=== PATIENT | female | born 1955 | race American Indian/Alaskan Native ===

== ENCOUNTER 2018-09-08 13:10 | Emergency (ER) | payer MEDICARE ==
[2018-09-08 14:24] LABS: Basophils # (Auto) 0.1 K/mm3 (0.0-0.1); Basophils % (Auto) 0.9 % (0.0-1.8); Eosinophils # (Auto) 0.2 K/mm3 (0.0-0.4); Eosinophils % (Auto) 1.7 % (0.0-4.3); Hematocrit 34.2 % (30.3-42.9); Hemoglobin 11.2 gm/dl (10.1-14.3); Lymphocytes # (Auto) 1.9 K/mm3 (1.2-5.4); Lymphocytes % (Auto) 20.9 % (13.4-35.0); Mean Corpuscular HGB Conc 33 % (30-34); Mean Corpuscular Hemoglobin 28 pg (28-32); Mean Corpuscular Volume 86 fl (79-97); Monocytes # (Auto) 0.5 K/mm3 (0.0-0.8); Monocytes % (Auto) 5.1 % (0.0-7.3); Platelet Count 210 K/mm3 (140-440); Red Blood Count 3.97 M/mm3 (3.65-5.03)
[2018-09-08 14:43] LABS: Calcium 9.6 mg/dL (8.4-10.2)
[2018-09-08 15:26] LABS: Bilirubin,Urine NEG (Negative); Blood,Urine SM (Negative); Color,Urine Yellow (Yellow); Urobilinogen,Urine < 2.0 mg/dL (<2.0)
[2018-09-08 15:27] LABS: Protein,Urine >500 mg/dL (Negative)
[2018-09-08 15:34] LABS: Amphetamine Screen,Urine PRESUMPTIVE NEGATIVE; Benzodiazepines Screen,Urine PRESUMPTIVE NEGATIVE; Cannabinoid Screen,Urine PRESUMPTIVE NEGATIVE; Cocaine Screen,Urine PRESUMPTIVE NEGATIVE; Methadone Screen,Urine PRESUMPTIVE NEGATIVE; Opiate Screen,Urine PRESUMPTIVE NEGATIVE
--- NOTE | 2018-09-08 17:48 | Emergency Department Report ---
ED Medical Clearance HPI - General Chief complaint: Psych Stated complaint: EVAL Time Seen by Provider: 09/08/18 17:21 Source: patient, RN notes reviewed, old records reviewed Mode of arrival: Ambulatory Limitations: No Limitations - History of Present Illness Initial comments: This is a pleasant 63-year-old female who is not known to this provider previously, has a past medical history of psychiatric disease, retention, high cholesterol. Presents to the ER with anxiety and depression. She is not homicidal or suicidal. She indicates that she has not tried to overdose, and that she does not have access to guns or firearms. She went to an outpatient psychiatric facility but was referred to the ER for medical clearance. She has chronic back pain which is paralumbar, present for one month, does not radiate anywhere, and increases with palpation and decreases with rest. There is no lower extremity weakness, numbness, bladder/bowel retention or incontinence, there is no saddle anesthesia. The patient endorses compliance with her medications. MD Complaint: medical clearance request -: Gradual Reason for Medical Clearance: psychiatric condition Alledged Intoxication: No Compliant with Home Medications: Yes Traumatic Symptoms: denies traumatic injury Associated Symptoms: other (depression, anxiety, chronic back pain). denies: chest pain, shortness of breath, palpitations, diaphoresis, denies other symptoms, confusion, cough, fever/chills, headaches, anorexia, malaise, nausea/ vomiting, rash, seizure, syncope, weakness Home medications: Home Medications Medication Instructions Recorded Confirmed Last Taken Quetiapine Fumarate [Seroquel] 100 mg PO QHS 07/07/15 07/08/15 Unknown ARIPiprazole [Abilify TAB] 5 mg PO DAILY 07/08/15 07/08/15 Unknown Divalproex ER [Depakote ER] 500 mg PO QHS 07/08/15 07/08/15 Unknown Insulin Aspart Prot/Aspart(Nf) 25 units SQ QHS 07/08/15 07/08/15 Unknown [NovoLOG Mix 70/30 VIAL] Insulin Detemir [Levemir VIAL] 25 unit SQ QHS 07/08/15 07/08/15 Unknown Losartan [Cozaar] 10 mg PO QDAY 07/08/15 07/08/15 Unknown Previous Rx's Medication Instructions Recorded Last Taken Type levoFLOXacin [Levaquin TAB] 750 mg PO QDAY #10 tablet 07/09/15 Unknown Rx Allergies/Adverse reactions: Allergies Allergy/AdvReac Type Severity Reaction Status Date / Time promethazine HCl Allergy Shortness Verified 11/29/15 15:40 [From Phenergan] of Breath ED Review of Systems ROS: Stated complaint: MH EVAL Other details as noted in HPI Constitutional: denies: fever Eyes: denies: eye discharge ENT: denies: epistaxis Respiratory: denies: cough Cardiovascular: denies: chest pain Gastrointestinal: denies: abdominal pain Genitourinary: denies: dysuria Musculoskeletal: back pain Neurological: denies: weakness Psychiatric: anxiety, depression. denies: homicidal thoughts, suicidal thoughts ED Past Medical Hx - Past Medical History Hx Hypertension: Yes Hx Diabetes: Yes Hx Seizures: Yes Hx Psychiatric Treatment: (bipolar-effective,DD,OCD) Additional medical history: CHRONIC BACK PAIN - Surgical History Hx Appendectomy: Yes Additional Surgical History: achilles tendon repair left foot. TMJ. tubal ligation - Social History Smoking Status: Current Every Day Smoker Substance Use Type: None - Medications Home Medications: Home Medications Medication Instructions Recorded Confirmed Last Taken Type Quetiapine Fumarate [Seroquel] 100 mg PO QHS 07/07/15 07/08/15 Unknown History ARIPiprazole [Abilify TAB] 5 mg PO DAILY 07/08/15 07/08/15 Unknown History Divalproex ER [Depakote ER] 500 mg PO QHS 07/08/15 07/08/15 Unknown History Insulin Aspart Prot/Aspart(Nf) 25 units SQ QHS 07/08/15 07/08/15 Unknown History [NovoLOG Mix 70/30 VIAL] Insulin Detemir [Levemir VIAL] 25 unit SQ QHS 07/08/15 07/08/15 Unknown History Losartan [Cozaar] 10 mg PO QDAY 07/08/15 07/08/15 Unknown History levoFLOXacin [Levaquin TAB] 750 mg PO QDAY #10 tablet 07/09/15 Unknown Rx ED Physical Exam - General Limitations: No Limitations General appearance: alert, in no apparent distress - Head Head exam: Present: atraumatic, normocephalic - Eye Eye exam: Present: normal appearance, EOMI. Absent: nystagmus - ENT ENT exam: Present: normal exam, normal orophraynx, mucous membranes moist, normal external ear exam - Neck Neck exam: Present: normal inspection, full ROM. Absent: tenderness, meningismus - Respiratory Respiratory exam: Present: normal lung sounds bilaterally. Absent: respiratory distress - Cardiovascular Cardiovascular Exam: Present: regular rate, normal rhythm, normal heart sounds. Absent: bradycardia, tachycardia, irregular rhythm, systolic murmur, diastolic murmur, rubs, gallop - GI/Abdominal GI/Abdominal exam: Present: soft, normal bowel sounds. Absent: distended, tenderness, guarding, rebound, rigid, pulsatile mass - Extremities Exam Extremities exam: Present: normal inspection, full ROM, normal capillary refill , other (2+ pulses noted in the bilateral upper, lower extremities. Compartments soft. No long bony tenderness. The pelvis is stable.). Absent: tenderness, pedal edema, joint swelling, calf tenderness - Back Exam Back exam: Present: normal inspection, full ROM, paraspinal tenderness. Absent : tenderness, CVA tenderness (R), vertebral tenderness - Neurological Exam Neurological exam: Present: alert, oriented X3, CN II-XII intact, normal gait, other (Extraocular movements intact. Tongue midline. No facial droop. Facial sensation intact to light touch in the V1, V2, V3 distribution bilaterally. 5 and 5 strength in 4 extremities.. Sensation is intact to light touch in 4 extremities.). Absent: motor sensory deficit - Psychiatric Psychiatric exam: Present: anxious. Absent: homicidal ideation, suicidal ideation - Skin Skin exam: Present: warm, dry, intact, normal color. Absent: rash ED Course Vital Signs 09/08/18 09/08/18 13:34 17:13 Temperature 98.5 F 98.1 F Pulse Rate 87 88 Respiratory 16 18 Rate Blood Pressure 170/94 Blood Pressure 157/84 [Right] O2 Sat by Pulse 99 99 Oximetry ED Medical Decision Making - Lab Data Result diagrams: 09/08/18 14:07 09/08/18 13:52 Vital Signs 09/08/18 09/08/18 13:34 17:13 Temperature 98.5 F 98.1 F Pulse Rate 87 88 Respiratory 16 18 Rate Blood Pressure 170/94 Blood Pressure 157/84 [Right] O2 Sat by Pulse 99 99 Oximetry Lab Results 09/08/18 09/08/18 09/08/18 Range/Units 13:44 13:52 13:52 WBC (4.5-11.0) K/mm3 RBC (3.65-5.03) M/mm3 Hgb (10.1-14.3) gm/dl Hct (30.3-42.9) % MCV (79-97) fl MCH (28-32) pg MCHC (30-34) % RDW (13.2-15.2) % Plt Count (140-440) K/mm3 Lymph % (Auto) (13.4-35.0) % [place] % (Auto) (0.0-7.3) % Eos % (Auto) (0.0-4.3) % Baso % (Auto) (0.0-1.8) % Lymph # (1.2-5.4) K/mm3 [place] # (0.0-0.8) K/mm3 Eos # (0.0-0.4) K/mm3 Baso # (0.0-0.1) K/mm3 Seg Neutrophils % (40.0-70.0) % Seg Neutrophils # (1.8-7.7) K/mm3 Sodium 135 L (137-145) mmol/L Potassium 4.9 (3.6-5.0) mmol/L Chloride 101.4 (98-107) mmol/L Carbon Dioxide 23 (22-30) mmol/L Anion Gap 19 mmol/L BUN 31 H (7-17) mg/dL Creatinine 1.5 H (0.7-1.2) mg/dL Estimated GFR 43 ml/min BUN/Creatinine Ratio 21 % Glucose 366 H (65-100) mg/dL Calcium 9.6 (8.4-10.2) mg/dL Total Creatine Kinase (30-135) units/L Urine Color (Yellow) Urine Turbidity (Clear) Urine pH (5.0-7.0) Ur Specific [place] (1.003-1.030) Urine Protein (Negative) mg/dL Urine Glucose (UA) (Negative) mg/dL Urine Ketones (Negative) mg/dL Urine Blood (Negative) Urine Nitrite (Negative) Urine Bilirubin (Negative) Urine Urobilinogen (<2.0) mg/dL Ur Leukocyte Esterase (Negative) Urine WBC (Auto) (0.0-6.0) /HPF Urine RBC (Auto) (0.0-6.0) /HPF U Epithel Cells (Auto) (0-13.0) /HPF Salicylates < 0.3 L (2.8-20.0) mg/dL Urine Opiates Screen Urine Methadone Screen Acetaminophen < 5.0 L (10.0-30.0) ug/mL Ur Barbiturates Screen Valproic Acid (50-100) ug/mL Ur Phencyclidine Scrn Ur Amphetamines Screen U Benzodiazepines Scrn Urine Cocaine Screen U Marijuana (THC) Screen Drugs of Abuse Note Plasma/Serum Alcohol (0-0.07) % 09/08/18 09/08/18 09/08/18 Range/Units 13:52 14:07 15:06 WBC 9.2 (4.5-11.0) K/mm3 RBC 3.97 (3.65-5.03) M/mm3 Hgb 11.2 (10.1-14.3) gm/dl Hct 34.2 (30.3-42.9) % MCV 86 (79-97) fl MCH 28 (28-32) pg MCHC 33 (30-34) % RDW 14.0 (13.2-15.2) % Plt Count 210 (140-440) K/mm3 Lymph % (Auto) 20.9 (13.4-35.0) % [place] % (Auto) 5.1 (0.0-7.3) % Eos % (Auto) 1.7 (0.0-4.3) % Baso % (Auto) 0.9 (0.0-1.8) % Lymph # 1.9 (1.2-5.4) K/mm3 [place] # 0.5 (0.0-0.8) K/mm3 Eos # 0.2 (0.0-0.4) K/mm3 Baso # 0.1 (0.0-0.1) K/mm3 Seg Neutrophils % 71.4 H (40.0-70.0) % Seg Neutrophils # 6.6 (1.8-7.7) K/mm3 Sodium (137-145) mmol/L Potassium (3.6-5.0) mmol/L Chloride (98-107) mmol/L Carbon Dioxide (22-30) mmol/L Anion Gap mmol/L BUN (7-17) mg/dL Creatinine (0.7-1.2) mg/dL Estimated GFR ml/min BUN/Creatinine Ratio % Glucose (65-100) mg/dL Calcium (8.4-10.2) mg/dL Total Creatine Kinase (30-135) units/L Urine Color Yellow (Yellow) Urine Turbidity Clear (Clear) Urine pH 5.0 (5.0-7.0) Ur Specific [place] 1.017 (1.003-1.030) Urine Protein >500 (Negative) mg/dL Urine Glucose (UA) >=500 (Negative) mg/dL Urine Ketones Neg (Negative) mg/dL Urine Blood Sm (Negative) Urine Nitrite Neg (Negative) Urine Bilirubin Neg (Negative) Urine Urobilinogen < 2.0 (<2.0) mg/dL Ur Leukocyte Esterase Neg (Negative) Urine WBC (Auto) 3.0 (0.0-6.0) /HPF Urine RBC (Auto) 6.0 (0.0-6.0) /HPF U Epithel Cells (Auto) < 1.0 (0-13.0) /HPF Salicylates (2.8-20.0) mg/dL Urine Opiates Screen Urine Methadone Screen Acetaminophen (10.0-30.0) ug/mL Ur Barbiturates Screen Valproic Acid (50-100) ug/mL Ur Phencyclidine Scrn Ur Amphetamines Screen U Benzodiazepines Scrn Urine Cocaine Screen U Marijuana (THC) Screen Drugs of Abuse Note Plasma/Serum Alcohol < 0.01 (0-0.07) % 09/08/18 09/08/18 09/08/18 Range/Units 15:06 17:47 17:47 WBC (4.5-11.0) K/mm3 RBC (3.65-5.03) M/mm3 Hgb (10.1-14.3) gm/dl Hct (30.3-42.9) % MCV (79-97) fl MCH (28-32) pg MCHC (30-34) % RDW (13.2-15.2) % Plt Count (140-440) K/mm3 Lymph % (Auto) (13.4-35.0) % [place] % (Auto) (0.0-7.3) % Eos % (Auto) (0.0-4.3) % Baso % (Auto) (0.0-1.8) % Lymph # (1.2-5.4) K/mm3 [place] # (0.0-0.8) K/mm3 Eos # (0.0-0.4) K/mm3 Baso # (0.0-0.1) K/mm3 Seg Neutrophils % (40.0-70.0) % Seg Neutrophils # (1.8-7.7) K/mm3 Sodium (137-145) mmol/L Potassium (3.6-5.0) mmol/L Chloride (98-107) mmol/L Carbon Dioxide (22-30) mmol/L Anion Gap mmol/L BUN (7-17) mg/dL Creatinine (0.7-1.2) mg/dL Estimated GFR ml/min BUN/Creatinine Ratio % Glucose (65-100) mg/dL Calcium (8.4-10.2) mg/dL Total Creatine Kinase 108 (30-135) units/L Urine Color (Yellow) Urine Turbidity (Clear) Urine pH (5.0-7.0) Ur Specific [place] (1.003-1.030) Urine Protein (Negative) mg/dL Urine Glucose (UA) (Negative) mg/dL Urine Ketones (Negative) mg/dL Urine Blood (Negative) Urine Nitrite (Negative) Urine Bilirubin (Negative) Urine Urobilinogen (<2.0) mg/dL Ur Leukocyte Esterase (Negative) Urine WBC (Auto) (0.0-6.0) /HPF Urine RBC (Auto) (0.0-6.0) /HPF U Epithel Cells (Auto) (0-13.0) /HPF Salicylates (2.8-20.0) mg/dL Urine Opiates Screen Presumptive negative Urine Methadone Screen Presumptive negative Acetaminophen (10.0-30.0) ug/mL Ur Barbiturates Screen Presumptive negative Valproic Acid < 2.8 L (50-100) ug/mL Ur Phencyclidine Scrn Presumptive negative Ur Amphetamines Screen Presumptive negative U Benzodiazepines Scrn Presumptive negative Urine Cocaine Screen Presumptive negative U Marijuana (THC) Screen Presumptive negative Drugs of Abuse Note Disclamer Plasma/Serum Alcohol (0-0.07) % - Medical Decision Making Differential diagnosis, including but not limited to: Depression, anxiety, mechanical back pain, medical clearance for psychiatric placement Assessment and plan: 63-year-old female with chronic back pain, walks with a steady gait, no pulsatile abdominal mass, no strength or sensory deficits, history and physical not consistent with AAA, or epidural compression syndrome. She is not homicidal, she is not suicidal, she has a GCS of 15 with an NIH score of 0 and is clinically sober at this time. When questioned about her endorsement of suicidality without a plan, she reports that she was suicidal when she was younger but not today. The patient was seen in conjunction with the crisis team who agreed with myself and patient does not meet 1013 criteria. Patient is interested in voluntary psychiatric hospitalization and at this point in time does not appear to be an immediate medical contraindication to this. Her mild renal insufficiency is appreciated, and she can follow up with an outpatient primary care doctor or skimmer scoop operator for this. ED Disposition Clinical Impression: Medical clearance for psychiatric admission, Renal insufficiency, mild Disposition: DC-01 TO HOME OR SELFCARE Is pt being admited?: No Does the pt Need Aspirin: No Condition: Good Additional Instructions: Please continue current outpatient medications. Avoid consumption of Motrin, ibuprofen, Naprosyn, Aleve. Please note that laboratory studies demonstrated mild kidney/renal insufficiency, as well as elevated blood pressure. Patient should follow-up with a primary care doctor or skimmer scoop operator within the next 2-3 weeks for these aforementioned abnormalities. At this point in time, there does not appear to be an immediate medical contraindication to psychiatric admission, evaluation and consultation. Please return to the ER right away with new, worsening or different symptoms. Referrals: DARRON GRAY MD [Staff Physician] - 3-5 Days [facility] [Provider Group] - 3-5 Days
[2018-09-08 20:51] VITALS: BP 127/57
== END 2018-09-08 20:51 | disposition home or self-care (01) ==
LOC: ED 13:10
DX: N28.9 Disorder of kidney and ureter, unspecified (principal); I10 Essential (primary) hypertension; E11.9 Type 2 diabetes mellitus without complications; F31.9 Bipolar disorder, unspecified; F17.200 Nicotine dependence, unspecified, uncomplicated; E78.00 Pure hypercholesterolemia, unspecified; Z98.51 Tubal ligation status; Z90.49 Acquired absence of other specified parts of digestive tract
CPT/HCPCS: 36415; 80048; 80164; 80307; 81001; 82550; 85025; 99284; G0480; 80320

== ENCOUNTER 2019-07-27 09:19 | Emergency (ER) | payer MEDICARE ==
[2019-07-27 10:24] LABS: Calcium 9.5 mg/dL (8.4-10.2)
[2019-07-27 10:26] LABS: Basophils % (Auto) 0.3 % (0.0-1.8); Eosinophils # (Auto) 0.2 K/mm3 (0.0-0.4); Eosinophils % (Auto) 1.8 % (0.0-4.3); Hematocrit 33.8 % (30.3-42.9); Hemoglobin 10.6 gm/dl (10.1-14.3); Lymphocytes % (Auto) 14.4 % (13.4-35.0); Mean Corpuscular HGB Conc 31 % (30-34); Mean Corpuscular Volume 86 fl (79-97); Monocytes # (Auto) 0.5 K/mm3 (0.0-0.8); Monocytes % (Auto) 3.8 % (0.0-7.3); Platelet Count 260 K/mm3 (140-440); Red Blood Count 3.93 M/mm3 (3.65-5.03); Red Cell Distribution Width 13.7 % (13.2-15.2)
[2019-07-27 10:35] LABS: Bacteria,Urine 1+ /HPF (Negative); Bilirubin,Urine NEG (Negative); Blood,Urine SM (Negative); Color,Urine Yellow (Yellow); Urobilinogen,Urine < 2.0 mg/dL (<2.0)
[2019-07-27 10:36] LABS: WBC,Urine > 182.0 /HPF (0.0-6.0)
[2019-07-27 10:42] LABS: Amphetamine Screen,Urine PRESUMPTIVE NEGATIVE; Benzodiazepines Screen,Urine PRESUMPTIVE NEGATIVE; Cannabinoid Screen,Urine PRESUMPTIVE NEGATIVE; Cocaine Screen,Urine PRESUMPTIVE NEGATIVE; Methadone Screen,Urine PRESUMPTIVE NEGATIVE; Opiate Screen,Urine PRESUMPTIVE NEGATIVE
[2019-07-27] MEDS ORDERED: NACL 0.9% 1000 ML 1,000 ML IV ONE (10:58)
[2019-07-27] MEDS ORDERED: ROCEPHIN/NS 1 GM/50 ML 1 GM/50 ML BAG IV ONE (10:58)
--- NOTE | 2019-07-27 11:02 | Emergency Department Report ---
ED General Adult HPI - General Chief complaint: Medical Clearance Stated complaint: DROWSY Time Seen by Provider: 07/27/19 09:36 Source: patient, EMS Mode of arrival: Stretcher Limitations: No Limitations - History of Present Illness Initial comments: 64-year-old female with a past medical history of diabetes on insulin, hypertension, bipolar disorder, and seizures presents to the hospital from the [facility] [place]. She states that patient is here because she is drowsy. Patient states that she is on Seroquel and that causes her to be drowsy. She states that her Nurse at [facility] was more concerned about her uncontrolled glucose. Glucose has been running in 200 to 300s. Patient takes NovoLog 15 units before breakfast, lunch, and dinner and takes Levemir 8 units at bedtime. Patient does not take any sliding scale insulin doses. She was diagnosed with a UTI and antibiotics were prescribed 5 days ago. Antibodies were just started yesterday. Patient states she was sent to the ER due to the concern of elevated glucose in the setting of urinary tract infection. Patient denies fever, pain, nausea, vomiting, or diarrhea. Severity scale (0 -10): 0 - Related Data Home Medications Medication Instructions Recorded Confirmed Last Taken Quetiapine Fumarate [Seroquel] 100 mg PO QHS 07/07/15 07/08/15 Unknown ARIPiprazole [Abilify TAB] 5 mg PO DAILY 07/08/15 07/08/15 Unknown Divalproex ER [Depakote ER] 500 mg PO QHS 07/08/15 07/08/15 Unknown Insulin Aspart Prot/Aspart(Nf) 25 units SQ QHS 07/08/15 07/08/15 Unknown [NovoLOG Mix 70/30 VIAL] Insulin Detemir [Levemir VIAL] 25 unit SQ QHS 07/08/15 07/08/15 Unknown Losartan [Cozaar] 10 mg PO QDAY 07/08/15 07/08/15 Unknown Previous Rx's Medication Instructions Recorded Last Taken Type levoFLOXacin [Levaquin TAB] 750 mg PO QDAY #10 tablet 07/09/15 Unknown Rx Allergies Allergy/AdvReac Type Severity Reaction Status Date / Time lisinopril Allergy Unknown Verified 07/27/19 09:29 promethazine HCl Allergy Shortness Verified 11/29/15 15:40 [From Phenergan] of Breath ED Review of Systems ROS: Stated complaint: DROWSY Other details as noted in HPI Comment: All other systems reviewed and negative ED Past Medical Hx - Past Medical History Hx Hypertension: Yes Hx Diabetes: Yes Hx Seizures: Yes Hx Psychiatric Treatment: (bipolar-effective,DD,OCD) Additional medical history: CHRONIC BACK PAIN - Surgical History Hx Appendectomy: Yes Additional Surgical History: achilles tendon repair left foot. TMJ. tubal ligation - Social History Smoking Status: Current Every Day Smoker Substance Use Type: None - Medications Home Medications: Home Medications Medication Instructions Recorded Confirmed Last Taken Type Quetiapine Fumarate [Seroquel] 100 mg PO QHS 07/07/15 07/08/15 Unknown History ARIPiprazole [Abilify TAB] 5 mg PO DAILY 07/08/15 07/08/15 Unknown History Divalproex ER [Depakote ER] 500 mg PO QHS 07/08/15 07/08/15 Unknown History Insulin Aspart Prot/Aspart(Nf) 25 units SQ QHS 07/08/15 07/08/15 Unknown History [NovoLOG Mix 70/30 VIAL] Insulin Detemir [Levemir VIAL] 25 unit SQ QHS 07/08/15 07/08/15 Unknown History Losartan [Cozaar] 10 mg PO QDAY 07/08/15 07/08/15 Unknown History levoFLOXacin [Levaquin TAB] 750 mg PO QDAY #10 tablet 07/09/15 Unknown Rx ED Physical Exam - General Limitations: No Limitations - Other Other exam information: Normal: No acute distress Head: Atraumatic Eyes: Normal appearance, pupils equally reactive to light, extraocular movements intact ENT: Moist mucous membranes Neck: Normal appearance, no midline cervical tenderness, no meningismus Chest: Clear to auscultation bilaterally, no wheezes, rales, crackles Cardiovascular: Regular rate and rhythm Abdomen: Soft, nontender, nondistended, no rebound or guarding, normal bowel sounds Back: Normal inspection Extremity: Normal appearance, full range of motion Neuro: Sleeping but easily arousable and oriented 3, speech normal, no gross motor sensory deficit Psych: Appropriate Skin: No rash ED Course Vital Signs 07/27/19 07/27/19 07/27/19 09:25 09:29 13:05 Temperature 98.4 F Pulse Rate 84 70 Respiratory 18 17 Rate Blood Pressure 150/90 166/91 138/56 [Left] O2 Sat by Pulse 99 95 Oximetry ED Medical Decision Making - Lab Data Result diagrams: 07/27/19 09:41 07/27/19 09:41 Lab Results 07/27/19 07/27/19 07/27/19 Range/Units 09:41 09:41 09:41 WBC (4.5-11.0) K/mm3 RBC (3.65-5.03) M/mm3 Hgb (10.1-14.3) gm/dl Hct (30.3-42.9) % MCV (79-97) fl MCH (28-32) pg MCHC (30-34) % RDW (13.2-15.2) % Plt Count (140-440) K/mm3 Lymph % (Auto) (13.4-35.0) % [place] % (Auto) (0.0-7.3) % Eos % (Auto) (0.0-4.3) % Baso % (Auto) (0.0-1.8) % Lymph # (1.2-5.4) K/mm3 [place] # (0.0-0.8) K/mm3 Eos # (0.0-0.4) K/mm3 Baso # (0.0-0.1) K/mm3 Seg Neutrophils % (40.0-70.0) % Seg Neutrophils # (1.8-7.7) K/mm3 Sodium 139 (137-145) mmol/L Potassium 4.5 (3.6-5.0) mmol/L Chloride 102.9 (98-107) mmol/L Carbon Dioxide 29 (22-30) mmol/L Anion Gap 12 mmol/L BUN 46 H (7-17) mg/dL Creatinine 2.5 H (0.7-1.2) mg/dL Estimated GFR 24 ml/min BUN/Creatinine Ratio 18 % Glucose 112 H (65-100) mg/dL POC Glucose (70-105) Calcium 9.5 (8.4-10.2) mg/dL Urine Color (Yellow) Urine Turbidity (Clear) Urine pH (5.0-7.0) Ur Specific [place] (1.003-1.030) Urine Protein (Negative) mg/dL Urine Glucose (UA) (Negative) mg/dL Urine Ketones (Negative) mg/dL Urine Blood (Negative) Urine Nitrite (Negative) Urine Bilirubin (Negative) Urine Urobilinogen (<2.0) mg/dL Ur Leukocyte Esterase (Negative) Urine WBC (Auto) (0.0-6.0) /HPF Urine RBC (Auto) (0.0-6.0) /HPF U Epithel Cells (Auto) (0-13.0) /HPF Urine Bacteria (Auto) (Negative) /HPF Urine WBC Clumps /HPF Salicylates < 0.3 L (2.8-20.0) mg/dL Urine Opiates Screen Urine Methadone Screen Acetaminophen < 5.0 L (10.0-30.0) ug/mL Ur Barbiturates Screen Ur Phencyclidine Scrn Ur Amphetamines Screen U Benzodiazepines Scrn Urine Cocaine Screen U Marijuana (THC) Screen Drugs of Abuse Note Plasma/Serum Alcohol (0-0.07) % 07/27/19 07/27/19 07/27/19 Range/Units 09:41 09:41 10:15 WBC 13.9 H (4.5-11.0) K/mm3 RBC 3.93 (3.65-5.03) M/mm3 Hgb 10.6 (10.1-14.3) gm/dl Hct 33.8 (30.3-42.9) % MCV 86 (79-97) fl MCH 27 L (28-32) pg MCHC 31 (30-34) % RDW 13.7 (13.2-15.2) % Plt Count 260 (140-440) K/mm3 Lymph % (Auto) 14.4 (13.4-35.0) % [place] % (Auto) 3.8 (0.0-7.3) % Eos % (Auto) 1.8 (0.0-4.3) % Baso % (Auto) 0.3 (0.0-1.8) % Lymph # 2.0 (1.2-5.4) K/mm3 [place] # 0.5 (0.0-0.8) K/mm3 Eos # 0.2 (0.0-0.4) K/mm3 Baso # 0.0 (0.0-0.1) K/mm3 Seg Neutrophils % 79.7 H (40.0-70.0) % Seg Neutrophils # 11.1 H (1.8-7.7) K/mm3 Sodium (137-145) mmol/L Potassium (3.6-5.0) mmol/L Chloride (98-107) mmol/L Carbon Dioxide (22-30) mmol/L Anion Gap mmol/L BUN (7-17) mg/dL Creatinine (0.7-1.2) mg/dL Estimated GFR ml/min BUN/Creatinine Ratio % Glucose (65-100) mg/dL POC Glucose (70-105) Calcium (8.4-10.2) mg/dL Urine Color Yellow (Yellow) Urine Turbidity Cloudy (Clear) Urine pH 7.0 (5.0-7.0) Ur Specific [place] 1.007 (1.003-1.030) Urine Protein 100 mg/dl (Negative) mg/dL Urine Glucose (UA) >=500 (Negative) mg/dL Urine Ketones Neg (Negative) mg/dL Urine Blood Sm (Negative) Urine Nitrite Neg (Negative) Urine Bilirubin Neg (Negative) Urine Urobilinogen < 2.0 (<2.0) mg/dL Ur Leukocyte Esterase Lg (Negative) Urine WBC (Auto) > 182.0 H (0.0-6.0) /HPF Urine RBC (Auto) 83.0 (0.0-6.0) /HPF U Epithel Cells (Auto) 1.0 (0-13.0) /HPF Urine Bacteria (Auto) 1+ (Negative) /HPF Urine WBC Clumps 3+ /HPF Salicylates (2.8-20.0) mg/dL Urine Opiates Screen Urine Methadone Screen Acetaminophen (10.0-30.0) ug/mL Ur Barbiturates Screen Ur Phencyclidine Scrn Ur Amphetamines Screen U Benzodiazepines Scrn Urine Cocaine Screen U Marijuana (THC) Screen Drugs of Abuse Note Plasma/Serum Alcohol < 0.01 (0-0.07) % 07/27/19 07/27/19 07/27/19 Range/Units 10:15 13:07 13:40 WBC (4.5-11.0) K/mm3 RBC (3.65-5.03) M/mm3 Hgb (10.1-14.3) gm/dl Hct (30.3-42.9) % MCV (79-97) fl MCH (28-32) pg MCHC (30-34) % RDW (13.2-15.2) % Plt Count (140-440) K/mm3 Lymph % (Auto) (13.4-35.0) % [place] % (Auto) (0.0-7.3) % Eos % (Auto) (0.0-4.3) % Baso % (Auto) (0.0-1.8) % Lymph # (1.2-5.4) K/mm3 [place] # (0.0-0.8) K/mm3 Eos # (0.0-0.4) K/mm3 Baso # (0.0-0.1) K/mm3 Seg Neutrophils % (40.0-70.0) % Seg Neutrophils # (1.8-7.7) K/mm3 Sodium (137-145) mmol/L Potassium (3.6-5.0) mmol/L Chloride (98-107) mmol/L Carbon Dioxide (22-30) mmol/L Anion Gap mmol/L BUN (7-17) mg/dL Creatinine (0.7-1.2) mg/dL Estimated GFR ml/min BUN/Creatinine Ratio % Glucose (65-100) mg/dL POC Glucose 44 L 86 (70-105) Calcium (8.4-10.2) mg/dL Urine Color (Yellow) Urine Turbidity (Clear) Urine pH (5.0-7.0) Ur Specific [place] (1.003-1.030) Urine Protein (Negative) mg/dL Urine Glucose (UA) (Negative) mg/dL Urine Ketones (Negative) mg/dL Urine Blood (Negative) Urine Nitrite (Negative) Urine Bilirubin (Negative) Urine Urobilinogen (<2.0) mg/dL Ur Leukocyte Esterase (Negative) Urine WBC (Auto) (0.0-6.0) /HPF Urine RBC (Auto) (0.0-6.0) /HPF U Epithel Cells (Auto) (0-13.0) /HPF Urine Bacteria (Auto) (Negative) /HPF Urine WBC Clumps /HPF Salicylates (2.8-20.0) mg/dL Urine Opiates Screen Presumptive negative Urine Methadone Screen Presumptive negative Acetaminophen (10.0-30.0) ug/mL Ur Barbiturates Screen Presumptive negative Ur Phencyclidine Scrn Presumptive negative Ur Amphetamines Screen Presumptive negative U Benzodiazepines Scrn Presumptive negative Urine Cocaine Screen Presumptive negative U Marijuana (THC) Screen Presumptive negative Drugs of Abuse Note Disclamer Plasma/Serum Alcohol (0-0.07) % - Medical Decision Making pt with mild worsening renal insufficiency without gap acidosis or hyperkalemia. Appears to be acute on chronic. Patient states that 2016 showed renal insufficiency with his blocker and cutter contact lens and improved. She has not had a kidney function checked in several years. Patient's glucose trended downward gradually during ED stay to the point of needing food to eat. Glucose improved with by mouth intake. Patient received 1 L of normal saline as well as IV Rocephin for UTI. Pt now has her abx with delay in initiation of treatment. Plan to discharge patient home with continued antibiotic treatment and nephrology and PMD follow-up. - Differential Diagnosis DKA, sepsis, UTI, medication reaction Critical Care Time: No Critical care attestation.: If time is entered above; I have spent that time in minutes in the direct care of this critically ill patient, excluding procedure time. ED Disposition Clinical Impression: UTI (urinary tract infection), Renal insufficiency, Diabetes Disposition: TO HOME OR SELFCARE Is pt being admited?: No Does the pt Need Aspirin: No Condition: Stable Instructions: Diabetes Mellitus Type 2 in Adults (ED), Urinary Tract Infection in Women (ED), Impaired Kidney Function (ED) Additional Instructions: Take your current antibiotic as prescribed. Follow-up with your doctor or the clinic/doctor provided. Return if symptoms worsen. Is very important that you follow up with a blocker and cutter contact lens and primary care doctor for further monitoring of the kidney function. Take the results of your labs to your doctor for follow- up. Referrals: GINA CORTÉS MD [Primary Care Provider] - 3-5 Days [facility] [Provider Group] - 3-5 Days DARRON GRAY MD [Staff Physician] - 3-5 Days Time of Disposition: 14:37
[2019-07-27 13:06] VITALS: BP 138/56
== END 2019-07-27 16:20 | disposition home or self-care (01) ==
LOC: ED 09:19
DX: E11.9 Type 2 diabetes mellitus without complications (principal); N39.0 Urinary tract infection, site not specified; N28.9 Disorder of kidney and ureter, unspecified; G89.29 Other chronic pain; I10 Essential (primary) hypertension; F17.200 Nicotine dependence, unspecified, uncomplicated; Z90.89 Acquired absence of other organs; Z98.51 Tubal ligation status; Z88.8 Allergy status to other drugs, medicaments and biological substances; Z79.4 Long term (current) use of insulin
CPT/HCPCS: 36415; 80048; 80307; 81001; 82962; 85025; 96365; 99284; J0696; J7030; 80320; G0480

== ENCOUNTER 2019-10-12 13:56 | Emergency (ER) | payer MEDICARE ==
--- NOTE | 2019-10-12 14:30 | Event Note ---
ED Screening Note Date of service: 10/12/19 Time: 14:25 ED Screening Note: 64 y o female with PMH of HTN and DM sent in for medical clearance for elevate dBlood glucose and pressure Pt was brought in by her companion caregiver at a transitional home for medical clearance states she takes levemir and novolog for her dm last FS at home- 320 This initial assessment/diagnostic orders/clinical plan/treatment(s) is/are subject to change based on patients health status, clinical progression and re-assessment by fellow clinical providers in the ED. Further treatment and workup at subsequent clinical providers discretion. Patient/guardian urged not to elope from the ED as their condition may be serious if not clinically assessed and managed. Initial orders include: FS labs ua
[2019-10-12 15:13] LABS: Bacteria,Urine 2+ /HPF (Negative); Bilirubin,Urine NEG (Negative); Blood,Urine SM (Negative); Color,Urine Yellow (Yellow); Hyaline Casts,Urine 2 /LPF; Mucus,Urine FEW /HPF; Urobilinogen,Urine < 2.0 mg/dL (<2.0)
[2019-10-12 15:19] LABS: Protein,Urine >500 mg/dL (Negative)
[2019-10-12 15:27] LABS: Amphetamine Screen,Urine PRESUMPTIVE NEGATIVE; Benzodiazepines Screen,Urine PRESUMPTIVE NEGATIVE; Cannabinoid Screen,Urine PRESUMPTIVE NEGATIVE; Cocaine Screen,Urine PRESUMPTIVE NEGATIVE; Methadone Screen,Urine PRESUMPTIVE NEGATIVE; Opiate Screen,Urine PRESUMPTIVE NEGATIVE
[2019-10-12 15:43] LABS: Basophils # (Auto) 0.1 K/mm3 (0.0-0.1); Basophils % (Auto) 0.7 % (0.0-1.8); Eosinophils # (Auto) 0.2 K/mm3 (0.0-0.4); Eosinophils % (Auto) 1.5 % (0.0-4.3); Hematocrit 30.3 % (30.3-42.9); Hemoglobin 10.2 gm/dl (10.1-14.3); Lymphocytes # (Auto) 2.1 K/mm3 (1.2-5.4); Lymphocytes % (Auto) 20.6 % (13.4-35.0); Mean Corpuscular HGB Conc 34 % (30-34); Mean Corpuscular Volume 84 fl (79-97); Monocytes # (Auto) 0.8 K/mm3 (0.0-0.8); Monocytes % (Auto) 7.5 % (0.0-7.3); Platelet Count 262 K/mm3 (140-440); Red Blood Count 3.59 M/mm3 (3.65-5.03); Red Cell Distribution Width 13.7 % (13.2-15.2)
[2019-10-12 15:49] LABS: Calcium 8.7 mg/dL (8.4-10.2)
[2019-10-12] MEDS ORDERED: NITROFURANTOIN MONOHYD/M-CRYST 100 MG CAP PO ONE (16:08)
--- NOTE | 2019-10-12 16:13 | Emergency Department Report ---
ED General Adult HPI - General Chief complaint: Medical Clearance Stated complaint: HBP/GLUCOSE/MH EVAL Time Seen by Provider: 10/12/19 15:58 Source: patient Mode of arrival: Ambulatory Limitations: No Limitations - History of Present Illness Initial comments: 64-year-old female with a past medical history diabetes, hypertension, bipolar disorder, seizures, and chronic back pain presents from [facility] with elevated blood pressure elevated glucose for ER stabilization to be placed back into mental health treatment as per triage. Patient states that she is discharged from the psychiatric hospital and is currently and planning to have her care professional pick her up. Pt does not have any complaints. Spoke to assembler tester Harper [phone]. She states pt has been in her tansional home 1.5 month. She has violent outburts x 2 weeks. She is verbally threatning other residents. care professional has been trying to have her meds adjusted and ad mission to psych facility. She was sent home by [facility] earlier this week. Tues went to [place] placed into [facility] yesterday. Today her blood pressure and glucose are elevated so She was sent to the Er for treatment. - Related Data Home Medications Medication Instructions Recorded Confirmed Last Taken Quetiapine Fumarate [Seroquel] 100 mg PO QHS 07/07/15 08/01/19 Unknown ARIPiprazole [Abilify TAB] 5 mg PO DAILY 07/08/15 08/01/19 Unknown Divalproex ER [Depakote ER] 500 mg PO QHS 07/08/15 08/01/19 Unknown Insulin Aspart Prot/Aspart(Nf) 25 units SQ QHS 07/08/15 08/01/19 Unknown [NovoLOG Mix 70/30 VIAL] Insulin Detemir [Levemir VIAL] 25 unit SQ QHS 07/08/15 08/01/19 Unknown Previous Rx's Medication Instructions Recorded Last Taken Type amLODIPine 10 mg PO QDAY #30 tablet 08/02/19 Unknown Rx carvediloL [Coreg] 6.25 mg PO BID #60 tablet 08/02/19 Unknown Rx Nitrofurantoin [place]/M-Cryst 100 mg PO Q12HR #10 capsule 10/12/19 Unknown Rx [Macrobid CAP] Allergies Allergy/AdvReac Type Severity Reaction Status Date / Time lisinopril Allergy Unknown Verified 07/27/19 09:29 promethazine HCl Allergy Shortness Verified 11/29/15 15:40 [From Phenergan] of Breath ED Review of Systems ROS: Stated complaint: HBP/GLUCOSE/MH EVAL Other details as noted in HPI Comment: All other systems reviewed and negative ED Past Medical Hx - Past Medical History Previous Medical History?: Yes Hx Hypertension: Yes Hx Diabetes: Yes Hx Seizures: Yes Hx Psychiatric Treatment: Yes (bipolar-effective,DD,OCD) Additional medical history: CHRONIC BACK PAIN. Bipolar/disassociative disorder - Surgical History Past Surgical History?: Yes Hx Appendectomy: Yes Additional Surgical History: achilles tendon repair left foot. TMJ. tubal ligation - Social History Smoking Status: Never Smoker Substance Use Type: None - Medications Home Medications: Home Medications Medication Instructions Recorded Confirmed Last Taken Type Quetiapine Fumarate [Seroquel] 100 mg PO QHS 07/07/15 08/01/19 Unknown History ARIPiprazole [Abilify TAB] 5 mg PO DAILY 07/08/15 08/01/19 Unknown History Divalproex ER [Depakote ER] 500 mg PO QHS 07/08/15 08/01/19 Unknown History Insulin Aspart Prot/Aspart(Nf) 25 units SQ QHS 07/08/15 08/01/19 Unknown History [NovoLOG Mix 70/30 VIAL] Insulin Detemir [Levemir VIAL] 25 unit SQ QHS 07/08/15 08/01/19 Unknown History amLODIPine 10 mg PO QDAY #30 tablet 08/02/19 Unknown Rx carvediloL [Coreg] 6.25 mg PO BID #60 tablet 08/02/19 Unknown Rx Nitrofurantoin [place]/M-Cryst 100 mg PO Q12HR #10 capsule 10/12/19 Unknown Rx [Macrobid CAP] ED Physical Exam - General Limitations: No Limitations - Other Other exam information: General: No acute distress Head: Atraumatic Eyes: normal appearance ENT: Moist mucous membranes Neck: Normal appearance, no midline tenderness Chest: Clear to auscultation bilaterally CV: Regular rate and rhythm Abdomen: Soft, normal bowel sounds, nontender, nondistended, no rebound or guarding Back: Normal inspection Extremity: Normal inspection infection, full range of motion Neuro: Alert O x 3, no facial asymmetry, speech clear, no gross motor sensory deficit Psych: Appropriate behavior Skin: No rash ED Course Vital Signs 10/12/19 14:24 Temperature 99 F Pulse Rate 95 H Respiratory 18 Rate Blood Pressure 143/77 O2 Sat by Pulse 98 Oximetry - Consultations Consultation #1: 10/12/19 16:40 mental health called 10/12/19 17:10 pt going back to [facility] program as per bicycle fitter ED Medical Decision Making - Lab Data Result diagrams: 10/12/19 15:05 10/12/19 15:05 Lab Results 10/12/19 10/12/19 10/12/19 Range/Units 14:45 14:57 15:05 WBC 10.2 (4.5-11.0) K/mm3 RBC 3.59 L (3.65-5.03) M/mm3 Hgb 10.2 (10.1-14.3) gm/dl Hct 30.3 (30.3-42.9) % MCV 84 (79-97) fl MCH 28 (28-32) pg MCHC 34 (30-34) % RDW 13.7 (13.2-15.2) % Plt Count 262 (140-440) K/mm3 Lymph % (Auto) 20.6 (13.4-35.0) % [place] % (Auto) 7.5 H (0.0-7.3) % Eos % (Auto) 1.5 (0.0-4.3) % Baso % (Auto) 0.7 (0.0-1.8) % Lymph # 2.1 (1.2-5.4) K/mm3 [place] # 0.8 (0.0-0.8) K/mm3 Eos # 0.2 (0.0-0.4) K/mm3 Baso # 0.1 (0.0-0.1) K/mm3 Seg Neutrophils % 69.7 (40.0-70.0) % Seg Neutrophils # 7.1 (1.8-7.7) K/mm3 Sodium (137-145) mmol/L Potassium (3.6-5.0) mmol/L Chloride (98-107) mmol/L Carbon Dioxide (22-30) mmol/L Anion Gap mmol/L BUN (7-17) mg/dL Creatinine (0.7-1.2) mg/dL Estimated GFR ml/min BUN/Creatinine Ratio % Glucose (65-100) mg/dL POC Glucose 130 H (70-105) Calcium (8.4-10.2) mg/dL Urine Color Yellow (Yellow) Urine Turbidity Cloudy (Clear) Urine pH 5.0 (5.0-7.0) Ur Specific [place] 1.018 (1.003-1.030) Urine Protein >500 (Negative) mg/dL Urine Glucose (UA) >=500 (Negative) mg/dL Urine Ketones Neg (Negative) mg/dL Urine Blood Sm (Negative) Urine Nitrite Neg (Negative) Urine Bilirubin Neg (Negative) Urine Urobilinogen < 2.0 (<2.0) mg/dL Ur Leukocyte Esterase Sm (Negative) Urine WBC (Auto) 11.0 H (0.0-6.0) /HPF Urine RBC (Auto) 10.0 (0.0-6.0) /HPF U Epithel Cells (Auto) 4.0 (0-13.0) /HPF Urine Bacteria (Auto) 2+ (Negative) /HPF Hyaline Casts 2 /LPF Urine Mucus Few /HPF Urine Yeast (Budding) 1+ /HPF Urine Opiates Screen Urine Methadone Screen Ur Barbiturates Screen Ur Phencyclidine Scrn Ur Amphetamines Screen U Benzodiazepines Scrn Urine Cocaine Screen U Marijuana (THC) Screen Drugs of Abuse Note Plasma/Serum Alcohol (0-0.07) % 10/12/19 10/12/19 10/12/19 Range/Units 15:05 15:05 Unknown WBC (4.5-11.0) K/mm3 RBC (3.65-5.03) M/mm3 Hgb (10.1-14.3) gm/dl Hct (30.3-42.9) % MCV (79-97) fl MCH (28-32) pg MCHC (30-34) % RDW (13.2-15.2) % Plt Count (140-440) K/mm3 Lymph % (Auto) (13.4-35.0) % [place] % (Auto) (0.0-7.3) % Eos % (Auto) (0.0-4.3) % Baso % (Auto) (0.0-1.8) % Lymph # (1.2-5.4) K/mm3 [place] # (0.0-0.8) K/mm3 Eos # (0.0-0.4) K/mm3 Baso # (0.0-0.1) K/mm3 Seg Neutrophils % (40.0-70.0) % Seg Neutrophils # (1.8-7.7) K/mm3 Sodium 139 (137-145) mmol/L Potassium 4.6 (3.6-5.0) mmol/L Chloride 103.8 (98-107) mmol/L Carbon Dioxide 23 (22-30) mmol/L Anion Gap 17 mmol/L BUN 31 H (7-17) mg/dL Creatinine 2.2 H (0.7-1.2) mg/dL Estimated GFR 27 ml/min BUN/Creatinine Ratio 14 % Glucose 119 H (65-100) mg/dL POC Glucose (70-105) Calcium 8.7 (8.4-10.2) mg/dL Urine Color (Yellow) Urine Turbidity (Clear) Urine pH (5.0-7.0) Ur Specific [place] (1.003-1.030) Urine Protein (Negative) mg/dL Urine Glucose (UA) (Negative) mg/dL Urine Ketones (Negative) mg/dL Urine Blood (Negative) Urine Nitrite (Negative) Urine Bilirubin (Negative) Urine Urobilinogen (<2.0) mg/dL Ur Leukocyte Esterase (Negative) Urine WBC (Auto) (0.0-6.0) /HPF Urine RBC (Auto) (0.0-6.0) /HPF U Epithel Cells (Auto) (0-13.0) /HPF Urine Bacteria (Auto) (Negative) /HPF Hyaline Casts /LPF Urine Mucus /HPF Urine Yeast (Budding) /HPF Urine Opiates Screen Presumptive negative Urine Methadone Screen Presumptive negative Ur Barbiturates Screen Presumptive negative Ur Phencyclidine Scrn Presumptive negative Ur Amphetamines Screen Presumptive negative U Benzodiazepines Scrn Presumptive negative Urine Cocaine Screen Presumptive negative U Marijuana (THC) Screen Presumptive negative Drugs of Abuse Note Disclamer Plasma/Serum Alcohol < 0.01 (0-0.07) % - Medical Decision Making pt asymptomatic in ed. creatinine stable bp and glucose normal in ED without treatment. plan to d/c back to [facility] program. - Differential Diagnosis hyperglycemia, uncontrolled hypertension, hypertensive emergency Critical Care Time: No Critical care attestation.: If time is entered above; I have spent that time in minutes in the direct care of this critically ill patient, excluding procedure time. ED Disposition Clinical Impression: Diabetes, Chronic kidney disease (CKD), Acute urinary tract infection, Chronic hypertension, Medical clearance for psychiatric admission Disposition: [id number]/[id number] PSY HOSP/PSY UNIT Is pt being admited?: No Condition: Stable Instructions: Urinary Tract Infection in Women (ED), Diabetes Mellitus Type 2 in Adults (ED), Hypertension (ED) Additional Instructions: Continue your medications as prescribed. Follow-up with your doctor or doctor/clinic provided. Return to [facility] program upon discharge. Return if symptoms worsen as indicated by your discharge instructions. Prescriptions: Nitrofurantoin [place]/M-Cryst [Macrobid CAP] 100 mg PO Q12HR #10 capsule Referrals: PRIMARY CARE, [Primary Care Provider] - 3-5 Days Time of Disposition: 17:19 (transfer to [facility])
[2019-10-12 18:22] VITALS: BP 153/71
== END 2019-10-13 09:05 | disposition home or self-care (01) ==
LOC: ED 13:56
DX: N39.0 Urinary tract infection, site not specified (principal); E11.22 Type 2 diabetes mellitus with diabetic chronic kidney disease; I12.9 Hypertensive chronic kidney disease with stage 1 through stage 4 chronic kidney disease, or unspecified chronic kidney disease; N18.9 Chronic kidney disease, unspecified; F42.9 Obsessive-compulsive disorder, unspecified; F31.9 Bipolar disorder, unspecified; G89.29 Other chronic pain; Z79.4 Long term (current) use of insulin; Z90.89 Acquired absence of other organs; Z79.899 Other long term (current) drug therapy; Z98.890 Other specified postprocedural states; Z88.8 Allergy status to other drugs, medicaments and biological substances
CPT/HCPCS: 36415; 80048; 80307; 80320; 81001; 82962; 85025; 87086; G0480

== ENCOUNTER 2019-10-27 06:43 | Inpatient (IN) | payer MEDICARE ==
[2019-10-27] MEDS ORDERED: FUROSEMIDE 40 MG/4 ML INJ IV ONE (06:54)
[2019-10-27] MEDS ORDERED: NITROGLYCERIN 0.4 MG TAB SUBL SL ONE ×3 (06:56→06:57)
[2019-10-27] MEDS ORDERED: FUROSEMIDE 20 MG/2 ML INJ ONE (06:57)
[2019-10-27] MEDS ORDERED: ONDANSETRON 4 MG/2 ML INJ ONE (06:57)
--- NOTE | 2019-10-27 07:02 | Emergency Department Report ---
ED Shortness of Breath HPI - General Stated Complaint: ERICA Time Seen by Provider: 10/27/19 06:54 - History of Present Illness Initial Comments: Patient is 64 years old female with history of COPD and CHF. Patient brought to the emergency room via EMS from a [facility] for shortness of breath and difficulty in breathing. EMS stated that patient isn't really tachypneic with an oxygen saturation of 82%. Patient given Solu-Medrol 125 mg and albuterol by EMS with no significant improvement. In the emergency room patient is alert, oriented 3. Patient is tachypneic and with significant dyspnea with an oxygen saturation of 84%. Patient immediately started on BiPAP, given Lasix 60 mg IV and nitroglycerin 0.4 sublingual. MD Complaint: shortness of breath - Related Data Home Medications Medication Instructions Recorded Confirmed Last Taken Quetiapine Fumarate [Seroquel] 100 mg PO QHS 07/07/15 08/01/19 Unknown ARIPiprazole [Abilify TAB] 5 mg PO DAILY 07/08/15 08/01/19 Unknown Divalproex ER [Depakote ER] 500 mg PO QHS 07/08/15 08/01/19 Unknown Insulin Aspart Prot/Aspart(Nf) 25 units SQ QHS 07/08/15 08/01/19 Unknown [NovoLOG Mix 70/30 VIAL] Insulin Detemir [Levemir VIAL] 25 unit SQ QHS 07/08/15 08/01/19 Unknown Previous Rx's Medication Instructions Recorded Last Taken Type amLODIPine 10 mg PO QDAY #30 tablet 08/02/19 Unknown Rx carvediloL [Coreg] 6.25 mg PO BID #60 tablet 08/02/19 Unknown Rx Nitrofurantoin Yates/M-Cryst 100 mg PO Q12HR #10 capsule 10/12/19 Unknown Rx [Macrobid CAP] Allergies Allergy/AdvReac Type Severity Reaction Status Date / Time lisinopril Allergy Unknown Verified 07/27/19 09:29 promethazine HCl Allergy Shortness Verified 11/29/15 15:40 [From Phenergan] of Breath ED Review of Systems ROS: Stated complaint: ERICA Other details as noted in HPI Comment: All other systems reviewed and negative Constitutional: denies: chills, fever Respiratory: cough, orthopnea, shortness of breath, SOB with exertion, SOB at rest. denies: stridor, wheezing Cardiovascular: denies: chest pain, palpitations Gastrointestinal: denies: abdominal pain, nausea, vomiting Musculoskeletal: denies: back pain Neurological: denies: headache, weakness, numbness, paresthesias, confusion, abnormal gait, vertigo ED Past Medical Hx - Past Medical History Hx Hypertension: Yes Hx Diabetes: Yes Hx Seizures: Yes Hx Psychiatric Treatment: Yes (bipolar-effective,DD,OCD) Additional medical history: CHRONIC BACK PAIN. Bipolar/disassociative disorder - Surgical History Hx Appendectomy: Yes Additional Surgical History: achilles tendon repair left foot. TMJ. tubal ligation - Social History Smoking Status: Never Smoker Substance Use Type: None - Medications Home Medications: Home Medications Medication Instructions Recorded Confirmed Last Taken Type Quetiapine Fumarate [Seroquel] 100 mg PO QHS 07/07/15 08/01/19 Unknown History ARIPiprazole [Abilify TAB] 5 mg PO DAILY 07/08/15 08/01/19 Unknown History Divalproex ER [Depakote ER] 500 mg PO QHS 07/08/15 08/01/19 Unknown History Insulin Aspart Prot/Aspart(Nf) 25 units SQ QHS 07/08/15 08/01/19 Unknown History [NovoLOG Mix 70/30 VIAL] Insulin Detemir [Levemir VIAL] 25 unit SQ QHS 07/08/15 08/01/19 Unknown History amLODIPine 10 mg PO QDAY #30 tablet 08/02/19 Unknown Rx carvediloL [Coreg] 6.25 mg PO BID #60 tablet 08/02/19 Unknown Rx Nitrofurantoin Yates/M-Cryst 100 mg PO Q12HR #10 capsule 10/12/19 Unknown Rx [Macrobid CAP] ED Physical Exam - General General appearance: alert, in distress - Head Head exam: Present: atraumatic, normocephalic, normal inspection - Eye Eye exam: Present: normal appearance - ENT ENT exam: Present: normal exam, normal orophraynx, mucous membranes moist - Neck Neck exam: Present: normal inspection, full ROM. Absent: tenderness, meningismus, lymphadenopathy, thyromegaly - Respiratory Respiratory exam: Present: respiratory distress, rales, rhonchi, decreased breath sounds. Absent: wheezes, stridor, chest wall tenderness, accessory muscle use, prolonged expiratory - Cardiovascular Cardiovascular Exam: Present: regular rate, normal rhythm, normal heart sounds, gallop - GI/Abdominal GI/Abdominal exam: Present: soft, normal bowel sounds. Absent: distended, tenderness, guarding, rebound, rigid, organomegaly, mass, bruit, pulsatile mass, hernia - Extremities Exam Extremities exam: Present: normal inspection, normal capillary refill, pedal edema. Absent: tenderness, calf tenderness - Back Exam Back exam: Present: normal inspection, full ROM. Absent: CVA tenderness (R), CVA tenderness (L), muscle spasm - Neurological Exam Neurological exam: Present: alert, oriented X3, CN II-XII intact, reflexes normal - Psychiatric Psychiatric exam: Present: normal mood - Skin Skin exam: Present: warm, intact, normal color ED Course Vital Signs 10/27/19 10/27/19 10/27/19 06:54 07:00 07:04 Temperature Pulse Rate 102 H 102 H 97 H Respiratory 22 Rate Blood Pressure 258/134 233/139 Blood Pressure 258/134 [Right] O2 Sat by Pulse 94 Oximetry 10/27/19 10/27/19 07:56 08:00 Temperature 97.5 F L Pulse Rate 99 H 88 Respiratory 20 16 Rate Blood Pressure 217/119 Blood Pressure 228/128 [Right] O2 Sat by Pulse 100 Oximetry ED Medical Decision Making - Lab Data Result diagrams: 10/27/19 07:03 10/27/19 07:03 - EKG Data -: EKG Interpreted by Wy EKG shows normal: sinus rhythm Rate: normal - EKG Data Interpretation: no acute changes - Radiology Data Radiology results: report reviewed - Medical Decision Making Patient is 64 years old female with history of COPD and CHF. Patient brought to the emergency room via EMS from a [facility] for shortness of breath and difficulty in breathing. EMS stated that patient isn't really tachypneic with an oxygen saturation of 82%. Patient given Solu-Medrol 125 mg and albuterol by EMS with no significant improvement. In the emergency room patient is alert, oriented 3. Patient is tachypneic and with significant dyspnea with an oxygen saturation of 84%. Patient immediately started on BiPAP, given Lasix 60 mg IV and nitroglycerin 0.4 sublingual. Patient found to be in a CHF exacerbation. Patient improved with BiPAP and the above mentioned measurement. Patient blood pressure improved with a nitroglycerin drip. I discussed the patient with Dr. Cunningham, he advised to admit the patient to Dr. Naqvi. Critical Care Time: Yes Critical care time in (mins) excluding proc time.: 30 Critical care attestation.: If time is entered above; I have spent that time in minutes in the direct care of this critically ill patient, excluding procedure time. ED Disposition Clinical Impression: CHF exacerbation, Acute respiratory failure, Pneumonia, Hyperglycemia Disposition: OP ADMIT IP TO THIS HOSP Is pt being admited?: Yes Condition: Stable Instructions: Bacterial Pneumonia (ED)
[2019-10-27 07:33] LABS: Basophils # (Auto) 0.1 K/mm3 (0.0-0.1); Basophils % (Auto) 0.6 % (0.0-1.8); Eosinophils # (Auto) 0.3 K/mm3 (0.0-0.4); Eosinophils % (Auto) 2.1 % (0.0-4.3); Hematocrit 35.1 % (30.3-42.9); Hemoglobin 10.7 gm/dl (10.1-14.3); Lymphocytes # (Auto) 3.2 K/mm3 (1.2-5.4); Lymphocytes % (Auto) 19.3 % (13.4-35.0); Mean Corpuscular HGB Conc 31 % (30-34); Mean Corpuscular Volume 87 fl (79-97); Monocytes # (Auto) 0.6 K/mm3 (0.0-0.8); Monocytes % (Auto) 3.9 % (0.0-7.3); Platelet Count 294 K/mm3 (140-440); Red Blood Count 4.05 M/mm3 (3.65-5.03); Red Cell Distribution Width 13.9 % (13.2-15.2)
[2019-10-27 07:40] LABS: INR 1.02 (0.87-1.13)
[2019-10-27 07:41] LABS: Partial Thromboplastin Time 28.6 Sec. (24.2-36.6)
[2019-10-27 07:57] LABS: Calcium 8.6 mg/dL (8.4-10.2)
[2019-10-27 08:00] LABS: Alanine Aminotransferase 41 units/L (7-56); Albumin 3.5 g/dL (3.9-5); Bilirubin,Direct < 0.2 mg/dL (0-0.2)
[2019-10-27] MEDS ORDERED: NITROGLYCERIN DRIP 50 MG/250 ML BOTTLE IV SCH (08:00)
[2019-10-27] MEDS ORDERED: NITROGLYCERIN DRIP 50 MG/250 ML BOTTLE ONE (08:21)
[2019-10-27 08:26] LABS: Bacteria,Urine 1+ /HPF (Negative); Bilirubin,Urine NEG (Negative); Blood,Urine SM (Negative); Color,Urine Straw (Yellow); Urobilinogen,Urine < 2.0 mg/dL (<2.0)
[2019-10-27] MEDS ORDERED: INSULIN REGULAR, HUMAN 100 UNITS/1 ML IV ONE (08:41)
[2019-10-27] MEDS ORDERED: PIPERACILLIN/TAZOBACTAM 3.375 3.375 GM/50 ML BAG IV ONE (08:42)
--- NOTE | 2019-10-27 08:43 | XRay Report ---
CHEST 1 VIEW INDICATION: Dyspnea. COMPARISON: 07/31/2019 FINDINGS: Support devices: None. Heart: Stable mild cardiomegaly. Lungs/Pleura: Mild pulmonary venous congestion and trace left pleural effusion have developed. No inf iltrate or pneumothorax. Additional findings: None. IMPRESSION: Mild CHF. Signer Name: Giles Castellano Jr, MD Signed: 10/27/2019 8:39 AM Workstation Name: [id number]
[2019-10-27] MEDS ORDERED: niCARdipine 50 MG in SODIUM CHLORIDE 0.9% 250ML 230 ML IV SCH (15:00)
[2019-10-27] MEDS ORDERED: ACETAMINOPHEN 325 MG TAB PO PRN ×2 (15:07→17:50)
--- NOTE | 2019-10-27 16:15 | Consultation ---
History of Present Illness - Reason for Consult Consult date: 10/27/19 Hypertensive Urgency Requesting physician: TAMMI RICO - History of Present Illness 64 y/o female admitted with hypertensive Urgency. Presented with 2 days of shortness of breath and was found to be hypertensive and hypoxic. Required bipap briefly and was started on nitro but this did not help BP. Transitioned to ICU for further care. Past History Past Medical History: diabetes, seizures, other (CHF, HTN, BIpolar, ) Past Surgical History: No surgical history Social history: no significant social history Family history: no significant family history Medications and Allergies Allergies Allergy/AdvReac Type Severity Reaction Status Date / Time lisinopril Allergy Unknown Verified 07/27/19 09:29 promethazine HCl Allergy Shortness Verified 11/29/15 15:40 [From Phenergan] of Breath Home Medications Medication Instructions Recorded Confirmed Last Taken Type Quetiapine Fumarate [Seroquel] 100 mg PO QHS 07/07/15 10/27/19 Unknown History ARIPiprazole [Abilify TAB] 5 mg PO DAILY 07/08/15 10/27/19 Unknown History Divalproex ER [Depakote ER] 500 mg PO QHS 07/08/15 10/27/19 Unknown History Insulin Aspart Prot/Aspart(Nf) 25 units SQ QHS 07/08/15 10/27/19 Unknown History [NovoLOG Mix 70/30 VIAL] Insulin Detemir [Levemir VIAL] 25 unit SQ QHS 07/08/15 10/27/19 Unknown History amLODIPine 10 mg PO QDAY #30 tablet 08/02/19 10/27/19 Unknown Rx carvediloL [Coreg] 6.25 mg PO BID #60 tablet 08/02/19 10/27/19 Unknown Rx Nitrofurantoin [place]/M-Cryst 100 mg PO Q12HR #10 capsule 10/12/19 10/27/19 Unknown Rx [Macrobid CAP] Active Meds: Active Medications Acetaminophen (Tylenol) 650 mg PO Q6H PRN PRN Reason: Pain, Mild (1-3) Last Admin: 10/27/19 15:23 Dose: 650 mg Documented by: Nicardipine HCl 50 mg/ Sodium (Chloride) 250 mls @ 25 mls/hr IV TITR HARVEY; Protocol Last Admin: 10/27/19 15:48 Dose: 5 mg/hr, 25 mls/hr Documented by: Exam - Constitutional Vitals: Temp Pulse Resp BP Pulse Ox 100.8 F H 94 H 18 199/106 100 10/27/19 12:00 10/27/19 14:40 10/27/19 14:40 10/27/19 14:40 10/27/19 14:40 General appearance: Present: no acute distress, well-nourished - EENT Eyes: Present: PERRL, EOM intact ENT: hearing intact - Neck Neck: Present: supple, normal ROM - Respiratory Respiratory effort: normal Respiratory: bilateral: rales - Cardiovascular Rhythm: regular Heart Sounds: Present: S1 & S2 Results - Labs CBC & Chem 7: 10/28/19 04:36 10/28/19 04:36 Labs: Abnormal lab results 10/27/19 10/27/19 10/27/19 Range/Units 07:03 07:03 07:03 WBC 16.4 H (4.5-11.0) K/mm3 MCH 26 L (28-32) pg Seg Neutrophils % 74.1 H (40.0-70.0) % Seg Neutrophils # 12.1 H (1.8-7.7) K/mm3 POC ABG pH (7.35-7.45) POC ABG pCO2 (35-45) POC ABG pO2 (80-105) Sodium 135 L (137-145) mmol/L Carbon Dioxide 18 L (22-30) mmol/L BUN 39 H (7-17) mg/dL Creatinine 2.0 H (0.7-1.2) mg/dL Glucose 323 H (65-100) mg/dL POC Glucose (70-105) AST 53 H (5-40) units/L Albumin 3.5 L (3.9-5) g/dL 10/27/19 10/27/19 Range/Units 08:27 09:02 WBC (4.5-11.0) K/mm3 MCH (28-32) pg Seg Neutrophils % (40.0-70.0) % Seg Neutrophils # (1.8-7.7) K/mm3 POC ABG pH 7.283 L (7.35-7.45) POC ABG pCO2 46.8 H (35-45) POC ABG pO2 164 H (80-105) Sodium (137-145) mmol/L Carbon Dioxide (22-30) mmol/L BUN (7-17) mg/dL Creatinine (0.7-1.2) mg/dL Glucose (65-100) mg/dL POC Glucose 326 H (70-105) AST (5-40) units/L Albumin (3.9-5) g/dL - Imaging and Cardiology Chest x-ray: image reviewed (pulmonary edema) Assessment and Plan 64 y/o female with dyspnea, secondary to HYPERTENSIVE Urgency and pulmonary edema. 1. Stop Nitro 2. Change to Cardene 3. STart oral meds 4. Lasix if needed CCT 31 minutes.
--- NOTE | 2019-10-27 17:47 | History and Physical Report ---
History of Present Illness Date of examination: 10/27/19 Date of admission: 10/27/19 08:52 Chief complaint: Shortness of breath History of present illness: Patient is a 64-year-old woman from [facility] long term with history of [id number] diabetes mellitus, hypertension, CKD 3, CHF, bipolar disorder with posttraumatic stress disorder (she witnessed her father murdered at age 11 yo) and seizure disorder who presents to [facility] ED with severe respiratory worsening and constant shortness of breath with minimal activity that started 2 days ago associated with a productive cough. Pulse oximetry emergency department was found to be 84% on room air. She was started on BiPAP which helped her symptoms. Patient denies chest pain except from extreme coug halley, patient denies any long distance travel or new sick contacts PMH: as hpi PSH: Left TMJ joint surgery, left particularly surgery, appendectomy, tubal ligation, peptic ulcer disease treatment via EGD SH: Positive tobacco dependency patient says she quit 10 years ago but occasionally smokes cigarettes and then and now, denies alcohol abuse or drug abuse FH: Mother of intracranial aneurysm, she had a CABG, hypertension, diabetes mellitus ROS: Constitutional: denies: fever ENT: denies: throat or neck pain Respiratory: Positive cough, shortness of breath Cardiovascular: denies: chest pain except with coughing Endocrine: denies unexplained weight loss or gain Gastrointestinal: denies: abdominal pain, nausea Genitourinary: denies: dysuria Rectal: denies no incontinence, no bleeding, no itching, no discharge Musculoskeletal: denies swelling, myaglia, muscle weakness Skin: denies: rash Neurological: denies: headache Hematological/Lymphatic: denies: easy bleeding or easy bruising Allergic/Immunologic: no urticaria, no allergic rhinitis, no anaphylaxis Psych: denies sadness or hopelessness, SI/HI Medications and Allergies Allergies Allergy/AdvReac Type Severity Reaction Status Date / Time lisinopril Allergy Unknown Verified 07/27/19 09:29 promethazine HCl Allergy Shortness Verified 11/29/15 15:40 [From Phenergan] of Breath Home Medications Medication Instructions Recorded Confirmed Last Taken Type Quetiapine Fumarate [Seroquel] 100 mg PO QHS 07/07/15 08/01/19 Unknown History ARIPiprazole [Abilify TAB] 5 mg PO DAILY 07/08/15 08/01/19 Unknown History Divalproex ER [Depakote ER] 500 mg PO QHS 07/08/15 08/01/19 Unknown History Insulin Aspart Prot/Aspart(Nf) 25 units SQ QHS 07/08/15 08/01/19 Unknown History [NovoLOG Mix 70/30 VIAL] Insulin Detemir [Levemir VIAL] 25 unit SQ QHS 07/08/15 08/01/19 Unknown History amLODIPine 10 mg PO QDAY #30 tablet 08/02/19 Unknown Rx carvediloL [Coreg] 6.25 mg PO BID #60 tablet 08/02/19 Unknown Rx Nitrofurantoin [place]/M-Cryst 100 mg PO Q12HR #10 capsule 10/12/19 Unknown Rx [Macrobid CAP] Active Meds: Active Medications Acetaminophen (Tylenol) 650 mg PO Q6H PRN PRN Reason: Pain, Mild (1-3) Last Admin: 10/27/19 15:23 Dose: 650 mg Documented by: Nicardipine HCl 50 mg/ Sodium (Chloride) 250 mls @ 25 mls/hr IV TITR HARVEY; Protocol Last Admin: 10/27/19 15:48 Dose: 5 mg/hr, 25 mls/hr Documented by: Exam - Physical Exam Narrative exam: Gen: Ill-appearing, moderate accessory muscle usage on BiPAP Awake, Alert, Orientated HEENT: NCAT, EOMI, PERRL, OP Clear Neck: supple, no adenopathy, no thyromegaly, no JVD CVS/Heart: Regular tachycardia normal S1S2, pulses present bilaterally Chest/Lungs: Tachypnea, diminished breath sounds bilaterally, bilateral rhonchi, Symmetrical chest expansion, good air entry bilaterally GI/Abdomen: soft, NTND, good bowel sounds, no guarding or rebound /Bladder: no suprapubic tenderness, no CVA or paraspinal tenderness Extermity/Skin: no c/c/e, no obvious rash MSK: FROM x 4 Neuro: CN 2-12 grossly intact, no new focal deficits Psych: calm - Constitutional Vitals: Temp Pulse Resp BP Pulse Ox 100.8 F H 94 H 18 199/106 100 10/27/19 12:00 10/27/19 14:40 10/27/19 14:40 10/27/19 14:40 10/27/19 14:40 Results - Labs CBC & Chem 7: 10/27/19 07:03 10/27/19 07:03 Labs: Laboratory Last Values WBC 16.4 K/mm3 (4.5-11.0) H 10/27/19 07:03 RBC 4.05 M/mm3 (3.65-5.03) 10/27/19 07:03 Hgb 10.7 gm/dl (10.1-14.3) 10/27/19 07:03 Hct 35.1 % (30.3-42.9) 10/27/19 07:03 MCV 87 fl (79-97) 10/27/19 07:03 MCH 26 pg (28-32) L 10/27/19 07:03 MCHC 31 % (30-34) 10/27/19 07:03 RDW 13.9 % (13.2-15.2) 10/27/19 07:03 Plt Count 294 K/mm3 (140-440) 10/27/19 07:03 Lymph % (Auto) 19.3 % (13.4-35.0) 10/27/19 07:03 [place] % (Auto) 3.9 % (0.0-7.3) 10/27/19 07:03 Eos % (Auto) 2.1 % (0.0-4.3) 10/27/19 07:03 Baso % (Auto) 0.6 % (0.0-1.8) 10/27/19 07:03 Lymph # 3.2 K/mm3 (1.2-5.4) 10/27/19 07:03 [place]ardo # 0.6 K/mm3 (0.0-0.8) 10/27/19 07:03 Eos # 0.3 K/mm3 (0.0-0.4) 10/27/19 07:03 Baso # 0.1 K/mm3 (0.0-0.1) 10/27/19 07:03 Seg Neutrophils % 74.1 % (40.0-70.0) H 10/27/19 07:03 Seg Neutrophils # 12.1 K/mm3 (1.8-7.7) H 10/27/19 07:03 PT 13.3 Sec. (12.2-14.9) 10/27/19 07:03 INR 1.02 (0.87-1.13) 10/27/19 07:03 APTT 28.6 Sec. (24.2-36.6) 10/27/19 07:03 POC ABG pH 7.283 (7.35-7.45) L 10/27/19 08:27 POC ABG pCO2 46.8 (35-45) H 10/27/19 08:27 POC ABG pO2 164 (80-105) H 10/27/19 08:27 POC ABG HCO3 22.1 (22-26 mml/L) 10/27/19 08:27 POC ABG Total CO2 24 (23-27mmol/L) 10/27/19 08:27 POC ABG O2 Sat 99 10/27/19 08:27 POC ABG Base Excess -5 ((-2) - (+3)mmol/L) 10/27/19 08:27 FiO2 50 % 10/27/19 08:27 Sodium 135 mmol/L (137-145) L 10/27/19 07:03 Potassium 3.8 mmol/L (3.6-5.0) 10/27/19 07:03 Chloride 103.1 mmol/L (98-107) 10/27/19 07:03 Carbon Dioxide 18 mmol/L (22-30) L 10/27/19 07:03 Anion Gap 18 mmol/L 10/27/19 07:03 BUN 39 mg/dL (7-17) H 10/27/19 07:03 Creatinine 2.0 mg/dL (0.7-1.2) H 10/27/19 07:03 Estimated GFR 30 ml/min 10/27/19 07:03 BUN/Creatinine Ratio 20 % 10/27/19 07:03 Glucose 323 mg/dL (65-100) H 10/27/19 07:03 POC Glucose 326 (70-105) H 10/27/19 09:02 Lactic Acid 0.80 mmol/L (0.7-2.0) 10/27/19 07:03 Calcium 8.6 mg/dL (8.4-10.2) 10/27/19 07:03 Total Bilirubin 0.30 mg/dL (0.1-1.2) 10/27/19 07:03 Direct Bilirubin < 0.2 mg/dL (0-0.2) 10/27/19 07:03 Indirect Bilirubin 0.1 mg/dL 10/27/19 07:03 AST 53 units/L (5-40) H 10/27/19 07:03 ALT 41 units/L (7-56) 10/27/19 07:03 Alkaline Phosphatase 88 units/L (35-129) 10/27/19 07:03 Troponin T 0.013 ng/mL (0.00-0.029) 10/27/19 12:03 Total Protein 6.3 g/dL (6.3-8.2) 10/27/19 07:03 Albumin 3.5 g/dL (3.9-5) L 10/27/19 07:03 Albumin/Globulin Ratio 1.3 % 10/27/19 07:03 Urine Color Straw (Yellow) 10/27/19 07:49 Urine Turbidity Clear (Clear) 10/27/19 07:49 Urine pH 6.0 (5.0-7.0) 10/27/19 07:49 Ur Specific [place] 1.008 (1.003-1.030) 10/27/19 07:49 Urine Protein 100 mg/dl mg/dL (Negative) 10/27/19 07:49 Urine Glucose (UA) >=500 mg/dL (Negative) 10/27/19 07:49 Urine Ketones Neg mg/dL (Negative) 10/27/19 07:49 Urine Blood Sm (Negative) 10/27/19 07:49 Urine Nitrite Neg (Negative) 10/27/19 07:49 Urine Bilirubin Neg (Negative) 10/27/19 07:49 Urine Urobilinogen < 2.0 mg/dL (<2.0) 10/27/19 07:49 Ur Leukocyte Esterase Neg (Negative) 10/27/19 07:49 Urine WBC (Auto) 1.0 /HPF (0.0-6.0) 10/27/19 07:49 Urine RBC (Auto) 13.0 /HPF (0.0-6.0) 10/27/19 07:49 U Epithel Cells (Auto) 1.0 /HPF (0-13.0) 10/27/19 07:49 Urine Bacteria (Auto) 1+ /HPF (Negative) 10/27/19 07:49 Assessment and Plan Assessment and plan: Patient is a 64-year-old woman from [facility] long term with history of [id number] diabetes mellitus, hypertension, CKD 3, CHF, bipolar disorder with posttraumatic stress disorder (she witnessed her father murdered at age 11 yo) and seizure disorder who presents to [facility] ED with severe respiratory worsening and constant shortness of breath with minimal activity that started 2 days ago associated with a productive cough. Pulse oximetry emergency department was found to be 84% on room air. She was started on BiPAP which helped her symptoms. 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, last ejection fraction was estimated EF at 40-45% on 08/11/2019 TTE: Treat with IV diuretics Malignant hypertension with hypertensive heart disease, blood pressure 258/134, patient admits to being compliant with medication at the assisted living home: Placed on nitroglycerin IV drip, his admission to the ICU Acute respiratory acidosis: Continue to treat the CHF and COPD Acute exacerbation of COPD: Treat with nebulizer, steroids (but carefully with the heart failure) antibiotics, consult pulmonology CKD 3, creatinine was 2.2 on discharge 10/12/2019: Continue to monitor BMP closely Bipolar disorder: Continue Depakote and lithium Type 2 insulin-dependent diabetes mellitus: The insulin, and sliding scale and ADA diet DVT prophylaxis: Subcutaneous heparin Preventative health screening 16 minutes Advance care planning 30 minutes Critical care time 31 minutes
[2019-10-27] MEDS ORDERED: hydrALAZINE 20 MG/1 ML INJ IV PRN (17:50)
[2019-10-27] MEDS ORDERED: MORPHINE 2 MG/1 ML INJ IV PRN (17:50)
[2019-10-27] MEDS ORDERED: ONDANSETRON 4 MG/2 ML INJ IV PRN (17:50)
[2019-10-27] MEDS ORDERED: POLYETHYLENE GLYCOL 3350 17 GM POWDER PO PRN (17:50)
[2019-10-27] MEDS ORDERED: DEXTROSE 50% IN WATER (25GM) 50 ML SYRINGE IV PRN (17:54)
[2019-10-27] MEDS ORDERED: AZITHROMYCIN 500 MG in SODIUM CHLORIDE 0.9% 250ML 250 ML IV SCH (18:30)
[2019-10-27] MEDS: amLODIPine 10 MG TAB PO SCH (19:42)
[2019-10-27] MEDS: FUROSEMIDE 40 MG/4 ML INJ IV SCH (19:42)
[2019-10-27] MEDS: ARIPiprazole 5 MG TAB PO SCH (19:43)
[2019-10-27] MEDS: IPRATROPIUM/ALBUTEROL SULFATE 3 ML AMPUL.NEB IH SCH (21:02)
[2019-10-27] MEDS ORDERED: INSULIN DETEMIR 25 UNIT SQ SCH (22:00)
[2019-10-27] MEDS: carvediloL 6.25 MG TAB PO SCH (23:05)
[2019-10-27] MEDS: QUEtiapine 100 MG TAB PO SCH (23:06)
[2019-10-27] MEDS: DIVALPROEX ER 500 MG TAB PO SCH (23:06)
[2019-10-27] MEDS: cefTRIAXone/NS 2 GM/100 ML 2 GM/100 ML BAG IV SCH (23:06)
[2019-10-27] MEDS: INSULIN LISPRO 100 UNIT/ML SUB-Q SCH (23:07)
[2019-10-27] MEDS: INSULIN GLARGINE 100 UNITS/ML SUB-Q SCH (23:09)
[2019-10-27] MEDS: methylPREDNISolone Sod Succinate 40 MG/1 ML INJ IV SCH (23:11)
[2019-10-28 05:52] LABS: Hematocrit 30.5 % (30.3-42.9); Hemoglobin 9.9 gm/dl (10.1-14.3); Mean Corpuscular HGB Conc 33 % (30-34); Mean Corpuscular Volume 84 fl (79-97); Platelet Count 260 K/mm3 (140-440); Red Blood Count 3.61 M/mm3 (3.65-5.03); Red Cell Distribution Width 13.9 % (13.2-15.2)
[2019-10-28 06:02] LABS: Calcium 8.9 mg/dL (8.4-10.2)
[2019-10-28] MEDS: methylPREDNISolone Sod Succinate 40 MG/1 ML INJ IV SCH ×2 (07:25→14:07)
[2019-10-28] MEDS: FUROSEMIDE 40 MG/4 ML INJ IV SCH ×2 (07:25→17:04)
[2019-10-28] MEDS: INSULIN LISPRO 100 UNIT/ML SUB-Q SCH ×4 (08:17→22:18)
[2019-10-28] MEDS: IPRATROPIUM/ALBUTEROL SULFATE 3 ML AMPUL.NEB IH SCH (08:57)
[2019-10-28] MEDS: carvediloL 6.25 MG TAB PO SCH ×2 (09:15→21:57)
[2019-10-28] MEDS: amLODIPine 10 MG TAB PO SCH (09:15)
[2019-10-28] MEDS: PANTOPRAZOLE 40 MG TAB PO SCH (09:15)
[2019-10-28] MEDS: ARIPiprazole 5 MG TAB PO SCH (09:25)
[2019-10-28] MEDS: cefTRIAXone/NS 2 GM/100 ML 2 GM/100 ML BAG IV SCH (09:26)
--- NOTE | 2019-10-28 11:34 | Progress Note ---
Assessment and Plan Assessment and plan: Patient is a 64-year-old woman from [facility] half-way with history of [id number] diabetes mellitus, hypertension, CKD 3, CHF, bipolar disorder with posttraumatic stress disorder (she witnessed her father murdered at age 11 yo) and seizure disorder who presents to [facility] ED with severe resp iratory worsening and constant shortness of breath with minimal activity that started 2 days ago associated with a productive cough. Pulse oximetry emergency department was found to be 84% on room air. She was started on BiPAP which helped her symptoms. Patient denies chest pain except from extreme coughing, patient denies any long distance travel or new sick contacts * pCXR impression: Mild CHF Acute hypoxic respiratory failure, resolving off BiPAP 40%: Continue to wean off oxygen supplementation, consulted pulmonology, input noted Acute on chronic combined decompensated congestive heart failure, last ejection fraction was estimated EF at 40-45% on 08/11/2019 TTE: Treat with IV diuretics Malignant hypertension with hypertensive heart disease, blood pressure 258/134, patient admits to being compliant with medication at the assisted living home: improved on current regimen Acute respiratory acidosis: Continue to treat the CHF and COPD Acute exacerbation of COPD: Treat with nebulizer, steroids (but carefully with the heart failure) antibiotics, consult pulmonology CKD 3, creatinine was 2.2 on discharge 10/12/2019: Continue to monitor BMP closely Bipolar disorder: Continue Depakote and lithium Type 2 insulin-dependent diabetes mellitus: The insulin, and sliding scale and ADA diet DVT prophylaxis: Subcutaneous heparin ok to transfer to tele dispo: continue inpatient care, if off o2, may d/c tomorrow History Interval history: Patient was seen and examined. Follow-up on current diagnosis of Respiratory failure. No overnight events reported to me. Patient denies any chest pain, shortness breath, nausea/vomiting or severe headaches. Imaging, nursing note, chart, labs and old chart reviewed. Discussed with patient. Hospitalist Physical - Physical exam Narrative exam: Gen: nad, off bipap, Awake, Alert, Orientated x 3 HEENT: NCAT, EOMI, PERRL, OP Clear Neck: supple, no adenopathy, no thyromegaly, no JVD CVS/Heart: RRR normal S1S2, pulses present bilaterally Chest/Lungs: not Tachypneic anymore, diminished breath sounds bilaterally, bilateral rhonchi, Symmetrical chest expansion, good air entry bilaterally GI/Abdomen: soft, NTND, good bowel sounds, no guarding or rebound /Bladder: no suprapubic tenderness, no CVA or paraspinal tenderness Extermity/Skin: no c/c/e, no obvious rash MSK: FROM x 4 Neuro: CN 2-12 grossly intact, no new focal deficits Psych: calm - Constitutional Vitals: Temp Pulse Resp BP Pulse Ox 97.2 F L 90 15 138/85 96 10/28/19 08:00 10/28/19 10:00 10/28/19 10:00 10/28/19 10:00 10/28/19 10:00 Results - Labs CBC & Chem 7: 10/28/19 04:36 10/28/19 04:36 Labs: Laboratory Last Values WBC 9.2 K/mm3 (4.5-11.0) 10/28/19 04:36 RBC 3.61 M/mm3 (3.65-5.03) L 10/28/19 04:36 Hgb 9.9 gm/dl (10.1-14.3) L 10/28/19 04:36 Hct 30.5 % (30.3-42.9) 10/28/19 04:36 MCV 84 fl (79-97) 10/28/19 04:36 MCH 27 pg (28-32) L 10/28/19 04:36 MCHC 33 % (30-34) 10/28/19 04:36 RDW 13.9 % (13.2-15.2) 10/28/19 04:36 Plt Count 260 K/mm3 (140-440) 10/28/19 04:36 Lymph % (Auto) 19.3 % (13.4-35.0) 10/27/19 07:03 [place] % (Auto) 3.9 % (0.0-7.3) 10/27/19 07:03 Eos % (Auto) 2.1 % (0.0-4.3) 10/27/19 07:03 Baso % (Auto) 0.6 % (0.0-1.8) 10/27/19 07:03 Lymph # 3.2 K/mm3 (1.2-5.4) 10/27/19 07:03 [place] # 0.6 K/mm3 (0.0-0.8) 10/27/19 07:03 Eos # 0.3 K/mm3 (0.0-0.4) 10/27/19 07:03 Baso # 0.1 K/mm3 (0.0-0.1) 10/27/19 07:03 Seg Neutrophils % 74.1 % (40.0-70.0) H 10/27/19 07:03 Seg Neutrophils # 12.1 K/mm3 (1.8-7.7) H 10/27/19 07:03 PT 13.3 Sec. (12.2-14.9) 10/27/19 07:03 INR 1.02 (0.87-1.13) 10/27/19 07:03 APTT 28.6 Sec. (24.2-36.6) 10/27/19 07:03 POC ABG pH 7.283 (7.35-7.45) L 10/27/19 08:27 POC ABG pCO2 46.8 (35-45) H 10/27/19 08:27 POC ABG pO2 164 (80-105) H 10/27/19 08:27 POC ABG HCO3 22.1 (22-26 mml/L) 10/27/19 08:27 POC ABG Total CO2 24 (23-27mmol/L) 10/27/19 08:27 POC ABG O2 Sat 99 10/27/19 08:27 POC ABG Base Excess -5 ((-2) - (+3)mmol/L) 10/27/19 08:27 FiO2 50 % 10/27/19 08:27 Sodium 138 mmol/L (137-145) 10/28/19 04:36 Potassium 4.8 mmol/L (3.6-5.0) D 10/28/19 04:36 Chloride 102.2 mmol/L (98-107) 10/28/19 04:36 Carbon Dioxide 20 mmol/L (22-30) L 10/28/19 04:36 Anion Gap 21 mmol/L 10/28/19 04:36 BUN 44 mg/dL (7-17) H 10/28/19 04:36 Creatinine 2.2 mg/dL (0.7-1.2) H 10/28/19 04:36 Estimated GFR 27 ml/min 10/28/19 04:36 BUN/Creatinine Ratio 20 % 10/28/19 04:36 Glucose 299 mg/dL (65-100) H 10/28/19 04:36 POC Glucose 290 (70-105) H 10/28/19 07:42 Lactic Acid 0.80 mmol/L (0.7-2.0) 10/27/19 07:03 Calcium 8.9 mg/dL (8.4-10.2) 10/28/19 04:36 Magnesium 1.80 mg/dL (1.7-2.3) 10/28/19 04:36 Total Bilirubin 0.30 mg/dL (0.1-1.2) 10/27/19 07:03 Direct Bilirubin < 0.2 mg/dL (0-0.2) 10/27/19 07:03 Indirect Bilirubin 0.1 mg/dL 10/27/19 07:03 AST 53 units/L (5-40) H 10/27/19 07:03 ALT 41 units/L (7-56) 10/27/19 07:03 Alkaline Phosphatase 88 units/L (35-129) 10/27/19 07:03 Troponin T 0.013 ng/mL (0.00-0.029) 10/27/19 12:03 Total Protein 6.3 g/dL (6.3-8.2) 10/27/19 07:03 Albumin 3.5 g/dL (3.9-5) L 10/27/19 07:03 Albumin/Globulin Ratio 1.3 % 10/27/19 07:03 Urine Color Straw (Yellow) 10/27/19 07:49 Urine Turbidity Clear (Clear) 10/27/19 07:49 Urine pH 6.0 (5.0-7.0) 10/27/19 07:49 Ur Specific [place] 1.008 (1.003-1.030) 10/27/19 07:49 Urine Protein 100 mg/dl mg/dL (Negative) 10/27/19 07:49 Urine Glucose (UA) >=500 mg/dL (Negative) 10/27/19 07:49 Urine Ketones Neg mg/dL (Negative) 10/27/19 07:49 Urine Blood Sm (Negative) 10/27/19 07:49 Urine Nitrite Neg (Negative) 10/27/19 07:49 Urine Bilirubin Neg (Negative) 10/27/19 07:49 Urine Urobilinogen < 2.0 mg/dL (<2.0) 10/27/19 07:49 Ur Leukocyte Esterase Neg (Negative) 10/27/19 07:49 Urine WBC (Auto) 1.0 /HPF (0.0-6.0) 10/27/19 07:49 Urine RBC (Auto) 13.0 /HPF (0.0-6.0) 10/27/19 07:49 U Epithel Cells (Auto) 1.0 /HPF (0-13.0) 10/27/19 07:49 Urine Bacteria (Auto) 1+ /HPF (Negative) 10/27/19 07:49 Active Medications - Current Medications Current Medications: Generic Name Dose Route Start Last Admin Trade Name Freq PRN Reason Stop Dose Admin Acetaminophen 650 mg 10/27/19 15:07 10/27/19 15:23 Tylenol PO 650 mg Q6H PRN Administration Pain, Mild (1-3) Acetaminophen 650 mg 10/27/19 17:50 Tylenol PO Q6H PRN Non Cardiac Pain or Temp>100.5 Acetaminophen/Hydrocodone Bitart 1 each 10/27/19 17:50 [place] 5/325 PO Q4H PRN Pain, Moderate (4-6) Albuterol/Ipratropium 1 ampul 10/27/19 20:00 10/28/19 08:57 Duoneb *Not For Prn Use* IH 1 ampul BIDRT HARVEY Administration Amlodipine Besylate 10 mg 10/27/19 18:00 10/28/19 09:15 Amlodipine PO 10 mg QDAY HARVEY Administration Aripiprazole 5 mg 10/27/19 18:00 10/27/19 19:43 Aripiprazole PO 5 mg DAILY HARVEY Administration Carvedilol 6.25 mg 10/27/19 22:00 10/28/19 09:15 Coreg PO 6.25 mg BID HARVEY Administration Dextrose 50 ml 10/27/19 17:54 D50w (25gm) Syringe IV Q30MIN PRN Hypoglycemia Protocol Divalproex Sodium 500 mg 10/27/19 22:00 10/27/19 23:06 Depakote Er PO 500 mg QHS HARVEY Administration Furosemide 40 mg 10/27/19 18:00 10/28/19 07:25 Lasix IV 40 mg 0600,1800 HARVEY Administration Heparin Sodium (Porcine) 5,000 unit 10/28/19 22:00 Heparin SUB-Q Q12HR HARVEY Hydralazine HCl 10 mg 10/27/19 17:50 Apresoline IV Q4HR PRN Blood Pressure Nicardipine HCl 50 mg/ Sodium 250 mls @ 25 mls/hr 10/27/19 15:00 10/27/19 21:15 Chloride IV 0 mg/hr TITR HARVEY 0 mls/hr Titration Protocol 5 MG/HR Azithromycin 500 mg/ Sodium 250 mls @ 250 mls/hr 10/27/19 18:30 10/27/19 19:54 Chloride IV 250 mls/hr Q24H HARVEY Administration Protocol Ceftriaxone Sodium 2 gm in 100 mls @ 200 mls/hr 10/27/19 22:00 10/28/19 09:26 Rocephin/Ns 2 Gm/100 Ml IV 200 mls/hr Q12HR HARVEY Administration Protocol Insulin Glargine 25 units 10/27/19 22:00 10/27/19 23:09 Lantus SUB-Q 25 units QHS HARVEY Administration Insulin Human Lispro 0 unit 10/27/19 22:00 10/28/19 08:17 Humalog SUB-Q 6 unit ACHS [facility] Administration Protocol Labetalol HCl 10 mg 10/27/19 17:50 Labetalol IV Q4H PRN Blood Pressure Methylprednisolone Sodium Succinate 40 mg 10/27/19 22:00 10/28/19 07:25 Solu-Medrol IV 40 mg Q8HR HARVEY Administration Morphine Sulfate 2 mg 10/27/19 17:50 10/28/19 07:25 Morphine IV 2 mg Q4H PRN Administration Pain , Severe (7-10) Ondansetron HCl 4 mg 10/27/19 17:50 Zofran IV Q4H PRN Nausea And Vomiting Pantoprazole Sodium 40 mg 10/28/19 10:00 10/28/19 09:15 Protonix PO 40 mg QDAY HARVEY Administration Polyethylene Glycol 17 gm 10/27/19 17:50 Miralax 3350 PO QDAY PRN Constipation Quetiapine Fumarate 100 mg 10/27/19 22:00 10/27/19 23:06 Seroquel PO 100 mg QHS HARVEY Administration
--- NOTE | 2019-10-28 12:25 | Progress Note ---
Assessment and Plan 64 y/o female with dyspnea, secondary to HYPERTENSIVE Urgency and pulmonary edema. 1. Cardene off. Tolerating PO medication therapy. 2. Chloroseptic spray for throat 3. Suggest stopping abx and steroids 4. Stable for transfer out of unit. [facility] go to [facility]. Subjective Date of service: 10/28/19 Interval history: Currently on room air. STable. BP better. Request medication for sore throat. Objective - Constitutional Vitals: Vital Signs - 12hr 10/28/19 10/28/19 10/28/19 00:30 00:49 01:00 Temperature Pulse Rate 90 88 86 Pulse Rate [ Anterior Bilateral] Pulse Rate [ Right Radial] Respiratory 16 14 Rate Respiratory Rate [Anterior Bilateral] Blood Pressure 162/86 148/79 O2 Sat by Pulse 98 99 Oximetry 10/28/19 10/28/19 10/28/19 02:00 03:00 03:13 Temperature 98.4 F Pulse Rate 80 81 Pulse Rate [ Anterior Bilateral] Pulse Rate [ Right Radial] Respiratory 14 13 Rate Respiratory Rate [Anterior Bilateral] Blood Pressure 137/75 138/77 O2 Sat by Pulse 98 99 Oximetry 10/28/19 10/28/19 10/28/19 04:00 04:09 05:00 Temperature Pulse Rate 83 83 Pulse Rate [ Anterior Bilateral] Pulse Rate [ 82 Right Radial] Respiratory 13 22 Rate Respiratory Rate [Anterior Bilateral] Blood Pressure 144/81 150/84 O2 Sat by Pulse 99 100 98 Oximetry 10/28/19 10/28/19 10/28/19 06:00 07:00 07:25 Temperature Pulse Rate 85 88 Pulse Rate [ Anterior Bilateral] Pulse Rate [ Right Radial] Respiratory 15 16 19 Rate Respiratory Rate [Anterior Bilateral] Blood Pressure 150/92 161/98 O2 Sat by Pulse 99 100 Oximetry 10/28/19 10/28/19 10/28/19 08:00 08:57 09:00 Temperature 97.2 F L Pulse Rate 85 87 Pulse Rate [ 86 Anterior Bilateral] Pulse Rate [ Right Radial] Respiratory 13 17 Rate Respiratory 18 Rate [Anterior Bilateral] Blood Pressure 129/83 162/90 O2 Sat by Pulse 97 95 Oximetry 10/28/19 10/28/19 10/28/19 09:06 09:15 10:00 Temperature Pulse Rate 89 90 Pulse Rate [ Anterior Bilateral] Pulse Rate [ Right Radial] Respiratory 15 Rate Respiratory Rate [Anterior Bilateral] Blood Pressure 162/90 138/85 O2 Sat by Pulse 97 96 Oximetry General appearance: Present: no acute distress, well-nourished - EENT Eyes: PERRL ENT: hearing intact - Neck Neck: supple, normal ROM - Respiratory Respiratory effort: normal Respiratory: bilateral: CTA - Breasts Breasts: deferred - Cardiovascular Rhythm: regular Heart Sounds: Present: S1 & S2 - Labs CBC & Chem 7: 10/28/19 04:36 10/28/19 04:36 Labs: Abnormal lab results 10/27/19 10/27/19 10/28/19 Range/Units 19:23 23:03 04:36 RBC 3.61 L (3.65-5.03) M/mm3 Hgb 9.9 L (10.1-14.3) gm/dl MCH 27 L (28-32) pg Carbon Dioxide (22-30) mmol/L BUN (7-17) mg/dL Creatinine (0.7-1.2) mg/dL Glucose (65-100) mg/dL POC Glucose 336 H 395 H (70-105) 10/28/19 10/28/19 Range/Units 04:36 07:42 RBC (3.65-5.03) M/mm3 Hgb (10.1-14.3) gm/dl MCH (28-32) pg Carbon Dioxide 20 L (22-30) mmol/L BUN 44 H (7-17) mg/dL Creatinine 2.2 H (0.7-1.2) mg/dL Glucose 299 H (65-100) mg/dL POC Glucose 290 H (70-105) Medications & Allergies - Medications Allergies/Adverse Reactions: Allergies lisinopril Allergy (Verified 07/27/19 09:29) Unknown promethazine HCl [From Phenergan] Allergy (Verified 11/29/15 15:40) Shortness of Breath Home Medications: Home Medications Medication Instructions Recorded Confirmed Last Taken Type Quetiapine Fumarate [Seroquel] 100 mg PO QHS 07/07/15 10/27/19 Unknown History ARIPiprazole [Abilify TAB] 5 mg PO DAILY 07/08/15 10/27/19 Unknown History Divalproex ER [Depakote ER] 500 mg PO QHS 07/08/15 10/27/19 Unknown History Insulin Aspart Prot/Aspart(Nf) 25 units SQ QHS 07/08/15 10/27/19 Unknown History [NovoLOG Mix 70/30 VIAL] Insulin Detemir [Levemir VIAL] 25 unit SQ QHS 07/08/15 10/27/19 Unknown History amLODIPine 10 mg PO QDAY #30 tablet 08/02/19 10/27/19 Unknown Rx carvediloL [Coreg] 6.25 mg PO BID #60 tablet 08/02/19 10/27/19 Unknown Rx Nitrofurantoin [place]/M-Cryst 100 mg PO Q12HR #10 capsule 10/12/19 10/27/19 Unknown Rx [Macrobid CAP] Active Medications: Generic Name Dose Route Start Last Admin Trade Name Freq PRN Reason Stop Dose Admin Acetaminophen 650 mg 10/27/19 15:07 10/27/19 15:23 Tylenol PO 650 mg Q6H PRN Administration Pain, Mild (1-3) Acetaminophen 650 mg 10/27/19 17:50 Tylenol PO Q6H PRN Non Cardiac Pain or Temp>100.5 Acetaminophen/Hydrocodone Bitart 1 each 10/27/19 17:50 [place] 5/325 PO Q4H PRN Pain, Moderate (4-6) Albuterol/Ipratropium 1 ampul 10/27/19 20:00 10/28/19 08:57 Duoneb *Not For Prn Use* IH 1 ampul BIDRT HARVEY Administration Amlodipine Besylate 10 mg 10/27/19 18:00 10/28/19 09:15 Amlodipine PO 10 mg QDAY HARVEY Administration Aripiprazole 5 mg 10/27/19 18:00 10/27/19 19:43 Aripiprazole PO 5 mg DAILY HARVEY Administration Carvedilol 6.25 mg 10/27/19 22:00 10/28/19 09:15 Coreg PO 6.25 mg BID HARVEY Administration Dextrose 50 ml 10/27/19 17:54 D50w (25gm) Syringe IV Q30MIN PRN Hypoglycemia Protocol Divalproex Sodium 500 mg 10/27/19 22:00 10/27/19 23:06 Depakote Er PO 500 mg QHS HARVEY Administration Furosemide 40 mg 10/27/19 18:00 10/28/19 07:25 Lasix IV 40 mg 0600,1800 HARVEY Administration Heparin Sodium (Porcine) 5,000 unit 10/28/19 22:00 Heparin SUB-Q Q12HR HARVEY Hydralazine HCl 10 mg 10/27/19 17:50 Apresoline IV Q4HR PRN Blood Pressure Nicardipine HCl 50 mg/ Sodium 250 mls @ 25 mls/hr 10/27/19 15:00 10/27/19 21:15 Chloride IV 0 mg/hr TITR HARVEY 0 mls/hr Titration Protocol 5 MG/HR Azithromycin 500 mg/ Sodium 250 mls @ 250 mls/hr 10/27/19 18:30 10/27/19 19:54 Chloride IV 250 mls/hr Q24H HARVEY Administration Protocol Ceftriaxone Sodium 2 gm in 100 mls @ 200 mls/hr 10/27/19 22:00 10/28/19 09:26 Rocephin/Ns 2 Gm/100 Ml IV 200 mls/hr Q12HR HARVEY Administration Protocol Insulin Glargine 25 units 10/27/19 22:00 10/27/19 23:09 Lantus SUB-Q 25 units QHS HARVEY Administration Insulin Human Lispro 0 unit 10/27/19 22:00 10/28/19 08:17 Humalog SUB-Q 6 unit ACHS HARVEY Administration Protocol Labetalol HCl 10 mg 10/27/19 17:50 Labetalol IV Q4H PRN Blood Pressure Methylprednisolone Sodium Succinate 40 mg 10/27/19 22:00 10/28/19 07:25 Solu-Medrol IV 40 mg Q8HR HARVEY Administration Morphine Sulfate 2 mg 10/27/19 17:50 10/28/19 07:25 Morphine IV 2 mg Q4H PRN Administration Pain , Severe (7-10) Ondansetron HCl 4 mg 10/27/19 17:50 Zofran IV Q4H PRN Nausea And Vomiting Pantoprazole Sodium 40 mg 10/28/19 10:00 10/28/19 09:15 Protonix PO 40 mg QDAY HARVEY Administration Phenol 1 spray 10/28/19 11:38 Chloraseptic MM PRN PRN Sore Throat Polyethylene Glycol 17 gm 10/27/19 17:50 Miralax 3350 PO QDAY PRN Constipation Quetiapine Fumarate 100 mg 10/27/19 22:00 10/27/19 23:06 Seroquel PO 100 mg QHS HARVEY Administration
[2019-10-28] MEDS: PHENOL 1.4% 177 ML BOTTLE MM PRN ×2 (14:05→22:55)
--- NOTE | 2019-10-28 15:08 | Consultation ---
History of Present Illness Consult date: 10/28/19 Requesting physician: TAMMI RICO Consult reason: congestive heart failure History of present illness: Patient is a 64-year-old woman from [facility] with history of reported "congestive heart failure", hypertension, CKD 3, bipolar disorder with posttraumatic stress disorder (she witnessed her father murdered at age 11 yo) and seizure disorder. She is previously unknown to our practice. 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 She presented with c/o SOB and "anxiety attack" for 2 days prior to arrival. She also reports productive cough. She denies any chest pain, palpitations, n/v, diaphoresis, dizziness or syncope. Pulse oximetry in emergency department was found to be 84% on room air. She was started on BiPAP which helped her symptoms. On evaluation, she has been weaned to O2 via NC. Echo done 08/01/2019 showed EF 40-45%, mod LVH, impaired relaxation, normal bubble study. Past History Past Medical History: diabetes, seizures, other (CHF, HTN, BIpolar, ) Past Surgical History: No surgical history Social history: no significant social history Family history: no significant family history Medications and Allergies Allergies Allergy/AdvReac Type Severity Reaction Status Date / Time lisinopril Allergy Unknown Verified 07/27/19 09:29 promethazine HCl Allergy Shortness Verified 11/29/15 15:40 [From Phenergan] of Breath Home Medications Medication Instructions Recorded Confirmed Last Taken Type Quetiapine Fumarate [Seroquel] 100 mg PO QHS 07/07/15 10/27/19 Unknown History ARIPiprazole [Abilify TAB] 5 mg PO DAILY 07/08/15 10/27/19 Unknown History Divalproex ER [Depakote ER] 500 mg PO QHS 07/08/15 10/27/19 Unknown History Insulin Aspart Prot/Aspart(Nf) 25 units SQ QHS 07/08/15 10/27/19 Unknown History [NovoLOG Mix 70/30 VIAL] Insulin Detemir [Levemir VIAL] 25 unit SQ QHS 07/08/15 10/27/19 Unknown History amLODIPine 10 mg PO QDAY #30 tablet 08/02/19 10/27/19 Unknown Rx carvediloL [Coreg] 6.25 mg PO BID #60 tablet 08/02/19 10/27/19 Unknown Rx Nitrofurantoin [place]/M-Cryst 100 mg PO Q12HR #10 capsule 10/12/19 10/27/19 Unknown Rx [Macrobid CAP] [place] Carbonate 300 mg PO BID 10/28/19 10/28/19 Unknown History Active Meds: Active Medications Acetaminophen (Tylenol) 650 mg PO Q6H PRN PRN Reason: Non Cardiac Pain or Temp>100.5 Acetaminophen/Hydrocodone Bitart ([place] 5/325) 1 each PO Q4H PRN PRN Reason: Pain, Moderate (4-6) Amlodipine Besylate (Amlodipine) 10 mg PO QDAY [facility] Last Admin: 10/28/19 09:15 Dose: 10 mg Documented by: Aripiprazole (Aripiprazole) 5 mg PO DAILY [facility] Last Admin: 10/28/19 09:25 Dose: 5 mg Documented by: Carvedilol (Coreg) 6.25 mg PO BID [facility] Last Admin: 10/28/19 09:15 Dose: 6.25 mg Documented by: Dextrose (D50w (25gm) Syringe) 50 ml IV Q30MIN PRN; Protocol PRN Reason: Hypoglycemia Divalproex Sodium (Depakote Er) 500 mg PO QHS [facility] Last Admin: 10/27/19 23:06 Dose: 500 mg Documented by: Furosemide (Lasix) 40 mg IV 0600,1800 [facility] Last Admin: 10/28/19 07:25 Dose: 40 mg Documented by: Heparin Sodium (Porcine) (Heparin) 5,000 unit SUB-Q Q12HR [facility] Hydralazine HCl (Apresoline) 10 mg IV Q4HR PRN PRN Reason: Blood Pressure Insulin Glargine (Lantus) 25 units SUB-Q QHS [facility] Last Admin: 10/27/19 23:09 Dose: 25 units Documented by: Insulin Human Lispro (Humalog) 0 unit SUB-Q [facility]; Protocol Last Admin: 10/28/19 12:40 Dose: 8 unit Documented by: Labetalol HCl (Labetalol) 10 mg IV Q4H PRN PRN Reason: Blood Pressure Ondansetron HCl (Zofran) 4 mg IV Q4H PRN PRN Reason: Nausea And Vomiting Pantoprazole Sodium (Protonix) 40 mg PO QDAY [facility] Last Admin: 10/28/19 09:15 Dose: 40 mg Documented by: Phenol (Chloraseptic) 1 spray MM PRN PRN PRN Reason: Sore Throat Last Admin: 10/28/19 14:05 Dose: 1 spray Documented by: Quetiapine Fumarate (Seroquel) 100 mg PO QHS [facility] Last Admin: 10/27/19 23:06 Dose: 100 mg Documented by: Review of Systems Constitutional: no weight loss, no weight gain, no fever, no chills, no sweats Ears, nose, mouth and throat: no ear pain, no nose pain, no sinus pressure, no sinus pain Cardiovascular: orthopnea, shortness of breath, dyspnea on exertion, no chest pain, no palpitations, no rapid/irregular heart beat, no edema, no syncope, no lightheadedness, no high blood pressure Respiratory: cough with sputum, shortness of breath, dyspnea on exertion, no congestion, no wheezing, no pain on inspiration Gastrointestinal: no abdominal pain, no nausea, no vomiting, no diarrhea, no constipation, no change in bowel habits Genitourinary Female: no pelvic pain, no flank pain, no dysuria, no urinary frequency, no urgency Musculoskeletal: no neck stiffness, no neck pain, no shooting arm pain, no arm numbness/tingling, no low back pain, no shooting leg pain Integumentary: no rash, no pruritis, no redness, no sores, no wounds Neurological: no head injury, no paralysis, no weakness, no parathesias, no numbness, no tingling, no seizures, no syncope Psychiatric: anxiety Endocrine: no cold intolerance, no heat intolerance Hematologic/Lymphatic: no easy bruising, no easy bleeding Allergic/Immunologic: no urticaria, no wheezing Physical Examination Vital Signs Pulse Resp BP Pulse Ox 102 H 22 258/134 94 10/27/19 06:54 10/27/19 06:54 10/27/19 06:54 10/27/19 06:54 General appearance: no acute distress HEENT: Positive: PERRL, Normocephaly, Mucus Membranes Moist Neck: Positive: neck supple, trachea midline Cardiac: Positive: Reg Rate and Rhythm, S1/S2 Lungs: Positive: Decreased Breath Sounds Neuro: Positive: Grossly Intact Abdomen: Negative: Tender Skin: Negative: Rash Musculoskeletal: No Pain Extremities: Absent: edema Results 10/28/19 04:36 10/28/19 04:36 CBC 10/28/19 Range/Units 04:36 WBC 9.2 (4.5-11.0) K/mm3 RBC 3.61 L (3.65-5.03) M/mm3 Hgb 9.9 L (10.1-14.3) gm/dl Hct 30.5 (30.3-42.9) % Plt Count 260 (140-440) K/mm3 Comprehensive Metabolic Panel 10/28/19 Range/Units 04:36 Sodium 138 (137-145) mmol/L Potassium 4.8 D (3.6-5.0) mmol/L Chloride 102.2 (98-107) mmol/L Carbon Dioxide 20 L (22-30) mmol/L BUN 44 H (7-17) mg/dL Creatinine 2.2 H (0.7-1.2) mg/dL Glucose 299 H (65-100) mg/dL Calcium 8.9 (8.4-10.2) mg/dL - Imaging and Cardiology Echo: report reviewed (08/01/2019 showed EF 40-45%, mod LVH, impaired relaxation, normal bubble study. ) EKG: report reviewed, image reviewed EKG interpretations - Telemetry EKG Rhythm: Sinus Rhythm - EKG Sinus rhythms and dysrhythmias: sinus rhythm Assessment and Plan Agree with present cardiac management. No ACEI/ARB at this time in setting of renal insufficiency. Plan for lexiscan MPI stress test in AM in setting of newly diagnosed HF with mildly reduced EF. NPO after MN. The patient has been seen in conjunction with Dr. Wally Callaway who agrees with the assessment and plan of care. - Patient Problems (1) Acute HFrEF (heart failure with reduced ejection fraction) Current Visit: Yes Status: Acute (2) Hypertension Current Visit: Yes Status: Chronic (3) Seizure disorder Current Visit: Yes Status: Chronic (4) Bipolar disorder Current Visit: Yes Status: Chronic (5) PTSD (post-traumatic stress disorder) Current Visit: Yes Status: Chronic (6) Chronic kidney disease (CKD) Current Visit: Yes Status: Chronic
[2019-10-28] MEDS: DIVALPROEX ER 500 MG TAB PO SCH (21:56)
[2019-10-28] MEDS: QUEtiapine 100 MG TAB PO SCH (21:56)
[2019-10-28] MEDS: HEPARIN 5,000 UNIT/1 ML VIAL SUB-Q SCH (21:56)
[2019-10-28] MEDS: INSULIN GLARGINE 100 UNITS/ML SUB-Q SCH (22:04)
[2019-10-28] MEDS: HYDROcodone/ACETAMINOPHEN 5-325 MG TAB PO PRN (22:59)
[2019-10-29] MEDS: FUROSEMIDE 40 MG/4 ML INJ IV SCH (06:20)
[2019-10-29 07:38] LABS: Hematocrit 31.6 % (30.3-42.9); Hemoglobin 10.1 gm/dl (10.1-14.3); Mean Corpuscular HGB Conc 32 % (30-34); Mean Corpuscular Volume 83 fl (79-97); Platelet Count 265 K/mm3 (140-440); Red Blood Count 3.79 M/mm3 (3.65-5.03); Red Cell Distribution Width 14.1 % (13.2-15.2)
[2019-10-29 07:47] LABS: Calcium 8.7 mg/dL (8.4-10.2)
[2019-10-29] MEDS ORDERED: REGADENOSON 0.4 MG/5 ML INJ IV ONE ×2 (08:21→08:28)
[2019-10-29] MEDS: INSULIN LISPRO 100 UNIT/ML SUB-Q SCH ×4 (09:06→17:33)
--- NOTE | 2019-10-29 10:42 | Event Note ---
Date: 10/29/19 Patient is a 64-year-old woman from [facility] shelter with history of reported "congestive heart failure", hypertension, CKD 3, bipolar disorder with posttraumatic stress disorder (she witnessed her father murdered at age 11 yo) and seizure disorder. She is previously unknown to our practice. 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 She presented with c/o SOB and "anxiety attack" for 2 days prior to arrival. She also reports productive cough. She denies any chest pain, palpitations, n/v, diaphoresis, dizziness or syncope. Pulse oximetry in emergency department was found to be 84% on room air. She was started on BiPAP which helped her symptoms. On evaluation, she has been weaned to O2 via NC. Echo done 08/01/2019 showed EF 40-45%, mod LVH, impaired relaxation, normal bubble study. today pt seen in the stress lab. no cp or sob at this time chest clear cor rrr abd soft ext w/o edema bp has been labile. consider titrating coreg and/or adding hydralazine will review stress mpi once available
[2019-10-29] MEDS: amLODIPine 10 MG TAB PO SCH ×2 (11:07→13:07)
[2019-10-29] MEDS: ARIPiprazole 5 MG TAB PO SCH ×2 (11:08→20:14)
[2019-10-29] MEDS: carvediloL 6.25 MG TAB PO SCH ×2 (11:08→13:07)
[2019-10-29] MEDS: HEPARIN 5,000 UNIT/1 ML VIAL SUB-Q SCH (11:08)
[2019-10-29] MEDS: PANTOPRAZOLE 40 MG TAB PO SCH ×2 (11:08→13:08)
[2019-10-29] MEDS: HYDROcodone/ACETAMINOPHEN 5-325 MG TAB PO PRN (13:08)
--- NOTE | 2019-10-29 13:22 | Treadmill Report ---
NUCLEAR CARDIAC IMAGING INDICATION FOR PROCEDURE: Chest pain and shortness of breath. Informed consent was obtained. Vasodilator stress was achieved with the intravenous administration of 0.4 mg of Lexiscan per protocol. Rest and stress nuclear cardiac imaging was performed following the intravenous administration of technetium-99m Myoview. Gated SPECT imaging demonstrates a post-stress left ventricular ejection fraction of 34%. The left ventricle is diffusely hypokinetic. The end systolic volume is 106 mL, which is moderately increased. Myocardial perfusion imaging demonstrates no significant cavity change between stress and rest. There is a small moderate persistent anterior perfusion defect which in the absence of a segmental wall motion abnormality is likely artifactual in origin. There is, however, a small mild to moderate reversible lateral perfusion defect. Nuclear cardiac imaging demonstrates moderately severe left ventricular systolic dysfunction with evidence suggestive of ischemia in the distribution of the circumflex coronary artery. Given the presence of both perfusion and function abnormality on nuclear cardiac imaging, if clinically warranted, further evaluation with coronary angiography may be appropriate. clinical correlation required. [facility]# [id number] AZAR/ART MORGAN
--- NOTE | 2019-10-29 13:22 | Event Note ---
Date: 10/29/19 Stress test reviewed: EF of 34 percent. Small, moderate reversible anterior defect, which is probably artifactual. There is also a small, [id number], reversible lateral defect. Recommend medical therapy and GDMT for HFrEF. Matt Hanks NP / Beverly Houston MD
--- NOTE | 2019-10-29 15:11 | Discharge Summary ---
Providers - Providers Date of Admission: 10/27/19 08:52 Date of discharge: 10/29/19 Attending physician: TAMMI RICO 10/27/19 17:49 Consult to Physician [CONS] Routine Comment: Consulting Provider: RICHELLE WILHELM Physician Instructions: Reason For Exam: CHF decompensation, pt known to your group Primary care physician: MEASUREMENT PSYCHOLOGIST Hospitalization Condition: Stable Hospital course: Patient is a 64-year-old woman from [facility] long-term with history of eqz-lgzlqbh-gjzggvagx diabetes mellitus, hypertension, CKD 3, CHF, bipolar disorder with posttraumatic stress disorder (she witnessed her father murdered at age 11 yo) and seizure disorder who [facility] with severe respiratory worsening and constant shortness of breath with minimal activity that started 2 days ago associated with a productive cough. Pulse oximetry emergency department was found to be 84% on room air. She was started on BiPAP which helped her symptoms. Patient denies chest pain except from extreme coughing, patient denies any long distance travel or new sick contacts * pCXR impression: Mild CHF Discharge Disgnoses: Acute hypoxic respiratory failure, resolving off BiPAP 40%: Continue to wean off oxygen supplementation, consulted pulmonology, input noted Acute on chronic combined decompensated congestive heart failure, last ejection fraction was estimated EF at 40-45% on 08/11/2019 TTE: Treated with IV diuretics, stress test reported Malignant hypertension with hypertensive heart disease, blood pressure 258/134, patient admits to being compliant with medication at the assisted living home: improved on current regimen Acute respiratory acidosis: Continue to treat the CHF and COPD Acute exacerbation of COPD: Treat with nebulizer, steroids (but carefully with the heart failure) antibiotics, consult pulmonology CKD 3, creatinine was 2.2 on discharge 10/12/2019: Continue to monitor BMP closely Bipolar disorder: Continue Depakote and lithium Type 2 insulin-dependent diabetes mellitus: The insulin, and sliding scale and ADA diet DVT prophylaxis: Subcutaneous heparin dispo: d/c home ok'd by Cardiology Cardiology to setup out patient Cardiac CT Disposition: TO HOME OR SELFCARE Time spent for discharge: 35 minutes Core Measure Documentation - Palliative Care Palliative Care/ Comfort Measures: Not Applicable - Core Measures Any of the following diagnoses?: none - VTE Discharge Requirements Deep Vein Thrombosis/Pulmonary Embolism Present on Admission: No Has pt received <5 days of overlap therapy or INR<2.0: No Anticoagulant overlap therapy prescribed at discharge: No Contraindication No Overlap Therapy order at DC: Not Indicated Exam - Physical Exam Narrative exam: Gen: nad, off bipap, Awake, Alert, Orientated x 3 HEENT: NCAT, EOMI, PERRL, OP Clear Neck: supple, no adenopathy, no thyromegaly, no JVD CVS/Heart: RRR normal S1S2, pulses present bilaterally Chest/Lungs: not Tachypneic anymore, diminished breath sounds bilaterally, bilateral rhonchi, Symmetrical chest expansion, good air entry bilaterally GI/Abdomen: soft, NTND, good bowel sounds, no guarding or rebound /Bladder: no suprapubic tenderness, no CVA or paraspinal tenderness Extermity/Skin: no c/c/e, no obvious rash MSK: FROM x 4 Neuro: CN 2-12 grossly intact, no new focal deficits Psych: calm - Constitutional Vitals: Temp Pulse Resp BP Pulse Ox 97.5 F L 84 18 184/97 98 10/29/19 12:27 10/29/19 12:27 10/29/19 12:27 10/29/19 13:07 10/29/19 12:27 Plan Activity: other (no strenous activity until cleared by Cardiology) Diet: low salt, diabetic Special Instructions: record blood sugar diary (check with meals three times a day) Additional Instructions: SEE Dr. Tiwari regards getting a Cardiac Cat Scan as outpatient Follow up with: IJEOMA PILLAI MD [Staff Physician] - 7 Days KRISTEN TIWARI MD [Staff Physician] - 7 Days Prescriptions: Divalproex ER [Depakote ER] 500 mg PO QHS #30 tab Insulin Detemir [Levemir VIAL] 25 unit SQ QHS #1 vial QUEtiapine [SEROquel] 100 mg PO QHS #30 tablet ARIPiprazole [Abilify TAB] 5 mg PO DAILY #30 tab amLODIPine 10 mg PO QDAY #30 tablet carvediloL [Coreg] 6.25 mg PO BID #60 tablet Lispro Insulin [HumaLOG] 1 dose SUB-Q ACHS PRN #1000 units PRN Reason: Hyperglycemia Potassium Chloride [K-Dur] 20 meq PO QDAY #30 tablet Furosemide [Lasix TAB] 40 mg PO QDAY #30 tablet [place] Carbonate 300 mg PO BID #60 tab HYDROcodone/APAP 5-325 [[place] 5-325 mg TAB] 1 each PO Q4H PRN #20 tablet PRN Reason: Pain , Severe (7-10) Pantoprazole [Protonix TAB] 40 mg PO QDAY #30 tablet
[2019-10-29 18:15] VITALS: BP 154/89
== END 2019-10-29 18:45 | disposition home or self-care (01) | DRG 291 ==
LOC: ED 06:43 → CC1 08:52 → 3A 10-28 14:47
PROVIDERS: ADMIT Internal Medicine; ATTEND Internal Medicine
PROC: 4A033R1 Measurement of Arterial Saturation, Peripheral, Percutaneous Approach (ICD-10-PCS; principal; 2019-10-27)
PROC: 5A09357 Assistance with Respiratory Ventilation, Less than 24 Consecutive Hours, Continuous Positive Airway Pressure (ICD-10-PCS; 2019-10-27)
DX: I13.0 Hypertensive heart and chronic kidney disease with heart failure and stage 1 through stage 4 chronic kidney disease, or unspecified chronic kidney disease (principal); J18.9 Pneumonia, unspecified organism; J96.01 Acute respiratory failure with hypoxia; I50.43 Acute on chronic combined systolic (congestive) and diastolic (congestive) heart failure; J44.1 Chronic obstructive pulmonary disease with (acute) exacerbation; E87.2 Acidosis; J44.0 Chronic obstructive pulmonary disease with (acute) lower respiratory infection; I16.0 Hypertensive urgency; N18.3 Chronic kidney disease, stage 3 (moderate); E11.22 Type 2 diabetes mellitus with diabetic chronic kidney disease; F31.9 Bipolar disorder, unspecified; G40.909 Epilepsy, unspecified, not intractable, without status epilepticus; F43.10 Post-traumatic stress disorder, unspecified; G89.29 Other chronic pain; M54.9 Dorsalgia, unspecified; E11.65 Type 2 diabetes mellitus with hyperglycemia; Z79.01 Long term (current) use of anticoagulants; Z79.899 Other long term (current) drug therapy; Z79.4 Long term (current) use of insulin; Z90.49 Acquired absence of other specified parts of digestive tract; Z98.51 Tubal ligation status; Z87.11 Personal history of peptic ulcer disease; Z82.49 Family history of ischemic heart disease and other diseases of the circulatory system; Z83.3 Family history of diabetes mellitus
CPT/HCPCS: 36415; 71045; 78452; 80048; 80076; 81001; 82140; 82803; 82962; 83735; 84484; 85025; 85027; 85610; 85730; 87040; 93005; 93010; 93017; 94640; 94760; 96374; 99406; G0378; A9502; J0456; J0696; J1644; J1815; J1940; J2270; J2405; J2543; J2785; J2920; J7050

== ENCOUNTER 2019-11-08 13:23 | Inpatient (IN) | payer MEDICARE ==
--- NOTE | 2019-11-08 13:47 | Emergency Department Report ---
- General Stated complaint: STROKE Time Seen by Provider: 11/08/19 13:29 Source: patient, EMS, RN notes reviewed, old records reviewed Mode of arrival: Stretcher Limitations: Other - History of Present Illness Initial comments: Patient is a 64-year-old -Citizen Of The [place] female who comes to the ER today via EMS with caregiver concerns that she's had a stroke. Patient reports that her symptoms started on Thursday. She states that she had a worsening left-sided facial droop. Patient was known to have a stroke back in 2009 that left her with some left-sided facial weakness. Over the last couple days she states this has gotten worse. Patient's speech is slurred. However she has no expressive or receptive aphasia on exam. She also reports a parasthesis of her left upper and left lower leg. She describes it as pins and needles. She is able to move both against gravity. Once triaged patient was sent immediately to CT. When patient returned to the main ED as when she was examined. Upon provider entry into the room telling neurology was already interviewing the patient. Telemetry neurology recommends admission with dual antiplatelet therapy, statin, MRI/MRA of the head, carotid ultrasounds. They also recommend a Depakote and lithium level given patient's home medications. As well as an ammonia level. Telemetry neurology does not recommend IR consult for TPA. This is based on the images that became available during our exam. Patient's blood sugar was 279 on arrival. Pressure on arrival was 153/89. Past medical history CVA in 2009 Hypertension Bipolar seizure disorder PTSD after seeing her father murdered when she was 11. Chronic kidney disease stage III. Anxiety. dependent diabetes mellitus. GERD Medications Diclofenac Seroquel lasix protonix coreg li insulin levamir K abilify prednisone Patient had a recent cardiac workup in July of this year. She had an echo that revealed a normal RV however LV dysfunction with an EF of 40-45% was noted. She also had left ventricular diastolic dysfunction. She had an abnormal stress test that revealed concern for ischemia in this circumflex region. She was to schedule for a cardiac CT. She was normally ambulatory with a cane. Complaint: focal weakness -: Gradual, days(s) Location: LUE, L face Severity: moderate Quality: numbness Consistency: constant Improves with: none Worsens with: none Associated Symptoms: denies other symptoms - Related Data Previous Rx's Medication Instructions Recorded Last Taken Type ARIPiprazole [Abilify TAB] 5 mg PO DAILY #30 tab 10/29/19 Unknown Rx Divalproex ER [Depakote ER] 500 mg PO QHS #30 tab 10/29/19 Unknown Rx Furosemide [Lasix TAB] 40 mg PO QDAY #30 tablet 10/29/19 Unknown Rx Insulin Detemir [Levemir VIAL] 25 unit SQ QHS #1 vial 10/29/19 Unknown Rx Lispro Insulin [HumaLOG] 1 dose SUB-Q ACHS PRN #1000 units 10/29/19 Unknown Rx [place] Carbonate 300 mg PO BID #60 tab 10/29/19 Unknown Rx Pantoprazole [Protonix TAB] 40 mg PO QDAY #30 tablet 10/29/19 Unknown Rx Potassium Chloride [K-Dur] 20 meq PO QDAY #30 tablet 10/29/19 Unknown Rx QUEtiapine [SEROquel] 100 mg PO QHS #30 tablet 10/29/19 Unknown Rx amLODIPine 10 mg PO QDAY #30 tablet 10/29/19 Unknown Rx carvediloL [Coreg] 6.25 mg PO BID #60 tablet 10/29/19 Unknown Rx Allergies Allergy/AdvReac Type Severity Reaction Status Date / Time lisinopril Allergy Unknown Verified 07/27/19 09:29 promethazine HCl Allergy Shortness Verified 11/29/15 15:40 [From Phenergan] of Breath ED Review of Systems ROS: Stated complaint: STROKE Other details as noted in HPI Comment: All other systems reviewed and negative ED Past Medical Hx - Past Medical History Hx Hypertension: Yes Hx CVA: Yes Hx Congestive Heart Failure: No Hx Diabetes: Yes Hx Renal Disease: Yes Hx Arthritis: Yes Hx Seizures: Yes Hx Psychiatric Treatment: Yes (bipolar-effective,DD,OCD) Hx Asthma: No Hx COPD: No Hx Tuberculosis: No Hx HIV: No Additional medical history: CHRONIC BACK PAIN. Bipolar/disassociative disorder - Surgical History Past Surgical History?: Yes Hx Appendectomy: Yes Additional Surgical History: achilles tendon repair left foot. TMJ. tubal ligation - Family History Family history: no significant - Social History Smoking Status: Current Every Day Smoker - Medications Home Medications: Home Medications Medication Instructions Recorded Confirmed Last Taken Type ARIPiprazole [Abilify TAB] 5 mg PO DAILY #30 tab 10/29/19 Unknown Rx Divalproex ER [Depakote ER] 500 mg PO QHS #30 tab 10/29/19 Unknown Rx Furosemide [Lasix TAB] 40 mg PO QDAY #30 tablet 10/29/19 Unknown Rx Insulin Detemir [Levemir VIAL] 25 unit SQ QHS #1 vial 10/29/19 Unknown Rx Lispro Insulin [HumaLOG] 1 dose SUB-Q ACHS PRN #1000 units 10/29/19 Unknown Rx [place] Carbonate 300 mg PO BID #60 tab 10/29/19 Unknown Rx Pantoprazole [Protonix TAB] 40 mg PO QDAY #30 tablet 10/29/19 Unknown Rx Potassium Chloride [K-Dur] 20 meq PO QDAY #30 tablet 10/29/19 Unknown Rx QUEtiapine [SEROquel] 100 mg PO QHS #30 tablet 10/29/19 Unknown Rx amLODIPine 10 mg PO QDAY #30 tablet 10/29/19 Unknown Rx carvediloL [Coreg] 6.25 mg PO BID #60 tablet 10/29/19 Unknown Rx ED Physical Exam - General General appearance: alert, in no apparent distress - Head Head exam: Present: atraumatic - Eye Eye exam: Present: normal appearance, PERRL, EOMI - ENT ENT exam: Present: mucous membranes moist - Neck Neck exam: Present: normal inspection - Respiratory Respiratory exam: Present: normal lung sounds bilaterally. Absent: respiratory distress - Cardiovascular Cardiovascular Exam: Present: regular rate, normal rhythm. Absent: systolic murmur, diastolic murmur, rubs, gallop - GI/Abdominal GI/Abdominal exam: Present: soft, normal bowel sounds - Back Exam Back exam: Present: normal inspection - Neurological Exam Neurological exam: Present: alert, oriented X3 - Psychiatric Psychiatric exam: Present: normal affect, normal mood, flat affect - Skin Skin exam: Present: warm, dry, intact, normal color. Absent: rash - Assessment Assessment Interval: Baseline - Level of Consciousness 1a. Level of Consciousness: alert/keenly responsive - LOC Questions 1b. LOC Questions: answers both correctly - LOC Command 1c. LOC Commands: performs tasks correctly - Best Gaze 2. Best Gaze: normal - Visual 3. Visual: no visual loss - Facial Palsy 4. Facial Palsy: minor paralysis - Motor Arm 5a. Motor Arm Left: no drift 5b. Motor Arm Right: no drift - Motor Leg 6a. Motor Leg Left: no drift 6b. Motor Leg Right: no drift - Limb Ataxia 7. Limb Ataxia: absent - Sensory 8. Sensory: mild/moderate sensory loss - Best Language 9. Best Language: mild/moderate aphasia - Dysarthria 10. Dysarthria: normal - Extinction and Inattention 11. Extinction/Inattention: no abnormality - Scoring Total Score: 3 Stroke Severity: Minor Stroke ED Course Vital Signs 11/08/19 11/08/19 11/08/19 13:38 13:48 14:00 Temperature 98.1 F Pulse Rate 83 83 81 Respiratory 15 12 16 Rate Blood Pressure 153/79 Blood Pressure 153/85 [Right] O2 Sat by Pulse 100 100 98 Oximetry 11/08/19 11/08/19 11/08/19 14:02 14:33 15:00 Temperature Pulse Rate 79 79 Respiratory 17 13 17 Rate Blood Pressure 145/94 Blood Pressure 145/94 [Right] O2 Sat by Pulse 98 99 98 Oximetry ED Medical Decision Making - Lab Data Result diagrams: 11/08/19 13:52 11/08/19 13:52 - EKG Data EKG shows normal: sinus rhythm Rate: normal - EKG Data When compared to previous EKG there are: no significant change Interpretation: no acute changes - Radiology Data Radiology results: report reviewed, image reviewed - Medical Decision Making Vital Signs 11/08/19 11/08/19 13:38 14:02 Temperature 98.1 F Pulse Rate 83 Respiratory 15 17 Rate Blood Pressure 153/85 [Right] O2 Sat by Pulse 100 98 Oximetry Labs 11/08/19 11/08/19 11/08/19 13:45 13:52 13:52 WBC 10.7 RBC 3.72 Hgb 10.3 Hct 31.8 MCV 86 MCH 28 MCHC 32 RDW 14.4 Plt Count 254 Lymph % (Auto) 19.5 [place] % (Auto) 5.5 Eos % (Auto) 1.3 Baso % (Auto) 1.1 Lymph # 2.1 [place] # 0.6 Eos # 0.1 Baso # 0.1 Seg Neutrophils % 72.6 H Seg Neutrophils # 7.7 PT 12.9 INR 0.96 APTT 30.9 Thrombin Time 16.9 Sodium Potassium Chloride Carbon Dioxide Anion Gap BUN Creatinine Estimated GFR BUN/Creatinine Ratio Glucose POC Glucose 279 H Calcium Total Bilirubin Direct Bilirubin Indirect Bilirubin AST ALT Alkaline Phosphatase Ammonia Troponin T Total Protein Albumin Albumin/Globulin Ratio Triglycerides Cholesterol LDL Cholesterol Direct HDL Cholesterol Cholesterol/HDL Ratio TSH Valproic Acid [place] Plasma/Serum Alcohol 11/08/19 11/08/19 11/08/19 13:52 13:52 13:52 WBC RBC Hgb Hct MCV MCH MCHC RDW Plt Count Lymph % (Auto) [place] % (Auto) Eos % (Auto) Baso % (Auto) Lymph # [place] # Eos # Baso # Seg Neutrophils % Seg Neutrophils # PT INR APTT Thrombin Time Sodium 138 Potassium 5.8 H Chloride 103.8 Carbon Dioxide 24 Anion Gap 16 BUN 60 H Creatinine 3.1 H Estimated GFR 18 BUN/Creatinine Ratio 19 Glucose 316 H POC Glucose Calcium 9.2 Total Bilirubin 0.20 Direct Bilirubin < 0.2 Indirect Bilirubin 0.0 AST 29 ALT 31 Alkaline Phosphatase 79 Ammonia Troponin T 0.049 H Total Protein 6.9 Albumin 3.5 L Albumin/Globulin Ratio 1.0 Triglycerides 95 Cholesterol 208 H LDL Cholesterol Direct 101 HDL Cholesterol 93 H Cholesterol/HDL Ratio 2.23 TSH 1.840 Valproic Acid [place] Plasma/Serum Alcohol 11/08/19 11/08/19 11/08/19 14:05 14:05 Unknown WBC RBC Hgb Hct MCV MCH MCHC RDW Plt Count Lymph % (Auto) [place] % (Auto) Eos % (Auto) Baso % (Auto) Lymph # [place] # Eos # Baso # Seg Neutrophils % Seg Neutrophils # PT INR APTT Thrombin Time Sodium Potassium Chloride Carbon Dioxide Anion Gap BUN Creatinine Estimated GFR BUN/Creatinine Ratio Glucose POC Glucose Calcium Total Bilirubin Direct Bilirubin Indirect Bilirubin AST ALT Alkaline Phosphatase Ammonia 43.0 Troponin T Total Protein Albumin Albumin/Globulin Ratio Triglycerides Cholesterol LDL Cholesterol Direct HDL Cholesterol Cholesterol/HDL Ratio TSH Valproic Acid 16.5 L [place] 1.2 Plasma/Serum Alcohol < 0.[address] THOMPSON [address] DR ARNDT AWARE OF PT ADMIT-WILL SEE PT GIVEN ASA IN ER SEE NEURO REQS. 1700 DR ARNDT HAS SEEN PT- WILL ADMIT MEDSURG/ REMOTE REPEAT K ORDERED - Differential Diagnosis cva/conversion do/tia Critical care attestation.: If time is entered above; I have spent that time in minutes in the direct care of this critically ill patient, excluding procedure time. ED Disposition Clinical Impression: Weakness, Chronic kidney disease (CKD), Diabetes, Acute hyperkalemia Disposition: DC-09 OP ADMIT IP TO THIS HOSP Is pt being admited?: Yes Does the pt Need Aspirin: Yes Condition: Stable Referrals: PRIMARY CARE, [Primary Care Provider] - 3-5 Days Time of Disposition: 13:57
--- NOTE | 2019-11-08 13:51 | Cat Scan Report ---
NONENHANCED CT SCAN OF THE BRAIN: INDICATION: neuro deficits <6hrs or sx present upon awakening. TECHNIQUE: Routine CT head without contrast. Sagittal and coronal reformatted images were obtained. A ll CT scans at this location are performed using CT dose reduction for ALARA by means of automated ex posure control. COMPARISON: None. FINDINGS: BRAIN / INTRACRANIAL CONTENTS: Hemorrhage:No intracranial hemorrhage; no subarachnoid hemorrhage Stroke mimics: No subdural or epidural hematoma or space taking lesion Acute/subacute territorial infarction: Benitez-white matter interface: No blurring; normal Insular cortex: Normal Basal ganglia: Normal Wedge shaped parenchymal low density area: Not present Cortical sulci: Not effaced Lacunar infarctions: Vasculopathy: Dense middle cerebral artery sign: Not present Internal carotid artery terminus: Normal Basilar artery:Normal Middle cerebral artery branches in the sylvian fissure (Dot sign): Normal Calcified embolus: Single calcified focus as seen in the lateral aspect of right inferior frontal sulcus. This could be calcified embolus. ASPECT score: Not applicable Chronic lesions:None White matter: Periventricular deep hemispheric white matter are normal. Craniocervical junction:No significant abnormality Orbits:No significant abnormality Paranasal sinuses/mastoids:No significant abnormality Additional findings: None IMPRESSION: No acute subacute infarction Possible calcified embolus in the right frontal area This exam was performed as part of a code stroke protocol. The exam was completed at [facility] on 11/08/2019 12:40 PM. The exam was reviewed at 12:45 PM and Gabrielle at the emergenc y room was notified at 12:46 PM. Signer Name: Naomie Lane MD Signed: 11/08/2019 1:47 PM Workstation Name: [email or web address]
--- NOTE | 2019-11-08 13:53 | Emergency Department Report ---
ED Neuro Deficit HPI - General Chief Complaint: Neuro Symptoms/Deficit Stated Complaint: STROKE Time Seen by Provider: 11/08/19 13:29 - History of Present Illness Initial Comments: [facility] Date of Service: 11/08/2019 13:21:30 Impression: RO Acute Ischemic Stroke Right Hemispheric Infarct Comments: the patient had slurred speech starting a week ago and a facial droop that started a couple days ago. She has a complicated history so it's not clear whether or not that's recrudescence of prior symptoms or new phenomenon. She does however feel like the left arm is weak and has left-sided numbness concerning for a new ischemic event. Do not see any obvious large-scale acute changes on her CT of the head and if the read is okay with surgeon on aspirin therapy and admit her for stroke workup and inpatient neurology consultation. Would check lithium level, VPA and ammonia levels also Metrics: Last Known Well: Unknown [employer] Notification Time: 11/08/2019 13:21:01 Arrival Time: 11/08/2019 13:23:00 Stamp Time: 11/08/2019 13:21:30 Time First Login Attempt: 11/08/2019 13:27:46 Video Start Time: 11/08/2019 13:27:46 Symptoms: slurred speech/;left facial weakness NIHSS Start Assessment Time: 11/08/2019 13:34:52 Patient is not a candidate for tPA. Patient was not deemed candidate for tPA thrombolytics because of Last Well Known Above 4.5 Hours. Video End Time: 11/08/2019 13:46:34 CT head showed no acute hemorrhage or acute core infarct. Advanced imaging was not obtained as the presentation was not suggestive of Large Vessel Occlusive Disease. ER Physician notified of the decision on thrombolytics management on 11/08/2019 13:46:41 Our recommendations are outlined below. Recommendations: Activate Stroke Protocol Admission/Order Set Stroke/Telemetry Floor Neuro Checks Bedside Swallow Eval DVT Prophylaxis IV Fluids, Normal Saline Head of Bed Below 30 Degrees Euglycemia and Avoid Hyperthermia (PRN Acetaminophen) Initiate Aspirin 325 MG Daily Recommended Scan: MRI Head MRA Head Without Contrast Carotid Dopplers Lipid Panel to Be Obtained, if Not Done in the Last Three Months Therapies: Physical Therapy, Occupational Therapy, Speech Therapy Assessment When Applicable Dysphaghia Screen: Swallow Evaluation, Bedside NPO Until Swallow Evaluation DVT prophylaxis: Choice of Primary Team Disposition: Follow up with Teleneurology Follow up Sign Out: Discussed with Emergency Department Provider History of Present Illness: Patient is a 64 year old Female. Patient was brought by EMS for symptoms of slurred speech/;left facial weakness The slurred speech began a week ago with a droopy face yesterday and hand numbness and weakness on the left also. Symptoms worsening today when she woke up at 6am on VPA and lithium. Has a hx of left facial paralysis in 2000. She has a hx of prior seizures in her 20s, she has HTN, congenital heart failure. Also has a hx of DM. She says the facial drooping began Thursday. CT head showed no acute hemorrhage or acute core infarct. Examination: Blood Glucose(279) 1A: Level of Consciousness - Alert; keenly responsive + 0 1B: Ask Month and Age - Both Questions Right + 0 1C: Blink Eyes & Squeeze Hands - Performs Both Tasks + 0 2: Test Horizontal Extraocular Movements - Normal + 0 3: Test Visual [place] - No Visual Loss + 0 4: Test Facial Palsy (Use Grimace if Obtunded) - Unilateral Complete paralysis (upper/lower face) + 3 5A: Test Left Arm Motor Drift - No Drift for 10 Seconds + 0 5B: Test Right Arm Motor Drift - No Drift for 10 Seconds + 0 6A: Test Left Leg Motor Drift - No Drift for 5 Seconds + 0 6B: Test Right Leg Motor Drift - No Drift for 5 Seconds + 0 7: Test Limb Ataxia (FNF/Heel-Singleton) - No Ataxia + 0 8: Test Sensation - Mild-Moderate Loss: Less Sharp/More Dull + 1 9: Test Language/Aphasia - Normal; No aphasia + 0 10: Test Dysarthria - Normal + 0 11: Test Extinction/Inattention - No abnormality + 0 NIHSS Score: 4 Patient was informed the Neurology Consult would happen via TeleHealth consult by way of interactive audio and video telecommunications and consented to receiving care in this manner. Due to the immediate potential for life-threatening deterioration due to underlying acute neurologic illness, I spent 35 minutes providing critical care. This time includes time for face to face visit via telemedicine, review of medical records, imaging studies and discussion of findings with providers, the patient and/or family. Dr Carin Dyer [facility] - Related Data Home Medications: Previous Rx's Medication Instructions Recorded Last Taken Type ARIPiprazole [Abilify TAB] 5 mg PO DAILY #30 tab 10/29/19 Unknown Rx Acetaminophen [Acetaminophen TAB] 2 tab PO Q6H PRN #10 tablet 10/29/19 Unknown Rx Divalproex ER [Depakote ER] 500 mg PO QHS #30 tab 10/29/19 Unknown Rx Furosemide [Lasix TAB] 40 mg PO QDAY #30 tablet 10/29/19 Unknown Rx HYDROcodone/APAP 5-325 [[place] 1 each PO Q4H PRN #20 tablet 10/29/19 Unknown Rx 5-325 mg TAB] Insulin Detemir [Levemir VIAL] 25 unit SQ QHS #1 vial 10/29/19 Unknown Rx Lispro Insulin [HumaLOG] 1 dose SUB-Q ACHS PRN #1000 units 10/29/19 Unknown Rx [place] Carbonate 300 mg PO BID #60 tab 10/29/19 Unknown Rx Pantoprazole [Protonix TAB] 40 mg PO QDAY #30 tablet 10/29/19 Unknown Rx Phenol 1.4% [Chloraseptic] 1 spray MM PRN PRN #1 bottle 10/29/19 Unknown Rx Potassium Chloride [K-Dur] 20 meq PO QDAY #30 tablet 10/29/19 Unknown Rx QUEtiapine [SEROquel] 100 mg PO QHS #30 tablet 10/29/19 Unknown Rx amLODIPine 10 mg PO QDAY #30 tablet 10/29/19 Unknown Rx carvediloL [Coreg] 6.25 mg PO BID #60 tablet 10/29/19 Unknown Rx Allergies/Adverse Reactions: Allergies Allergy/AdvReac Type Severity Reaction Status Date / Time lisinopril Allergy Unknown Verified 07/27/19 09:29 promethazine HCl Allergy Shortness Verified 11/29/15 15:40 [From Phenergan] of Breath ED Review of Systems ROS: Stated complaint: STROKE Other details as noted in HPI ED Past Medical Hx - Past Medical History Hx Hypertension: Yes Hx Congestive Heart Failure: No Hx Diabetes: Yes Hx Seizures: Yes Hx Psychiatric Treatment: Yes (bipolar-effective,DD,OCD) Hx Asthma: No Hx COPD: No Additional medical history: CHRONIC BACK PAIN. Bipolar/disassociative disorder - Surgical History Hx Appendectomy: Yes Additional Surgical History: achilles tendon repair left foot. TMJ. tubal ligation - Social History Smoking Status: Current Every Day Smoker - Medications Home Medications: Home Medications Medication Instructions Recorded Confirmed Last Taken Type ARIPiprazole [Abilify TAB] 5 mg PO DAILY #30 tab 10/29/19 Unknown Rx Acetaminophen [Acetaminophen TAB] 2 tab PO Q6H PRN #10 tablet 10/29/19 Unknown Rx Divalproex ER [Depakote ER] 500 mg PO QHS #30 tab 10/29/19 Unknown Rx Furosemide [Lasix TAB] 40 mg PO QDAY #30 tablet 10/29/19 Unknown Rx HYDROcodone/APAP 5-325 [[place] 1 each PO Q4H PRN #20 tablet 10/29/19 Unknown Rx 5-325 mg TAB] Insulin Detemir [Levemir VIAL] 25 unit SQ QHS #1 vial 10/29/19 Unknown Rx Lispro Insulin [HumaLOG] 1 dose SUB-Q ACHS PRN #1000 units 10/29/19 Unknown Rx [place] Carbon[place] 300 mg PO BID #60 tab 10/29/19 Unknown Rx Pantoprazole [Protonix TAB] 40 mg PO QDAY #30 tablet 10/29/19 Unknown Rx Phenol 1.4% [Chloraseptic] 1 spray MM PRN PRN #1 bottle 10/29/19 Unknown Rx Potassium Chloride [K-Dur] 20 meq PO QDAY #30 tablet 10/29/19 Unknown Rx QUEtiapine [SEROquel] 100 mg PO QHS #30 tablet 10/29/19 Unknown Rx amLODIPine 10 mg PO QDAY #30 tablet 10/29/19 Unknown Rx carvediloL [Coreg] 6.25 mg PO BID #60 tablet 10/29/19 Unknown Rx ED Neuro Physical Exam - General Suspected Stroke: Yes - NIHSS Assessment Interval: Baseline 1a. Level of Consciousness: alert/keenly responsive 1b. LOC Questions: answers both correctly 1c. LOC Commands: performs tasks correctly 2. Best Gaze: normal 3. Visual: no visual loss 4. Facial Palsy: unilateral complete paralysis 5b. Motor Arm Right: no drift 5a. Motor Arm Left: no drift 6a. Motor Leg Left: no drift 6b. Motor Leg Right: no drift 7. Limb Ataxia: absent 8. Sensory: mild/moderate sensory loss 9. Best Language: no aphasia 10. Dysarthria: mild/moderate dysarthria 11. Extinction/Inattention: no abnormality Total Score: 5 Stroke Severity: Moderate Stroke Critical care attestation.: If time is entered above; I have spent that time in minutes in the direct care of this critically ill patient, excluding procedure time. ED Disposition Clinical Impression: Stroke (cerebrum) Qualifiers: CVA mechanism: unspecified Qualified Code(s): I63.9 - Cerebral infarction, unspecified Disposition: DC-09 OP ADMIT IP TO THIS HOSP Is pt being admited?: Yes Condition: Stable
[2019-11-08 14:23] LABS: INR 0.96 (0.87-1.13)
[2019-11-08 14:24] LABS: Basophils # (Auto) 0.1 K/mm3 (0.0-0.1); Basophils % (Auto) 1.1 % (0.0-1.8); Eosinophils # (Auto) 0.1 K/mm3 (0.0-0.4); Eosinophils % (Auto) 1.3 % (0.0-4.3); Hematocrit 31.8 % (30.3-42.9); Hemoglobin 10.3 gm/dl (10.1-14.3); Lymphocytes # (Auto) 2.1 K/mm3 (1.2-5.4); Lymphocytes % (Auto) 19.5 % (13.4-35.0); Mean Corpuscular HGB Conc 32 % (30-34); Mean Corpuscular Volume 86 fl (79-97); Monocytes # (Auto) 0.6 K/mm3 (0.0-0.8); Monocytes % (Auto) 5.5 % (0.0-7.3); Partial Thromboplastin Time 30.9 Sec. (24.2-36.6); Platelet Count 254 K/mm3 (140-440); Red Blood Count 3.72 M/mm3 (3.65-5.03); Red Cell Distribution Width 14.4 % (13.2-15.2); Thrombin Time 16.9 Sec. (15.1-19.6)
[2019-11-08 14:29] LABS: Calcium 9.2 mg/dL (8.4-10.2)
[2019-11-08] MEDS: ASPIRIN 325 MG TAB PO SCH (14:31)
[2019-11-08 14:32] LABS: Alanine Aminotransferase 31 units/L (7-56); Albumin 3.5 g/dL (3.9-5)
--- NOTE | 2019-11-08 14:43 | XRay Report ---
CHEST 1 VIEW INDICATION: weak. COMPARISON: 10/27/2019 FINDINGS: Support devices: None. Heart: Stable mild cardiomegaly. Lungs/Pleura: Minimal residual interstitial edema and scarring versus atelectasis in the left midlung . Additional findings: None. IMPRESSION: 1. Minimal residual interstitial edema. Signer Name: Chi Vasquez MD Signed: 11/08/2019 2:39 PM Workstation Name: [id number]
[2019-11-08 14:44] LABS: Bilirubin,Direct < 0.2 mg/dL (0-0.2)
[2019-11-08 14:49] LABS: Chol/HDL Ratio 2.23 %
[2019-11-08 19:03] LABS: Bilirubin,Urine NEG (Negative); Blood,Urine SM (Negative); Color,Urine Straw (Yellow); Urobilinogen,Urine < 2.0 mg/dL (<2.0)
[2019-11-08 19:11] LABS: Amphetamine Screen,Urine PRESUMPTIVE NEGATIVE; Benzodiazepines Screen,Urine PRESUMPTIVE NEGATIVE; Cannabinoid Screen,Urine PRESUMPTIVE NEGATIVE; Cocaine Screen,Urine PRESUMPTIVE NEGATIVE; Methadone Screen,Urine PRESUMPTIVE NEGATIVE; Opiate Screen,Urine PRESUMPTIVE NEGATIVE
--- NOTE | 2019-11-08 21:14 | History and Physical Report ---
History of Present Illness Date of examination: 11/08/19 Date of admission: 11/08/19 17:11 Chief complaint: Increased weakness on L side History of present illness: 64-year-old -[place] female who comes to the ER today via EMS with caregiver concerns that she's had a stroke. Patient reports that her symptoms started on Thursday. She states that she had a worsening left-sided facial droop. Patient was known to have a stroke back in 2009 that left her with some left- sided facial weakness. Over the last couple days she states this has gotten worse. Patient's speech is slurred. However she has no expressive or receptive aphasia on exam. She also reports a parasthesis of her left upper and left lower leg. She describes it as pins and needles. She is able to move both against gravity. Telemetry neurology recommended admission with dual antiplatelet therapy, statin, MRI/MRA of the head, carotid ultrasounds. They also recommend a Depakote and lithium level given patient's home medications. As well as an ammonia level. Telemetry neurology does not recommend IR consult for TPA. This is based on the images that became available during our exam. Patient had a recent cardiac workup in July of this year. She had an echo that revealed a normal RV however LV dysfunction with an EF of 40-45% was noted. She also had left ventricular diastolic dysfunction. She had an abnormal stress test that revealed concern for ischemia in this circumflex region. She was to schedule for a cardiac CT. Past Medical History Hypertension: Yes CVA Yes with L hemiplegia T2dm Renal Disease Arthritis Psychiatric Treatment: Yes (bipolar-effective,DD,OCD) Additional medical history: CHRONIC BACK PAIN. Bipolar/disassociative disorder - Surgical History Past Surgical History?: Yes HAppendectomy: Yes Additional Surgical History: achilles tendon repair left foot. TMJ. tubal ligation - Family History Family history: no significant - Social History Smoking Status: Current Every Day Smoker - Medications Home Medications: Home Medications Medication Instructions Recorded Confirmed Last Taken Type ARIPiprazole [Abilify TAB] 5 mg PO DAILY #30 tab 10/29/19 Unknown Rx Divalproex ER [Depakote ER] 500 mg PO QHS #30 tab 10/29/19 Unknown Rx Furosemide [Lasix TAB] 40 mg PO QDAY #30 tablet 10/29/19 Unknown Rx Insulin Detemir [Levemir VIAL] 25 unit SQ QHS #1 vial 10/29/19 Unknown Rx Lispro Insulin [HumaLOG] 1 dose SUB-Q ACHS PRN #1000 units 10/29/19 Unknown Rx [place] Carbonate 300 mg PO BID #60 tab 10/29/19 Unknown Rx Pantoprazole [Protonix TAB] 40 mg PO QDAY #30 tablet 10/29/19 Unknown Rx Potassium Chloride [K-Dur] 20 meq PO QDAY #30 tablet 10/29/19 Unknown Rx QUEtiapine [SEROquel] 100 mg PO QHS #30 tablet 10/29/19 Unknown Rx amLODIPine 10 mg PO QDAY #30 tablet 10/29/19 Unknown Rx carvediloL [Coreg] 6.25 mg PO BID #60 tablet 10/29/19 Unknown Rx Review of Systems ROS: Stated complaint: STROKE Other details as noted in HPI Comment: All other systems reviewed and negative Medications and Allergies Allergies Allergy/AdvReac Type Severity Reaction Status Date / Time lisinopril Allergy Unknown Verified 07/27/19 09:29 promethazine HCl Allergy Shortness Verified 11/29/15 15:40 [From Phenergan] of Breath Home Medications Medication Instructions Recorded Confirmed Last Taken Type ARIPiprazole [Abilify TAB] 5 mg PO DAILY #30 tab 10/29/19 Unknown Rx Divalproex ER [Depakote ER] 500 mg PO QHS #30 tab 10/29/19 Unknown Rx Furosemide [Lasix TAB] 40 mg PO QDAY #30 tablet 10/29/19 Unknown Rx Insulin Detemir [Levemir VIAL] 25 unit SQ QHS #1 vial 10/29/19 Unknown Rx Lispro Insulin [HumaLOG] 1 dose SUB-Q ACHS PRN #1000 units 10/29/19 Unknown Rx [place] Carbonate 300 mg PO BID #60 tab 10/29/19 Unknown Rx Pantoprazole [Protonix TAB] 40 mg PO QDAY #30 tablet 10/29/19 Unknown Rx Potassium Chloride [K-Dur] 20 meq PO QDAY #30 tablet 10/29/19 Unknown Rx QUEtiapine [SEROquel] 100 mg PO QHS #30 tablet 10/29/19 Unknown Rx amLODIPine 10 mg PO QDAY #30 tablet 10/29/19 Unknown Rx carvediloL [Coreg] 6.25 mg PO BID #60 tablet 12/07/19 Unknown Rx Active Meds: Active Medications Aspirin (Aspirin) 325 mg PO QDAY [facility] Last Admin: 11/08/19 14:31 Dose: 325 mg Documented by: Exam - Constitutional Vitals: Temp Pulse Resp BP Pulse Ox 98.1 F 76 20 162/86 95 11/08/19 20:15 11/08/19 20:15 11/08/19 20:15 11/08/19 20:15 11/08/19 20:15 General appearance: Present: no acute distress, well-nourished - EENT Eyes: Present: PERRL ENT: hearing intact, clear oral mucosa - Neck Neck: Present: supple, normal ROM - Respiratory Respiratory effort: normal Respiratory: bilateral: CTA - Cardiovascular Heart rate: 78 Rhythm: regular Heart Sounds: Present: S1 & S2. Absent: rub, click - Extremities Extremities: no ischemia, pulses intact, pulses symmetrical, No edema Peripheral Pulses: within normal limits - Abdominal General gastrointestinal: Present: soft, non-tender, non-distended, normal bowel sounds Female genitourinary: Present: normal - Integumentary Integumentary: Present: clear, warm, dry - Musculoskeletal Musculoskeletal: generalized weakness - Psychiatric Psychiatric: appropriate mood/affect, intact judgment & insight - Neurologic Neurologic: CNII-XII intact, focal deficits (L Hemiplegia but near baseline,L facial palsy ) Results - Labs CBC & Chem 7: 11/08/19 13:52 11/08/19 17:16 Labs: Laboratory Last Values WBC 10.7 K/mm3 (4.5-11.0) 11/08/19 13:52 RBC 3.72 M/mm3 (3.65-5.03) 11/08/19 13:52 Hgb 10.3 gm/dl (10.1-14.3) 11/08/19 13:52 Hct 31.8 % (30.3-42.9) 11/08/19 13:52 MCV 86 fl (79-97) 11/08/19 13:52 MCH 28 pg (28-32) 11/08/19 13:52 MCHC 32 % (30-34) 11/08/19 13:52 RDW 14.4 % (13.2-15.2) 11/08/19 13:52 Plt Count 254 K/mm3 (140-440) 11/08/19 13:52 Lymph % (Auto) 19.5 % (13.4-35.0) 11/08/19 13:52 [place] % (Auto) 5.5 % (0.0-7.3) 11/08/19 13:52 Eos % (Auto) 1.3 % (0.0-4.3) 11/08/19 13:52 Baso % (Auto) 1.1 % (0.0-1.8) 11/08/19 13:52 Lymph # 2.1 K/mm3 (1.2-5.4) 11/08/19 13:52 [place] # 0.6 K/mm3 (0.0-0.8) 11/08/19 13:52 Eos # 0.1 K/mm3 (0.0-0.4) 11/08/19 13:52 Baso # 0.1 K/mm3 (0.0-0.1) 11/08/19 13:52 Seg Neutrophils % 72.6 % (40.0-70.0) H 11/08/19 13:52 Seg Neutrophils # 7.7 K/mm3 (1.8-7.7) 11/08/19 13:52 PT 12.9 Sec. (12.2-14.9) 11/08/19 13:52 INR 0.96 (0.87-1.13) 11/08/19 13:52 APTT 30.9 Sec. (24.2-36.6) 11/08/19 13:52 Thrombin Time 16.9 Sec. (15.1-19.6) 11/08/19 13:52 Sodium 138 mmol/L (137-145) 11/08/19 13:52 Potassium 5.6 mmol/L (3.6-5.0) H 11/08/19 17:16 Chloride 103.8 mmol/L (98-107) 11/08/19 13:52 Carbon Dioxide 24 mmol/L (22-30) 11/08/19 13:52 Anion Gap 16 mmol/L 11/08/19 13:52 BUN 60 mg/dL (7-17) H 11/08/19 13:52 Creatinine 3.1 mg/dL (0.7-1.2) H 11/08/19 13:52 Estimated GFR 18 ml/min 11/08/19 13:52 BUN/Creatinine Ratio 19 % 11/08/19 13:52 Glucose 316 mg/dL (65-100) H 11/08/19 13:52 POC Glucose 279 (70-105) H 11/08/19 13:45 Calcium 9.2 mg/dL (8.4-10.2) 11/08/19 13:52 Total Bilirubin 0.20 mg/dL (0.1-1.2) 11/08/19 13:52 Direct Bilirubin < 0.2 mg/dL (0-0.2) 11/08/19 13:52 Indirect Bilirubin 0.0 mg/dL 11/08/19 13:52 AST 29 units/L (5-40) 11/08/19 13:52 ALT 31 units/L (7-56) 11/08/19 13:52 Alkaline Phosphatase 79 units/L (35-129) 11/08/19 13:52 Ammonia 43.0 umol/L (25-60) 11/08/19 14:05 Troponin T 0.049 ng/mL (0.00-0.029) H 11/08/19 13:52 Total Protein 6.9 g/dL (6.3-8.2) 11/08/19 13:52 Albumin 3.5 g/dL (3.9-5) L 11/08/19 13:52 Albumin/Globulin Ratio 1.0 % 11/08/19 13:52 Triglycerides 95 mg/dL (2-149) 11/08/19 13:52 Cholesterol 208 mg/dL (50-199) H 11/08/19 13:52 LDL Cholesterol Direct 101 mg/dL (50-130) 11/08/19 13:52 HDL Cholesterol 93 mg/dL (40-59) H 11/08/19 13:52 Cholesterol/HDL Ratio 2.23 % 11/08/19 13:52 TSH 1.840 mlU/mL (0.270-4.200) 11/08/19 13:52 Urine Color Straw (Yellow) 11/08/19 18:47 Urine Turbidity Clear (Clear) 11/08/19 18:47 Urine pH 7.0 (5.0-7.0) 11/08/19 18:47 Ur Specific [place] 1.009 (1.003-1.030) 11/08/19 18:47 Urine Protein 100 mg/dl mg/dL (Negative) 11/08/19 18:47 Urine Glucose (UA) 150 mg/dL (Negative) 11/08/19 18:47 Urine Ketones Neg mg/dL (Negative) 11/08/19 18:47 Urine Blood Sm (Negative) 11/08/19 18:47 Urine Nitrite Neg (Negative) 11/08/19 18:47 Urine Bilirubin Neg (Negative) 11/08/19 18:47 Urine Urobilinogen < 2.0 mg/dL (<2.0) 11/08/19 18:47 Ur Leukocyte Esterase Sm (Negative) 11/08/19 18:47 Urine WBC (Auto) 1.0 /HPF (0.0-6.0) 11/08/19 18:47 Urine RBC (Auto) 8.0 /HPF (0.0-6.0) 11/08/19 18:47 U Epithel Cells (Auto) 2.0 /HPF (0-13.0) 11/08/19 18:47 Urine Opiates Screen Presumptive negative 11/08/19 18:47 Urine Methadone Screen Presumptive negative 11/08/19 18:47 Ur Barbiturates Screen Presumptive negative 11/08/19 18:47 Valproic Acid 16.5 ug/mL (50-100) L 11/08/19 14:05 Ur Phencyclidine Scrn Presumptive negative 11/08/19 18:47 Ur Amphetamines Screen Presumptive negative 11/08/19 18:47 U Benzodiazepines Scrn Presumptive negative 11/08/19 18:47 [place] 1.2 mmol/L (0.0-1.2) 11/08/19 14:05 Urine Cocaine Screen Presumptive negative 11/08/19 18:47 U Marijuana (THC) Screen Presumptive negative 11/08/19 18:47 Drugs of Abuse Note Disclamer 11/08/19 18:47 Plasma/Serum Alcohol < 0.01 % (0-0.07) 11/08/19 Unknown - Imaging and Cardiology EKG: report reviewed CT Scan - head: report reviewed Assessment and Plan Advance Directives: Yes (Full code) VTE prophylaxis?: Chemical Plan of care discussed with patient/family: Yes - Patient Problems (1) Acute CVA (cerebrovascular accident) Current Visit: Yes Status: Acute Plan to address problem: Unlikely Patient is near baseline Per patient no increased weakness Will get stroke protocol except MRA Neuro consult (2) Hyperkalemia Current Visit: Yes Status: Acute Plan to address problem: treated (3) PAULA (acute kidney injury) Current Visit: Yes Status: Acute Plan to address problem: PAULA on CKD Nephrology consult Underlying CKD IV Fluids for now (4) T2DM (type 2 diabetes mellitus) Current Visit: Yes Status: Chronic Qualifiers: Diabetes mellitus rodent exterminator insulin use: unspecified fpc insulin use status Plan to address problem: Cont hypoglycemics and coverage Check A1c (5) Bipolar disorder Current Visit: No Status: Chronic Qualifiers: Active/Remission status: in full remission Plan to address problem: Check [place], level (6) DVT prophylaxis Current Visit: No Status: Acute Plan to address problem: On Heparin and GI prophylaxis
[2019-11-08] MEDS ORDERED: INSULIN GLARGINE 100 UNITS/ML SUB-Q SCH (22:00)
[2019-11-08] MEDS ORDERED: FUROSEMIDE 20 MG TAB PO SCH (22:00)
[2019-11-08] MEDS: ARIPiprazole 5 MG TAB PO SCH (22:29)
[2019-11-08] MEDS: LITHIUM CARBONATE 300 MG CAP PO SCH (22:30)
[2019-11-08] MEDS: DIVALPROEX ER 500 MG TAB PO SCH (22:30)
[2019-11-08] MEDS: QUEtiapine 100 MG TAB PO SCH (22:30)
[2019-11-08] MEDS: amLODIPine 10 MG TAB PO SCH (22:30)
[2019-11-08] MEDS: carvediloL 6.25 MG TAB PO SCH (22:31)
[2019-11-09] MEDS ORDERED: FUROSEMIDE 20 MG TAB PO SCH (06:00)
[2019-11-09] MEDS ORDERED: SODIUM POLYSTYRENE 15 GM/60 ML ORAL LIQD PO ONE ×2 (06:36→10:00)
[2019-11-09] MEDS ORDERED: CALCIUM GLUCONATE 2,000 MG in SODIUM CHLORIDE 0.9% 100 ML IV ONE (06:36)
[2019-11-09] MEDS ORDERED: SODIUM CHLORIDE 0.9% 1000 ML 1,000 ML IV SCH (07:00)
--- NOTE | 2019-11-09 07:52 | Consultation ---
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 Unable to get any history from patient and there was no family member at the bedside. Patient known to have left-sided facial weakness from previous CVA. The facial weakness gotten worse for about 2 days. Patient's speech is slurred. She also reported parasthesis of her left upper and left lower leg. CT head was negative for Acute / subacute CVA. Patient was admitted with suspected CVA, started on dual antiplatelet therapy and statin. Patient's blood sugar was 279 on arrival and BP was 153/89. Home meds include Diclofenac. Labs significant for Creat 3.1 and K 5.8. Nephrology was consulted for further evaluation. Past History Past Medical History: diabetes, hypertension, renal failure, stroke, other (Bipolar) Medications and Allergies Allergies Allergy/AdvReac Type Severity Reaction Status Date / Time lisinopril Allergy Unknown Verified 07/27/19 09:29 promethazine HCl Allergy Shortness Verified 11/29/15 15:40 [From Phenergan] of Breath Home Medications Medication Instructions Recorded Confirmed Last Taken Type ARIPiprazole [Abilify TAB] 5 mg PO DAILY #30 tab 10/29/19 Unknown Rx Divalproex ER [Depakote ER] 500 mg PO QHS #30 tab 10/29/19 Unknown Rx Furosemide [Lasix TAB] 40 mg PO QDAY #30 tablet 10/29/19 Unknown Rx Insulin Detemir [Levemir VIAL] 25 unit SQ QHS #1 vial 10/29/19 Unknown Rx Lispro Insulin [HumaLOG] 1 dose SUB-Q ACHS PRN #1000 units 10/29/19 Unknown Rx [place] Carbonate 300 mg PO BID #60 tab 10/29/19 Unknown Rx Pantoprazole [Protonix TAB] 40 mg PO QDAY #30 tablet 10/29/19 Unknown Rx Potassium Chloride [K-Dur] 20 meq PO QDAY #30 tablet 10/29/19 Unknown Rx QUEtiapine [SEROquel] 100 mg PO QHS #30 tablet 10/29/19 Unknown Rx amLODIPine 10 mg PO QDAY #30 tablet 10/29/19 Unknown Rx carvediloL [Coreg] 6.25 mg PO BID #60 tablet 10/29/19 Unknown Rx Active Meds: Active Medications Amlodipine Besylate (Amlodipine) 10 mg PO QDAY [facility] Last Admin: 11/08/19 22:30 Dose: 10 mg Documented by: Aripiprazole (Aripiprazole) 5 mg PO DAILY [facility] Last Admin: 11/08/19 22:29 Dose: 5 mg Documented by: Aspirin (Aspirin) 325 mg PO QDAY [facility] Last Admin: 11/08/19 14:31 Dose: 325 mg Documented by: Atorvastatin Calcium (Lipitor) 40 mg PO QHS [facility] Carvedilol (Coreg) 6.25 mg PO BID [facility] Last Admin: 11/08/19 22:31 Dose: 6.25 mg Documented by: Divalproex Sodium (Depakote Er) 500 mg PO QHS [facility] Last Admin: 11/08/19 22:30 Dose: 500 mg Documented by: Furosemide (Lasix) 20 mg PO QDAY@0600 [facility] Last Admin: 11/09/19 05:51 Dose: 20 mg Documented by: Sodium Chloride (Nacl 0.9% 1000 Ml) 1,000 mls @ 75 mls/hr IV DIRECT [facility] Insulin Glargine (Lantus) 25 units SUB-Q QHS [facility] Last Admin: 11/08/19 22:31 Dose: 25 units Documented by: [place] Carbonate (Eskalith) 300 mg PO BID [facility] Last Admin: 11/08/19 22:30 Dose: 300 mg Documented by: Pantoprazole Sodium (Protonix) 40 mg PO QDAY [facility] Pneumococcal Polyvalent Vaccine (Pneumovax 23) 0.5 ml IM .ONCE ONE Stop: 11/09/19 12:01 Quetiapine Fumarate (Seroquel) 100 mg PO QHS [facility] Last Admin: 11/08/19 22:30 Dose: 100 mg Documented by: Sodium Chloride (Sodium Chloride Flush Syringe 10 Ml) 10 ml IV PRN PRN PRN Reason: LINE FLUSH Review of Systems ROS unobtainable: due to mental status Exam - Vital Signs Vital signs: Vital Signs Temp Pulse Resp BP Pulse Ox 98.1 F 83 15 153/85 100 11/08/19 13:38 11/08/19 13:38 11/08/19 13:38 11/08/19 13:38 11/08/19 13:38 - General Appearance General appearance: well-developed, appears stated age, other (not in distress) EENT: ATNC, PERRL Neck: Present: neck supple, trachea midline Respiratory: Clear to Ascultation Heart: regular, S1S2, no murmurs Gastrointestinal: Present: normoactive bowel sounds. Absent: tenderness, distended Integumentary: no rash, warm and dry Neurologic: hemiplegic (L side), aphasia, facial droop (L side), other (follows some command) Musculoskeletal: Present: other (no edema) Results - Lab Results 11/08/19 13:52 11/08/19 17:16 Most recent lab results Calcium 9.2 mg/dL (8.4-10.2) 11/08/19 13:52 Assessment and Plan 1. 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 Patient was taking NSAID at home which likely has contributed to PAULA. Urine studies and Renal US ordered. Start on IV fluids. Monitor renal function. Renal prognosis is guarded. Avoid nephrotoxic agents. Meds dosage based on GFR. 2. FEN: Hyperkalemia, kayexalate ordered. Monitor lytes. 3. Nephrotic range proteinuria: Likely from Diabetic nephropathy. 4. Suspected CVA. 5. DM type 2, uncontrolled. 6. HTN: Monitor BP. 7. PTSD.
[2019-11-09] MEDS ORDERED: DEXTROSE 50% IN WATER (25GM) 50 ML SYRINGE IV ONE (08:05)
[2019-11-09] MEDS ORDERED: DEXTROSE 50% IN WATER (25GM) 50 ML SYRINGE IV PRN (08:28)
[2019-11-09] MEDS ORDERED: D5W/0.9% NACL 1,000 ML IV SCH (09:00)
[2019-11-09] MEDS ORDERED: POTASSIUM CHLORIDE ER 20 MEQ TAB PO SCH (10:00)
[2019-11-09 10:08] LABS: Calcium 8.9 mg/dL (8.4-10.2)
--- NOTE | 2019-11-09 10:13 | Vascular Lab Report ---
"DUPLEX DOPPLER ULTRASOUND CAROTID, BILATERAL INDICATION: stroke. FINDINGS: RIGHT CAROTID: Small amount of atherosclerotic plaque. Right ICA peak systolic velocity: 98 cm/sec. Right Vertebral Artery: Antegrade flow. LEFT CAROTID: Small amount of atherosclerotic plaque. Left ICA peak systolic velocity: 107 cm/sec. Left Vertebral Artery: Antegrade flow. IMPRESSION: 1. Right Internal Carotid Artery: Less than 50% diameter stenosis. 2. Left Internal Carotid Artery: Less than 50% diameter stenosis. Velocity criteria are extrapolated from diameter data as defined by the Society of Radiologists in Ul trasound Consensus Conference, Radiology 2003; 229;340-346. Degree of Stenosis (%) || ICA PSV (cm/sec) || Plaque estimate (%) || ICA/CCA PSV Ratio Normal <125 None <2.0 <50 <125 <50 <2.0 50-69 125-230 50 2.0-4.0 70 but less than 100 >230 50 >4.0 Near occlusion High, low, or none visible variable Total occlusion None visible; no lumen N/A Signer Name: Bob Frost MD Signed: 11/09/2019 10:09 AM Workstation Name: [id number]"
[2019-11-09] MEDS: ARIPiprazole 5 MG TAB PO SCH (11:53)
[2019-11-09] MEDS: amLODIPine 10 MG TAB PO SCH (11:53)
[2019-11-09] MEDS: carvediloL 6.25 MG TAB PO SCH ×2 (11:54→22:17)
[2019-11-09] MEDS: LITHIUM CARBONATE 300 MG CAP PO SCH ×2 (11:54→22:17)
[2019-11-09] MEDS: PANTOPRAZOLE 40 MG TAB PO SCH ×2 (11:54→15:15)
[2019-11-09] MEDS: ASPIRIN 325 MG TAB PO SCH ×2 (11:54→15:15)
[2019-11-09] MEDS ORDERED: PNEUMOCOCCAL 23 Valent 0.5 ML VIAL IM ONE (12:00)
--- NOTE | 2019-11-09 12:57 | Magnetic Resonance Report ---
MRI BRAIN WITHOUT CONTRAST INDICATION / CLINICAL INFORMATION: stroke. Left-sided weakness and slurred speech. TECHNIQUE: Multiplanar, multisequence MR images of the brain were obtained. COMPARISON: Head CT 11/08/2019. FINDINGS: BRAIN / INTRACRANIAL CONTENTS: There is about a 1 cm3 volume of restricted diffusion in the lateral aspect of the right putamen with extension up into the right hill radiata. This is associated with decreased signal intensity on AD C map images. Hyperintensity is observed in this same location on FLAIR and T2-weighted scans. This r epresents a subacute small deep infarction. There is no indication of hemorrhagic transformation. Ventricles and cortical sulci are normal in size and configuration. There is no mass effect. No evide nce of intracranial hemorrhage or extra-axial fluid collection is seen. No areas of abnormal brain pa renchymal signal intensity are identified. There is no indication of remote cortical infarction. Diff usion weighted scans are negative. There is no indication of acute ischemic injury. The brainstem and cerebellum have an unremarkable appearance. CRANIOCERVICAL JUNCTION: No abnormalities are identified at the craniocervical junction. VASCULAR FLOW-VOIDS: Normal flow-voids are present within the major intracranial vessels. ORBITS: The orbits have an unremarkable appearance. SINUSES / MASTOIDS: There is no indication of inflammatory disease in the paranasal sinuses or mastoi d air cells. ADDITIONAL FINDINGS: None. IMPRESSION: 1. Small, subacute deep infarction involving the putamen and hill radiata on the right. There is no indication of hemorrhagic transformation. Signer Name: Julien Ortiz MD Signed: 11/09/2019 12:53 PM Workstation Name: [id number]
--- NOTE | 2019-11-09 13:39 | Progress Note ---
Assessment and Plan Assessment and plan: Patient is a 64 y/o woman w/ a h/o left bells palsy, HTN, bipolar d/o, PTSD, anxiety, DM, GERD, who p/w slurred speech, left sided weakness. According to the patient's clinical findings, she has had an ischemic stroke. Patient reports that her symptoms started on Thursday. She states that she had a worsening left- sided facial droop. Patient was known to have a stroke back in 2009 that left her with some left-sided facial weakness. Over the last couple days she states this has gotten worse. Patient's speech is slurred. However she has no expressive or receptive aphasia on exam. She also reports a parasthesis of her left upper and left lower leg. She describes it as pins and needles. She is able to move both against gravity. * Telemetry neurology recommended admission with dual antiplatelet therapy, statin, MRI/MRA of the head, carotid ultrasounds. They also recommend a Depakote and lithium level given patient's home medications. As well as an ammonia level. Telemetry neurology does not recommend IR consult for TPA. This is based on the images that became available during our exam. * Patient had a recent cardiac workup in July of this year. She had an echo that revealed a normal RV however LV dysfunction with an EF of 40-45% was noted. She also had left ventricular diastolic dysfunction. She had an abnormal stress test that revealed concern for ischemia in this circumflex region. She was to schedule for a cardiac CT. MRI IMPRESSION: 1. Small, subacute deep infarction involving the putamen and hill radiata on the right. There is no indication of hemorrhagic transformation. (1) Acute CVA (cerebrovascular accident) Current Visit: Yes Status: Acute Plan to address problem: Unlikely Patient is near baseline Per patient no increased weakness Will get stroke protocol except MRA Start statin and ASA Neuro consult (2) Hyperkalemia Current Visit: Yes Status: Acute Plan to address problem: treated (3) PAULA (acute kidney injury) secondary to vasomotor nephropathy Current Visit: Yes Status: Acute Plan to address problem: PAULA on CKD Nephrology consult Underlying CKD IV Fluids for now (4) T2DM (type 2 diabetes mellitus) Current Visit: Yes Status: Chronic Qualifiers: Diabetes mellitus shelter insulin use: unspecified manager intermediate insulin use status Plan to address problem: Cont hypoglycemics and coverage Check A1c (5) Bipolar disorder Current Visit: No Status: Chronic Qualifiers: Active/Remission status: in full remission Plan to address problem: Check Ray, level (6) DVT prophylaxis Current Visit: No Status: Acute Plan to address problem: On Heparin and GI prophylaxis History Interval history: Patient seen and examined, still with left sided weakness and Slurred speech and right facial droop Hospitalist Physical - Physical exam Narrative exam: VITAL SIGNS: Reviewed. GENERAL: The patient appears normally developed, Vital signs as documented. HEAD: No signs of head trauma. EYES: Pupils are equal. Extraocular motions intact. EARS: Hearing grossly intact. MOUTH: Oropharynx is normal. NECK: No adenopathy, no JVD. CHEST: Chest with clear breath sounds bilaterally. No wheezes, rales, or rhonchi. CARDIAC: Regular rate and rhythm. S1 and S2, without murmurs, gallops, or rubs. VASCULAR: No Edema. Peripheral pulses normal and equal in all extremities. ABDOMEN: Soft, non tender and non distended. No rebound or guarding, and no masses palpated. Bowel Sounds normal. MUSCULOSKELETAL: Good range of motion of all major joints. Extremities without clubbing, cyanosis or edema. NEUROLOGIC EXAM: Alert and oriented x 3 L Hemiplegia but near baseline,L facial palsy. Speech slurred. Follows commands. PSYCHIATRIC: Mood normal. SKIN: detail exam as documented in skin assessment - Constitutional Vitals: Temp Pulse Resp BP Pulse Ox 97.9 F 69 18 108/60 94 11/09/19 05:47 11/09/19 05:47 11/09/19 05:47 11/09/19 05:47 11/09/19 08:41 General appearance: Present: no acute distress, well-nourished Results - Labs CBC & Chem 7: 11/08/19 13:52 11/10/19 05:01 Labs: Laboratory Last Values WBC 10.7 K/mm3 (4.5-11.0) 11/08/19 13:52 RBC 3.72 M/mm3 (3.65-5.03) 11/08/19 13:52 Hgb 10.3 gm/dl (10.1-14.3) 11/08/19 13:52 Hct 31.8 % (30.3-42.9) 11/08/19 13:52 MCV 86 fl (79-97) 11/08/19 13:52 MCH 28 pg (28-32) 11/08/19 13:52 MCHC 32 % (30-34) 11/08/19 13:52 RDW 14.4 % (13.2-15.2) 11/08/19 13:52 Plt Count 254 K/mm3 (140-440) 11/08/19 13:52 Lymph % (Auto) 19.5 % (13.4-35.0) 11/08/19 13:52 Edgar % (Auto) 5.5 % (0.0-7.3) 11/08/19 13:52 Eos % (Auto) 1.3 % (0.0-4.3) 11/08/19 13:52 Baso % (Auto) 1.1 % (0.0-1.8) 11/08/19 13:52 Lymph # 2.1 K/mm3 (1.2-5.4) 11/08/19 13:52 Edgar # 0.6 K/mm3 (0.0-0.8) 11/08/19 13:52 Eos # 0.1 K/mm3 (0.0-0.4) 11/08/19 13:52 Baso # 0.1 K/mm3 (0.0-0.1) 11/08/19 13:52 Seg Neutrophils % 72.6 % (40.0-70.0) H 11/08/19 13:52 Seg Neutrophils # 7.7 K/mm3 (1.8-7.7) 11/08/19 13:52 PT 12.9 Sec. (12.2-14.9) 11/08/19 13:52 INR 0.96 (0.87-1.13) 11/08/19 13:52 APTT 30.9 Sec. (24.2-36.6) 11/08/19 13:52 Thrombin Time 16.9 Sec. (15.1-19.6) 11/08/19 13:52 Sodium 143 mmol/L (137-145) 11/09/19 09:26 Potassium 5.3 mmol/L (3.6-5.0) H 11/09/19 09:26 Chloride 109.2 mmol/L (98-107) H 11/09/19 09:26 Carbon Dioxide 23 mmol/L (22-30) 11/09/19 09:26 Anion Gap 16 mmol/L 11/09/19 09:26 BUN 59 mg/dL (7-17) H 11/09/19 09:26 Creatinine 3.0 mg/dL (0.7-1.2) H 11/09/19 09:26 Estimated GFR 19 ml/min 11/09/19 09:26 BUN/Creatinine Ratio 20 % 11/09/19 09:26 Glucose 68 mg/dL (65-100) 11/09/19 09:26 POC Glucose 67 (70-105) L 11/09/19 13:10 Calcium 8.9 mg/dL (8.4-10.2) 11/09/19 09:26 Phosphorus 3.40 mg/dL (2.5-4.5) 11/09/19 09:26 Total Bilirubin 0.20 mg/dL (0.1-1.2) 11/08/19 13:52 Direct Bilirubin < 0.2 mg/dL (0-0.2) 11/08/19 13:52 Indirect Bilirubin 0.0 mg/dL 11/08/19 13:52 AST 29 units/L (5-40) 11/08/19 13:52 ALT 31 units/L (7-56) 11/08/19 13:52 Alkaline Phosphatase 79 units/L (35-129) 11/08/19 13:52 Ammonia 43.0 umol/L (25-60) 11/08/19 14:05 Total Creatine Kinase 66 units/L (30-135) 11/09/19 09:26 Troponin T 0.049 ng/mL (0.00-0.029) H 11/08/19 13:52 Total Protein 6.9 g/dL (6.3-8.2) 11/08/19 13:52 Albumin 3.5 g/dL (3.9-5) L 11/08/19 13:52 Albumin/Globulin Ratio 1.0 % 11/08/19 13:52 Triglycerides 95 mg/dL (2-149) 11/08/19 13:52 Cholesterol 208 mg/dL (50-199) H 11/08/19 13:52 LDL Cholesterol Direct 101 mg/dL (50-130) 11/08/19 13:52 HDL Cholesterol 93 mg/dL (40-59) H 11/08/19 13:52 Cholesterol/HDL Ratio 2.23 % 11/08/19 13:52 TSH 1.840 mlU/mL (0.270-4.200) 11/08/19 13:52 Urine Color Straw (Yellow) 11/08/19 18:47 Urine Turbidity Clear (Clear) 11/08/19 18:47 Urine pH 7.0 (5.0-7.0) 11/08/19 18:47 Ur Specific [place] 1.009 (1.003-1.030) 11/08/19 18:47 Urine Protein 100 mg/dl mg/dL (Negative) 11/08/19 18:47 Urine Glucose (UA) 150 mg/dL (Negative) 11/08/19 18:47 Urine Ketones Neg mg/dL (Negative) 11/08/19 18:47 Urine Blood Sm (Negative) 11/08/19 18:47 Urine Nitrite Neg (Negative) 11/08/19 18:47 Urine Bilirubin Neg (Negative) 11/08/19 18:47 Urine Urobilinogen < 2.0 mg/dL (<2.0) 11/08/19 18:47 Ur Leukocyte Esterase Sm (Negative) 11/08/19 18:47 Urine WBC (Auto) 1.0 /HPF (0.0-6.0) 11/08/19 18:47 Urine RBC (Auto) 8.0 /HPF (0.0-6.0) 11/08/19 18:47 U Epithel Cells (Auto) 2.0 /HPF (0-13.0) 11/08/19 18:47 Urine Opiates Screen Presumptive negative 11/08/19 18:47 Urine Methadone Screen Presumptive negative 11/08/19 18:47 Ur Barbiturates Screen Presumptive negative 11/08/19 18:47 Valproic Acid 16.5 ug/mL (50-100) L 11/08/19 14:05 Ur Phencyclidine Scrn Presumptive negative 11/08/19 18:47 Ur Amphetamines Screen Presumptive negative 11/08/19 18:47 U Benzodiazepines Scrn Presumptive negative 11/08/19 18:47 Ray 1.2 mmol/L (0.0-1.2) 11/08/19 14:05 Urine Cocaine Screen Presumptive negative 11/08/19 18:47 U Marijuana (THC) Screen Presumptive negative 11/08/19 18:47 Drugs of Abuse Note Disclamer 11/08/19 18:47 Plasma/Serum Alcohol < 0.01 % (0-0.07) 11/08/19 Unknown Active Medications - Current Medications Current Medications: Generic Name Dose Route Start Last Admin Trade Name Freq PRN Reason Stop Dose Admin Amlodipine Besylate 10 mg 11/08/19 22:00 11/09/19 11:53 Amlodipine PO Not Given QDAY [facility] Aripiprazole 5 mg 11/08/19 22:00 11/09/19 11:53 Aripiprazole PO Not Given DAILY [facility] Aspirin 325 mg 11/08/19 14:00 11/09/19 11:54 Aspirin PO Not Given QDAY [facility] Atorvastatin Calcium 40 mg 11/09/19 22:00 Lipitor PO QHS [facility] Carvedilol 6.25 mg 11/08/19 22:00 11/09/19 11:54 Coreg PO Not Given BID [facility] Dextrose 50 ml 11/09/19 08:28 D50w (25gm) Syringe IV Q30MIN PRN Hypoglycemia Protocol Divalproex Sodium 500 mg 11/08/19 22:00 11/08/19 22:30 Depakote Er PO 500 mg QHS [facility] Administration Sodium Chloride 1,000 mls @ 75 mls/hr 11/09/19 07:00 Nacl 0.9% 1000 Ml IV DIRECT [facility] Dextrose/Sodium Chloride 1,000 mls @ 75 mls/hr 11/09/19 09:00 11/09/19 09:29 D5ns IV 75 mls/hr DIRECT [facility] Administration Insulin Human Lispro 0 unit 11/09/19 12:00 Humalog SUB-Q Q6HR [facility] Protocol Ray Carbonate 300 mg 11/08/19 22:00 11/09/19 11:54 Eskalith PO Not Given BID [facility] Pantoprazole Sodium 40 mg 11/09/19 10:00 11/09/19 11:54 Protonix PO Not Given QDAY [facility] Quetiapine Fumarate 100 mg 11/08/19 22:00 11/08/19 22:30 Seroquel PO 100 mg QHS [facility] Administration Sodium Chloride 10 ml 11/09/19 06:50 Sodium Chloride Flush Syringe 10 Ml IV PRN PRN LINE FLUSH Nutrition/Malnutrition Assess - Dietary Evaluation Nutrition/Malnutrition Findings: Nutrition Notes Start: 11/09/19 13:34 Freq: Status: Active Protocol: Document 11/09/19 13:34 LP (Rec: 11/09/19 13:35 LP [id number]) Nutrition Notes Need for Assessment generated from: MD Order Initial or Follow up Brief Note Current Diagnosis CKD(stage I-IV),Diabetes, Hypertension,Stroke Subjective/Other Information Consult for malnutrition. Unable to see pt at time of visit and no diet ordered. Nutrition Intervention Follow-Up By: 11/10/19 Additional Comments Follow for assessment
--- NOTE | 2019-11-09 13:47 | Consultation ---
History of Present Illness Consult date: 11/09/19 Reason for Consult: Stroke Chief complaint: Slurred speech, face droop, left sided weakness History of present illness: Patient is a 64 y/o woman w/ a h/o left bells palsy, HTN, bipolar d/o, PTSD, anxiety, DM, GERD. For the past one week, patient has been experiencing slurred speech. She has a director talent management, who noted about 2 days ago that her left facial droop had worsened from baseline, and patient was brought to [facility] for further evaluation. Patient also states that she has noted left sided weakness. She states that she previously had a history of seizures in her 20s, however has not had any in years. Patient denied that she had ever had a stroke in the past. Past History Past Medical History: diabetes, hypertension, renal failure, stroke, other (Bipolar) Social history: Lives alone Family history: other (father murdered when patient was 12 years old, resulting in PTSD for patient) Medications and Allergies Allergies Allergy/AdvReac Type Severity Reaction Status Date / Time lisinopril Allergy Unknown Verified 07/27/19 09:29 promethazine HCl Allergy Shortness Verified 11/29/15 15:40 [From Phenergan] of Breath Home Medications Medication Instructions Recorded Confirmed Last Taken Type ARIPiprazole [Abilify TAB] 5 mg PO DAILY #30 tab 10/29/19 Unknown Rx Divalproex ER [Depakote ER] 500 mg PO QHS #30 tab 10/29/19 Unknown Rx Furosemide [Lasix TAB] 40 mg PO QDAY #30 tablet 10/29/19 Unknown Rx Insulin Detemir [Levemir VIAL] 25 unit SQ QHS #1 vial 10/29/19 Unknown Rx Lispro Insulin [HumaLOG] 1 dose SUB-Q ACHS PRN #1000 units 10/29/19 Unknown Rx [place] Carbonate 300 mg PO BID #60 tab 10/29/19 Unknown Rx Pantoprazole [Protonix TAB] 40 mg PO QDAY #30 tablet 10/29/19 Unknown Rx Potassium Chloride [K-Dur] 20 meq PO QDAY #30 tablet 10/29/19 Unknown Rx QUEtiapine [SEROquel] 100 mg PO QHS #30 tablet 10/29/19 Unknown Rx amLODIPine 10 mg PO QDAY #30 tablet 10/29/19 Unknown Rx carvediloL [Coreg] 6.25 mg PO BID #60 tablet 10/29/19 Unknown Rx Active Meds: Active Medications Amlodipine Besylate (Amlodipine) 10 mg PO QDAY [facility] Last Admin: 11/09/19 11:53 Dose: Not Given Documented by: Aripiprazole (Aripiprazole) 5 mg PO DAILY [facility] Last Admin: 11/09/19 11:53 Dose: Not Given Documented by: Aspirin (Aspirin) 325 mg PO QDAY [facility] Last Admin: 11/09/19 11:54 Dose: Not Given Documented by: Atorvastatin Calcium (Lipitor) 40 mg PO QHS [facility] Carvedilol (Coreg) 6.25 mg PO BID [facility] Last Admin: 11/09/19 11:54 Dose: Not Given Documented by: Dextrose (D50w (25gm) Syringe) 50 ml IV Q30MIN PRN; Protocol PRN Reason: Hypoglycemia Divalproex Sodium (Depakote Er) 500 mg PO QHS [facility] Last Admin: 11/08/19 22:30 Dose: 500 mg Documented by: Sodium Chloride (Nacl 0.9% 1000 Ml) 1,000 mls @ 75 mls/hr IV DIRECT [facility] Dextrose/Sodium Chloride (D5ns) 1,000 mls @ 75 mls/hr IV DIRECT [facility] Last Admin: 11/09/19 09:29 Dose: 75 mls/hr Documented by: Insulin Human Lispro (Humalog) 0 unit SUB-Q Q6HR [facility]; Protocol [place] Carbonate (Eskalith) 300 mg PO BID [facility] Last Admin: 11/09/19 11:54 Dose: Not Given Documented by: Pantoprazole Sodium (Protonix) 40 mg PO QDAY [facility] Last Admin: 11/09/19 11:54 Dose: Not Given Documented by: Quetiapine Fumarate (Seroquel) 100 mg PO QHS [facility] Last Admin: 11/08/19 22:30 Dose: 100 mg Documented by: Sodium Chloride (Sodium Chloride Flush Syringe 10 Ml) 10 ml IV PRN PRN PRN Reason: LINE FLUSH Review of Systems All systems: negative Neurological: weakness, change in speech Physical Examination - Vital Signs Vital Signs: Vital Signs Temp Pulse Resp BP Pulse Ox 98.1 F 83 15 153/85 100 11/08/19 13:38 11/08/19 13:38 11/08/19 13:38 11/08/19 13:38 11/08/19 13:38 - Physical Exam Narrative exam: Patient is awake, alert, oriented x4, follows complex commands. Noted to have dysarthria. No aphasia. PERRL, EOMI, VFF, b/l intact to LT, tongue midline, left lower facial weakness. 5/5 in RUE/RLE, 4/5 in LUE proximally and 3/5 distally, LLE 4/5. Decreased in LLE to LT. B/l intact to FTN and HTS. 2+ reflexes thr oughout. - Constitutional General appearance: comfortable - EENT EENT: Present: ATNC, PERRL, mucous membranes moist, hearing intact, vision intact - Respiratory Respiratory: Present: lungs clear, normal breath sounds - Cardiovascular Cardiovascular: Present: regular rate, normal S1, normal S2 Extremities: Present: no clubbing, cyanosis, no inflammation - Gastrointestinal Gastrointestinal: Present: normoactive bowel sounds, soft, non-tender - Integumentary Integumentary: Present: normal - Musculoskeletal Musculoskeletal: Present: no fluid collection - Psychiatric Psychiatric: Present: mood/affect appropriate - Level of Consciousness 1a. Level of Consciousness: alert/keenly responsive - LOC Questions 1b. LOC Questions: answers both correctly - LOC Command 1c. LOC Commands: performs tasks correctly - Best Gaze 2. Best Gaze: normal - Visual 3. Visual: no visual loss - Facial Palsy 4. Facial Palsy: partial paralysis - Motor Arm 5a. Motor Arm Left: no drift 5b. Motor Arm Right: no drift - Motor Leg 6a. Motor Leg Left: drift 6b. Motor Leg Right: no drift - Limb Ataxia 7. Limb Ataxia: absent - Sensory 8. Sensory: mild/moderate sensory loss - Best Language 9. Best Language: no aphasia - Dysarthria 10. Dysarthria: mild/moderate dysarthria - Extinction and Inattention 11. Extinction/Inattention: no abnormality - Scoring Total Score: 5 Stroke Severity: Moderate Stroke Results - Laboratory Findings CBC and BMP: 11/08/19 13:52 11/09/19 09:26 Abnormal Lab Findings: Abnormal Labs 11/08/19 11/08/19 11/08/19 13:45 13:52 13:52 Seg Neutrophils % 72.6 H Potassium 5.8 H Chloride BUN 60 H Creatinine 3.1 H Glucose 316 H POC Glucose 279 H Troponin T 0.049 H Albumin Cholesterol 208 H HDL Cholesterol 93 H Valproic Acid 11/08/19 11/08/19 11/08/19 13:52 14:05 17:16 Seg Neutrophils % Potassium 5.6 H Chloride BUN Creatinine Glucose POC Glucose Troponin T Albumin 3.5 L Cholesterol HDL Cholesterol Valproic Acid 16.5 L 11/08/19 11/09/19 11/09/19 21:38 08:10 08:41 Seg Neutrophils % Potassium Chloride BUN Creatinine Glucose POC Glucose 216 H < 40 L 123 H Troponin T Albumin Cholesterol HDL Cholesterol Valproic Acid 11/09/19 11/09/19 09:26 13:10 Seg Neutrophils % Potassium 5.3 H Chloride 109.2 H BUN 59 H Creatinine 3.0 H Glucose POC Glucose 67 L Troponin T Albumin Cholesterol HDL Cholesterol Valproic Acid Assessment and Plan Patient is a 64 y/o woman w/ a h/o left bells palsy, HTN, bipolar d/o, PTSD, anxiety, DM, GERD, who p/w slurred speech, left sided weakness. According to the patient's clinical findings, she has had an ischemic stroke. Plan: 1. Stroke: - MRI brain: right subcortical infarct - MRA head: pending - CT head: no acute abnormality - CUS: no significant stenosis - Echo: Pending - Cont. ASA - Cont. statin. LDL 101. Goal LDL <70. - Telemetry monitoring while in house - DVT Ppx: Recommend lovenox - PT/OT/ST 2. Hypertension: - Recommend goal of normotension, as it has been >48 hours since symptoms onset. - Will continue to follow patient. Thank you for allowing me to take part in the care of this patient. Shahab Bell MD Neurology
--- NOTE | 2019-11-09 13:51 | Magnetic Resonance Report ---
MRA HEAD 11/09/2019 INDICATION / CLINICAL INFORMATION: MAIN: stroke, LT SIDED WEAKNESS AND SLURRED SPEECH. TECHNIQUE: Routine MRA of the head is performed. 3-D/MIP reformats postprocessed. There is some patient motion artifact present. COMPARISON: None available. FINDINGS: MRA HEAD: Intracranial internal carotid arteries: No significant abnormality. Anterior cerebral arteries: No significant abnormality. Middle cerebral arteries: No significant abnormality. Intracranial vertebral arteries: No significant abnormality. Basilar artery: No significant abnormality. Posterior cerebral arteries: No significant abnormality. IMPRESSION: No evidence of acute or significant abnormality. Patient motion artifact is present. Signer Name: Dell Christianson MD Signed: 11/09/2019 1:47 PM Workstation Name: [id number]
[2019-11-09] MEDS ORDERED: hydrALAZINE 20 MG/1 ML INJ IV ONE (15:17)
[2019-11-09] MEDS: INSULIN LISPRO 100 UNIT/ML SUB-Q SCH ×2 (15:29→19:44)
[2019-11-09 15:53] LABS: Creatine Kinase MB 3.4 ng/mL (0.0-4.0)
[2019-11-09] MEDS: MORPHINE 2 MG/1 ML INJ IV PRN (16:47)
[2019-11-09] MEDS ORDERED: NITROGLYCERIN 0.4 MG TAB SUBL SL ONE (17:00)
[2019-11-09] MEDS: QUEtiapine 100 MG TAB PO SCH (22:17)
[2019-11-09] MEDS: DIVALPROEX ER 500 MG TAB PO SCH (22:17)
[2019-11-10] MEDS: INSULIN LISPRO 100 UNIT/ML SUB-Q SCH ×4 (01:29→18:14)
[2019-11-10 06:09] LABS: Calcium 8.7 mg/dL (8.4-10.2)
--- NOTE | 2019-11-10 09:53 | Progress Note ---
Assessment and Plan 1. 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 Patient was taking NSAID at home which likely has contributed to PAULA. Renal US ordered. Creatinine level trending down. Monitor renal function. Renal prognosis is guarded. Avoid nephrotoxic agents. Meds dosage based on GFR. 2. FEN: Hyperkalemia, kayexalate ordered. Monitor lytes. 3. Nephrotic range proteinuria: Likely from Diabetic nephropathy. 4. Suspected CVA. 5. DM type 2, uncontrolled. 6. HTN: Monitor BP. 7. PTSD. Examination: General appearance: well-developed, appears stated age, not in distress HEENT: ATNC, CAITY Neck: neck supple, trachea midline Respiratory: Clear to Ascultation Heart: regular, S1S2, no murmurs Gastrointestinal: normoactive bowel sounds, not tender, not distended Integumentary: no rash, warm and dry Neurologic: some expressive aphasia, facial droop (L side), able to move extremties Ext: no edema Subjective Date of service: 11/10/19 Interval history: Patient was seen and examined at the bedside. Doing better. Objective - Vital Signs Vital signs: Vital Signs - 12hr 11/09/19 11/09/19 11/10/19 22:13 23:08 06:09 Temperature 97.9 F 98.4 F 98.0 F Pulse Rate 77 81 70 Respiratory 18 20 20 Rate Blood Pressure 119/56 145/72 137/76 O2 Sat by Pulse 99 98 97 Oximetry - Lab 11/08/19 13:52 11/10/19 15:49 Most recent lab results Calcium 8.7 mg/dL (8.4-10.2) 11/10/19 05:01 Phosphorus 3.40 mg/dL (2.5-4.5) 11/09/19 09:26 Medications & Allergies - Medications Allergies/Adverse Reactions: Allergies lisinopril Allergy (Verified 07/27/19 09:29) Unknown promethazine HCl [From Phenergan] Allergy (Verified 11/29/15 15:40) Shortness of Breath Home Medications: Home Medications Medication Instructions Recorded Confirmed Last Taken Type ARIPiprazole [Abilify TAB] 5 mg PO DAILY #30 tab 10/29/19 11/10/19 Unknown Rx Divalproex ER [Depakote ER] 500 mg PO QHS #30 tab 10/29/19 11/10/19 Unknown Rx Furosemide [Lasix TAB] 40 mg PO QDAY #30 tablet 10/29/19 11/10/19 Unknown Rx Insulin Detemir [Levemir VIAL] 25 unit SQ QHS #1 vial 10/29/19 11/10/19 Unknown Rx Lispro Insulin [HumaLOG] 1 dose SUB-Q ACHS PRN #1000 units 10/29/19 11/10/19 Unknown Rx [place] Carbonate 300 mg PO BID #60 tab 10/29/19 11/10/19 Unknown Rx Pantoprazole [Protonix TAB] 40 mg PO QDAY #30 tablet 10/29/19 11/10/19 Unknown Rx Potassium Chloride [K-Dur] 20 meq PO QDAY #30 tablet 10/29/19 11/10/19 Unknown Rx QUEtiapine [SEROquel] 100 mg PO QHS #30 tablet 10/29/19 11/10/19 Unknown Rx amLODIPine 10 mg PO QDAY #30 tablet 10/29/19 11/10/19 Unknown Rx carvediloL [Coreg] 6.25 mg PO BID #60 tablet 10/29/19 11/10/19 Unknown Rx Aspirin 325 mg PO QDAY #30 tablet 11/10/19 Unknown Rx AtorvaSTATin [Lipitor] 40 mg PO QHS #30 tablet 11/10/19 Unknown Rx Active Medications: Generic Name Dose Route Start Last Admin Trade Name Freq PRN Reason Stop Dose Admin Amlodipine Besylate 10 mg 11/08/19 22:00 11/09/19 11:53 Amlodipine PO Not Given QDAY [facility] Aripiprazole 5 mg 11/08/19 22:00 11/09/19 11:53 Aripiprazole PO Not Given DAILY [facility] Aspirin 325 mg 11/08/19 14:00 11/09/19 15:15 Aspirin PO 325 mg QDAY [facility] Administration Atorvastatin Calcium 40 mg 11/09/19 22:00 11/09/19 22:17 Lipitor PO 40 mg QHS [facility] Administration Carvedilol 6.25 mg 11/08/19 22:00 11/09/19 22:17 Coreg PO 6.25 mg BID [facility] Administration Dextrose 50 ml 11/09/19 08:28 D50w (25gm) Syringe IV Q30MIN PRN Hypoglycemia Protocol Divalproex Sodium 500 mg 11/08/19 22:00 11/09/19 22:17 Depakote Er PO 500 mg QHS [facility] Administration Sodium Chloride 1,000 mls @ 75 mls/hr 11/09/19 07:00 Nacl 0.9% 1000 Ml IV DIRECT [facility] Dextrose/Sodium Chloride 1,000 mls @ 75 mls/hr 11/09/19 09:00 11/09/19 09:29 D5ns IV 75 mls/hr DIRECT [facility] Administration Insulin Human Lispro 0 unit 11/09/19 12:00 11/10/19 06:54 Humalog SUB-Q Not Given Q6HR [facility] Protocol [place] Carbonate 300 mg 11/08/19 22:00 11/09/19 22:17 Eskalith PO 300 mg BID [facility] Administration Morphine Sulfate 2 mg 11/09/19 16:31 11/09/19 16:47 Morphine IV 2 mg Q6H PRN Administration Pain, Moderate (4-6) Pantoprazole Sodium 40 mg 11/09/19 10:00 11/09/19 15:15 Protonix PO 40 mg QDAY [facility] Administration Quetiapine Fumarate 100 mg 11/08/19 22:00 11/09/19 22:17 Seroquel PO 100 mg QHS [facility] Administration Sodium Chloride 10 ml 11/09/19 06:50 Sodium Chloride Flush Syringe 10 Ml IV PRN PRN LINE FLUSH
[2019-11-10 10:02] LABS: Calcium 8.6 mg/dL (8.4-10.2)
--- NOTE | 2019-11-10 11:17 | Discharge Summary ---
Providers - Providers Date of Admission: 11/08/19 17:11 Attending physician: DOLORES AGGARWAL MD 11/09/19 Consult to Physician [CONS] Routine Comment: Consulting Provider: TORI ANDERSON Physician Instructions: Reason For Exam: CVA 11/09/19 06:50 Occupational Therapy Evaluate and Treat [CONS] Routine Comment: Reason For Exam: Neuro deficits Physical Therapy Evaluation and Treat [CONS] Routine Comment: Reason For Exam: Neuro deficits 11/09/19 06:53 Consult to Physician [CONS] Routine Comment: Consulting Provider: DARRON GRAY Physician Instructions: Reason For Exam: PAUAL/CKD 11/09/19 08:08 Speech Therapy Evaluation and Treat [CONS] Routine Reason For Exam: swallowing 11/09/19 08:24 Consult to Dietitian/Nutrition [CONS] Routine Physician Instructions: Reason For Exam: Reason for Consult: Malnutrition Primary care physician: [employer] CO[employer]INATOR Hospitalization Condition: Stable Disposition: [id number] [facility]PT [facility] FACILITY Core Measure Documentation - Palliative Care Palliative Care/ Comfort Measures: Not Applicable Exam - Constitutional Vitals: Temp Pulse Resp BP Pulse Ox 98.0 F 70 20 137/76 97 11/10/19 06:09 11/10/19 06:09 11/10/19 06:09 11/10/19 06:09 11/10/19 06:09 Plan Activity: advance as tolerated, fall precautions Diet: low fat, diabetic Special Instructions: record daily BP diary, record blood sugar diary Follow up with: PRIMARY CARE, [Primary Care Provider] - 3-5 Days Prescriptions: AtorvaSTATin [Lipitor] 40 mg PO QHS #30 tablet Aspirin 325 mg PO QDAY #30 tablet
[2019-11-10] MEDS: PANTOPRAZOLE 40 MG TAB PO SCH (11:31)
[2019-11-10] MEDS: ASPIRIN 325 MG TAB PO SCH (11:31)
[2019-11-10] MEDS: carvediloL 6.25 MG TAB PO SCH (11:31)
[2019-11-10] MEDS: LITHIUM CARBONATE 300 MG CAP PO SCH ×2 (11:31→23:32)
[2019-11-10] MEDS: ARIPiprazole 5 MG TAB PO SCH (11:31)
[2019-11-10] MEDS: amLODIPine 10 MG TAB PO SCH (11:31)
--- NOTE | 2019-11-10 12:47 | Progress Note ---
Assessment and Plan Patient is a 64 y/o woman w/ a h/o left bells palsy, HTN, bipolar d/o, PTSD, anxiety, DM, GERD, who p/w slurred speech, left sided weakness. According to the patient's clinical findings, she has had an ischemic stroke. Plan: 1. Stroke: - MRI brain: right subcortical infarct - MRA head: no significant stenosis - CT head: no acute abnormality - CUS: no significant stenosis - Echo: Pending - Cont. ASA - Cont. statin. LDL 101. Goal LDL <70. - Telemetry monitoring while in house - DVT Ppx: Recommend lovenox - PT/OT/ST - Recommend for patient to follow up with neurology in 3-4 weeks as outpatient. 2. Hypertension: - Recommend goal of normotension, as it has been >48 hours since symptoms onset. - Will continue to follow patient. Thank you for allowing me to take part in the care of this patient. Shahab Bell MD Neurology Subjective Date of service: 11/10/19 Principal diagnosis: Stroke Interval history: No acute events overnight. Objective - Exam Narrative Exam: Patient is awake, alert, oriented x4, follows complex commands. Noted to have dysarthria. No aphasia. PERRL, EOMI, VFF, b/l intact to LT, tongue midline, left lower facial weakness. 5/5 in RUE/RLE, 4/5 in LUE proximally and 3/5 distally, LLE 4/5. Decreased in LLE to LT. B/l intact to FTN and HTS. 2+ reflexes throughout. - Vital Sign Vital Signs - 12hr 11/10/19 11/10/19 06:09 11:31 Temperature 98.0 F Pulse Rate 70 70 Respiratory 20 Rate Blood Pressure 137/76 137/76 O2 Sat by Pulse 97 Oximetry - General Apperance Constitutional: comfortable - EENT EENT: ATNC, PERRL, mucous membranes moist, hearing intact, vision intact - Respiratory Respiratory: lungs clear, normal breath sounds - Cardiovascular Cardiovascular: regular rate, normal S1, normal S2 Extremities: no clubbing, cyanosis, no inflammation - Gastrointestinal Gastrointestinal: normoactive bowel sounds, soft, non-tender - Integumentary Integumentary: normal - Musculoskeletal Musculoskeletal: no fluid collection, no pain - Psychiatric Psychiatric: mood/affect appropriate - Laboratory Findings CBC and BMP: 11/08/19 13:52 11/10/19 08:57 Abnormal Lab Findings: Abnormal Labs 11/08/19 11/08/19 11/08/19 13:45 13:52 13:52 Seg Neutrophils % 72.6 H Potassium 5.8 H Chloride Carbon Dioxide BUN 60 H Creatinine 3.1 H Glucose 316 H POC Glucose 279 H CK-MB (CK-2) Rel Index Troponin T 0.049 H Albumin Cholesterol 208 H HDL Cholesterol 93 H Valproic Acid 11/08/19 11/08/19 11/08/19 13:52 14:05 17:16 Seg Neutrophils % Potassium 5.6 H Chloride Carbon Dioxide BUN Creatinine Glucose POC Glucose CK-MB (CK-2) Rel Index Troponin T Albumin 3.5 L Cholesterol HDL Cholesterol Valproic Acid 16.5 L 11/08/19 11/09/19 11/09/19 21:38 08:10 08:41 Seg Neutrophils % Potassium Chloride Carbon Dioxide BUN Creatinine Glucose POC Glucose 216 H < 40 L 123 H CK-MB (CK-2) Rel Index Troponin T Albumin Cholesterol HDL Cholesterol Valproic Acid 11/09/19 11/09/19 11/09/19 09:26 13:10 15:21 Seg Neutrophils % Potassium 5.3 H Chloride 109.2 H Carbon Dioxide BUN 59 H Creatinine 3.0 H Glucose POC Glucose 67 L 152 H CK-MB (CK-2) Rel Index Troponin T Albumin Cholesterol HDL Cholesterol Valproic Acid 11/09/19 11/09/19 11/09/19 15:22 16:47 21:14 Seg Neutrophils % Potassium Chloride Carbon Dioxide BUN Creatinine Glucose POC Glucose 153 H CK-MB (CK-2) Rel Index 5.0 H Troponin T 0.034 H Albumin Cholesterol HDL Cholesterol Valproic Acid 11/09/19 11/10/19 11/10/19 Unknown 01:30 05:01 Seg Neutrophils % Potassium Chloride 111.0 H Carbon Dioxide BUN 49 H Creatinine 2.9 H Glucose POC Glucose 165 H CK-MB (CK-2) Rel Index Troponin T 0.038 H D Albumin Cholesterol HDL Cholesterol Valproic Acid 11/10/19 11/10/19 11/10/19 05:01 08:57 12:39 Seg Neutrophils % Potassium 5.1 H Chloride 108.8 H Carbon Dioxide 19 L BUN 50 H Creatinine 2.8 H Glucose POC Glucose 185 H CK-MB (CK-2) Rel Index Troponin T 0.038 H Albumin Cholesterol HDL Cholesterol Valproic Acid
--- NOTE | 2019-11-10 14:42 | Fluoroscopy Report ---
Modified barium swallow Indication: evaluate swallowing Technique: Swallowing was evaluated in the lateral position under direct fluoroscopy. Findings: The patient was evaluated with puree, mixed, and thin consistencies. There was early spill with all consistencies and flash penetration with thin liquid. An appropriate c ough reflex was elicited. No emily aspiration. Impression: Abnormal exam as above. Fluoroscopic time: 0.6 minutes Number of fluoroscopic images: 1 Signer Name: Chi Vasquez MD Signed: 11/10/2019 2:37 PM Workstation Name: [id number]
--- NOTE | 2019-11-10 15:21 | Progress Note ---
Assessment and Plan Assessment and plan: Patient is a 64 y/o woman w/ a h/o left bells palsy, HTN, bipolar d/o, PTSD, anxiety, DM, GERD, who p/w slurred speech, left sided weakness. According to the patient's clinical findings, she has had an ischemic stroke. Patient reports that her symptoms started on Thursday. She states that she had a worsening left- sided facial droop. Patient was known to have a stroke back in 2009 that left her with some left-sided facial weakness. Over the last couple days she states this has gotten worse. Patient's speech is slurred. However she has no expressive or receptive aphasia on exam. She also reports a parasthesis of her left upper and left lower leg. She describes it as pins and needles. She is able to move both against gravity. * Telemetry neurology recommended admission with dual antiplatelet therapy, statin, MRI/MRA of the head, carotid ultrasounds. They also recommend a Depakote and lithium level given patient's home medications. As well as an ammonia level. Telemetry neurology does not recommend IR consult for TPA. This is based on the images that became available during our exam. * Patient had a recent cardiac workup in July of this year. She had an echo that revealed a normal RV however LV dysfunction with an EF of 40-45% was noted. She also had left ventricular diastolic dysfunction. She had an abnormal stress test that revealed concern for ischemia in this circumflex region. She was to schedule for a cardiac CT. MRI IMPRESSION: 1. Small, subacute deep infarction involving the putamen and hill radiata on the right. There is no indication of hemorrhagic transformation. (1) Acute CVA (cerebrovascular accident) Current Visit: Yes Status: Acute Plan to address problem: - MRI brain: right subcortical infarct - MRA head: no significant stenosis - CT head: no acute abnormality - CUS: no significant stenosis BP control, will Increase BB Start statin and ASA Neuro consult (2) Hyperkalemia Current Visit: Yes Status: Acute Plan to address problem: treated, Will give additional Kayxalate (3) PAULA (acute kidney injury) secondary to vasomotor nephropathy Current Visit: Yes Status: Acute Plan to address problem: PAULA on CKD Nephrology consult Underlying CKD IV Fluids for now (4) T2DM (type 2 diabetes mellitus) Current Visit: Yes Status: Chronic 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 Echo report pending continue statin, asa, bb (7) DVT prophylaxis Current Visit: No Status: Acute Plan to address problem: On Heparin and GI prophylaxis History Interval history: Patient seen and examined, still with left sided weakness and Slurred speech and right facial droop, some improvement. No further chest pain today. Hospitalist Physical - Physical exam Narrative exam: VITAL SIGNS: Reviewed. GENERAL: The patient appears normally developed, Vital signs as documented. HEAD: No signs of head trauma. EYES: Pupils are equal. Extraocular motions intact. EARS: Hearing grossly intact. MOUTH: Oropharynx is normal. NECK: No adenopathy, no JVD. CHEST: Chest with clear breath sounds bilaterally. No wheezes, rales, or rhonchi. CARDIAC: Regular rate and rhythm. S1 and S2, without murmurs, gallops, or rubs. VASCULAR: No Edema. Peripheral pulses normal and equal in all extremities. ABDOMEN: Soft, non tender and non distended. No rebound or guarding, and no masses palpated. Bowel Sounds normal. MUSCULOSKELETAL: Good range of motion of all major joints. Extremities without clubbing, cyanosis or edema. NEUROLOGIC EXAM: Alert and oriented x 3 L Hemiplegia but near baseline,L facial palsy. Speech slurred. Follows commands. PSYCHIATRIC: Mood normal. SKIN: detail exam as documented in skin assessment - Constitutional Vitals: Temp Pulse Resp BP Pulse Ox 98.2 F 79 18 182/89 98 11/10/19 11:58 11/10/19 11:58 11/10/19 11:58 11/10/19 11:58 11/10/19 11:58 General appearance: Present: no acute distress, well-nourished Results - Labs CBC & Chem 7: 11/08/19 13:52 11/10/19 08:57 Labs: Laboratory Last Values WBC 10.7 K/mm3 (4.5-11.0) 11/08/19 13:52 RBC 3.72 M/mm3 (3.65-5.03) 11/08/19 13:52 Hgb 10.3 gm/dl (10.1-14.3) 11/08/19 13:52 Hct 31.8 % (30.3-42.9) 11/08/19 13:52 MCV 86 fl (79-97) 11/08/19 13:52 MCH 28 pg (28-32) 11/08/19 13:52 MCHC 32 % (30-34) 11/08/19 13:52 RDW 14.4 % (13.2-15.2) 11/08/19 13:52 Plt Count 254 K/mm3 (140-440) 11/08/19 13:52 Lymph % (Auto) 19.5 % (13.4-35.0) 11/08/19 13:52 Charlton % (Auto) 5.5 % (0.0-7.3) 11/08/19 13:52 Eos % (Auto) 1.3 % (0.0-4.3) 11/08/19 13:52 Baso % (Auto) 1.1 % (0.0-1.8) 11/08/19 13:52 Lymph # 2.1 K/mm3 (1.2-5.4) 11/08/19 13:52 Charlton # 0.6 K/mm3 (0.0-0.8) 11/08/19 13:52 Eos # 0.1 K/mm3 (0.0-0.4) 11/08/19 13:52 Baso # 0.1 K/mm3 (0.0-0.1) 11/08/19 13:52 Seg Neutrophils % 72.6 % (40.0-70.0) H 11/08/19 13:52 Seg Neutrophils # 7.7 K/mm3 (1.8-7.7) 11/08/19 13:52 PT 12.9 Sec. (12.2-14.9) 11/08/19 13:52 INR 0.96 (0.87-1.13) 11/08/19 13:52 APTT 30.9 Sec. (24.2-36.6) 11/08/19 13:52 Thrombin Time 16.9 Sec. (15.1-19.6) 11/08/19 13:52 Sodium 141 mmol/L (137-145) 11/10/19 08:57 Potassium 5.1 mmol/L (3.6-5.0) H 11/10/19 08:57 Chloride 108.8 mmol/L (98-107) H 11/10/19 08:57 Carbon Dioxide 19 mmol/L (22-30) L 11/10/19 08:57 Anion Gap 18 mmol/L 11/10/19 08:57 BUN 50 mg/dL (7-17) H 11/10/19 08:57 Creatinine 2.8 mg/dL (0.7-1.2) H 11/10/19 08:57 Estimated GFR 21 ml/min 11/10/19 08:57 BUN/Creatinine Ratio 18 % 11/10/19 08:57 Glucose 72 mg/dL (65-100) 11/10/19 08:57 POC Glucose 185 (70-105) H 11/10/19 12:39 Calcium 8.6 mg/dL (8.4-10.2) 11/10/19 08:57 Phosphorus 3.40 mg/dL (2.5-4.5) 11/09/19 09:26 Total Bilirubin 0.20 mg/dL (0.1-1.2) 11/08/19 13:52 Direct Bilirubin < 0.2 mg/dL (0-0.2) 11/08/19 13:52 Indirect Bilirubin 0.0 mg/dL 11/08/19 13:52 AST 29 units/L (5-40) 11/08/19 13:52 ALT 31 units/L (7-56) 11/08/19 13:52 Alkaline Phosphatase 79 units/L (35-129) 11/08/19 13:52 Ammonia 43.0 umol/L (25-60) 11/08/19 14:05 Total Creatine Kinase 67 units/L (30-135) 11/09/19 15:22 CK-MB (CK-2) 3.4 ng/mL (0.0-4.0) 11/09/19 15:22 CK-MB (CK-2) Rel Index 5.0 (0-4) H 11/09/19 15:22 Troponin T 0.038 ng/mL (0.00-0.029) H 11/10/19 05:01 Total Protein 6.9 g/dL (6.3-8.2) 11/08/19 13:52 Albumin 3.5 g/dL (3.9-5) L 11/08/19 13:52 Albumin/Globulin Ratio 1.0 % 11/08/19 13:52 Triglycerides 95 mg/dL (2-149) 11/08/19 13:52 Cholesterol 208 mg/dL (50-199) H 11/08/19 13:52 LDL Cholesterol Direct 101 mg/dL (50-130) 11/08/19 13:52 HDL Cholesterol 93 mg/dL (40-59) H 11/08/19 13:52 Cholesterol/HDL Ratio 2.23 % 11/08/19 13:52 TSH 1.840 mlU/mL (0.270-4.200) 11/08/19 13:52 Urine Color Straw (Yellow) 11/08/19 18:47 Urine Turbidity Clear (Clear) 11/08/19 18:47 Urine pH 7.0 (5.0-7.0) 11/08/19 18:47 Ur Specific [place] 1.009 (1.003-1.030) 11/08/19 18:47 Urine Protein 100 mg/dl mg/dL (Negative) 11/08/19 18:47 Urine Glucose (UA) 150 mg/dL (Negative) 11/08/19 18:47 Urine Ketones Neg mg/dL (Negative) 11/08/19 18:47 Urine Blood Sm (Negative) 11/08/19 18:47 Urine Nitrite Neg (Negative) 11/08/19 18:47 Urine Bilirubin Neg (Negative) 11/08/19 18:47 Urine Urobilinogen < 2.0 mg/dL (<2.0) 11/08/19 18:47 Ur Leukocyte Esterase Sm (Negative) 11/08/19 18:47 Urine WBC (Auto) 1.0 /HPF (0.0-6.0) 11/08/19 18:47 Urine RBC (Auto) 8.0 /HPF (0.0-6.0) 11/08/19 18:47 U Epithel Cells (Auto) 2.0 /HPF (0-13.0) 11/08/19 18:47 Urine Opiates Screen Presumptive negative 11/08/19 18:47 Urine Methadone Screen Presumptive negative 11/08/19 18:47 Ur Barbiturates Screen Presumptive negative 11/08/19 18:47 Valproic Acid 16.5 ug/mL (50-100) L 11/08/19 14:05 Ur Phencyclidine Scrn Presumptive negative 11/08/19 18:47 Ur Amphetamines Screen Presumptive negative 11/08/19 18:47 U Benzodiazepines Scrn Presumptive negative 11/08/19 18:47 Eleanor 1.2 mmol/L (0.0-1.2) 11/08/19 14:05 Urine Cocaine Screen Presumptive negative 11/08/19 18:47 U Marijuana (THC) Screen Presumptive negative 11/08/19 18:47 Drugs of Abuse Note Disclamer 11/08/19 18:47 Plasma/Serum Alcohol < 0.01 % (0-0.07) 11/08/19 Unknown Active Medications - Current Medications Current Medications: Generic Name Dose Route Start Last Admin Trade Name Freq PRN Reason Stop Dose Admin Amlodipine Besylate 10 mg 11/08/19 22:00 11/10/19 11:31 Amlodipine PO 10 mg QDAY HARVEY Administration Aripiprazole 5 mg 11/08/19 22:00 11/10/19 11:31 Aripiprazole PO 5 mg DAILY HARVEY Administration Aspirin 325 mg 11/08/19 14:00 11/10/19 11:31 Aspirin PO 325 mg QDAY HARVEY Administration Atorvastatin Calcium 40 mg 11/09/19 22:00 11/09/19 22:17 Lipitor PO 40 mg QHS HARVEY Administration Carvedilol 12.5 mg 11/10/19 15:16 Coreg PO BID HARVEY Carvedilol 3.125 mg 11/10/19 15:15 Coreg PO 11/10/19 15:16 ONCE ONE Dextrose 50 ml 11/09/19 08:28 D50w (25gm) Syringe IV Q30MIN PRN Hypoglycemia Protocol Divalproex Sodium 500 mg 11/08/19 22:00 11/09/19 22:17 Depakote Er PO 500 mg QHS HARVEY Administration Sodium Chloride 1,000 mls @ 75 mls/hr 11/09/19 07:00 Nacl 0.9% 1000 Ml IV DIRECT HARVEY Insulin Human Lispro 0 unit 11/09/19 12:00 11/10/19 13:07 Humalog SUB-Q 2 unit Q6HR HARVEY Administration Protocol Eleanor Carbonate 300 mg 11/08/19 22:00 12/19/19 11:31 Eskalith PO 300 mg BID HARVEY Administration Morphine Sulfate 2 mg 11/09/19 16:31 11/09/19 16:47 Morphine IV 2 mg Q6H PRN Administration Pain, Moderate (4-6) Pantoprazole Sodium 40 mg 11/09/19 10:00 11/10/19 11:31 Protonix PO 40 mg QDAY HARVEY Administration Quetiapine Fumarate 100 mg 11/08/19 22:00 11/09/19 22:17 Seroquel PO 100 mg QHS HARVEY Administration Sodium Chloride 10 ml 11/09/19 06:50 Sodium Chloride Flush Syringe 10 Ml IV PRN PRN LINE FLUSH Nutrition/Malnutrition Assess - Dietary Evaluation Nutrition/Malnutrition Findings: Nutrition Notes Start: 11/09/19 13:34 Freq: Status: Active Protocol: Document 11/10/19 10:47 CW (Rec: 11/10/19 11:17 CW [id number]) Co-Sign 11/10/19 10:47 LP Nutrition Notes Need for Assessment generated from: MD Order Initial or Follow up Assessment Current Diagnosis Acute Kidney Injury,CKD(stage I-IV),Diabetes,Hypertension, Stroke Other Pertinent Diagnosis CVA (ischemic stroke), hyperkalemia Current Diet pureed diet Labs/Tests K: 5.1; Cl: 108.8; BUN: 50; estimated GFR: 2.8 Pertinent Medications NS at 75 mL/ hr, humalog, Morphine Sulfate, D50w Height 5 ft 5 in Weight 59 kg Usual Body Weight 47.3 kg [place] Body Weight (kg) 56.81 BMI 21.6 Intake Prior to Admission Fair Weight Status Appropriate Subjective/Other Information Pt has stated a flucuation in wt gain over past several months with 104 lbs being the most stable. wt. Pt reports enjoying the new pureed diet and expresses intrerest in continuing diets; Pt. does not like orange juice nor apple, prefers cranberry or chocolate milk; 100% of breakfast eaten Percent of energy/protein needs met: 100/100 Burn Absent Trauma Absent GI Symptoms None Current % PO Good (75-100%) Minimum of two criteria No #2 Nutrition Diagnosis Altered nutrition-related laboratory values Etiology pureed diet As Evidenced by Signs and Symptoms consistently high K levels (5. 1) Is patient on ventilator? No Is Patient Ambulatory and/or Out of Bed Yes REE-([facility]-ambulatory/OOB) [ [id number] [id number]] Calculation Used for Recommendations [facility] Additional Notes protein needs:47 - 59 g (0.8 g - 1 g/ kg) fluid needs: 1 mL/kcal Nutrition Intervention Change Diet Order: renal pureed diet Goal #1 decrease K levels Follow-Up By: 11/17/19 Additional Comments F/U for decreased K levels - Malnutrition Assessment Minimum of two criteria: Yes - Attestation Statement I have reviewed and agreed w/ Malnutrition eval & tx plan: Yes
[2019-11-10] MEDS ORDERED: carvediloL 3.125 MG TAB PO ONE (16:00)
[2019-11-10] MEDS ORDERED: SODIUM POLYSTYRENE 15 GM/60 ML ORAL LIQD PO ONE (16:18)
[2019-11-10] MEDS: QUEtiapine 100 MG TAB PO SCH (23:32)
[2019-11-10] MEDS: DIVALPROEX ER 500 MG TAB PO SCH (23:32)
[2019-11-10] MEDS: carvediloL 12.5 MG TAB PO SCH (23:47)
[2019-11-11] MEDS: INSULIN LISPRO 100 UNIT/ML SUB-Q SCH ×4 (00:46→17:13)
--- NOTE | 2019-11-11 08:47 | Ultrasound Report ---
ULTRASOUND RENAL INDICATION / CLINICAL INFORMATION: Acute renal failure.. COMPARISON: 08/01/2019 renal ultrasound FINDINGS: RIGHT KIDNEY: Length = 9.7 cm. - Echogenicity: Increased, as before - Cortical Thickness: Normal. 1.5 cm. - Hydronephrosis: None. - Cyst or mass: No significant abnormality. - Stones: None seen. LEFT KIDNEY: Length = 11.2 cm. - Echogenicity: Increased, as before - Cortical Thickness: Normal. 1.8 cm. - Hydronephrosis: None. - Cyst or mass: No significant abnormality. - Stones: None seen. URINARY BLADDER: No significant abnormality. FREE FLUID: None. ADDITIONAL FINDINGS: None. IMPRESSION: No significant change. Echogenic renal cortex is suggestive of underlying intrinsic renal disease. Signer Name: Robert Arriaza MD Signed: 11/11/2019 8:43 AM Workstation Name: [id number]
[2019-11-11] MEDS: ASPIRIN 325 MG TAB PO SCH (10:36)
[2019-11-11] MEDS: LITHIUM CARBONATE 300 MG CAP PO SCH ×2 (10:36→22:17)
[2019-11-11] MEDS: PANTOPRAZOLE 40 MG TAB PO SCH (10:36)
[2019-11-11] MEDS: carvediloL 12.5 MG TAB PO SCH ×2 (10:37→22:17)
[2019-11-11] MEDS: amLODIPine 10 MG TAB PO SCH (10:37)
[2019-11-11] MEDS: ARIPiprazole 5 MG TAB PO SCH (10:37)
--- NOTE | 2019-11-11 11:14 | Consultation ---
History of Present Illness Consult date: 11/11/19 Requesting physician: DOLORES AGGARWAL Consult reason: other (CVA) History of present illness: Patient is a 64-year-old female from [facility] with history of HF, CMP, abnormal stress test, hypertension, DM, CKD 3, left-sided bells palsy, bipolar disorder with posttraumatic stress disorder (she witnessed her father murdered at age 11 yo) and seizure disorder. She has been seen by our practice on prior hospitalizations. She presented with c/o slurred speech, left-sided facial droop and left sided weakness since Thursday prior to admission. She was subsequently found to have right subcortical infarct. She also c/o chest pain and thus cardiology has been consulted. She describes her chest pain as a left-sided intermittent throbbing pain sometimes around the left nipple with no clear aggravating or alleviating factors. She denies any SOB, palpitations, n/v, diaphoresis, dizziness or syncope. Lexiscan MPI stress test done 10/29/2019 small mild to mod reversible lateral perfusion defect suggestive of ischemia in circ territory, EF 34%. Limited echo done 11/09/2019 showed EF 30-35%, mod LVH, LA mod dilated, mild to mod MR, mild TR, negative bubble study. Echo done 08/01/2019 showed EF 40-45%, mod LVH, impaired relaxation, normal bubble study. Past History Past Medical History: diabetes, hypertension, renal failure (CKD), other (Bipolar) Social history: Lives alone Family history: other (father murdered when patient was 12 years old, resulting in PTSD for patient) Medications and Allergies Allergies Allergy/AdvReac Type Severity Reaction Status Date / Time lisinopril Allergy Unknown Verified 07/27/19 09:29 promethazine HCl Allergy Shortness Verified 11/29/15 15:40 [From Phenergan] of Breath Home Medications Medication Instructions Recorded Confirmed Last Taken Type ARIPiprazole [Abilify TAB] 5 mg PO DAILY #30 tab 10/29/19 11/10/19 Unknown Rx Divalproex ER [Depakote ER] 500 mg PO QHS #30 tab 10/29/19 11/10/19 Unknown Rx Furosemide [Lasix TAB] 40 mg PO QDAY #30 tablet 10/29/19 11/10/19 Unknown Rx Insulin Detemir [Levemir VIAL] 25 unit SQ QHS #1 vial 10/29/19 11/10/19 Unknown Rx Lispro Insulin [HumaLOG] 1 dose SUB-Q ACHS PRN #1000 units 10/29/19 11/10/19 Unknown Rx [place] Carbonate 300 mg PO BID #60 tab 10/29/19 11/10/19 Unknown Rx Pantoprazole [Protonix TAB] 40 mg PO QDAY #30 tablet 10/29/19 11/10/19 Unknown Rx Potassium Chloride [K-Dur] 20 meq PO QDAY #30 tablet 10/29/19 11/10/19 Unknown Rx QUEtiapine [SEROquel] 100 mg PO QHS #30 tablet 10/29/19 11/10/19 Unknown Rx amLODIPine 10 mg PO QDAY #30 tablet 10/29/19 11/10/19 Unknown Rx carvediloL [Coreg] 6.25 mg PO BID #60 tablet 10/29/19 11/10/19 Unknown Rx Aspirin 325 mg PO QDAY #30 tablet 11/10/19 Unknown Rx AtorvaSTATin [Lipitor] 40 mg PO QHS #30 tablet 11/10/19 Unknown Rx Active Meds: Active Medications Amlodipine Besylate (Amlodipine) 10 mg PO QDAY [facility] Last Admin: 11/11/19 10:37 Dose: 10 mg Documented by: Aripiprazole (Aripiprazole) 5 mg PO DAILY [facility] Last Admin: 11/11/19 10:37 Dose: 5 mg Documented by: Aspirin (Aspirin) 325 mg PO QDAY [facility] Last Admin: 11/11/19 10:36 Dose: 325 mg Documented by: Atorvastatin Calcium (Lipitor) 40 mg PO QHS [facility] Last Admin: 11/10/19 23:37 Dose: 40 mg Documented by: Carvedilol (Coreg) 12.5 mg PO BID [facility] Last Admin: 11/11/19 10:37 Dose: 12.5 mg Documented by: Dextrose (D50w (25gm) Syringe) 50 ml IV Q30MIN PRN; Protocol PRN Reason: Hypoglycemia Divalproex Sodium (Depakote Er) 500 mg PO QHS [facility] Last Admin: 11/10/19 23:32 Dose: 500 mg Documented by: Sodium Chloride (Nacl 0.9% 1000 Ml) 1,000 mls @ 75 mls/hr IV DIRECT [facility] Insulin Human Lispro (Humalog) 0 unit SUB-Q Q6HR [facility]; Protocol Last Admin: 11/11/19 06:32 Dose: Not Given Documented by: [place] Carbonate (Eskalith) 300 mg PO BID [facility] Last Admin: 11/11/19 10:36 Dose: 300 mg Documented by: Morphine Sulfate (Morphine) 2 mg IV Q6H PRN PRN Reason: Pain, Moderate (4-6) Last Admin: 11/09/19 16:47 Dose: 2 mg Documented by: Pantoprazole Sodium (Protonix) 40 mg PO QDAY [facility] Last Admin: 11/11/19 10:36 Dose: 40 mg Documented by: Quetiapine Fumarate (Seroquel) 100 mg PO QHS [facility] Last Admin: 11/10/19 23:32 Dose: 100 mg Documented by: Sodium Chloride (Sodium Chloride Flush Syringe 10 Ml) 10 ml IV PRN PRN PRN Reason: LINE FLUSH Review of Systems Constitutional: no weight loss, no weight gain, no fever, no chills, no sweats Ears, nose, mouth and throat: no ear pain, no nose pain, no sinus pressure, no sinus pain Cardiovascular: chest pain, no orthopnea, no palpitations, no rapid/irregular heart beat, no edema, no syncope, no lightheadedness, no shortness of breath, no dyspnea on exertion, no leg edema Respiratory: no cough, no shortness of breath, no dyspnea on exertion, no congestion, no wheezing, no pain on inspiration Gastrointestinal: no abdominal pain, no nausea, no vomiting, no diarrhea, no constipation, no change in bowel habits Genitourinary Female: no pelvic pain, no flank pain, no dysuria, no urinary frequency, no urgency Musculoskeletal: no neck stiffness, no neck pain Integumentary: no rash, no pruritis, no redness, no sores, no wounds Neurological: weakness (left-sided), change in speech (slurred speech), other (left-sided facial droop), no head injury, no paralysis, no seizures, no syncope Psychiatric: anxiety Endocrine: no cold intolerance, no heat intolerance Hematologic/Lymphatic: no easy bruising, no easy bleeding Allergic/Immunologic: no urticaria Physical Examination Vital Signs Temp Pulse Resp BP Pulse Ox 98.1 F 83 15 153/85 100 11/08/19 13:38 11/08/19 13:38 11/08/19 13:38 11/08/19 13:38 11/08/19 13:38 General appearance: no acute distress HEENT: Positive: PERRL, Normocephaly, Mucus Membranes Moist Neck: Positive: neck supple, trachea midline Cardiac: Positive: Reg Rate and Rhythm, S1/S2 Lungs: Positive: Decreased Breath Sounds Neuro: Positive: Other (left-sided facial droop, left-sided weakness) Abdomen: Negative: Tender Skin: Negative: Rash Musculoskeletal: No Pain Extremities: Absent: edema Results 11/08/19 13:52 11/10/19 15:49 Comprehensive Metabolic Panel 11/10/19 Range/Units 15:49 Potassium 4.7 (3.6-5.0) mmol/L - Imaging and Cardiology Echo: report reviewed (Limited echo done 11/09/2019 showed EF 30-35%, mod LVH, LA mod dilated, mild to mod MR, mild TR, negative bubble study.Echo done 08/01/2019 showed EF 40-45%, mod LVH, impaired relaxation, normal bubble study. ) EKG: report reviewed, image reviewed EKG interpretations - Telemetry EKG Rhythm: Sinus Rhythm - EKG Sinus rhythms and dysrhythmias: sinus rhythm Assessment and Plan Pt with c/o atypical chest pain. ECG with NAF, [place] minimally elevated and flat. Lexiscan MPI stress test done 10/29/2019 small mild to mod reversible lateral perfusion defect suggestive of ischemia in circ territory, EF 34%. Limited echo done 11/09/2019 showed EF 30-35%, mod LVH, LA mod dilated, mild to mod MR, mild TR, negative bubble study. Echo done 08/01/2019 showed EF 40-45%, mod LVH, impaired relaxation, normal bubble study. In setting of recent acute CVA, AMI ruled out and atypical nature of chest pain and renal insufficiency, no plans for invasive or aggressive cardiac management at this time. Recommend continuation of medical management. Cont GDMT for CMP - pt with lisinopril allergy, also no ACEI/ARB at this time in setting of renal insufficiency. Optimize anti-ischemic regimen. If symptoms persist despite medical optimization, can consider coronary angiography if/when okay per neurology and if/when renal function permits - could be done as OP. The patient has been seen in conjunction with Dr. Houston who agrees with the assessment and plan of care. - Patient Problems (1) Acute CVA (cerebrovascular accident) Current Visit: Yes Status: Acute (2) Atypical chest pain Current Visit: Yes Status: Acute (3) Hypertension Current Visit: Yes Status: Chronic (4) Diabetes Current Visit: Yes Status: Chronic (5) Cardiomyopathy Current Visit: Yes Status: Chronic (6) Abnormal stress test Current Visit: Yes Status: Chronic (7) Chronic kidney disease (CKD) Current Visit: Yes Status: Chronic (8) Seizure disorder Current Visit: Yes Status: Chronic (9) PTSD (post-traumatic stress disorder) Current Visit: Yes Status: Chronic
--- NOTE | 2019-11-11 11:20 | Progress Note ---
Assessment and Plan Patient is a 64 y/o woman w/ a h/o left bells palsy, HTN, bipolar d/o, PTSD, anxiety, DM, GERD, who p/w slurred speech, left sided weakness. According to the patient's clinical findings, she has had an ischemic stroke. Plan: 1. Stroke: - MRI brain: right subcortical infarct - MRA head: no significant stenosis - CT head: no acute abnormality - CUS: no significant stenosis - Echo: EF 30-35%, LA moderately dilated, bubble study negative. - Cont. ASA - Cont. statin. LDL 101. Goal LDL <70. - Telemetry monitoring while in house - DVT Ppx: Recommend lovenox - PT/OT/ST - Recommend for patient to follow up with neurology in 3-4 weeks as outpatient. 2. Hypertension: - Recommend goal of normotension, as it has been >48 hours since symptoms onset. - Will sign off, as neurologic workup is complete and treatment plan is in place. Please call with any questions. Thank you for allowing me to take part in the care of this patient. Shahab Bell MD Neurology Subjective Date of service: 11/11/19 Principal diagnosis: Stroke Interval history: No acute events overnight. Objective - Exam Narrative Exam: Patient is awake, alert, oriented x4, follows complex commands. Noted to have dysarthria. No aphasia. PERRL, EOMI, VFF, b/l intact to LT, tongue midline, left lower facial weakness. 5/5 in RUE/RLE, 4/5 in LUE proximally and 3/5 distally, LLE 4/5. Decreased in LLE to LT. B/l intact to FTN and HTS. 2+ reflexes throughout. - Vital Sign Vital Signs - 12hr 11/10/19 11/10/19 11/11/19 23:40 23:47 06:05 Temperature 98.3 F 98.0 F Pulse Rate 81 82 78 Respiratory 20 18 Rate Blood Pressure 167/81 167/81 144/79 O2 Sat by Pulse 100 97 Oximetry 11/11/19 10:37 Temperature Pulse Rate 78 Respiratory Rate Blood Pressure 144/79 O2 Sat by Pulse Oximetry - General Apperance Constitutional: comfortable - EENT EENT: ATNC, PERRL, mucous membranes moist, hearing intact - Respiratory Respiratory: lungs clear, normal breath sounds - Cardiovascular Cardiovascular: regular rate, normal S1, normal S2 Extremities: no clubbing, cyanosis, no inflammation - Gastrointestinal Gastrointestinal: normoactive bowel sounds, soft, non-tender - Integumentary Integumentary: normal - Musculoskeletal Musculoskeletal: no fluid collection, no pain - Psychiatric Psychiatric: mood/affect appropriate - Laboratory Findings CBC and BMP: 11/08/19 13:52 11/10/19 15:49 Abnormal Lab Findings: Abnormal Labs 11/08/19 11/08/19 11/08/19 13:45 13:52 13:52 Seg Neutrophils % 72.6 H Potassium 5.8 H Chloride Carbon Dioxide BUN 60 H Creatinine 3.1 H Glucose 316 H POC Glucose 279 H CK-MB (CK-2) Rel Index Troponin T 0.049 H Albumin Cholesterol 208 H HDL Cholesterol 93 H Valproic Acid 11/08/19 11/08/19 11/08/19 13:52 14:05 17:16 Seg Neutrophils % Potassium 5.6 H Chloride Carbon Dioxide BUN Creatinine Glucose POC Glucose CK-MB (CK-2) Rel Index Troponin T Albumin 3.5 L Cholesterol HDL Cholesterol Valproic Acid 16.5 L 11/08/19 11/09/19 11/09/19 21:38 08:10 08:41 Seg Neutrophils % Potassium Chloride Carbon Dioxide BUN Creatinine Glucose POC Glucose 216 H < 40 L 123 H CK-MB (CK-2) Rel Index Troponin T Albumin Cholesterol HDL Cholesterol Valproic Acid 11/09/19 11/09/19 11/09/19 09:26 13:10 15:21 Seg Neutrophils % Potassium 5.3 H Chloride 109.2 H Carbon Dioxide BUN 59 H Creatinine 3.0 H Glucose POC Glucose 67 L 152 H CK-MB (CK-2) Rel Index Troponin T Albumin Cholesterol HDL Cholesterol Valproic Acid 11/09/19 11/09/19 11/09/19 15:22 16:47 21:14 Seg Neutrophils % Potassium Chloride Carbon Dioxide BUN Creatinine Glucose POC Glucose 153 H CK-MB (CK-2) Rel Index 5.0 H Troponin T 0.034 H Albumin Cholesterol HDL Cholesterol Valproic Acid 11/09/19 11/10/19 11/10/19 Unknown 01:30 05:01 Seg Neutrophils % Potassium Chloride 111.0 H Carbon Dioxide BUN 49 H Creatinine 2.9 H Glucose POC Glucose 165 H CK-MB (CK-2) Rel Index Troponin T 0.038 H D Albumin Cholesterol HDL Cholesterol Valproic Acid 11/10/19 11/10/19 11/10/19 05:01 08:57 12:39 Seg Neutrophils % Potassium 5.1 H Chloride 108.8 H Carbon Dioxide 19 L BUN 50 H Creatinine 2.8 H Glucose POC Glucose 185 H CK-MB (CK-2) Rel Index Troponin T 0.038 H Albumin Cholesterol HDL Cholesterol Valproic Acid 11/10/19 23:52 Seg Neutrophils % Potassium Chloride Carbon Dioxide BUN Creatinine Glucose POC Glucose 184 H CK-MB (CK-2) Rel Index Troponin T Albumin Cholesterol HDL Cholesterol Valproic Acid
[2019-11-11 11:31] LABS: Calcium 8.6 mg/dL (8.4-10.2)
--- NOTE | 2019-11-11 14:28 | Progress Note ---
Assessment and Plan 1. 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 Patient was taking NSAID at home which likely has contributed to PAULA. Renal US ordered. Creatinine level trending down. Monitor renal function. Renal prognosis is guarded. Avoid nephrotoxic agents. Meds dosage based on GFR. 2. FEN: Hyperkalemia, improved. Monitor lytes. 3. Nephrotic range proteinuria: Likely from Diabetic nephropathy. 4. Suspected CVA. 5. DM type 2, uncontrolled. 6. HTN: Monitor BP. 7. PTSD. Need outpatient follow up. Examination: General appearance: well-developed, appears stated age, not in distress HEENT: ATNC, CAITY Neck: neck supple, trachea midline Respiratory: Clear to Ascultation Heart: regular, S1S2, no murmurs Gastrointestinal: normoactive bowel sounds, not tender, not distended Integumentary: no rash, warm and dry Neurologic: some expressive aphasia, facial droop (L side), able to move extremties Ext: no edema Subjective Date of service: 11/11/19 Principal diagnosis: Stroke Interval history: Patient was seen and examined at the bedside. Doing better. Objective - Vital Signs Vital signs: Vital Signs - 12hr 11/11/19 11/11/19 06:05 10:37 Temperature 98.0 F Pulse Rate 78 78 Respiratory 18 Rate Blood Pressure 144/79 144/79 O2 Sat by Pulse 97 Oximetry - Lab 11/08/19 13:52 11/11/19 10:17 Most recent lab results Calcium 8.6 mg/dL (8.4-10.2) 11/11/19 10:17 Phosphorus 3.40 mg/dL (2.5-4.5) 11/09/19 09:26 Medications & Allergies - Medications Allergies/Adverse Reactions: Allergies lisinopril Allergy (Verified 07/27/19 09:29) Unknown promethazine HCl [From Phenergan] Allergy (Verified 11/29/15 15:40) Shortness of Breath Home Medications: Home Medications Medication Instructions Recorded Confirmed Last Taken Type ARIPiprazole [Abilify TAB] 5 mg PO DAILY #30 tab 10/29/19 11/10/19 Unknown Rx Divalproex ER [Depakote ER] 500 mg PO QHS #30 tab 10/29/19 11/10/19 Unknown Rx Furosemide [Lasix TAB] 40 mg PO QDAY #30 tablet 10/29/19 11/10/19 Unknown Rx Insulin Detemir [Levemir VIAL] 25 unit SQ QHS #1 vial 10/29/19 11/10/19 Unknown Rx Lispro Insulin [HumaLOG] 1 dose SUB-Q ACHS PRN #1000 units 10/29/19 11/10/19 Unknown Rx [place] Carbonate 300 mg PO BID #60 tab 10/29/19 11/10/19 Unknown Rx Pantoprazole [Protonix TAB] 40 mg PO QDAY #30 tablet 10/29/19 11/10/19 Unknown Rx Potassium Chloride [K-Dur] 20 meq PO QDAY #30 tablet 10/29/19 11/10/19 Unknown Rx QUEtiapine [SEROquel] 100 mg PO QHS #30 tablet 10/29/19 11/10/19 Unknown Rx amLODIPine 10 mg PO QDAY #30 tablet 10/29/19 11/10/19 Unknown Rx carvediloL [Coreg] 6.25 mg PO BID #60 tablet 10/29/19 11/10/19 Unknown Rx Aspirin 325 mg PO QDAY #30 tablet 11/10/19 Unknown Rx AtorvaSTATin [Lipitor] 40 mg PO QHS #30 tablet 11/10/19 Unknown Rx Active Medications: Generic Name Dose Route Start Last Admin Trade Name Mikelq PRN Reason Stop Dose Admin Amlodipine Besylate 10 mg 11/08/19 22:00 11/11/19 10:37 Amlodipine PO 10 mg QDAY HARVEY Administration Aripiprazole 5 mg 11/08/19 22:00 11/11/19 10:37 Aripiprazole PO 5 mg DAILY HARVEY Administration Aspirin 325 mg 11/08/19 14:00 11/11/19 10:36 Aspirin PO 325 mg QDAY HARVEY Administration Atorvastatin Calcium 40 mg 11/09/19 22:00 11/10/19 23:37 Lipitor PO 40 mg QHS HARVEY Administration Carvedilol 12.5 mg 11/10/19 22:00 11/11/19 10:37 Coreg PO 12.5 mg BID HARVEY Administration Dextrose 50 ml 11/09/19 08:28 D50w (25gm) Syringe IV Q30MIN PRN Hypoglycemia Protocol Divalproex Sodium 500 mg 11/08/19 22:00 11/10/19 23:32 Depakote Er PO 500 mg QHS HARVEY Administration Sodium Chloride 1,000 mls @ 75 mls/hr 11/09/19 07:00 Nacl 0.9% 1000 Ml IV DIRECT HARVEY Insulin Human Lispro 0 unit 11/09/19 12:00 11/11/19 12:55 Humalog SUB-Q 4 unit Q6HR HARVEY Administration Protocol Isosorbide Mononitrate 30 mg 11/11/19 12:00 11/11/19 12:46 Imdur PO 30 mg QDAY HARVEY Administration [place] Carbonate 300 mg 11/08/19 22:00 11/11/19 10:36 Eskalith PO 300 mg BID HARVEY Administration Morphine Sulfate 2 mg 11/09/19 16:31 11/09/19 16:47 Morphine IV 2 mg Q6H PRN Administration Pain, Moderate (4-6) Pantoprazole Sodium 40 mg 11/09/19 10:00 11/11/19 10:36 Protonix PO 40 mg QDAY HARVEY Administration Quetiapine Fumarate 100 mg 11/08/19 22:00 11/10/19 23:32 Seroquel PO 100 mg QHS HARVEY Administration Sodium Chloride 10 ml 11/09/19 06:50 Sodium Chloride Flush Syringe 10 Ml IV PRN PRN LINE FLUSH
--- NOTE | 2019-11-11 15:10 | Progress Note ---
Assessment and Plan Assessment and plan: Patient is a 64 y/o woman w/ a h/o left bells palsy, HTN, bipolar d/o, PTSD, anxiety, DM, GERD, who p/w slurred speech, left sided weakness. According to the patient's clinical findings, she has had an ischemic stroke. Patient reports that her symptoms started on Thursday. She states that she had a worsening left- sided facial droop. Patient was known to have a stroke back in 2009 that left her with some left-sided facial weakness. Over the last couple days she states this has gotten worse. Patient's speech is slurred. However she has no expressive or receptive aphasia on exam. She also reports a parasthesis of her left upper and left lower leg. She describes it as pins and needles. She is able to move both against gravity. * Telemetry neurology recommended admission with dual antiplatelet therapy, statin, MRI/MRA of the head, carotid ultrasounds. They also recommend a Depakote and lithium level given patient's home medications. As well as an ammonia level. Telemetry neurology does not recommend IR consult for TPA. This is based on the images that became available during our exam. * Patient had a recent cardiac workup in July of this year. She had an echo that revealed a normal RV however LV dysfunction with an EF of 40-45% was noted. She also had left ventricular diastolic dysfunction. She had an abnormal stress test that revealed concern for ischemia in this circumflex region. She was to schedule for a cardiac CT. * Cardiology evaluated * Pt with c/o atypical chest pain. ECG with NAF, [place] minimally elevated and flat. Lexiscan MPI stress test done 10/29/2019 small mild to mod reversible lateral perfusion defect suggestive of ischemia in circ territory, EF 34%. Limited echo done 11/09/2019 showed EF 30-35%, mod LVH, LA mod dilated, mild to mod MR, mild TR, negative bubble study. Echo done 08/01/2019 showed EF 40-45%, mod LVH, impaired relaxation, normal bubble study. * In setting of recent acute CVA, AMI ruled out and atypical nature of chest pain and renal insufficiency, no plans for invasive or aggressive cardiac management at this time. Recommend continuation of medical management. Cont GDMT for CMP - pt with lisinopril allergy, also no ACEI/ARB at this time in setting of renal insufficiency. Optimize anti-ischemic regimen. If symptoms persist despite medical optimization, can consider coronary angiography if/when okay per neurology and if/when renal function permits - could be done as OP. MRI IMPRESSION: 1. Small, subacute deep infarction involving the putamen and hill radiata on the right. There is no indication of hemorrhagic transformation. (1) Acute CVA (cerebrovascular accident) Current Visit: Yes Status: Acute Plan to address problem: - MRI brain: right subcortical infarct - MRA head: no significant stenosis - CT head: no acute abnormality - CUS: no significant stenosis BP control, will Increase BB Start statin and ASA Neuro consult (2) Hyperkalemia Current Visit: Yes Status: Acute Plan to address problem: treated, Will give additional Kayxalate (3) PAULA (acute kidney injury) secondary to vasomotor nephropathy Current Visit: Yes Status: Acute Plan to address problem: PAULA on CKD Nephrology consult Underlying CKD IV Fluids for now (4) T2DM (type 2 diabetes mellitus) Current Visit: Yes Status: Chronic Qualifiers: Diabetes mellitus superintendent terminal insulin use: unspecified superintendent terminal insulin use status Plan to address problem: Cont hypoglycemics and coverage (5) Bipolar disorder Current Visit: No Status: Chronic Qualifiers: Active/Remission status: in full remission Plan to address problem: Check [place], level (6) Atypical chest pain Mild troponin elevation, Chest pain is constant and reproducible, nevertheless will obtain Cardiology eval. Echo report pending continue statin, asa, bb (7) DVT prophylaxis Current Visit: No Status: Acute Plan to address problem: On Heparin and GI prophylaxis Patient is pending Rehab bed placement History Interval history: Patient seen and examined, still with left sided weakness and Slurred speech and right facial droop, sitting up on the chair Hospitalist Physical - Physical exam Narrative exam: VITAL SIGNS: Reviewed. GENERAL: The patient appears normally developed, Vital signs as documented. HEAD: No signs of head trauma. EYES: Pupils are equal. Extraocular motions intact. EARS: Hearing grossly intact. MOUTH: Oropharynx is normal. NECK: No adenopathy, no JVD. CHEST: Chest with clear breath sounds bilaterally. No wheezes, rales, or rhonchi. CARDIAC: Regular rate and rhythm. S1 and S2, without murmurs, gallops, or rubs. VASCULAR: No Edema. Peripheral pulses normal and equal in all extremities. ABDOMEN: Soft, non tender and non distended. No rebound or guarding, and no masses palpated. Bowel Sounds normal. MUSCULOSKELETAL: Good range of motion of all major joints. Extremities without clubbing, cyanosis or edema. NEUROLOGIC EXAM: Alert and oriented x 3 L Hemiplegia but near baseline,L facial palsy. Speech slurred. Follows commands. PSYCHIATRIC: Mood normal. SKIN: detail exam as documented in skin assessment - Constitutional Vitals: Temp Pulse Resp BP Pulse Ox 98.0 F 78 18 144/79 97 11/11/19 06:05 11/11/19 10:37 11/11/19 06:05 11/11/19 10:37 11/11/19 06:05 General appearance: Present: no acute distress Results - Labs CBC & Chem 7: 11/08/19 13:52 11/11/19 10:17 Labs: Laboratory Last Values WBC 10.7 K/mm3 (4.5-11.0) 11/08/19 13:52 RBC 3.72 M/mm3 (3.65-5.03) 11/08/19 13:52 Hgb 10.3 gm/dl (10.1-14.3) 11/08/19 13:52 Hct 31.8 % (30.3-42.9) 11/08/19 13:52 MCV 86 fl (79-97) 11/08/19 13:52 MCH 28 pg (28-32) 11/08/19 13:52 MCHC 32 % (30-34) 11/08/19 13:52 RDW 14.4 % (13.2-15.2) 11/08/19 13:52 Plt Count 254 K/mm3 (140-440) 11/08/19 13:52 Lymph % (Auto) 19.5 % (13.4-35.0) 11/08/19 13:52 [place] % (Auto) 5.5 % (0.0-7.3) 11/08/19 13:52 Eos % (Auto) 1.3 % (0.0-4.3) 11/08/19 13:52 Baso % (Auto) 1.1 % (0.0-1.8) 11/08/19 13:52 Lymph # 2.1 K/mm3 (1.2-5.4) 11/08/19 13:52 [place] # 0.6 K/mm3 (0.0-0.8) 11/08/19 13:52 Eos # 0.1 K/mm3 (0.0-0.4) 11/08/19 13:52 Baso # 0.1 K/mm3 (0.0-0.1) 11/08/19 13:52 Seg Neutrophils % 72.6 % (40.0-70.0) H 11/08/19 13:52 Seg Neutrophils # 7.7 K/mm3 (1.8-7.7) 11/08/19 13:52 PT 12.9 Sec. (12.2-14.9) 11/08/19 13:52 INR 0.96 (0.87-1.13) 11/08/19 13:52 APTT 30.9 Sec. (24.2-36.6) 11/08/19 13:52 Thrombin Time 16.9 Sec. (15.1-19.6) 11/08/19 13:52 Sodium 139 mmol/L (137-145) 11/11/19 10:17 Potassium 4.3 mmol/L (3.6-5.0) 11/11/19 10:17 Chloride 104.1 mmol/L (98-107) 11/11/19 10:17 Carbon Dioxide 22 mmol/L (22-30) 11/11/19 10:17 Anion Gap 17 mmol/L 11/11/19 10:17 BUN 43 mg/dL (7-17) H 11/11/19 10:17 Creatinine 2.7 mg/dL (0.7-1.2) H 11/11/19 10:17 Estimated GFR 22 ml/min 11/11/19 10:17 BUN/Creatinine Ratio 16 % 11/11/19 10:17 Glucose 205 mg/dL (65-100) H 11/11/19 10:17 POC Glucose 275 (70-105) H 11/11/19 12:58 Calcium 8.6 mg/dL (8.4-10.2) 11/11/19 10:17 Phosphorus 3.40 mg/dL (2.5-4.5) 11/09/19 09:26 Total Bilirubin 0.20 mg/dL (0.1-1.2) 11/08/19 13:52 Direct Bilirubin < 0.2 mg/dL (0-0.2) 11/08/19 13:52 Indirect Bilirubin 0.0 mg/dL 11/08/19 13:52 AST 29 units/L (5-40) 11/08/19 13:52 ALT 31 units/L (7-56) 11/08/19 13:52 Alkaline Phosphatase 79 units/L (35-129) 11/08/19 13:52 Ammonia 43.0 umol/L (25-60) 11/08/19 14:05 Total Creatine Kinase 67 units/L (30-135) 11/09/19 15:22 CK-MB (CK-2) 3.4 ng/mL (0.0-4.0) 11/09/19 15:22 CK-MB (CK-2) Rel Index 5.0 (0-4) H 11/09/19 15:22 Troponin T 0.038 ng/mL (0.00-0.029) H 11/10/19 05:01 Total Protein 6.9 g/dL (6.3-8.2) 11/08/19 13:52 Albumin 3.5 g/dL (3.9-5) L 11/08/19 13:52 Albumin/Globulin Ratio 1.0 % 11/08/19 13:52 Triglycerides 95 mg/dL (2-149) 11/08/19 13:52 Cholesterol 208 mg/dL (50-199) H 11/08/19 13:52 LDL Cholesterol Direct 101 mg/dL (50-130) 11/08/19 13:52 HDL Cholesterol 93 mg/dL (40-59) H 11/08/19 13:52 Cholesterol/HDL Ratio 2.23 % 11/08/19 13:52 TSH 1.840 mlU/mL (0.270-4.200) 11/08/19 13:52 Urine Color Straw (Yellow) 11/08/19 18:47 Urine Turbidity Clear (Clear) 11/08/19 18:47 Urine pH 7.0 (5.0-7.0) 11/08/19 18:47 Ur Specific [place] 1.009 (1.003-1.030) 11/08/19 18:47 Urine Protein 100 mg/dl mg/dL (Negative) 11/08/19 18:47 Urine Glucose (UA) 150 mg/dL (Negative) 11/08/19 18:47 Urine Ketones Neg mg/dL (Negative) 11/08/19 18:47 Urine Blood Sm (Negative) 11/08/19 18:47 Urine Nitrite Neg (Negative) 11/08/19 18:47 Urine Bilirubin Neg (Negative) 11/08/19 18:47 Urine Urobilinogen < 2.0 mg/dL (<2.0) 11/08/19 18:47 Ur Leukocyte Esterase Sm (Negative) 11/08/19 18:47 Urine WBC (Auto) 1.0 /HPF (0.0-6.0) 11/08/19 18:47 Urine RBC (Auto) 8.0 /HPF (0.0-6.0) 11/08/19 18:47 U Epithel Cells (Auto) 2.0 /HPF (0-13.0) 11/08/19 18:47 Urine Opiates Screen Presumptive negative 11/08/19 18:47 Urine Methadone Screen Presumptive negative 11/08/19 18:47 Ur Barbiturates Screen Presumptive negative 11/08/19 18:47 Valproic Acid 16.5 ug/mL (50-100) L 11/08/19 14:05 Ur Phencyclidine Scrn Presumptive negative 11/08/19 18:47 Ur Amphetamines Screen Presumptive negative 11/08/19 18:47 U Benzodiazepines Scrn Presumptive negative 11/08/19 18:47 [place] 1.2 mmol/L (0.0-1.2) 11/08/19 14:05 Urine Cocaine Screen Presumptive negative 11/08/19 18:47 U Marijuana (THC) Screen Presumptive negative 11/08/19 18:47 Drugs of Abuse Note Disclamer 11/08/19 18:47 Plasma/Serum Alcohol < 0.01 % (0-0.07) 11/08/19 Unknown Active Medications - Current Medications Current Medications: Generic Name Dose Route Start Last Admin Trade Name Freq PRN Reason Stop Dose Admin Amlodipine Besylate 10 mg 11/08/19 22:00 11/11/19 10:37 Amlodipine PO 10 mg QDAY HARVEY Administration Aripiprazole 5 mg 11/08/19 22:00 11/11/19 10:37 Aripiprazole PO 5 mg DAILY HARVEY Administration Aspirin 325 mg 11/08/19 14:00 11/11/19 10:36 Aspirin PO 325 mg QDAY HARVEY Administration Atorvastatin Calcium 40 mg 11/09/19 22:00 11/10/19 23:37 Lipitor PO 40 mg QHS HARVEY Administration Carvedilol 12.5 mg 11/10/19 22:00 11/11/19 10:37 Coreg PO 12.5 mg BID HARVEY Administration Dextrose 50 ml 11/09/19 08:28 D50w (25gm) Syringe IV Q30MIN PRN Hypoglycemia Protocol Divalproex Sodium 500 mg 11/08/19 22:00 11/10/19 23:32 Depakote Er PO 500 mg QHS HARVEY Administration Sodium Chloride 1,000 mls @ 75 mls/hr 11/09/19 07:00 Nacl 0.9% 1000 Ml IV DIRECT HARVEY Insulin Human Lispro 0 unit 11/09/19 12:00 11/11/19 12:55 Humalog SUB-Q 4 unit Q6HR HARVEY Administration Protocol Isosorbide Mononitrate 30 mg 11/11/19 12:00 11/11/19 12:46 Imdur PO 30 mg QDAY HARVEY Administration [place] Carbonate 300 mg 11/08/19 22:00 11/11/19 10:36 Eskalith PO 300 mg BID HARVEY Administration Morphine Sulfate 2 mg 11/09/19 16:31 11/09/19 16:47 Morphine IV 2 mg Q6H PRN Administration Pain, Moderate (4-6) Pantoprazole Sodium 40 mg 11/09/19 10:00 11/11/19 10:36 Protonix PO 40 mg QDAY HARVEY Administration Quetiapine Fumarate 100 mg 11/08/19 22:00 11/10/19 23:32 Seroquel PO 100 mg QHS HARVEY Administration Sodium Chloride 10 ml 11/09/19 06:50 Sodium Chloride Flush Syringe 10 Ml IV PRN PRN LINE FLUSH Nutrition/Malnutrition Assess - Dietary Evaluation Nutrition/Malnutrition Findings: Nutrition Notes Start: 11/09/19 13:34 Freq: Status: Active Protocol: Document 11/10/19 10:47 CW (Rec: 11/10/19 11:17 CW [id number]) Co-Sign 11/10/19 10:47 LP Nutrition Notes Need for Assessment generated from: MD Order Initial or Follow up Assessment Current Diagnosis Acute Kidney Injury,CKD(stage I-IV),Diabetes,Hypertension, Stroke Other Pertinent Diagnosis CVA (ischemic stroke), hyperkalemia Current Diet pureed diet Labs/Tests K: 5.1; Cl: 108.8; BUN: 50; estimated GFR: 2.8 Pertinent Medications NS at 75 mL/ hr, humalog, Morphine Sulfate, D50w Height 5 ft 5 in Weight 59 kg Usual Body Weight 47.3 kg [place] Body Weight (kg) 56.81 BMI 21.6 Intake Prior to Admission Fair Weight Status Appropriate Subjective/Other Information Pt has stated a flucuation in wt gain over past several months with 104 lbs being the most stable. wt. Pt reports enjoying the new pureed diet and expresses intrerest in continuing diets; Pt. does not like orange juice nor apple, prefers cranberry or chocolate milk; 100% of breakfast eaten Percent of energy/protein needs met: 100/100 Burn Absent Trauma Absent GI Symptoms None Current % PO Good (75-100%) Minimum of two criteria No #2 Nutrition Diagnosis Altered nutrition-related laboratory values Etiology pureed diet As Evidenced by Signs and Symptoms consistently high K levels (5. 1) Is patient on ventilator? No Is Patient Ambulatory and/or Out of Bed Yes REE-([facility]-ambulatory/OOB) [ [id number] [id number]] Calculation Used for Recommendations [facility] Additional Notes protein needs:47 - 59 g (0.8 g - 1 g/ kg) fluid needs: 1 mL/kcal Nutrition Intervention Change Diet Order: renal pureed diet Goal #1 decrease K levels Follow-Up By: 11/17/19 Additional Comments F/U for decreased K levels
[2019-11-11] MEDS: MORPHINE 2 MG/1 ML INJ IV PRN (20:09)
[2019-11-11] MEDS: QUEtiapine 100 MG TAB PO SCH (22:16)
[2019-11-11] MEDS: DIVALPROEX ER 500 MG TAB PO SCH (22:17)
[2019-11-12] MEDS: INSULIN LISPRO 100 UNIT/ML SUB-Q SCH ×4 (04:43→19:34)
[2019-11-12 05:55] LABS: Calcium 8.3 mg/dL (8.4-10.2)
--- NOTE | 2019-11-12 09:27 | Progress Note ---
Assessment and Plan Cardiac status is stable. Continue Imdur; also continue GDMT for cardiomyopathy. If CP recurs, will consider further ischemic workup when optimized from neurology and nephrology standpoints, possibly as outpatient. The patient has been seen in conjunction with Dr. Montanez, who agrees with the assessment and plan of care. - Patient Problems (1) Acute CVA (cerebrovascular accident) Current Visit: Yes Status: Acute (2) Atypical chest pain Current Visit: Yes Status: Acute (3) Abnormal stress test Current Visit: Yes Status: Chronic (4) Cardiomyopathy Current Visit: Yes Status: Chronic (5) Chronic kidney disease (CKD) Current Visit: Yes Status: Chronic (6) Diabetes Current Visit: Yes Status: Chronic (7) Hypertension Current Visit: Yes Status: Chronic (8) PTSD (post-traumatic stress disorder) Current Visit: Yes Status: Chronic (9) Seizure disorder Current Visit: Yes Status: Chronic Subjective Date of service: 11/12/19 Principal diagnosis: Stroke Interval history: The patient is lying in bed in [facility]. She denies chest pain and other cardiac complaints. She is not currently on telemetry monitoring. Objective Vital Signs Temp Pulse Resp Resp BP Pulse Ox 11/12/19 04:51 98.3 F 78 20 154/84 99 11/11/19 23:30 98.2 F 78 18 125/59 97 11/11/19 22:17 82 131/73 11/11/19 22:00 18 11/11/19 20:09 18 11/11/19 15:52 98.0 F 68 16 128/71 96 11/11/19 12:58 98.4 F 71 16 144/74 97 11/11/19 10:37 78 144/79 - Physical Examination General: No Apparent Distress HEENT: Positive: PERRL, Normocephaly, Mucus Membranes Moist Neck: Positive: neck supple, trachea midline Cardiac: Positive: Reg Rate and Rhythm Lungs: Positive: Normal Exam Neuro: Positive: Grossly Intact, Other (left-sided facial droop, left-sided weakness) Abdomen: Positive: Unremarkable. Negative: Tender /Rectal: Other (deferred) Skin: Positive: Clear. Negative: Rash Musculoskeletal: No Pain Extremities: Present: normal. Absent: edema - Labs and Meds Comprehensive Metabolic Panel 11/11/19 11/12/19 Range/Units 10:17 05:13 Sodium 139 142 (137-145) mmol/L Potassium 4.3 4.3 (3.6-5.0) mmol/L Chloride 104.1 107.2 H (98-107) mmol/L Carbon Dioxide 22 23 (22-30) mmol/L BUN 43 H 41 H (7-17) mg/dL Creatinine 2.7 H 3.2 H (0.7-1.2) mg/dL Glucose 205 H 194 H (65-100) mg/dL Calcium 8.6 8.3 L (8.4-10.2) mg/dL - Imaging and Cardiology EKG: report reviewed, image reviewed Echo: report reviewed (Limited echo done 11/09/2019 showed EF 30-35%, mod LVH, LA mod dilated, mild to mod MR, mild TR, negative bubble study.Echo done 08/01/2019 showed EF 40-45%, mod LVH, impaired relaxation, normal bubble study. ) - EKG Sinus rhythms and dysrhythmias: sinus rhythm
[2019-11-12] MEDS: LITHIUM CARBONATE 300 MG CAP PO SCH ×2 (10:59→22:15)
[2019-11-12] MEDS: ASPIRIN 325 MG TAB PO SCH (10:59)
[2019-11-12] MEDS: PANTOPRAZOLE 40 MG TAB PO SCH (10:59)
[2019-11-12] MEDS: ARIPiprazole 5 MG TAB PO SCH (11:00)
[2019-11-12] MEDS: carvediloL 12.5 MG TAB PO SCH ×2 (11:00→22:15)
[2019-11-12] MEDS: amLODIPine 10 MG TAB PO SCH (11:00)
--- NOTE | 2019-11-12 11:47 | Progress Note ---
Assessment and Plan 1. 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 Patient was taking NSAID at home which likely has contributed to PAULA. Renal US suggestive of CKD. Slight increase in the creatinine level noted. BUN level trending down. Monitor renal function. Renal prognosis is guarded. Avoid nephrotoxic agents. Meds dosage based on GFR. 2. FEN: Hyperkalemia, improved. Monitor lytes. 3. Nephrotic range proteinuria: Likely from Diabetic nephropathy. 4. Suspected CVA. 5. DM type 2, uncontrolled. 6. HTN: Monitor BP. 7. PTSD. Need outpatient follow up. Examination: General appearance: well-developed, appears stated age, not in distress HEENT: ATNC, CAITY Neck: neck supple, trachea midline Respiratory: Clear to Ascultation Heart: regular, S1S2, no murmurs Gastrointestinal: normoactive bowel sounds, not tender, not distended Integumentary: no rash, warm and dry Neurologic: some expressive aphasia, facial droop (L side), able to move extremties Ext: no edema Subjective Date of service: 11/12/19 Principal diagnosis: Stroke Interval history: Patient was seen and examined at the bedside. Doing ok. Objective - Vital Signs Vital signs: Vital Signs - 12hr 11/12/19 11/12/19 04:51 11:00 Temperature 98.3 F Pulse Rate 78 76 Respiratory 20 Rate Blood Pressure 154/84 157/83 O2 Sat by Pulse 99 Oximetry - Lab 11/08/19 13:52 11/12/19 05:13 Most recent lab results Calcium 8.3 mg/dL (8.4-10.2) L 11/12/19 05:13 Phosphorus 3.40 mg/dL (2.5-4.5) 11/09/19 09:26 Medications & Allergies - Medications Allergies/Adverse Reactions: Allergies lisinopril Allergy (Verified 07/27/19 09:29) Unknown promethazine HCl [From Phenergan] Allergy (Verified 11/29/15 15:40) Shortness of Breath Home Medications: Home Medications Medication Instructions Recorded Confirmed Last Taken Type ARIPiprazole [Abilify TAB] 5 mg PO DAILY #30 tab 10/29/19 11/10/19 Unknown Rx Divalproex ER [Depakote ER] 500 mg PO QHS #30 tab 10/29/19 11/10/19 Unknown Rx Furosemide [Lasix TAB] 40 mg PO QDAY #30 tablet 10/29/19 11/10/19 Unknown Rx Insulin Detemir [Levemir VIAL] 25 unit SQ QHS #1 vial 10/29/19 11/10/19 Unknown Rx Lispro Insulin [HumaLOG] 1 dose SUB-Q ACHS PRN #1000 units 10/29/19 11/10/19 Unknown Rx [place] Carbonate 300 mg PO BID #60 tab 10/29/19 11/10/19 Unknown Rx Pantoprazole [Protonix TAB] 40 mg PO QDAY #30 tablet 10/29/19 11/10/19 Unknown Rx Potassium Chloride [K-Dur] 20 meq PO QDAY #30 tablet 10/29/19 11/10/19 Unknown Rx QUEtiapine [SEROquel] 100 mg PO QHS #30 tablet 10/29/19 11/10/19 Unknown Rx amLODIPine 10 mg PO QDAY #30 tablet 10/29/19 11/10/19 Unknown Rx carvediloL [Coreg] 6.25 mg PO BID #60 tablet 10/29/19 11/10/19 Unknown Rx Aspirin 325 mg PO QDAY #30 tablet 11/10/19 Unknown Rx AtorvaSTATin [Lipitor] 40 mg PO QHS #30 tablet 11/10/19 Unknown Rx Active Medications: Generic Name Dose Route Start Last Admin Trade Name Freq PRN Reason Stop Dose Admin Amlodipine Besylate 10 mg 11/08/19 22:00 11/12/19 11:00 Amlodipine PO 10 mg QDAY HARVEY Administration Aripiprazole 5 mg 11/08/19 22:00 11/12/19 11:00 Aripiprazole PO 5 mg DAILY HARVEY Administration Aspirin 325 mg 11/08/19 14:00 11/12/19 10:59 Aspirin PO 325 mg QDAY HARVEY Administration Atorvastatin Calcium 40 mg 11/09/19 22:00 11/11/19 22:17 Lipitor PO 40 mg QHS HARVEY Administration Carvedilol 12.5 mg 11/10/19 22:00 11/12/19 11:00 Coreg PO 12.5 mg BID HARVEY Administration Dextrose 50 ml 11/09/19 08:28 D50w (25gm) Syringe IV Q30MIN PRN Hypoglycemia Protocol Divalproex Sodium 500 mg 11/08/19 22:00 11/11/19 22:17 Depakote Er PO 500 mg QHS HARVEY Administration Sodium Chloride 1,000 mls @ 75 mls/hr 11/09/19 07:00 Nacl 0.9% 1000 Ml IV DIRECT HARVEY Insulin Human Lispro 0 unit 11/09/19 12:00 11/12/19 05:36 Humalog SUB-Q 3 unit Q6HR HARVEY Administration Protocol Isosorbide Mononitrate 30 mg 11/11/19 12:00 11/12/19 11:00 Imdur PO 30 mg QDAY HARVEY Administration [place] Carbonate 300 mg 11/08/19 22:00 11/12/19 10:59 Eskalith PO 300 mg BID HARVEY Administration Morphine Sulfate 2 mg 11/09/19 16:31 11/11/19 20:09 Morphine IV 2 mg Q6H PRN Administration Pain, Moderate (4-6) Pantoprazole Sodium 40 mg 11/09/19 10:00 11/12/19 10:59 Protonix PO 40 mg QDAY HAREVY Administration Quetiapine Fumarate 100 mg 11/08/19 22:00 11/11/19 22:16 Seroquel PO 100 mg QHS HARVEY Administration Sodium Chloride 10 ml 11/09/19 06:50 Sodium Chloride Flush Syringe 10 Ml IV PRN PRN LINE FLUSH
--- NOTE | 2019-11-12 14:32 | Progress Note ---
Assessment and Plan Patient is a 64 y/o woman w/ a h/o left bells palsy, HTN, bipolar d/o, PTSD, anxiety, DM, GERD, who p/w slurred speech, left sided weakness. According to the patient's clinical findings, she has had an ischemic stroke. Patient reports that her symptoms started on Thursday. She states that she had a worsening left- sided facial droop. Patient was known to have a stroke back in 2009 that left her with some left-sided facial weakness. Over the last couple days she states this has gotten worse. Patient's speech is slurred. However she has no expressive or receptive aphasia on exam. She also reports a parasthesis of her left upper and left lower leg. She describes it as pins and needles. She is able to move both against gravity. * Telemetry neurology recommended admission with dual antiplatelet therapy, statin, MRI/MRA of the head, carotid ultrasounds. They also recommend a Depakote and lithium level given patient's home medications. As well as an ammonia level. Telemetry neurology does not recommend IR consult for TPA. This is based on the images that became available during our exam. * Patient had a recent cardiac workup in July of this year. She had an echo that revealed a normal RV however LV dysfunction with an EF of 40-45% was noted. She also had left ventricular diastolic dysfunction. She had an abnormal stress test that revealed concern for ischemia in this circumflex region. She was to schedule for a cardiac CT. * Cardiology evaluated * Pt with c/o atypical chest pain. ECG with NAF, Francisco minimally elevated and flat. Lexiscan MPI stress test done 10/29/2019 small mild to mod reversible lateral perfusion defect suggestive of ischemia in circ territory, EF 34%. Limited echo done 11/09/2019 showed EF 30-35%, mod LVH, LA mod dilated, mild to mod MR, mild TR, negative bubble study. Echo done 08/01/2019 showed EF 40-45%, mod LVH, impaired relaxation, normal bubble study. * In setting of recent acute CVA, AMI ruled out and atypical nature of chest pain and renal insufficiency, no plans for invasive or aggressive cardiac management at this time. Recommend continuation of medical management. Cont GDMT for CMP - pt with lisinopril allergy, also no ACEI/ARB at this time in setting of renal insufficiency. Optimize anti-ischemic regimen. If symptoms persist despite medical optimization, can consider coronary angiography if/when okay per neurology and if/when renal function permits - could be done as OP. MRI IMPRESSION: 1. Small, subacute deep infarction involving the putamen and hill radiata on the right. There is no indication of hemorrhagic transformation. (1) Acute CVA (cerebrovascular accident) Current Visit: Yes Status: Acute Plan to address problem: - MRI brain: right subcortical infarct - MRA head: no significant stenosis - CT head: no acute abnormality - CUS: no significant stenosis BP control, will Increase BB Start statin and ASA Neuro consult (2) Hyperkalemia Current Visit: Yes Status: Acute Plan to address problem: treated, Will give additional Kayxalate (3) PAULA (acute kidney injury) secondary to vasomotor nephropathy Current Visit: Yes Status: Acute Plan to address problem: PAULA on CKD Nephrology consult Underlying CKD Continue IV hydration (4) T2DM (type 2 diabetes mellitus) Current Visit: Yes Status: Chronic Qualifiers: Diabetes mellitus mcfp insulin use: unspecified mcfp insulin use status Plan to address problem: Sliding scale insulin, consistent carbohydrate diet. Cont hypoglycemics and coverage (5) Bipolar disorder Current Visit: No Status: Chronic Qualifiers: Active/Remission status: in full remission Plan to address problem: Check [place], level (6) Atypical chest pain Mild troponin elevation, Chest pain is constant and reproducible, nevertheless will obtain Cardiology eval. Echo report sugars ejection fraction of 30-35% with moderate to severe systolic dysfunction continue statin, asa, bb (7) DVT prophylaxis Current Visit: No Status: Acute Plan to address problem: On Heparin and GI prophylaxis Patient is pending Rehab bed placement Subjective Date of service: 11/12/19 Principal diagnosis: acute CVA, T2 DM, PAULA, bipolar disorder Interval history: Patient lying quietly in bed in no distress. Has slurred speech and left facial droop from stroke. Objective - Exam Narrative Exam: Constitutional: Well-nourished well-developed. In no distress Head: Normocephalic atraumatic Eyes: Pupils are equal round and reactive to light Nose: No enlarged turbinates, no septal deviation. Mouth: Moist mucous membranes. Neck: Supple no thyromegaly. No bruit. No JVD Heart: Regular rate and rhythm, S1-S2 normal. No rubs murmurs or gallop Lungs: Clear to auscultation bilaterally. no rales or rhonchi Abdomen: Soft, nontender. Bowel sound are present. Extremities: No edema, no cyanosis, no clubbing. Neuro: Alert oriented Oriented x3. Left facial droop, left hemiparesis, slowed speech Skin: No rashes or hyperpigmented spots Musculoskeletal system: No joint pain or swelling Hematological: No petechia or subcutanous hemorrhages. Immunological: No multiple septic spots on the skin Lymphatic: No generalized lymphadenopathy Psychiatry: Euthymic. Calm. - Constitutional Vitals: Vital Signs - 12hr 11/12/19 11/12/19 11/12/19 04:51 11:00 11:29 Temperature 98.3 F 98.1 F Pulse Rate 78 76 79 Respiratory 20 18 Rate Blood Pressure 154/84 157/83 159/82 O2 Sat by Pulse 99 97 Oximetry - Labs CBC & Chem 7: 11/08/19 13:52 11/12/19 05:13 Labs: Abnormal lab results 11/11/19 11/12/19 11/12/19 Range/Units 17:16 05:13 05:41 Chloride 107.2 H (98-107) mmol/L BUN 41 H (7-17) mg/dL Creatinine 3.2 H (0.7-1.2) mg/dL Glucose 194 H (65-100) mg/dL POC Glucose 125 H 206 H (70-105) Calcium 8.3 L (8.4-10.2) mg/dL 11/12/19 Range/Units 11:28 Chloride (98-107) mmol/L BUN (7-17) mg/dL Creatinine (0.7-1.2) mg/dL Glucose (65-100) mg/dL POC Glucose 155 H (70-105) Calcium (8.4-10.2) mg/dL
[2019-11-12] MEDS: QUEtiapine 100 MG TAB PO SCH (22:14)
[2019-11-12] MEDS: DIVALPROEX ER 500 MG TAB PO SCH (22:15)
[2019-11-13] MEDS: INSULIN LISPRO 100 UNIT/ML SUB-Q SCH ×5 (00:14→23:01)
[2019-11-13 05:40] LABS: Basophils % (Auto) 0.6 % (0.0-1.8); Eosinophils # (Auto) 0.2 K/mm3 (0.0-0.4); Eosinophils % (Auto) 2.7 % (0.0-4.3); Hematocrit 25.7 % (30.3-42.9); Hemoglobin 8.5 gm/dl (10.1-14.3); Lymphocytes # (Auto) 1.4 K/mm3 (1.2-5.4); Lymphocytes % (Auto) 17.7 % (13.4-35.0); Mean Corpuscular HGB Conc 33 % (30-34); Mean Corpuscular Volume 84 fl (79-97); Monocytes # (Auto) 0.5 K/mm3 (0.0-0.8); Monocytes % (Auto) 6.8 % (0.0-7.3); Platelet Count 221 K/mm3 (140-440); Red Blood Count 3.05 M/mm3 (3.65-5.03); Red Cell Distribution Width 14.1 % (13.2-15.2)
[2019-11-13 06:06] LABS: Albumin 2.7 g/dL (3.9-5); Calcium 8.1 mg/dL (8.4-10.2)
[2019-11-13] MEDS: ASPIRIN 325 MG TAB PO SCH (09:55)
[2019-11-13] MEDS: PANTOPRAZOLE 40 MG TAB PO SCH (09:55)
[2019-11-13] MEDS: amLODIPine 10 MG TAB PO SCH (09:55)
[2019-11-13] MEDS: LITHIUM CARBONATE 300 MG CAP PO SCH ×2 (09:56→22:59)
[2019-11-13] MEDS: carvediloL 12.5 MG TAB PO SCH ×2 (09:56→22:59)
[2019-11-13] MEDS: ARIPiprazole 5 MG TAB PO SCH (10:00)
--- NOTE | 2019-11-13 10:22 | Progress Note ---
Assessment and Plan Patient is a 64 y/o woman w/ a h/o left bells palsy, HTN, bipolar d/o, PTSD, anxiety, DM, GERD, who p/w slurred speech, left sided weakness. According to the patient's clinical findings, she has had an ischemic stroke. Patient reports that her symptoms started on Thursday. She states that she had a worsening left- sided facial droop. Patient was known to have a stroke back in 2009 that left her with some left-sided facial weakness. Over the last couple days she states this has gotten worse. Patient's speech is slurred. However she has no expressive or receptive aphasia on exam. She also reports a parasthesis of her left upper and left lower leg. She describes it as pins and needles. She is able to move both against gravity. * Telemetry neurology recommended admission with dual antiplatelet therapy, statin, MRI/MRA of the head, carotid ultrasounds. They also recommend a Depakote and lithium level given patient's home medications. As well as an ammonia level. Telemetry neurology does not recommend IR consult for TPA. This is based on the images that became available during our exam. * Patient had a recent cardiac workup in July of this year. She had an echo that revealed a normal RV however LV dysfunction with an EF of 40-45% was noted. She also had left ventricular diastolic dysfunction. She had an abnormal stress test that revealed concern for ischemia in this circumflex region. She was to schedule for a cardiac CT. * Cardiology evaluated * Pt with c/o atypical chest pain. ECG with NAF, [place] minimally elevated and flat. Lexiscan MPI stress test done 10/29/2019 small mild to mod reversible lateral perfusion defect suggestive of ischemia in circ territory, EF 34%. Limited echo done 11/09/2019 showed EF 30-35%, mod LVH, LA mod dilated, mild to mod MR, mild TR, negative bubble study. Echo done 08/01/2019 showed EF 40-45%, mod LVH, impaired relaxation, normal bubble study. * In setting of recent acute CVA, AMI ruled out and atypical nature of chest pain and renal insufficiency, no plans for invasive or aggressive cardiac management at this time. Recommend continuation of medical management. Cont GDMT for CMP - pt with lisinopril allergy, also no ACEI/ARB at this time in setting of renal insufficiency. Optimize anti-ischemic regimen. If symptoms persist despite medical optimization, can consider coronary angiography if/when okay per neurology and if/when renal function permits - could be done as OP. MRI IMPRESSION: 1. Small, subacute deep infarction involving the putamen and hill radiata on the right. There is no indication of hemorrhagic transformation. (1) Acute CVA (cerebrovascular accident) Current Visit: Yes Status: Acute Plan to address problem: - MRI brain: right subcortical infarct - MRA head: no significant stenosis - CT head: no acute abnormality - CUS: no significant stenosis BP control, will Increase BB Start statin and ASA Neuro consult (2) Hyperkalemia Current Visit: Yes Status: Acute Plan to address problem: treated, Will give additional Kayxalate (3) PAULA (acute kidney injury) secondary to vasomotor nephropathy Current Visit: Yes Status: Acute Plan to address problem: PAULA on CKD Nephrology consult Underlying CKD Continue IV hydration (4) T2DM (type 2 diabetes mellitus) Current Visit: Yes Status: Chronic Qualifiers: Diabetes mellitus long-term insulin use: unspecified long-term insulin use status Plan to address problem: Sliding scale insulin, consistent carbohydrate diet. Cont hypoglycemics and coverage (5) Bipolar disorder Current Visit: No Status: Chronic Qualifiers: Active/Remission status: in full remission Plan to address problem: Check [place], level (6) Atypical chest pain Mild troponin elevation, Chest pain is constant and reproducible, nevertheless will obtain Cardiology eval. Echo report sugars ejection fraction of 30-35% with moderate to severe systolic dysfunction continue statin, asa, bb (7) DVT prophylaxis Current Visit: No Status: Acute Plan to address problem: On Heparin and GI prophylaxis Patient is awaiting Rehab bed placement Subjective Date of service: 11/13/19 Principal diagnosis: Acute Stroke Interval history: Patient lying quietly in bed in no distress. Has slurred speech and left facial droop from stroke. Objective - Exam Narrative Exam: Constitutional: Well-nourished well-developed. In no distress Head: Normocephalic atraumatic Eyes: Pupils are equal round and reactive to light Nose: No enlarged turbinates, no septal deviation. Mouth: Moist mucous membranes. Neck: Supple no thyromegaly. No bruit. No JVD Heart: Regular rate and rhythm, S1-S2 normal. No rubs murmurs or gallop Lungs: Clear to auscultation bilaterally. no rales or rhonchi Abdomen: Soft, nontender. Bowel sound are present. Extremities: No edema, no cyanosis, no clubbing. Neuro: Alert oriented Oriented x3. Left facial droop, left hemiparesis, slurred speech Skin: No rashes or hyperpigmented spots Musculoskeletal system: No joint pain or swelling Hematological: No petechia or subcutanous hemorrhages. Immunological: No multiple septic spots on the skin Lymphatic: No generalized lymphadenopathy Psychiatry: Euthymic. Calm. - Constitutional Vitals: Vital Signs - 12hr 11/13/19 11/13/19 11/13/19 04:47 09:55 09:56 Temperature 98.2 F Pulse Rate 73 Respiratory 18 Rate Blood Pressure 132/78 146/74 146/74 O2 Sat by Pulse 98 Oximetry - Labs CBC & Chem 7: 11/13/19 05:11 11/13/19 05:11 Labs: Abnormal lab results 11/12/19 11/12/19 11/12/19 Range/Units 11:28 17:15 18:21 RBC (3.65-5.03) M/mm3 Hgb (10.1-14.3) gm/dl Hct (30.3-42.9) % Seg Neutrophils % (40.0-70.0) % BUN (7-17) mg/dL Creatinine (0.7-1.2) mg/dL Glucose (65-100) mg/dL POC Glucose 155 H 63 L 126 H (70-105) Calcium (8.4-10.2) mg/dL Total Protein (6.3-8.2) g/dL Albumin (3.9-5) g/dL 11/12/19 11/13/19 11/13/19 Range/Units 22:26 04:59 05:11 RBC 3.05 L (3.65-5.03) M/mm3 Hgb 8.5 L (10.1-14.3) gm/dl Hct 25.7 L (30.3-42.9) % Seg Neutrophils % 72.2 H (40.0-70.0) % BUN (7-17) mg/dL Creatinine (0.7-1.2) mg/dL Glucose (65-100) mg/dL POC Glucose 205 H 120 H (70-105) Calcium (8.4-10.2) mg/dL Total Protein (6.3-8.2) g/dL Albumin (3.9-5) g/dL 11/13/19 Range/Units 05:11 RBC (3.65-5.03) M/mm3 Hgb (10.1-14.3) gm/dl Hct (30.3-42.9) % Seg Neutrophils % (40.0-70.0) % BUN 41 H (7-17) mg/dL Creatinine 3.1 H (0.7-1.2) mg/dL Glucose 148 H (65-100) mg/dL POC Glucose (70-105) Calcium 8.1 L (8.4-10.2) mg/dL Total Protein 5.4 L D (6.3-8.2) g/dL Albumin 2.7 L (3.9-5) g/dL
--- NOTE | 2019-11-13 13:08 | Progress Note ---
Assessment and Plan Cardiac status is stable. Continue Imdur; also continue GDMT for cardiomyopathy. If CP recurs, will consider further ischemic workup when optimized from neurology and nephrology standpoints, possibly as outpatient. The patient has been seen in conjunction with Dr. Montanez, who agrees with the assessment and plan of care. - Patient Problems (1) Acute CVA (cerebrovascular accident) Current Visit: Yes Status: Acute (2) Atypical chest pain Current Visit: Yes Status: Acute (3) Abnormal stress test Current Visit: Yes Status: Chronic (4) Cardiomyopathy Current Visit: Yes Status: Chronic (5) Chronic kidney disease (CKD) Current Visit: Yes Status: Chronic (6) Diabetes Current Visit: Yes Status: Chronic (7) Hypertension Current Visit: Yes Status: Chronic (8) PTSD (post-traumatic stress disorder) Current Visit: Yes Status: Chronic (9) Seizure disorder Current Visit: Yes Status: Chronic Subjective Date of service: 11/13/19 Principal diagnosis: Stroke Interval history: The patient is lying in bed in [facility]. She has no complaints. No telemetry monitoring in place. Objective Last Vital Signs Temp 98.2 F 11/13/19 04:47 Pulse 73 11/13/19 04:47 Resp 18 11/13/19 04:47 BP 146/74 11/13/19 09:56 Pulse Ox 98 11/13/19 04:47 - Physical Examination General: No Apparent Distress HEENT: Positive: PERRL, Normocephaly, Mucus Membranes Moist Neck: Positive: neck supple, trachea midline Cardiac: Positive: Reg Rate and Rhythm Lungs: Positive: Normal Exam Neuro: Positive: Other (left-sided facial droop, left-sided weakness) Abdomen: Positive: Unremarkable. Negative: Tender /Rectal: Other (deferred) Skin: Positive: Clear. Negative: Rash Musculoskeletal: No Pain Extremities: Present: normal. Absent: edema - Labs and Meds Cardiac Enzymes 11/13/19 Range/Units 05:11 AST 8 (5-40) units/L CBC 11/13/19 Range/Units 05:11 WBC 8.0 (4.5-11.0) K/mm3 RBC 3.05 L (3.65-5.03) M/mm3 Hgb 8.5 L (10.1-14.3) gm/dl Hct 25.7 L (30.3-42.9) % Plt Count 221 (140-440) K/mm3 Lymph # 1.4 (1.2-5.4) K/mm3 Dane # 0.5 (0.0-0.8) K/mm3 Eos # 0.2 (0.0-0.4) K/mm3 Baso # 0.0 (0.0-0.1) K/mm3 Comprehensive Metabolic Panel 11/13/19 Range/Units 05:11 Sodium 141 (137-145) mmol/L Potassium 4.1 (3.6-5.0) mmol/L Chloride 106.0 (98-107) mmol/L Carbon Dioxide 22 (22-30) mmol/L BUN 41 H (7-17) mg/dL Creatinine 3.1 H (0.7-1.2) mg/dL Glucose 148 H (65-100) mg/dL Calcium 8.1 L (8.4-10.2) mg/dL AST 8 (5-40) units/L ALT 10 (7-56) units/L Alkaline Phosphatase 73 (35-129) units/L Total Protein 5.4 L D (6.3-8.2) g/dL Albumin 2.7 L (3.9-5) g/dL - Imaging and Cardiology EKG: report reviewed, image reviewed Echo: report reviewed (Limited echo done 11/09/2019 showed EF 30-35%, mod LVH, LA mod dilated, mild to mod MR, mild TR, negative bubble study.Echo done 08/01/2019 showed EF 40-45%, mod LVH, impaired relaxation, normal bubble study. ) - EKG Sinus rhythms and dysrhythmias: sinus rhythm
--- NOTE | 2019-11-13 15:05 | Progress Note ---
Assessment and Plan 1. 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 Patient was taking NSAIDs at home which likely has contributed to PAULA. Renal US suggestive of CKD. Creatinine level around 3. BUN level trending down. Monitor renal function. Renal prognosis is guarded. Avoid nephrotoxic agents. Meds dosage based on GFR. 2. FEN: Hyperkalemia, improved. Monitor lytes. 3. Nephrotic range proteinuria: Likely from Diabetic nephropathy. 4. Suspected CVA. 5. DM type 2, uncontrolled. 6. HTN: Monitor BP. 7. PTSD. Need outpatient follow up. Examination: General appearance: well-developed, appears stated age, not in distress HEENT: ATNC, CAITY Neck: neck supple, trachea midline Respiratory: Clear to Ascultation Heart: regular, S1S2, no murmurs Gastrointestinal: normoactive bowel sounds, not tender, not distended Integumentary: no rash, warm and dry Neurologic: some expressive aphasia, facial droop (L side), able to move extremties Ext: no edema Subjective Date of service: 11/13/19 Principal diagnosis: Stroke Interval history: Patient was seen and examined at the bedside. Doing ok. Objective - Vital Signs Vital signs: Vital Signs - 12hr 11/13/19 11/13/19 11/13/19 04:47 09:55 09:56 Temperature 98.2 F Pulse Rate 73 70 Respiratory 18 Rate Blood Pressure 132/78 146/74 146/74 O2 Sat by Pulse 98 97 Oximetry 11/13/19 11:33 Temperature 98.3 F Pulse Rate 70 Respiratory 16 Rate Blood Pressure 140/74 O2 Sat by Pulse 98 Oximetry - Lab 11/13/19 05:11 11/13/19 05:11 Most recent lab results Calcium 8.1 mg/dL (8.4-10.2) L 11/13/19 05:11 Phosphorus 3.40 mg/dL (2.5-4.5) 11/09/19 09:26 Medications & Allergies - Medications Allergies/Adverse Reactions: Allergies lisinopril Allergy (Verified 07/27/19 09:29) Unknown promethazine HCl [From Phenergan] Allergy (Verified 11/29/15 15:40) Shortness of Breath Home Medications: Home Medications Medication Instructions Recorded Confirmed Last Taken Type ARIPiprazole [Abilify TAB] 5 mg PO DAILY #30 tab 10/29/19 11/10/19 Unknown Rx Divalproex ER [Depakote ER] 500 mg PO QHS #30 tab 10/29/19 11/10/19 Unknown Rx Furosemide [Lasix TAB] 40 mg PO QDAY #30 tablet 10/29/19 11/10/19 Unknown Rx Insulin Detemir [Levemir VIAL] 25 unit SQ QHS #1 vial 10/29/19 11/10/19 Unknown Rx Lispro Insulin [HumaLOG] 1 dose SUB-Q ACHS PRN #1000 units 10/29/19 11/10/19 Unknown Rx [place] Carbonate 300 mg PO BID #60 tab 10/29/19 11/10/19 Unknown Rx Pantoprazole [Protonix TAB] 40 mg PO QDAY #30 tablet 10/29/19 11/10/19 Unknown Rx Potassium Chloride [K-Dur] 20 meq PO QDAY #30 tablet 10/29/19 11/10/19 Unknown Rx QUEtiapine [SEROquel] 100 mg PO QHS #30 tablet 10/29/19 11/10/19 Unknown Rx amLODIPine 10 mg PO QDAY #30 tablet 10/29/19 11/10/19 Unknown Rx carvediloL [Coreg] 6.25 mg PO BID #60 tablet 10/29/19 11/10/19 Unknown Rx Aspirin 325 mg PO QDAY #30 tablet 11/10/19 Unknown Rx AtorvaSTATin [Lipitor] 40 mg PO QHS #30 tablet 11/10/19 Unknown Rx Active Medications: Generic Name Dose Route Start Last Admin Trade Name Freq PRN Reason Stop Dose Admin Amlodipine Besylate 10 mg 11/08/19 22:00 11/13/19 09:55 Amlodipine PO 10 mg QDAY HARVEY Administration Aripiprazole 5 mg 11/08/19 22:00 11/13/19 10:00 Aripiprazole PO 5 mg DAILY HARVEY Administration Aspirin 325 mg 11/08/19 14:00 11/13/19 09:55 Aspirin PO 325 mg QDAY HARVEY Administration Atorvastatin Calcium 40 mg 11/09/19 22:00 11/12/19 22:15 Lipitor PO 40 mg QHS HARVEY Administration Carvedilol 12.5 mg 11/10/19 22:00 11/13/19 09:56 Coreg PO 12.5 mg BID HARVEY Administration Dextrose 50 ml 11/09/19 08:28 D50w (25gm) Syringe IV Q30MIN PRN Hypoglycemia Protocol Divalproex Sodium 500 mg 11/08/19 22:00 11/12/19 22:15 Depakote Er PO 500 mg QHS HARVEY Administration Insulin Human Lispro 0 unit 11/09/19 12:00 11/13/19 12:46 Humalog SUB-Q 3 unit Q6HR HARVEY Administration Protocol Isosorbide Mononitrate 30 mg 11/11/19 12:00 11/13/19 09:56 Imdur PO 30 mg QDAY HARVEY Administration [place] Carbonate 300 mg 11/08/19 22:00 11/13/19 09:56 Eskalith PO 300 mg BID HARVEY Administration Morphine Sulfate 2 mg 11/09/19 16:31 11/11/19 20:09 Morphine IV 2 mg Q6H PRN Administration Pain, Moderate (4-6) Pantoprazole Sodium 40 mg 11/09/19 10:00 11/13/19 09:55 Protonix PO 40 mg QDAY HARVEY Administration Quetiapine Fumarate 100 mg 11/08/19 22:00 11/12/19 22:14 Seroquel PO 100 mg QHS HARVEY Administration Sodium Chloride 10 ml 11/09/19 06:50 Sodium Chloride Flush Syringe 10 Ml IV PRN PRN LINE FLUSH
[2019-11-13] MEDS: MORPHINE 2 MG/1 ML INJ IV PRN (16:59)
[2019-11-13] MEDS: DIVALPROEX ER 500 MG TAB PO SCH (22:58)
[2019-11-13] MEDS: QUEtiapine 100 MG TAB PO SCH (22:59)
[2019-11-14 06:05] LABS: Calcium 8.4 mg/dL (8.4-10.2)
--- NOTE | 2019-11-14 09:04 | Progress Note ---
Subjective Date of service: 11/14/19 Principal diagnosis: Acute Stroke Objective - Constitutional Vitals: Vital Signs - 12hr 11/13/19 11/14/19 21:33 05:37 Temperature 98.6 F 98.6 F Pulse Rate 72 72 Respiratory 20 18 Rate Blood Pressure 154/82 156/84 O2 Sat by Pulse 97 95 Oximetry - Labs CBC & Chem 7: 11/13/19 05:11 11/14/19 05:17 Labs: Abnormal lab results 11/13/19 11/13/19 11/13/19 Range/Units 11:42 16:56 21:42 Chloride (98-107) mmol/L BUN (7-17) mg/dL Creatinine (0.7-1.2) mg/dL Glucose (65-100) mg/dL POC Glucose 229 H 198 H 123 H (70-105) Total Protein (6.3-8.2) g/dL Albumin (3.9-5) g/dL 11/14/19 Range/Units 05:17 Chloride 107.7 H (98-107) mmol/L BUN 37 H (7-17) mg/dL Creatinine 2.9 H (0.7-1.2) mg/dL Glucose 179 H (65-100) mg/dL POC Glucose (70-105) Total Protein 5.8 L (6.3-8.2) g/dL Albumin 3.0 L (3.9-5) g/dL
[2019-11-14] MEDS: INSULIN LISPRO 100 UNIT/ML SUB-Q SCH ×3 (09:08→17:51)
--- NOTE | 2019-11-14 10:49 | Progress Note ---
Assessment and Plan 1. 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 Patient was taking NSAIDs at home which likely has contributed to PAULA. Renal US suggestive of CKD. Creatinine level around 3. Monitor renal function. Renal prognosis is guarded. Avoid nephrotoxic agents. Meds dosage based on GFR. 2. FEN: Hyperkalemia, improved. Monitor lytes. 3. Nephrotic range proteinuria: Likely from Diabetic nephropathy. 4. Suspected CVA. 5. DM type 2, uncontrolled. 6. HTN: Monitor BP. 7. PTSD. Outpatient follow up in 2-3 weeks. Examination: General appearance: well-developed, appears stated age, not in distress HEENT: ATNC, CAITY Neck: neck supple, trachea midline Respiratory: Clear to Ascultation Heart: regular, S1S2, no murmurs Gastrointestinal: normoactive bowel sounds, not tender, not distended Integumentary: no rash, warm and dry Neurologic: some expressive aphasia, facial droop (L side), able to move extremties Ext: no edema Subjective Date of service: 11/14/19 Principal diagnosis: Acute Stroke Interval history: Patient was seen and examined at the bedside. Doing ok. Objective - Vital Signs Vital signs: Vital Signs - 12hr 11/14/19 05:37 Temperature 98.6 F Pulse Rate 72 Respiratory 18 Rate Blood Pressure 156/84 O2 Sat by Pulse 95 Oximetry - Lab 11/13/19 05:11 11/14/19 05:17 Most recent lab results Calcium 8.4 mg/dL (8.4-10.2) 11/14/19 05:17 Phosphorus 3.40 mg/dL (2.5-4.5) 11/09/19 09:26 Medications & Allergies - Medications Allergies/Adverse Reactions: Allergies lisinopril Allergy (Verified 07/27/19 09:29) Unknown promethazine HCl [From Phenergan] Allergy (Verified 11/29/15 15:40) Shortness of Breath Home Medications: Home Medications Medication Instructions Recorded Confirmed Last Taken Type ARIPiprazole [Abilify TAB] 5 mg PO DAILY #30 tab 10/29/19 11/10/19 Unknown Rx Divalproex ER [Depakote ER] 500 mg PO QHS #30 tab 10/29/19 11/10/19 Unknown Rx Furosemide [Lasix TAB] 40 mg PO QDAY #30 tablet 10/29/19 11/10/19 Unknown Rx Insulin Detemir [Levemir VIAL] 25 unit SQ QHS #1 vial 10/29/19 11/10/19 Unknown Rx Lispro Insulin [HumaLOG] 1 dose SUB-Q ACHS PRN #1000 units 10/29/19 11/10/19 Unknown Rx [place] Carbonate 300 mg PO BID #60 tab 10/29/19 11/10/19 Unknown Rx Pantoprazole [Protonix TAB] 40 mg PO QDAY #30 tablet 10/29/19 11/10/19 Unknown Rx Potassium Chloride [K-Dur] 20 meq PO QDAY #30 tablet 10/29/19 11/10/19 Unknown Rx QUEtiapine [SEROquel] 100 mg PO QHS #30 tablet 10/29/19 11/10/19 Unknown Rx amLODIPine 10 mg PO QDAY #30 tablet 10/29/19 11/10/19 Unknown Rx carvediloL [Coreg] 6.25 mg PO BID #60 tablet 10/29/19 11/10/19 Unknown Rx Aspirin 325 mg PO QDAY #30 tablet 11/10/19 Unknown Rx AtorvaSTATin [Lipitor] 40 mg PO QHS #30 tablet 11/10/19 Unknown Rx Active Medications: Generic Name Dose Route Start Last Admin Trade Name Freq PRN Reason Stop Dose Admin Amlodipine Besylate 10 mg 11/08/19 22:00 11/13/19 09:55 Amlodipine PO 10 mg QDAY HARVEY Administration Aripiprazole 5 mg 11/08/19 22:00 11/13/19 10:00 Aripiprazole PO 5 mg DAILY HARVEY Administration Aspirin 325 mg 11/08/19 14:00 11/13/19 09:55 Aspirin PO 325 mg QDAY HARVEY Administration Atorvastatin Calcium 40 mg 11/09/19 22:00 11/13/19 22:59 Lipitor PO 40 mg QHS HARVEY Administration Carvedilol 12.5 mg 11/10/19 22:00 11/13/19 22:59 Coreg PO 12.5 mg BID HARVEY Administration Dextrose 50 ml 11/09/19 08:28 D50w (25gm) Syringe IV Q30MIN PRN Hypoglycemia Protocol Divalproex Sodium 500 mg 11/08/19 22:00 11/13/19 22:58 Depakote Er PO 500 mg QHS HARVEY Administration Insulin Human Lispro 0 unit 11/09/19 12:00 11/14/19 09:08 Humalog SUB-Q 2 unit Q6HR HARVEY Administration Protocol Isosorbide Mononitrate 60 mg 11/14/19 10:00 Imdur PO QDAY HARVEY [place] Carbonate 300 mg 11/08/19 22:00 11/13/19 22:59 Eskalith PO 300 mg BID HARVEY Administration Morphine Sulfate 2 mg 11/09/19 16:31 11/13/19 16:59 Morphine IV 2 mg Q6H PRN Administration Pain, Moderate (4-6) Pantoprazole Sodium 40 mg 11/09/19 10:00 11/13/19 09:55 Protonix PO 40 mg QDAY HARVEY Administration Quetiapine Fumarate 100 mg 11/08/19 22:00 11/13/19 22:59 Seroquel PO 100 mg QHS HARVEY Administration Sodium Chloride 10 ml 11/09/19 06:50 11/13/19 23:00 Sodium Chloride Flush Syringe 10 Ml IV 10 ml PRN PRN Administration LINE FLUSH
[2019-11-14] MEDS: carvediloL 12.5 MG TAB PO SCH (11:50)
[2019-11-14] MEDS: amLODIPine 10 MG TAB PO SCH (11:51)
[2019-11-14] MEDS: PANTOPRAZOLE 40 MG TAB PO SCH (11:52)
[2019-11-14] MEDS: ASPIRIN 325 MG TAB PO SCH (11:52)
[2019-11-14] MEDS: ARIPiprazole 5 MG TAB PO SCH (11:52)
[2019-11-14] MEDS: LITHIUM CARBONATE 300 MG CAP PO SCH (11:53)
--- NOTE | 2019-11-14 15:25 | Progress Note ---
Assessment and Plan Cardiac status is stable. Continue current management. Will follow on an as- needed basis. The patient has been seen in conjunction with Dr. Melgoza, who agrees with the assessment and plan. - Patient Problems (1) Acute CVA (cerebrovascular accident) Current Visit: Yes Status: Acute (2) Atypical chest pain Current Visit: Yes Status: Acute (3) Abnormal stress test Current Visit: Yes Status: Chronic (4) Cardiomyopathy Current Visit: Yes Status: Chronic (5) Chronic kidney disease (CKD) Current Visit: Yes Status: Chronic (6) Diabetes Current Visit: Yes Status: Chronic (7) Hypertension Current Visit: Yes Status: Chronic (8) PTSD (post-traumatic stress disorder) Current Visit: Yes Status: Chronic (9) Seizure disorder Current Visit: Yes Status: Chronic Subjective Date of service: 11/14/19 Principal diagnosis: Acute Stroke Interval history: The patient is lying in bed in [facility]. She has no complaints. No telemetry monitoring in place. Objective Last Vital Signs Temp 98.2 F 11/14/19 11:14 Pulse 70 11/14/19 11:52 Resp 16 11/14/19 11:14 BP 147/67 11/14/19 11:52 Pulse Ox 96 11/14/19 11:14 - Physical Examination General: No Apparent Distress HEENT: Positive: PERRL, Normocephaly, Mucus Membranes Moist Neck: Positive: neck supple, trachea midline Cardiac: Positive: Reg Rate and Rhythm Lungs: Positive: Normal Exam Neuro: Positive: Grossly Intact Abdomen: Positive: Unremarkable. Negative: Tender /Rectal: Other (deferred) Skin: Positive: Clear. Negative: Rash Musculoskeletal: No Pain Extremities: Present: normal. Absent: edema - Labs and Meds Cardiac Enzymes 11/14/19 Range/Units 05:17 AST 10 (5-40) units/L Comprehensive Metabolic Panel 11/14/19 Range/Units 05:17 Sodium 142 (137-145) mmol/L Potassium 4.2 (3.6-5.0) mmol/L Chloride 107.7 H (98-107) mmol/L Carbon Dioxide 22 (22-30) mmol/L BUN 37 H (7-17) mg/dL Creatinine 2.9 H (0.7-1.2) mg/dL Glucose 179 H (65-100) mg/dL Calcium 8.4 (8.4-10.2) mg/dL AST 10 (5-40) units/L ALT 10 (7-56) units/L Alkaline Phosphatase 82 (35-129) units/L Total Protein 5.8 L (6.3-8.2) g/dL Albumin 3.0 L (3.9-5) g/dL - Imaging and Cardiology EKG: report reviewed, image reviewed Echo: report reviewed (Limited echo done 11/09/2019 showed EF 30-35%, mod LVH, LA mod dilated, mild to mod MR, mild TR, negative bubble study.Echo done 08/01/2019 showed EF 40-45%, mod LVH, impaired relaxation, normal bubble study. ) - EKG Sinus rhythms and dysrhythmias: sinus rhythm
[2019-11-14 17:19] VITALS: BP 127/73
== END 2019-11-14 18:26 | DRG 64 ==
LOC: ED 13:23 → OBSVTOIN 17:11 → 3A 17:11 → UNDOADMOB 17:11 → INTOOBSV 17:11 → 3A 11-12 12:28 → OBSVTOIN 11-12 12:28
PROVIDERS: ADMIT Internal Medicine; ATTEND Family Medicine
PROC: 3E0234Z Introduction of Serum, Toxoid and Vaccine into Muscle, Percutaneous Approach (ICD-10-PCS; principal; 2019-11-10)
DX: I63.9 Cerebral infarction, unspecified (principal); N17.0 Acute kidney failure with tubular necrosis; I42.9 Cardiomyopathy, unspecified; I13.0 Hypertensive heart and chronic kidney disease with heart failure and stage 1 through stage 4 chronic kidney disease, or unspecified chronic kidney disease; G81.94 Hemiplegia, unspecified affecting left nondominant side; E87.5 Hyperkalemia; E11.22 Type 2 diabetes mellitus with diabetic chronic kidney disease; N18.3 Chronic kidney disease, stage 3 (moderate); I50.9 Heart failure, unspecified; F31.9 Bipolar disorder, unspecified; M19.90 Unspecified osteoarthritis, unspecified site; G89.29 Other chronic pain; M54.9 Dorsalgia, unspecified; G40.909 Epilepsy, unspecified, not intractable, without status epilepticus; F17.200 Nicotine dependence, unspecified, uncomplicated; R29.705 NIHSS score 5; K21.9 Gastro-esophageal reflux disease without esophagitis; F43.10 Post-traumatic stress disorder, unspecified; F41.9 Anxiety disorder, unspecified; Z79.899 Other long term (current) drug therapy; Z79.82 Long term (current) use of aspirin; Z90.49 Acquired absence of other specified parts of digestive tract; Z98.51 Tubal ligation status; Z79.4 Long term (current) use of insulin; Z23 Encounter for immunization
CPT/HCPCS: 36415; 70450; 70544; 70551; 71045; 74230; 76770; 80048; 80053; 80061; 80076; 80164; 80178; 80307; 80320; 81001; 82140; 82550; 82553; 82962; 84100; 84132; 84443; 84484; 85025; 85610; 85670; 85730; 90732; 93005; 93010; 93308; 93321; 93325; 93880; 96372; G0378; A9270-GY; G0480; J0360; J0610; J1815; J2270; J7042

== ENCOUNTER 2019-11-14 16:06 | Inpatient (IN) | payer MEDICARE ==
[2019-11-14] MEDS ORDERED: DEXTROSE 50% IN WATER (25GM) 50 ML SYRINGE IV PRN (17:22)
[2019-11-14] MEDS ORDERED: POLYETHYLENE GLYCOL 3350 17 GM POWDER PO PRN (17:34)
[2019-11-14] MEDS ORDERED: HYDROcodone/ACETAMINOPHEN 5-325 MG TAB PO PRN (17:48)
[2019-11-14] MEDS: carvediloL 12.5 MG TAB PO SCH (22:59)
[2019-11-14] MEDS: LITHIUM CARBONATE 300 MG CAP PO SCH (23:00)
[2019-11-14] MEDS: QUEtiapine 100 MG TAB PO SCH (23:00)
[2019-11-14] MEDS: DIVALPROEX ER 500 MG TAB PO SCH (23:01)
[2019-11-14] MEDS: HEPARIN 5,000 UNIT/1 ML VIAL SUB-Q SCH (23:02)
[2019-11-14] MEDS: ACETAMINOPHEN 325 MG TAB PO PRN (23:53)
[2019-11-14] MEDS: INSULIN LISPRO 100 UNIT/ML SUB-Q SCH (23:56)
[2019-11-15] MEDS: ONDANSETRON 4 MG ODT TAB PO PRN ×2 (06:12→15:11)
[2019-11-15] MEDS: HEPARIN 5,000 UNIT/1 ML VIAL SUB-Q SCH ×3 (06:13→22:32)
--- NOTE | 2019-11-15 08:15 | History and Physical Report ---
History of Present Illness Date: 11/15/19 Date of admission: 11/14/19 18:23 Chief Complaint: CVA History of present illness: 64-year-old female who was a resident at a prison developed left-sided facial droop and slurred speech accompanied by paresthesias of the left side. Subsequent MRI head showed a small subacute infarct in the putamen and hill radiata on the right-hand side without hemorrhagic transformation. Patient was evaluated by therapy and deemed to be appropriate for acute inpatient rehabilitation. Medication levels including Depakote and lithium were checked. 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 She has a history of seizures in her 20s but has not had any in years. She was evaluated by neurology, cardiology, nephrology. Nephrology noted she had acute renal injury superimposed on CKD stage IV. Baseline creatinine is approximately not known. Cardiology was also consulted and provided more history. Patient lives in [facility] and has a history of bipolar disorder and posttraumatic stress disorder. Patient had atypical chest pain and was recommended to have further workup as an outpatient. After the patient was medically stabilized they were transferred for further rehabilitation. All available medical records have been reviewed. Plan of care was discussed with patient. Was notified on the way to the hospital the patient has had nausea and vomiting. Review of records shows that she has not had bowel movements and the past for 5 days but she states she had one 2 days ago. She also states the vomiting was due to being nervous about transitioning to therapy. If we see that she continues to have N/V or constipation, will obtain KUB. Past History Past Medical History: anemia, CAD, diabetes, heart failure, hypertension, other (cardiomyopathy, CK D stage IV, seizure disorder, PTSD, bipolar, [place] Palsy) Past Surgical History: appendectomy, Other (tubal ligation, left foot Achilles tendon repair, TMJ) Social history: single, other (Lives in [place], previously independent with ambulation however does state that she probably could have used a cane for balance). denies: smoking (Quit 2018), alcohol abuse, prescription drug abuse, IV drug use Family history: stroke, other (HF) Medications and Allergies Allergies Allergy/AdvReac Type Severity Reaction Status Date / Time lisinopril Allergy Unknown Verified 07/27/19 09:29 promethazine HCl Allergy Shortness Verified 11/29/15 15:40 [From Phenergan] of Breath Home Medications Medication Instructions Recorded Confirmed Last Taken Type ARIPiprazole [Abilify TAB] 5 mg PO DAILY #30 tab 10/29/19 11/10/19 Unknown Rx Divalproex ER [Depakote ER] 500 mg PO QHS #30 tab 10/29/19 11/10/19 Unknown Rx Furosemide [Lasix TAB] 40 mg PO QDAY #30 tablet 10/29/19 11/10/19 Unknown Rx Insulin Detemir [Levemir VIAL] 25 unit SQ QHS #1 vial 10/29/19 11/10/19 Unknown Rx Lispro Insulin [HumaLOG] 1 dose SUB-Q ACHS PRN #1000 units 10/29/19 11/10/19 Unknown Rx [employer] Carbonate 300 mg PO BID #60 tab 10/29/19 11/10/19 Unknown Rx Pantoprazole [Protonix TAB] 40 mg PO QDAY #30 tablet 10/29/19 11/10/19 Unknown Rx Potassium Chloride [K-Dur] 20 meq PO QDAY #30 tablet 10/29/19 11/10/19 Unknown Rx QUEtiapine [SEROquel] 100 mg PO QHS #30 tablet 10/29/19 11/10/19 Unknown Rx amLODIPine 10 mg PO QDAY #30 tablet 10/29/19 11/10/19 Unknown Rx carvediloL [Coreg] 6.25 mg PO BID #60 tablet 10/29/19 11/10/19 Unknown Rx Aspirin 325 mg PO QDAY #30 tablet 11/10/19 Unknown Rx AtorvaSTATin [Lipitor] 40 mg PO QHS #30 tablet 11/10/19 Unknown Rx Active Meds: Active Medications Acetaminophen (Tylenol) 650 mg PO Q6H PRN PRN Reason: Non Cardiac Pain or Temp>100.5 Last Admin: 11/14/19 23:53 Dose: 650 mg Documented by: Acetaminophen/Hydrocodone Bitart ([place] 5/325) 0.5 each PO Q8H PRN PRN Reason: Pain, Moderate (4-6) Last Admin: 11/14/19 23:59 Dose: 0.5 each Documented by: Amlodipine Besylate (Amlodipine) 10 mg PO QDAY HARVEY Aripiprazole (Aripiprazole) 5 mg PO QDAY HARVEY Aspirin (Ecotrin) 325 mg PO QDAY HARVEY Atorvastatin Calcium (Lipitor) 40 mg PO QHS [facility] Last Admin: 11/14/19 23:00 Dose: 40 mg Documented by: Bisacodyl (Dulcolax) 5 mg PO QDAY [facility] Bisacodyl (Dulcolax) 10 mg UT QDAY PRN PRN Reason: Constipation Carvedilol (Coreg) 12.5 mg PO BID [facility] Last Admin: 11/14/19 22:59 Dose: 12.5 mg Documented by: Dextrose (D50w (25gm) Syringe) 50 ml IV Q30MIN PRN; Protocol PRN Reason: Hypoglycemia Divalproex Sodium (Depakote Er) 500 mg PO QHS [facility] Last Admin: 11/14/19 23:01 Dose: 500 mg Documented by: Heparin Sodium (Porcine) (Heparin) 5,000 unit SUB-Q Q8HR [facility] Last Admin: 11/15/19 06:13 Dose: 5,000 unit Documented by: Hydralazine HCl (Apresoline) 10 mg IV Q4HR PRN PRN Reason: Hypertension Insulin Human Lispro (Humalog) 0 unit SUB-Q [facility]; Protocol Last Admin: 11/14/19 23:56 Dose: 2 unit Documented by: Isosorbide Mononitrate (Imdur) 60 mg PO QDAY [facility] [employer] Carbonate (Eskalith) 300 mg PO BID [facility] Last Admin: 11/14/19 23:00 Dose: 300 mg Documented by: Ondansetron HCl (Zofran Odt) 4 mg PO Q8H PRN PRN Reason: Nausea And Vomiting Last Admin: 11/15/19 06:12 Dose: 4 mg Documented by: Ondansetron HCl (Zofran) 4 mg IV ONCE ONE Stop: 11/15/19 08:31 Last Admin: 11/15/19 08:02 Dose: 4 mg Documented by: Pantoprazole Sodium (Protonix) 40 mg PO QDAY [facility] Polyethylene Glycol (Miralax 3350) 17 gm PO QDAY PRN PRN Reason: Constipation Quetiapine Fumarate (Seroquel) 100 mg PO QHS [facility] Last Admin: 11/14/19 23:00 Dose: 100 mg Documented by: Review of Systems All systems: negative (ROS negative for 12 systems except as noted below with pertinent positives and negatives.) Constitutional: weakness Eyes: bilateral: dry eye Ears, nose, mouth and throat: dysphagia, voice changes, headache Cardiovascular: no chest pain, no rapid/irregular heart beat, no edema Respiratory: no cough with sputum, no shortness of breath Gastrointestinal: nausea, vomiting, constipation, no abdominal pain, no diarrhea Musculoskeletal: neck stiffness, neck pain, leg numbness/tingling Integumentary: no rash, no pruritis, no redness, no sores, no wounds Neurological: weakness, parathesias, lack of coordination, gait dysfunction Psychiatric: anxiety, depression Exam - Exam Narrative exam: MUSCULOSKELETAL SPECIALTY EXAM CONSTITUTIONAL: Well developed, well nourished, appropriately groomed, thin. RIGHT hand dominant. LYMPHATIC: No appreciable abnormalities palpable in neck RESPIRATORY: Clear to auscultation bilaterally, no increased work of breathing CARDIOVASCULAR: Regular Rate/ Rhythm, no swelling, edema or tenderness in BUE or BLE. Pulses palpable in all extremities. All extremities warm. GI: + bowel sounds, soft, NTTP, nondistended. INTEGUMENTARY: Normal, no lesion, rash, masses or bruising noted in extremities. MUSCULOSKELETAL: BUE and BLE normal without defect, crepitus, subluxation, effusion, arthritic changes or TTP. R 5/5 L 4/5 ROM within functional limits Tone normal NEURO: CN II : Visual simpson full to confrontation CN II, III : PERRL CN III, IV, : EOMI however slightly slowed to the left CN V : Facial sensation is impaired on left CN VII : Left facial droop (upper and lower) CN VIII : Hearing intact to finger rustle CN IX, X : Palate/uvula elevate midline, phonation normal CN XI : Intact shoulder shrug and head rotation CN XII : Tongue protrudes midline Sensation intact in all extremities without extinction but is altered on the left. Reflexes 2+ bilaterally at biceps, brachioradialis and patella. No clonus at ankles. Coordination impaired on left with dysmetria of the LUE, normal on right. No tremor noted in 4 extremities. Naming and repetition intact. Follows 2 step commands. Aphasia not appreciated Dysarthria present Dysphagia present Neglect not appreciated POSTURE and GAIT: Sitting posture good. Sitting balance appears reasonable. Gait deferred until seen with therapy. PSYCH: Alert, oriented x3, affect appears euthymic. Insight appears intact. - Constitutional Vitals: Vital Signs - 12hr 11/14/19 11/14/19 11/15/19 20:16 23:52 04:38 Temperature 36.5 C 36.6 C 36.5 C Pulse Rate 77 71 62 Respiratory 18 18 18 Rate Blood Pressure 158/75 148/76 98/53 O2 Sat by Pulse 98 96 100 Oximetry 11/15/19 07:32 Temperature 36.2 C L Pulse Rate 70 Respiratory 18 Rate Blood Pressure 135/77 O2 Sat by Pulse 98 Oximetry - Labs Labs: Laboratory Results - last 72 hr 11/15/19 07:43 POC Glucose 97 Assessment and Plan Assessment and plan: Patient was assessed and evaluated for Acute Inpatient Rehab Unit. Due to the patients above-mentioned medical complexity, along with decreased functional mobility and self care, this patient continues to require and be appropriate for a comprehensive, multidisciplinary [id number] rehabilitation program. These needs cannot be met in an outpatient or other less intensive setting. The patient would continue to benefit from skilled therapy intervention for at least 3 hours per day, five days a week, with techniques specific to the needs of the patient to improve function, activities of daily living, and reintegration into the community. The patient continues to require: -- OT to improve ROM, self-care, and learn use of adaptive equipment -- PT to improve strength and balance, functional transfers, and ambulation with energy conservation techniques to improve functional mobility -- CREDIT REPRESENTATIVE to address cognitive deficits, speech deficits and swallowing ability -- 24 hour RN to ensure and prevent skin breakdown, promote progressive independence while ensuring safety, ensure education regarding medications, and incorporation of the rehabilitation at the bedside -- 24 hour Metalworker to coordinate this interdisciplinary program, and to manage/prevent complications as a result of the patients medical comorbidities. -Plan of care by day 4 -Weekly team conferences With such a program, there is a reasonable certainty that the goals individualized for this patient can be achieved within the specified length of stay. CVA: Continue secondary stroke prevention. Discussed with patient prognosis as well as secondary stroke prevention protocols. Monitor for neurologic decline, shoulder-hand syndrome, bowel or bladder issues, evidence of stroke recurrence, worsening of dysphagia Hypertension: Continue medications and monitor blood pressure and adjust as needed for normotension. Diabetes: Continue carb controlled diet, sliding scale insulin and monitor/adjust medications as needed. Bipolar/PTSD: Continue medications. Supportive care and adjust as needed. Check lithium and Depakote levels as needed. CKD: Avoid nephrotoxic medications. Monitor renal function. Consider nephrology consult if renal function worsens. Constipation: Continue medications and prn medications. Monitor for bowel movements and adjust as needed. Nausea/vomiting: Zofran as ordered. Patient relates this more so to anxiety. Monitor and if this continues or gets worse we'll obtain KUB. Cardiomyopathy and heart failure: Monitor for any signs of worsening cardiac function or chest pain. Schedule for follow-up with cardiology as outpatient per their notes. Consider consult cardiology if cardiac function worsens. Dysphagia: Continue modified diet. Advance as tolerated with guidance from CREDIT REPRESENTATIVE. Aspiration precautions during meals. Dysarthria: Continue CREDIT REPRESENTATIVE for improvement in functional ability to speak and breath control. ADL dysfunction: OT will work on improving ability to perform ADLs (including assistive devices) to increase independence and decrease caregiver burden and improve functional transfers and mobility training. Difficulty walking: PT will work on gait training and proper use of assistive devices and advance as appropriate to use of stairs and outside ambulation on uneven surfaces. Unsteadiness on feet: PT will work on improving static and dynamic sitting and standing balance as well as proper use of assistive devices to decrease risk of falls. Abnormality of gait: PT will work to improve safety and efficiency of gait through neuromotor training and gait training along with instruction on proper use of assistive devices. Muscle weakness: PT & OT will work on strengthening exercises to improve functional strength including mixture of closed and open kinetic chain exercises. Fatigue: PT & OT will work on improving endurance through aerobic exercises and therapeutic activity while monitoring patients tolerance for activity and vital signs as needed. DVT ppx: Heparin TID Pain: Continue physical modalities in therapy and pain medications as needed to achieve functional pain control. Sleep: Monitor and address as needed. Bowel: Monitor and address as needed. Appetite: Monitor and address as needed. Discharge planning: Pending therapy progress and care plan meeting. Will continue discussion with therapy team, SW, patient and family. Restrictions/ Precautions: Falls, aspiration, possible seizure WB status: FWB Functional Hx: ADLs: Independent Cognition: Independent Mobility: No AD Barriers to Discharge: Decreased mobility and ability to perform self care, balance deficits, weakness Estimated Length of Stay: 1421 days Discharge Destination: Home with prison POST ADMISSION PHYSICIAN EVALUATION I have examined the patient and find that functional status, medical condition and appropriateness for IRF admission are essentially unchanged from those described in the preadmission screening. Will monitor for worsening signs and symptoms of stroke, dysphagia, dysarthria, nausea, vomiting, post stroke depression, DVT/PE, bowel and bladder complications and complications due to hypertension, heart disease, diabetes, CKD and electrolyte abnormalities. Will attempt to avoid occurrence of these issues or treat them if they present themselves.
[2019-11-15] MEDS ORDERED: ONDANSETRON 4 MG/2 ML INJ IV ONE (08:30)
[2019-11-15] MEDS: INSULIN LISPRO 100 UNIT/ML SUB-Q SCH ×4 (08:58→22:42)
--- NOTE | 2019-11-15 11:29 | XRay Report ---
ABDOMEN 1 VIEW(S) INDICATION / CLINICAL INFORMATION: N/V, constipation. COMPARISON: None available. FINDINGS: TUBES / LINES: None. BOWEL GAS PATTERN: Moderate colonic stool. No bowel distention. ADDITIONAL FINDINGS: Calcified uterine fibroid. IMPRESSION: Moderate colonic stool Signer Name: Dylan Hunt MD Signed: 11/15/2019 11:25 AM Workstation Name: [id number]
[2019-11-15] MEDS: ARIPiprazole 5 MG TAB PO SCH (13:10)
[2019-11-15] MEDS: ASPIRIN EC 325 MG TAB PO SCH (13:10)
[2019-11-15] MEDS: amLODIPine 10 MG TAB PO SCH (13:10)
[2019-11-15] MEDS: carvediloL 12.5 MG TAB PO SCH ×2 (13:10→22:41)
[2019-11-15] MEDS: LITHIUM CARBONATE 300 MG CAP PO SCH ×2 (13:10→21:18)
[2019-11-15] MEDS: PANTOPRAZOLE 40 MG TAB PO SCH (13:10)
--- NOTE | 2019-11-15 15:52 | Event Note ---
Date: 11/15/19 N/V this AM. Hx of constipation. KUB shows L descending colon with stool throughout. Suppository tonight. Labs pending.
[2019-11-15 15:56] LABS: Basophils % (Auto) 0.5 % (0.0-1.8); Eosinophils # (Auto) 0.2 K/mm3 (0.0-0.4); Eosinophils % (Auto) 2.9 % (0.0-4.3); Hematocrit 29.1 % (30.3-42.9); Hemoglobin 9.4 gm/dl (10.1-14.3); Lymphocytes # (Auto) 1.4 K/mm3 (1.2-5.4); Lymphocytes % (Auto) 16.6 % (13.4-35.0); Mean Corpuscular HGB Conc 32 % (30-34); Mean Corpuscular Volume 86 fl (79-97); Monocytes # (Auto) 0.4 K/mm3 (0.0-0.8); Monocytes % (Auto) 4.5 % (0.0-7.3); Platelet Count 236 K/mm3 (140-440); Red Cell Distribution Width 14.1 % (13.2-15.2)
[2019-11-15 16:10] LABS: Calcium 8.3 mg/dL (8.4-10.2)
[2019-11-15] MEDS: QUEtiapine 100 MG TAB PO SCH (21:18)
[2019-11-15] MEDS: DIVALPROEX ER 500 MG TAB PO SCH (21:18)
[2019-11-16] MEDS: HEPARIN 5,000 UNIT/1 ML VIAL SUB-Q SCH ×3 (07:49→22:27)
[2019-11-16] MEDS: LITHIUM CARBONATE 300 MG CAP PO SCH ×2 (09:06→22:25)
[2019-11-16] MEDS: INSULIN LISPRO 100 UNIT/ML SUB-Q SCH ×4 (09:07→22:30)
[2019-11-16] MEDS: PANTOPRAZOLE 40 MG TAB PO SCH (09:07)
[2019-11-16] MEDS: amLODIPine 10 MG TAB PO SCH (09:07)
[2019-11-16] MEDS: ARIPiprazole 5 MG TAB PO SCH (09:07)
[2019-11-16] MEDS: ASPIRIN EC 325 MG TAB PO SCH (09:07)
[2019-11-16] MEDS: carvediloL 12.5 MG TAB PO SCH ×2 (09:07→22:25)
[2019-11-16 09:33] LABS: Calcium 8.7 mg/dL (8.4-10.2)
[2019-11-16] MEDS: ONDANSETRON 4 MG ODT TAB PO PRN (11:39)
[2019-11-16] MEDS: QUEtiapine 100 MG TAB PO SCH (22:25)
[2019-11-16] MEDS: DIVALPROEX ER 500 MG TAB PO SCH (22:27)
[2019-11-17] MEDS: HEPARIN 5,000 UNIT/1 ML VIAL SUB-Q SCH ×3 (05:36→21:48)
[2019-11-17] MEDS: ARIPiprazole 5 MG TAB PO SCH (09:08)
[2019-11-17] MEDS: carvediloL 12.5 MG TAB PO SCH ×2 (09:08→21:49)
[2019-11-17] MEDS: ASPIRIN EC 325 MG TAB PO SCH (09:09)
[2019-11-17] MEDS: amLODIPine 10 MG TAB PO SCH (09:09)
[2019-11-17] MEDS: PANTOPRAZOLE 40 MG TAB PO SCH (09:09)
[2019-11-17] MEDS: INSULIN LISPRO 100 UNIT/ML SUB-Q SCH ×4 (09:09→22:00)
[2019-11-17] MEDS: LITHIUM CARBONATE 300 MG CAP PO SCH ×2 (09:13→21:48)
--- NOTE | 2019-11-17 09:38 | Progress Note ---
Subjective Date of service: 11/17/19 Principal diagnosis: CVA Interval history: 64-year-old female who was a [facility] at a [facility] developed left-sided facial droop and slurred speech accompanied by paresthesias of the left side. Subsequent MRI head showed a small subacute infarct in the putamen and hill radiata on the right-hand side without hemorrhagic transformation. Patient was evaluated by therapy and deemed to be appropriate for acute inpatient rehabilitation. Medication levels including Depakote and lithium were checked. 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 She has a history of seizures in her 20s but has not had any in years. She was evaluated by neurology, cardiology, nephrology. Nephrology noted she had acute renal injury superimposed on CKD stage IV. Baseline creatinine is approximately not known. Cardiology was also consulted and provided more history. Patient lives in [facility] and has a history of bipolar disorder and posttraumatic stress disorder. Patient had atypical chest pain and was recommended to have further workup as an outpatient. Interval History Patient is participating in therapy and making reasonable progress. Taking rest breaks as needed. +BM. Denies pain, palpitations, dyspnea, cough, N/V, weakness, or joint pain. Nausea and vomiting improved since series of bowel movements. KUB showed a large stool burden in the left:. We'll continue to monitor for full resolution. Renal function appears stable. Continue to monitor periodically. GLU running on higher side. Start low dose Lantus and increase SSI. Monitor. Patient noted to need TB test prior to return to [facility]. Discussed in team conference. Making progress. Still has decreased safety awareness. Very receptive to instruction and compliant with trying to improve. Continue therapy. Will need to see what penitentiary requirements are for return. All records, vitals, labs and medications were reviewed. No other issues per patient, nursing or therapy. Objective - Exam Narrative Exam: MUSCULOSKELETAL SPECIALTY EXAM CONSTITUTIONAL: Well developed, well nourished, appropriately groomed, thin. RIGHT hand dominant. RESPIRATORY: Clear to auscultation bilaterally, no increased work of breathing CARDIOVASCULAR: Regular Rate/ Rhythm, no swelling, edema or tenderness in BUE or BLE. All extremities warm. GI: + bowel sounds, soft, NTTP, nondistended. INTEGUMENTARY: Normal, no lesion, rash, masses or bruising noted in extremities. MUSCULOSKELETAL: BUE and BLE normal without defect, crepitus, subluxation, effusion, arthritic changes or TTP. R 5/5 L 4/5 ROM within functional limits Tone normal NEURO: CN III, IV, : EOMI however slightly slowed to the left CN V : Facial sensation is impaired on left CN VII : Left facial droop (upper and lower) Sensation intact in all extremities without extinction but is altered on the left. Coordination impaired on left with dysmetria of the LUE, normal on right. No tremor noted in 4 extremities. Naming and repetition intact. Follows 2 step commands. Aphasia not appreciated Dysarthria present Dysphagia present Neglect not appreciated POSTURE and GAIT: Sitting posture good. Sitting balance appears reasonable. Gait deferred until seen with therapy. PSYCH: Alert, oriented x3, affect appears euthymic. Insight appears intact. - Constitutional Vitals: Vital Signs - 12hr 11/16/19 11/17/19 11/17/19 22:25 03:53 08:40 Temperature 36.7 C 36.7 C Pulse Rate 69 70 71 Respiratory 17 19 Rate Blood Pressure 139/71 154/79 Blood Pressure 161/75 [Left] O2 Sat by Pulse 98 95 Oximetry - Allied health notes Allied health notes reviewed: nursing, PT, ST, OT FIMS assessment as documented by PT/OT/ST: Locomotion- walk/wheelchair Ambulation Distance 20 - Labs CBC & Chem 7: 11/17/19 10:11 11/17/19 10:11 Labs: Laboratory Results - last 72 hr 11/15/19 11/15/19 11/15/19 07:43 11:46 15:22 WBC 8.3 RBC 3.40 L Hgb 9.4 L Hct 29.1 L MCV 86 MCH 28 MCHC 32 RDW 14.1 Plt Count 236 Lymph % (Auto) 16.6 [place] % (Auto) 4.5 Eos % (Auto) 2.9 Baso % (Auto) 0.5 Lymph # 1.4 [place] # 0.4 Eos # 0.2 Baso # 0.0 Seg Neutrophils % 75.5 H Seg Neutrophils # 6.3 Sodium Potassium Chloride Carbon Dioxide Anion Gap BUN Creatinine Estimated GFR BUN/Creatinine Ratio Glucose POC Glucose 97 159 H Calcium Total Bilirubin AST ALT Alkaline Phosphatase Total Protein Albumin Albumin/Globulin Ratio 11/15/19 11/15/19 11/15/19 15:22 16:30 22:23 WBC RBC Hgb Hct MCV MCH MCHC RDW Plt Count Lymph % (Auto) [place] % (Auto) Eos % (Auto) Baso % (Auto) Lymph # [place] # Eos # Baso # Seg Neutrophils % Seg Neutrophils # Sodium 140 Potassium 4.3 Chloride 105.1 Carbon Dioxide 24 Anion Gap 15 BUN 38 H Creatinine 2.8 H Estimated GFR 21 BUN/Creatinine Ratio 14 Glucose 129 H POC Glucose 116 H 199 H Calcium 8.3 L Total Bilirubin 0.20 AST 19 ALT 15 Alkaline Phosphatase 101 Total Protein 6.3 Albumin 3.0 L Albumin/Globulin Ratio 0.9 11/16/19 11/16/19 11/16/19 07:30 08:50 11:49 WBC RBC Hgb Hct MCV MCH MCHC RDW Plt Count Lymph % (Auto) [place] % (Auto) Eos % (Auto) Baso % (Auto) Lymph # [place] # Eos # Baso # Seg Neutrophils % Seg Neutrophils # Sodium 141 Potassium 4.6 Chloride 106.2 Carbon Dioxide 25 Anion Gap 14 BUN 35 H Creatinine 2.9 H Estimated GFR 20 BUN/Creatinine Ratio 12 Glucose 187 H POC Glucose 141 H 221 H Calcium 8.7 Total Bilirubin AST ALT Alkaline Phosphatase Total Protein Albumin Albumin/Globulin Ratio 11/16/19 11/16/19 16:43 21:54 WBC RBC Hgb Hct MCV MCH MCHC RDW Plt Count Lymph % (Auto) [place] % (Auto) Eos % (Auto) Baso % (Auto) Lymph # [place] # Eos # Baso # Seg Neutrophils % Seg Neutrophils # Sodium Potassium Chloride Carbon Dioxide Anion Gap BUN Creatinine Estimated GFR BUN/Creatinine Ratio Glucose POC Glucose 162 H 175 H Calcium Total Bilirubin AST ALT Alkaline Phosphatase Total Protein Albumin Albumin/Globulin Ratio Assessment and Plan CVA: Continue secondary stroke prevention. Discussed with patient prognosis as well as secondary stroke prevention protocols. Monitor for neurologic decline, shoulder-hand syndrome, bowel or bladder issues, evidence of stroke recurrence, worsening of dysphagia Hypertension: Continue medications and monitor blood pressure and adjust as needed for normotension. Diabetes: Continue carb controlled diet, sliding scale insulin and monitor/adjust medications as needed. Add lantus. Bipolar/PTSD: Continue medications. Supportive care and adjust as needed. Check lithium and Depakote levels as needed. CKD: Avoid nephrotoxic medications. Monitor renal function. Consider nephrology consult if renal function worsens. Constipation: Continue medications and prn medications. Monitor for bowel movements and adjust as needed. Nausea/vomiting: Zofran as ordered. Patient relates this more so to anxiety. Monitor and if this continues or gets worse we'll obtain KUB. Cardiomyopathy and heart failure: Monitor for any signs of worsening cardiac function or chest pain. Schedule for follow-up with cardiology as outpatient per their notes. Consider consult cardiology if cardiac function worsens. Dysphagia: Continue modified diet. Advance as tolerated with guidance from SENIOR COBOL DEVELOPER. Aspiration precautions during meals. Dysarthria: Continue SENIOR COBOL DEVELOPER for improvement in functional ability to speak and breath control. ADL dysfunction: OT will work on improving ability to perform ADLs (including assistive devices) to increase independence and decrease caregiver burden and improve functional transfers and mobility training. Difficulty walking: PT will work on gait training and proper use of assistive devices and advance as appropriate to use of stairs and outside ambulation on uneven surfaces. Unsteadiness on feet: PT will work on improving static and dynamic sitting and standing balance as well as proper use of assistive devices to decrease risk of falls. Abnormality of gait: PT will work to improve safety and efficiency of gait through neuromotor training and gait training along with instruction on proper use of assistive devices. Muscle weakness: PT & OT will work on strengthening exercises to improve functional strength including mixture of closed and open kinetic chain exercises. Fatigue: PT & OT will work on improving endurance through aerobic exercises and therapeutic activity while monitoring patients tolerance for activity and vital signs as needed. DVT ppx: Heparin TID Pain: Continue physical modalities in therapy and pain medications as needed to achieve functional pain control. Sleep: Monitor and address as needed. Bowel: Monitor and address as needed. Appetite: Monitor and address as needed. Discharge planning: Pending therapy progress and care plan meeting. Will continue discussion with therapy team, SW, patient and family. Restrictions/ Precautions: Falls, aspiration, possible seizure WB status: FWB Functional Hx: ADLs: Independent Cognition: Independent Mobility: No AD Barriers to Discharge: Decreased mobility and ability to perform self care, balance deficits, weakness Estimated Length of Stay: 1421 days Discharge Destination: [facility] with [facility]
[2019-11-17 10:27] LABS: Hemoglobin 9.4 gm/dl (10.1-14.3); Mean Corpuscular HGB Conc 32 % (30-34); Mean Corpuscular Volume 86 fl (79-97); Platelet Count 233 K/mm3 (140-440); Red Blood Count 3.38 M/mm3 (3.65-5.03); Red Cell Distribution Width 14.3 % (13.2-15.2)
[2019-11-17 10:51] LABS: Calcium 8.9 mg/dL (8.4-10.2)
--- NOTE | 2019-11-17 19:14 | IRU Plan of Care ---
Interdisciplinary Plan of Care - IP IRU INTERDISCIPLINARY PLAN: [facility] Inpatient Rehab Unit Plan of Care IRU Interdisciplinary Care Plan Start: 11/14/19 18:36 Freq: Admission then PRN Status: Active Protocol: Document 11/17/19 16:08 TH (Rec: 11/17/19 16:14 TH [id number]) Interdisciplinary Problem List Interdisciplinary Problem List Interdisciplinary Problem List Impaired Dressing,Impaired Query Text:Answers will Trigger Problems Mobility,Impaired Transfers, and Outcomes on Worklist. Impaired Expression,Discharge Concerns,Impaired Safety, Diabetes Education IRU Interdisciplinary Care Plan Therapy Services Therapy Services Will Include: Physical Therapy,Occupational Query Text:Patient will be seen for a Therapy,Speech Therapy minimum of 3 hours of daily therapy 5 out of 7 days a week. Therapy intensity may be adjusted within a 7 consecutive day period to effectively serve the individual needs of the patient. Treatment Frequency/Intensity/Duration Treatment Frequency 5 days per week Treatment Intensity 3 hours per day Treatment Duration 14-21 days Problem Area: Eating/Swallowing Eating/Swallowing Outcomes Improve Lingual ROM/Strength Eating/Swallowing Interventions Patient/Caregiver Education Problem Area: Bathing/Grooming Bathing/Grooming Outcomes Improve [place] w/ Grooming,Improve [place] w/ Bathing Bathing/Grooming Interventions ADL Training,Use of Assistive Devices,Therapeutic Exercise, Therapeutic Activity, Neuromuscular Re-Education, Balance Work,Activity Tolerance Work,Patient/ Caregiver Education Problem Area: Dressing Dressing Outcomes Improve [place] w/ UB Dressing,Improve [place] w/ LB Dressing Dressing Interventions ADL Training,Use of Assistive Devices,Neuromuscular Re- Education,Therapeutic Exercise ,Balance Work,Modalities, Patient/Caregiver Education Problem Area: Mobility Mobility Outcomes Improve [place] w/ Bed Mobility,Improve [place] w/ Ambulation,Improve [place] w/ Stairs/Curb, Improve [place] w/ Wheelchair Mobility Interventions Therapeutic Exercise, Neuromuscular Re-Ed.,Visual/ Perceptual Training,Activity Tolerance Work,Use of Assistive Devices,Patient/ Caregiver Education,Bed Mobility Work,Gait Training, Household Mobility Work,W/C Mobility Work Problem Area: Transfers Transfers Outcomes Improve [place] w/ Bed Transfers,Improve [place] w/ Toilet Transfers,Improve [place] w/ Tub/Shower Transfers Transfers Interventions Transfer Training,Therapeutic Exercise,Neuromuscular Re- Education,Visual/Perceptual Training,Activity Tolerance Work,Modalities,Use of Assistive Devices,Patient/ Caregiver Education Problem Area: Bowel/Bladder Managment Bowel/Bladder Outcomes Bowel/Bladder Interventions Problem Area: Toileting Toileting Outcomes Improve [place] w/ Toileting Toileting Interventions ADL Training,Balance Work,Use of Assistive Devices,Patient/ Caregiver Education Problem Area: Nutrition Nutrition Outcomes Nutrition Interventions Problem Area: Comprehension Comprehension Outcomes Comprehension Interventions Problem Area: Expression Expression Outcomes Improve Intelligibility Expression Interventions Patient/Caregiver Education Problem Area: Problem Solving Problem Solving Outcomes Improve Problem Solving Problem Solving Interventions Cognitive Training,Visual/ Perceptual Training,Safety Education,Patient/Caregiver Education Problem Area: Memory Memory Outcomes Memory Interventions Problem Area: Pain Management Pain Management Outcomes Pain Management Interventions Problem Area: Knowledge Deficits Knowledge Deficits Outcomes Knowledge Deficits Interventions Problem Area: Skin/Tissue Integrity Skin/Tissue Integrity Outcomes Skin/Tissue Integrity Interventions Problem Area: Social Interaction Social Interaction Outcomes Social Interaction Interventions Problem Area: Adjustment to Disability Adjustment to Disability Outcomes Adjustment to Disability Interventions Problem Area: Discharge Concerns Discharge Concerns Outcomes Discharge w/ Necessary Equipment,Have Home Health/ Outpatient Services Discharge Concerns Interventions Discharge Planning,Family/ Caregiver Conference,Family/ Caregiver Training Problem Area: Community Reintegration Community Reintegration Outcomes Community Reintegration Interventions Problem Area: Home Management Home Management Outcomes Improve [place] w/ Home Management Home Management Interventions Money Management Tasks,Meal Preparation,Clothing Care, Activity Tolerance Work, Leisure Skills Development, House Cleaning,Shopping, Patient/Caregiver Education, Use of TLA Problem Area: Safety Safety Outcomes Provide Safe Environment, Perform Selfcare Safely, Demonstrate Good Safety w/ Transfers/Mobility Safety Interventions Identify Fall Risk,[place] Pt. to Environment,Reduce Environmental Hazards,Neuro Check Assessment,Implement Mechanical Devices, i.e. Chair Alarm (Post Fall Update),Re- Educate Patient/Caregiver for Safety (Post Fall Update) Problem Area: Medication Education Medication Education Outcomes Medication Education Interventions Problem Area: Diabetes Education Diabetes Education Outcomes Demonstrate Knowledge of Resources Availlable in Diabetic Ed. Folder Diabetes Education Interventions Give Pt. Diabetes Education Folder,Discuss Pathophysiology of Diabetes Problem Area: Oxygenation Oxygenation Outcomes Oxygenation Interventions Problem Area: Cardiovascular Cardiovascular Outcomes Cardiovascular Interventions Physician Only Medical Prognosis and Rehabilitation Potential (Completed by Physician) Good overall prognosis and rehab potential. Patient is eager to recover and is working diligently. Will hopefully have return of function to allow her to go back to her fdc. Will start with roughly 1hr each of PT/OT/CLIENT SPECIALIST and adjust as her needs develop. This plan of care has been developed based on the findings from the pre- admission assessment, post admission physician evaluation, information gathered from the assessments from all therapy disciplines and other pertinent clinicians. The plan of care has been reviewed and discussed in collaboration with the interdisciplinary team. The plan of care will be reviewed and updated at least weekly.
[2019-11-17] MEDS ORDERED: INSULIN GLARGINE 100 UNITS/ML SUB-Q SCH (21:00)
[2019-11-17] MEDS: DIVALPROEX ER 500 MG TAB PO SCH (21:48)
[2019-11-17] MEDS: QUEtiapine 100 MG TAB PO SCH (21:48)
[2019-11-18] MEDS: HEPARIN 5,000 UNIT/1 ML VIAL SUB-Q SCH ×3 (06:09→21:30)
[2019-11-18] MEDS: INSULIN LISPRO 100 UNIT/ML SUB-Q SCH ×4 (07:06→21:30)
[2019-11-18 07:17] LABS: Calcium 8.6 mg/dL (8.4-10.2)
--- NOTE | 2019-11-18 08:54 | Progress Note ---
Subjective Date of service: 11/18/19 Principal diagnosis: CVA Interval history: 64-year-old female who was a resident at a residential developed left-sided facial droop and slurred speech accompanied by paresthesias of the left side. Subsequent MRI head showed a small subacute infarct in the putamen and hill radiata on the right-hand side without hemorrhagic transformation. Patient was evaluated by therapy and deemed to be appropriate for acute inpatient rehabilitation. Medication levels including Depakote and lithium were checked. 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 She has a history of seizures in her 20s but has not had any in years. She was evaluated by neurology, cardiology, nephrology. Nephrology noted she had acute renal injury superimposed on CKD stage IV. Baseline creatinine is approximately not known. Cardiology was also consulted and provided more history. [facility] lives [facility] and has a history of bipolar disorder and posttraumatic stress disorder. Patient had atypical chest pain and was recommended to have further workup as an outpatient. Interval History Patient is participating in therapy and making reasonable progress. Taking rest breaks as needed. +BM. Denies pain, palpitations, dyspnea, cough, N/V, weakness, or joint pain. Nausea and vomiting again this AM. Uncertain as of last BM. Having difficulty with flatus. Will treat again with suppository to attempt to fully evacuate. We'll continue to monitor for full resolution. Renal function appears stable. Continue to monitor periodically. Did not tolerate starting dose of Lantus, reduce dose and decrease SSI. Monitor. Patient noted to need TB test prior to return to residential. All records, vitals, labs and medications were reviewed. No other issues per patient, nursing or therapy. Objective - Exam Narrative Exam: MUSCULOSKELETAL SPECIALTY EXAM CONSTITUTIONAL: Well developed, well nourished, appropriately groomed, thin. RIGHT hand dominant. RESPIRATORY: Clear to auscultation bilaterally, no increased work of breathing CARDIOVASCULAR: Regular Rate/ Rhythm, no swelling, edema or tenderness in BUE or BLE. All extremities warm. GI: + bowel sounds, soft, NTTP, nondistended. INTEGUMENTARY: Normal, no lesion, rash, masses or bruising noted in extremities. MUSCULOSKELETAL: BUE and BLE normal without defect, crepitus, subluxation, effusion, arthritic changes or TTP. R 5/5 L 4/5 ROM within functional limits Tone normal NEURO: CN III, IV, : EOMI however slightly slowed to the left CN V : Facial sensation is impaired on left CN VII : Left facial droop (upper and lower) Sensation intact in all extremities without extinction but is altered on the left. Coordination impaired on left with dysmetria of the LUE, normal on right. No tremor noted in 4 extremities. Naming and repetition intact. Follows 2 step commands. Aphasia not appreciated Dysarthria present Dysphagia present Neglect not appreciated POSTURE and GAIT: Sitting posture good. Sitting balance appears reasonable. Gait deferred until seen with therapy. PSYCH: Alert, oriented x3, affect appears euthymic. Insight appears intact. - Constitutional Vitals: Vital Signs - 12hr 11/17/19 11/17/19 11/18/19 21:49 22:00 07:36 Temperature 36.6 C Pulse Rate 70 72 Respiratory 18 Rate Respiratory 17 Rate [ generalized] Blood Pressure 135/77 142/73 O2 Sat by Pulse 98 Oximetry - Allied health notes Allied health notes reviewed: nursing, PT, ST, OT FIMS assessment as documented by PT/OT/ST: Social interaction/Memory/Problem solving Social Interaction FIM Score 4. Minimal Assistance (Interacts appropriately 75-90%.) Memory FIM Score 5. Supervision (Needs cueing <10%, stressful/ unfamiliar situations.) Problem Solving FIM Score 4. Minimal Assistance (Solves routine problems 75-90%.) Transfers Mode of Locomotion: Wheelchair Bed/Chair/Wheelchair Transfers 3. Moderate Assistance (Patient = 50% or more. FIM Score Some lifting.) Locomotion- walk/wheelchair Ambulation Distance 20 - Labs CBC & Chem 7: 11/17/19 10:11 11/18/19 06:33 Labs: Laboratory Results - last 72 hr 11/15/19 11/15/19 11/15/19 11:46 15:22 15:22 WBC 8.3 RBC 3.40 L Hgb 9.4 L Hct 29.1 L MCV 86 MCH 28 MCHC 32 RDW 14.1 Plt Count 236 Lymph % (Auto) 16.6 [place] % (Auto) 4.5 Eos % (Auto) 2.9 Baso % (Auto) 0.5 Lymph # 1.4 [place] # 0.4 Eos # 0.2 Baso # 0.0 Seg Neutrophils % 75.5 H Seg Neutrophils # 6.3 Sodium 140 Potassium 4.3 Chloride 105.1 Carbon Dioxide 24 Anion Gap 15 BUN 38 H Creatinine 2.8 H Estimated GFR 21 BUN/Creatinine Ratio 14 Glucose 129 H POC Glucose 159 H Calcium 8.3 L Total Bilirubin 0.20 AST 19 ALT 15 Alkaline Phosphatase 101 Total Protein 6.3 Albumin 3.0 L Albumin/Globulin Ratio 0.9 11/15/19 11/15/19 11/16/19 16:30 22:23 07:30 WBC RBC Hgb Hct MCV MCH MCHC RDW Plt Count Lymph % (Auto) [place] % (Auto) Eos % (Auto) Baso % (Auto) Lymph # [place] # Eos # Baso # Seg Neutrophils % Seg Neutrophils # Sodium Potassium Chloride Carbon Dioxide Anion Gap BUN Creatinine Estimated GFR BUN/Creatinine Ratio Glucose POC Glucose 116 H 199 H 141 H Calcium Total Bilirubin AST ALT Alkaline Phosphatase Total Protein Albumin Albumin/Globulin Ratio 11/16/19 11/16/19 11/16/19 08:50 11:49 16:43 WBC RBC Hgb Hct MCV MCH MCHC RDW Plt Count Lymph % (Auto) [place] % (Auto) Eos % (Auto) Baso % (Auto) Lymph # [place] # Eos # Baso # Seg Neutrophils % Seg Neutrophils # Sodium 141 Potassium 4.6 Chloride 106.2 Carbon Dioxide 25 Anion Gap 14 BUN 35 H Creatinine 2.9 H Estimated GFR 20 BUN/Creatinine Ratio 12 Glucose 187 H POC Glucose 221 H 162 H Calcium 8.7 Total Bilirubin AST ALT Alkaline Phosphatase Total Protein Albumin Albumin/Globulin Ratio 11/16/19 11/17/19 11/17/19 21:54 08:52 10:11 WBC 8.6 RBC 3.38 L Hgb 9.4 L Hct 29.0 L MCV 86 MCH 28 MCHC 32 RDW 14.3 Plt Count 233 Lymph % (Auto) [place] % (Auto) Eos % (Auto) Baso % (Auto) Lymph # [place] # Eos # Baso # Seg Neutrophils % Seg Neutrophils # Sodium Potassium Chloride Carbon Dioxide Anion Gap BUN Creatinine Estimated GFR BUN/Creatinine Ratio Glucose POC Glucose 175 H 176 H Calcium Total Bilirubin AST ALT Alkaline Phosphatase Total Protein Albumin Albumin/Globulin Ratio 11/17/19 11/17/19 11/17/19 10:11 12:08 16:43 WBC RBC Hgb Hct MCV MCH MCHC RDW Plt Count Lymph % (Auto) [place] % (Auto) Eos % (Auto) Baso % (Auto) Lymph # [place] # Eos # Baso # Seg Neutrophils % Seg Neutrophils # Sodium 142 Potassium 4.7 Chloride 107.1 H Carbon Dioxide 24 Anion Gap 16 BUN 38 H Creatinine 3.1 H Estimated GFR 18 BUN/Creatinine Ratio 12 Glucose 244 H POC Glucose 238 H 228 H Calcium 8.9 Total Bilirubin AST ALT Alkaline Phosphatase Total Protein Albumin Albumin/Globulin Ratio 11/17/19 11/18/19 11/18/19 20:50 06:33 07:50 WBC RBC Hgb Hct MCV MCH MCHC RDW Plt Count Lymph % (Auto) [place] % (Auto) Eos % (Auto) Baso % (Auto) Lymph # [place] # Eos # Baso # Seg Neutrophils % Seg Neutrophils # Sodium 143 Potassium 4.3 Chloride 110.1 H Carbon Dioxide 21 L Anion Gap 16 BUN 37 H Creatinine 3.1 H Estimated GFR 18 BUN/Creatinine Ratio 12 Glucose 70 POC Glucose 153 H 50 L Calcium 8.6 Total Bilirubin AST ALT Alkaline Phosphatase Total Protein Albumin Albumin/Globulin Ratio Assessment and Plan CVA: Continue secondary stroke prevention. Discussed with patient prognosis as well as secondary stroke prevention protocols. Monitor for neurologic decline, shoulder-hand syndrome, bowel or bladder issues, evidence of stroke recurrence, worsening of dysphagia Hypertension: Continue medications and monitor blood pressure and adjust as needed for normotension. Diabetes: Continue carb controlled diet, sliding scale insulin and monitor/adjust medications as needed. Add lantus. Bipolar/PTSD: Continue medications. Supportive care and adjust as needed. Jennifer ck lithium and Depakote levels as needed. CKD: Avoid nephrotoxic medications. Monitor renal function. Consider nephrology consult if renal function worsens. Constipation: Continue medications and prn medications. Monitor for bowel movements and adjust as needed. Nausea/vomiting: Zofran as ordered. Patient relates this more so to anxiety. Monitor and if this continues or gets worse we'll obtain KUB. Cardiomyopathy and heart failure: Monitor for any signs of worsening cardiac function or chest pain. Schedule for follow-up with cardiology as outpatient per their notes. Consider consult cardiology if cardiac function worsens. Dysphagia: Continue modified diet. Advance as tolerated with guidance from [employer]. Aspiration precautions during meals. Dysarthria: Continue [employer] for improvement in functional ability to speak and breath control. ADL dysfunction: OT will work on improving ability to perform ADLs (including assistive devices) to increase independence and decrease caregiver burden and improve functional transfers and mobility training. Difficulty walking: PT will work on gait training and proper use of assistive devices and advance as appropriate to use of stairs and outside ambulation on uneven surfaces. Unsteadiness on feet: PT will work on improving static and dynamic sitting and standing balance as well as proper use of assistive devices to decrease risk of falls. Abnormality of gait: PT will work to improve safety and efficiency of gait through neuromotor training and gait training along with instruction on proper use of assistive devices. Muscle weakness: PT & OT will work on strengthening exercises to improve functional strength including mixture of closed and open kinetic chain exercises. Fatigue: PT & OT will work on improving endurance through aerobic exercises and therapeutic activity while monitoring patients tolerance for activity and vital signs as needed. DVT ppx: Heparin TID Pain: Continue physical modalities in therapy and pain medications as needed to achieve functional pain control. Sleep: Monitor and address as needed. Bowel: Monitor and address as needed. Appetite: Monitor and address as needed. Discharge planning: Pending therapy progress and care plan meeting. Will continue discussion with therapy team, SW, patient and family. Restrictions/ Precautions: Falls, aspiration, possible seizure WB status: FWB Functional Hx: ADLs: Independent Cognition: Independent Mobility: No AD Barriers to Discharge: Decreased mobility and ability to perform self care, balance deficits, weakness Estimated Length of Stay: 1421 days Discharge Destination: Home with residential
[2019-11-18] MEDS: carvediloL 12.5 MG TAB PO SCH ×2 (11:00→21:30)
[2019-11-18] MEDS: PANTOPRAZOLE 40 MG TAB PO SCH (11:00)
[2019-11-18] MEDS: LITHIUM CARBONATE 300 MG CAP PO SCH ×2 (11:00→21:30)
[2019-11-18] MEDS: ASPIRIN EC 325 MG TAB PO SCH (11:00)
[2019-11-18] MEDS: ARIPiprazole 5 MG TAB PO SCH (11:00)
[2019-11-18] MEDS: amLODIPine 10 MG TAB PO SCH (11:00)
[2019-11-18] MEDS: QUEtiapine 100 MG TAB PO SCH (20:16)
[2019-11-18] MEDS: DIVALPROEX ER 500 MG TAB PO SCH (20:18)
[2019-11-18] MEDS: INSULIN GLARGINE 100 UNITS/ML SUB-Q SCH (20:29)
[2019-11-19 06:48] LABS: Hematocrit 26.5 % (30.3-42.9); Hemoglobin 8.6 gm/dl (10.1-14.3); Mean Corpuscular HGB Conc 32 % (30-34); Mean Corpuscular Volume 85 fl (79-97); Platelet Count 205 K/mm3 (140-440); Red Blood Count 3.11 M/mm3 (3.65-5.03); Red Cell Distribution Width 14.2 % (13.2-15.2)
[2019-11-19 07:02] LABS: Calcium 8.2 mg/dL (8.4-10.2)
[2019-11-19] MEDS: HEPARIN 5,000 UNIT/1 ML VIAL SUB-Q SCH ×3 (07:30→22:35)
[2019-11-19] MEDS: INSULIN LISPRO 100 UNIT/ML SUB-Q SCH ×4 (08:32→22:00)
[2019-11-19] MEDS: carvediloL 12.5 MG TAB PO SCH ×2 (08:37→22:22)
[2019-11-19] MEDS: LITHIUM CARBONATE 300 MG CAP PO SCH ×2 (08:38→22:21)
[2019-11-19] MEDS: ONDANSETRON 4 MG ODT TAB PO PRN (08:45)
[2019-11-19] MEDS: PANTOPRAZOLE 40 MG TAB PO SCH (13:00)
[2019-11-19] MEDS: ASPIRIN EC 325 MG TAB PO SCH (13:00)
[2019-11-19] MEDS: ARIPiprazole 5 MG TAB PO SCH (14:04)
[2019-11-19] MEDS: amLODIPine 10 MG TAB PO SCH (14:05)
[2019-11-19] MEDS: QUEtiapine 100 MG TAB PO SCH (21:00)
[2019-11-19] MEDS: DIVALPROEX ER 500 MG TAB PO SCH (21:00)
[2019-11-19] MEDS: INSULIN GLARGINE 100 UNITS/ML SUB-Q SCH (22:22)
[2019-11-20] MEDS: HEPARIN 5,000 UNIT/1 ML VIAL SUB-Q SCH ×3 (05:44→22:14)
[2019-11-20] MEDS: INSULIN LISPRO 100 UNIT/ML SUB-Q SCH ×4 (07:40→22:26)
[2019-11-20] MEDS: amLODIPine 10 MG TAB PO SCH (09:00)
[2019-11-20] MEDS: carvediloL 12.5 MG TAB PO SCH ×2 (09:01→22:15)
[2019-11-20] MEDS: LITHIUM CARBONATE 300 MG CAP PO SCH ×2 (09:02→22:14)
[2019-11-20] MEDS: ARIPiprazole 5 MG TAB PO SCH (09:02)
[2019-11-20 09:12] LABS: Calcium 8.2 mg/dL (8.4-10.2)
[2019-11-20] MEDS: PANTOPRAZOLE 40 MG TAB PO SCH (15:34)
[2019-11-20] MEDS: ASPIRIN EC 325 MG TAB PO SCH (15:34)
[2019-11-20] MEDS: DIVALPROEX ER 500 MG TAB PO SCH (22:14)
[2019-11-20] MEDS: QUEtiapine 100 MG TAB PO SCH (22:14)
[2019-11-20] MEDS: INSULIN GLARGINE 100 UNITS/ML SUB-Q SCH (22:20)
[2019-11-21] MEDS: HEPARIN 5,000 UNIT/1 ML VIAL SUB-Q SCH ×3 (06:30→23:39)
[2019-11-21] MEDS: INSULIN LISPRO 100 UNIT/ML SUB-Q SCH ×4 (07:30→22:05)
[2019-11-21] MEDS: amLODIPine 10 MG TAB PO SCH (09:08)
[2019-11-21] MEDS: PANTOPRAZOLE 40 MG TAB PO SCH (09:09)
[2019-11-21] MEDS: ASPIRIN EC 325 MG TAB PO SCH (09:09)
[2019-11-21] MEDS: carvediloL 12.5 MG TAB PO SCH ×2 (09:09→23:38)
[2019-11-21] MEDS: LITHIUM CARBONATE 300 MG CAP PO SCH ×2 (09:09→22:37)
[2019-11-21] MEDS: ARIPiprazole 5 MG TAB PO SCH (09:09)
[2019-11-21] MEDS: ONDANSETRON 4 MG ODT TAB PO PRN (10:56)
--- NOTE | 2019-11-21 11:31 | XRay Report ---
ABDOMEN 1 VIEW(S) INDICATION / CLINICAL INFORMATION: PROJECTILE VOMIT. COMPARISON: 11/15/2019 FINDINGS: TUBES / LINES: None. BOWEL GAS PATTERN: There is moderate stool in the colon. Oral contrast has advanced into the rectum. No dilated bowel is appreciated. FREE AIR / EXTRALUMINAL GAS: None seen. ADDITIONAL FINDINGS: No significant additional findings. IMPRESSION: No acute process. Mild fecal retention. Signer Name: Giles Castellano Jr, MD Signed: 11/21/2019 11:27 AM Workstation Name: [id number]
--- NOTE | 2019-11-21 12:20 | Progress Note ---
Subjective Date of service: 11/21/19 Principal diagnosis: CVA Interval history: 64-year-old female who was a resident at a [place] [facility] developed left-sided facial droop and slurred speech accompanied by paresthesias of the left side. Subsequent MRI head showed a small subacute infarct in the putamen and hill radiata on the right-hand side without hemorrhagic transformation. Patient was evaluated by therapy and deemed to be appropriate for acute inpatient rehabilitation. Medication levels including Depakote and lithium were checked. 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 She has a history of seizures in her 20s but has not had any in years. She was evaluated by neurology, cardiology, nephrology. Nephrology noted she had acute renal injury superimposed on CKD stage IV. Baseline creatinine is approximately not known. Cardiology was also consulted and provided more history. Patient lives in [facility] and has a history of bipolar disorder and posttraumatic stress disorder. Patient had atypical chest pain and was recommended to have further workup as an outpatient. Interval History Patient is participating in therapy and making reasonable progress. Taking rest breaks as needed. Denies pain, palpitations, dyspnea, cough, weakness, or joint pain. Nausea and vomiting again this AM. Smal BM over weekend. Repeat KUB. We'll continue to monitor for full resolution. Renal function appears stable. Recheck [place] Level. Continue to monitor periodically. Did not tolerate starting dose of Lantus, reduce dose and decrease SSI. Monitor. Patient noted to need TB test prior to return to [place] [facility]. All records, vitals, labs and medications were reviewed. No other issues per patient, nursing or therapy. Objective - Exam Narrative Exam: MUSCULOSKELETAL SPECIALTY EXAM CONSTITUTIONAL: Well developed, well nourished, appropriately groomed, thin. RIGHT hand dominant. RESPIRATORY: Clear to auscultation bilaterally, no increased work of breathing CARDIOVASCULAR: Regular Rate/ Rhythm, no swelling, edema or tenderness in BUE or BLE. All e xtremities warm. GI: + bowel sounds, soft, NTTP, nondistended. INTEGUMENTARY: Normal, no lesion, rash, masses or bruising noted in extremities. MUSCULOSKELETAL: BUE and BLE normal without defect, crepitus, subluxation, effusion, arthritic changes or TTP. R 5/5 L 4/5 ROM within functional limits Tone normal NEURO: CN III, IV, : EOMI however slightly slowed to the left CN V : Facial sensation is impaired on left CN VII : Left facial droop (upper and lower) Sensation intact in all extremities without extinction but is altered on the left. Coordination impaired on left with dysmetria of the LUE, normal on right. No tremor noted in 4 extremities. Naming and repetition intact. Follows 2 step commands. Aphasia not appreciated Dysarthria present Dysphagia present Neglect not appreciated POSTURE and GAIT: Sitting posture good. Sitting balance appears reasonable. Gait deferred until seen with therapy. PSYCH: Alert, oriented x3, affect appears euthymic. Insight appears intact. - Constitutional Vitals: Vital Signs - 12hr 11/21/19 11/21/19 11/21/19 08:03 09:08 09:09 Temperature 36.7 C Pulse Rate 70 70 70 Respiratory 18 Rate Respiratory Rate [ generalized] Blood Pressure 127/78 130/78 130/78 O2 Sat by Pulse 95 Oximetry 11/21/19 10:00 Temperature Pulse Rate Respiratory Rate Respiratory 20 Rate [ generalized] Blood Pressure O2 Sat by Pulse Oximetry - Allied health notes Allied health notes reviewed: nursing, PT, ST, OT FIMS assessment as documented by PT/OT/ST: Social interaction/Memory/Problem solving Social Interaction FIM Score 7. Complete [place] (Interacts appropriately. Controls temper.) Memory FIM Score 5. Supervision (Needs cueing <10%, stressful/ unfamiliar situations.) Problem Solving FIM Score 5. Supervision (Needs cueing <10% to solve routine problems.) Transfers Mode of Locomotion: Wheelchair Bed/Chair/Wheelchair Transfers 4. Minimal Assistance (Patient = 75% or more. FIM Score Needs touching.) Locomotion- walk/wheelchair Ambulation Distance 20 - Labs CBC & Chem 7: 11/21/19 16:17 11/22/19 06:44 Labs: Laboratory Results - last 72 hr 11/18/19 11/18/19 11/19/19 16:24 20:27 05:54 WBC 9.8 RBC 3.11 L Hgb 8.6 L Hct 26.5 L MCV 85 MCH 28 MCHC 32 RDW 14.2 Plt Count 205 Sodium Potassium Chloride Carbon Dioxide Anion Gap BUN Creatinine Estimated GFR BUN/Creatinine Ratio Glucose POC Glucose 218 H 195 H Calcium 11/19/19 11/19/19 11/19/19 05:54 08:05 17:26 WBC RBC Hgb Hct MCV MCH MCHC RDW Plt Count Sodium 142 Potassium 4.3 Chloride 109.6 H Carbon Dioxide 23 Anion Gap 14 BUN 35 H Creatinine 3.1 H Estimated GFR 18 BUN/Creatinine Ratio 11 Glucose 120 H POC Glucose 105 128 H Calcium 8.2 L 11/19/19 11/20/19 11/20/19 21:19 07:25 08:21 WBC RBC Hgb Hct MCV MCH MCHC RDW Plt Count Sodium 139 Potassium 4.6 Chloride 107.6 H Carbon Dioxide 22 Anion Gap 14 BUN 34 H Creatinine 3.1 H Estimated GFR 18 BUN/Creatinine Ratio 11 Glucose 76 POC Glucose 142 H 72 Calcium 8.2 L 11/20/19 11/20/19 11/20/19 11:56 16:32 21:44 WBC RBC Hgb Hct MCV MCH MCHC RDW Plt Count Sodium Potassium Chloride Carbon Dioxide Anion Gap BUN Creatinine Estimated GFR BUN/Creatinine Ratio Glucose POC Glucose 98 169 H 215 H Calcium 11/21/19 08:14 WBC RBC Hgb Hct MCV MCH MCHC RDW Plt Count Sodium Potassium Chloride Carbon Dioxide Anion Gap BUN Creatinine Estimated GFR BUN/Creatinine Ratio Glucose POC Glucose 74 Calcium - Imaging and cardiology Abdominal x-ray: pending Assessment and Plan CVA: Continue secondary stroke prevention. Discussed with patient prognosis as well as secondary stroke prevention protocols. Monitor for neurologic decline, shoulder-hand syndrome, bowel or bladder issues, evidence of stroke recurrence, worsening of dysphagia Hypertension: Continue medications and monitor blood pressure and adjust as needed for normotension. Diabetes: Continue carb controlled diet, sliding scale insulin and monitor/adjust medications as needed. Add lantus. Bipolar/PTSD: Continue medications. Supportive care and adjust as needed. Check lithium and Depakote levels as needed. CKD: Avoid nephrotoxic medications. Monitor renal function. Consider nephrology consult if renal function worsens. Constipation: Continue medications and prn medications. Monitor for bowel movements and adjust as needed. Nausea/vomiting: Zofran as ordered. Patient relates this more so to anxiety. KUB ordered. Cardiomyopathy and heart failure: Monitor for any signs of worsening cardiac function or chest pain. Schedule for follow-up with cardiology as outpatient per their notes. Consider consult cardiology if cardiac function worsens. Dysphagia: Continue modified diet. Advance as tolerated with guidance from TACTICAL/MOBILE WATCH OFFICER. Aspiration precautions during meals. Dysarthria: Continue TACTICAL/MOBILE WATCH OFFICER for improvement in functional ability to speak and breath control. ADL dysfunction: OT will work on improving ability to perform ADLs (including assistive devices) to increase independence and decrease caregiver burden and improve functional transfers and mobility training. Difficulty walking: PT will work on gait training and proper use of assistive devices and advance as appropriate to use of stairs and outside ambulation on uneven surfaces. Unsteadiness on feet: PT will work on improving static and dynamic sitting and standing balance as well as proper use of assistive devices to decrease risk of falls. Abnormality of gait: PT will work to improve safety and efficiency of gait through neuromotor training and gait training along with instruction on proper use of assistive devices. Muscle weakness: PT & OT will work on strengthening exercises to improve functional strength including mixture of closed and open kinetic chain exercises. Fatigue: PT & OT will work on improving endurance through aerobic exercises and therapeutic activity while monitoring patients tolerance for activity and vital signs as needed. DVT ppx: Heparin TID Pain: Continue physical modalities in therapy and pain medications as needed to achieve functional pain control. Sleep: Monitor and address as needed. Bowel: Monitor and address as needed. Appetite: Monitor and address as needed. Discharge planning: Pending therapy progress and care plan meeting. Will continue discussion with therapy team, SW, patient and family. Restrictions/ Precautions: Falls, aspiration, possible seizure WB status: FWB Functional Hx: ADLs: Independent Cognition: Independent Mobility: No AD Barriers to Discharge: Decreased mobility and ability to perform self care, balance deficits, weakness Estimated Length of Stay: 1421 days Discharge Destination: Home with [place] [facility]
[2019-11-21 16:58] LABS: Hemoglobin 9.8 gm/dl (10.1-14.3); Mean Corpuscular HGB Conc 33 % (30-34); Mean Corpuscular Volume 87 fl (79-97); Platelet Count 195 K/mm3 (140-440); Red Blood Count 3.46 M/mm3 (3.65-5.03); Red Cell Distribution Width 14.4 % (13.2-15.2)
[2019-11-21 17:10] LABS: Calcium 8.9 mg/dL (8.4-10.2)
[2019-11-21] MEDS: INSULIN GLARGINE 100 UNITS/ML SUB-Q SCH (21:07)
[2019-11-21] MEDS: DIVALPROEX ER 500 MG TAB PO SCH (21:17)
[2019-11-21] MEDS: QUEtiapine 100 MG TAB PO SCH (21:38)
[2019-11-22] MEDS: INSULIN LISPRO 100 UNIT/ML SUB-Q SCH ×3 (07:25→16:02)
[2019-11-22 07:28] LABS: Calcium 8.4 mg/dL (8.4-10.2)
[2019-11-22] MEDS: HEPARIN 5,000 UNIT/1 ML VIAL SUB-Q SCH ×3 (07:40→21:45)
[2019-11-22] MEDS: carvediloL 12.5 MG TAB PO SCH ×2 (11:46→21:46)
[2019-11-22] MEDS: PANTOPRAZOLE 40 MG TAB PO SCH (11:46)
[2019-11-22] MEDS: ARIPiprazole 5 MG TAB PO SCH (11:47)
[2019-11-22] MEDS: amLODIPine 10 MG TAB PO SCH (11:47)
[2019-11-22] MEDS: ASPIRIN EC 325 MG TAB PO SCH (11:47)
--- NOTE | 2019-11-22 13:26 | Progress Note ---
Subjective Date of service: 11/22/19 Principal diagnosis: CVA Interval history: 64-year-old female who was a resident at a care home developed left-sided facial droop and slurred speech accompanied by paresthesias of the left side. Subsequent MRI head showed a small subacute infarct in the putamen and hill radiata on the right-hand side without hemorrhagic transformation. Patient was evaluated by therapy and deemed to be appropriate for acute inpatient rehabilitation. Medication levels including Depakote and lithium were checked. 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 She has a history of seizures in her 20s but has not had any in years. She was evaluated by neurology, cardiology, nephrology. Nephrology noted she had acute renal injury superimposed on CKD stage IV. Baseline creatinine is approximately not known. Cardiology was also consulted and provided more history. Patient lives in [facility] and has a history of bipolar disorder and posttraumatic stress disorder. Patient had atypical chest pain and was recommended to have further workup as an outpatient. Interval History Patient is participating in therapy and making reasonable progress. Taking rest breaks as needed. Denies pain, palpitations, dyspnea, cough, or joint pain. Nausea and vomiting intermittently. -BM. KUB ordered and reviewed. Images no t available for some reason however report states that there was contrast noted. Patient has not been given contrast saw him uncertain as to what is showing up on the x-ray. Renal function appears slightly higher today. Recheck [place] Level shows an elevated level at 2.4. Gave an order to hold this morning when I was alerted of this. Also started IV fluids at 75 ml per hour given her CKD and CHF. Will recheck her lithium level in 2 days and look to restart at a lower dose. Last check on 11/08 was 1.2. Patient states she has been stable on the current dose for quite some time and her level may have benefited adversely affected by aspirin or other new medications. Glucose is doing better on current dose of Lantus and sliding scale continue to Monitor. Patient also requests to go outside to a bank in order to take care of some financial issues. Discussed with her the issues with this and will have licensed physical therapy assistant address possible options. Would be easier if the bank could either send wholesale representative see her or if he can be done via fax. She is not safe enough at this point to go out with a caregiver/family member. Patient noted to need TB test prior to return to care home. All records, vitals, labs and medications were reviewed. No other issues per patient, nursing or therapy. Objective - Exam Narrative Exam: MUSCULOSKELETAL SPECIALTY EXAM CONSTITUTIONAL: Well developed, well nourished, appropriately groomed, thin. RIGHT hand dominant. RESPIRATORY: Clear to auscultation bilaterally, no increased work of breathing CARDIOVASCULAR: Regular Rate/ Rhythm, no swelling, edema or tenderness in BUE or BLE. All extremities warm. GI: + bowel sounds, soft, NTTP, nondistended. INTEGUMENTARY: Normal, no lesion, rash, masses or bruising noted in extremities. MUSCULOSKELETAL: BUE and BLE normal without defect, crepitus, subluxation, effusion, arthritic changes or TTP. R 5/5 L 4/5 ROM within functional limits Tone normal NEURO: CN III, IV, : EOMI however slightly slowed to the left CN V : Facial sensation is impaired on left CN VII : Left facial droop (upper and lower) Sensation intact in all extremities without extinction but is altered on the left. Coordination impaired on left with dysmetria of the LUE, normal on right. No tremor noted in 4 extremities. Naming and repetition intact. Follows 2 step commands. Aphasia not appreciated Dysarthria present Dysphagia present Neglect not appreciated POSTURE and GAIT: Sitting posture good. Sitting balance appears reasonable. Gait ataxic. Psych: Affect appears euthymic. Insight appears intact. - Constitutional Vitals: Vital Signs - 12hr 11/22/19 07:59 Temperature 36.6 C Pulse Rate 65 Respiratory 18 Rate Blood Pressure 128/65 O2 Sat by Pulse 99 Oximetry - Allied health notes Allied health notes reviewed: nursing, PT, ST, OT FIMS assessment as documented by PT/OT/ST: Social interaction/Memory/Problem solving Social Interaction FIM Score 7. Complete [place] (Interacts appropriately. Controls temper.) Memory FIM Score 5. Supervision (Needs cueing <10%, stressful/ unfamiliar situations.) Problem Solving FIM Score 5. Supervision (Needs cueing <10% to solve routine problems.) Transfers Mode of Locomotion: Wheelchair Bed/Chair/Wheelchair Transfers 4. Minimal Assistance (Patient = 75% or more. FIM Score Needs touching.) Locomotion- walk/wheelchair Ambulation Distance 20 - Labs CBC & Chem 7: 11/21/19 16:17 11/22/19 06:44 Labs: Laboratory Results - last 72 hr 11/19/19 11/19/19 11/20/19 17:26 21:19 07:25 WBC RBC Hgb Hct MCV MCH MCHC RDW Plt Count Sodium Potassium Chloride Carbon Dioxide Anion Gap BUN Creatinine Estimated GFR BUN/Creatinine Ratio Glucose POC Glucose 128 H 142 H 72 Calcium Valproic Acid [place] 11/20/19 11/20/19 11/20/19 08:21 11:56 16:32 WBC RBC Hgb Hct MCV MCH MCHC RDW Plt Count Sodium 139 Potassium 4.6 Chloride 107.6 H Carbon Dioxide 22 Anion Gap 14 BUN 34 H Creatinine 3.1 H Estimated GFR 18 BUN/Creatinine Ratio 11 Glucose 76 POC Glucose 98 169 H Calcium 8.2 L Valproic Acid [place] 11/20/19 11/21/19 11/21/19 21:44 08:14 16:17 WBC 10.1 RBC 3.46 L Hgb 9.8 L Hct 30.0 L MCV 87 MCH 28 MCHC 33 RDW 14.4 Plt Count 195 Sodium Potassium Chloride Carbon Dioxide Anion Gap BUN Creatinine Estimated GFR BUN/Creatinine Ratio Glucose POC Glucose 215 H 74 Calcium Valproic Acid [place] 11/21/19 11/21/19 11/21/19 16:17 17:15 21:17 WBC RBC Hgb Hct MCV MCH MCHC RDW Plt Count Sodium 140 Potassium 5.1 H Chloride 108.0 H Carbon Dioxide 21 L Anion Gap 16 BUN 36 H Creatinine 3.2 H Estimated GFR 18 BUN/Creatinine Ratio 11 Glucose 107 H POC Glucose 128 H 199 H Calcium 8.9 Valproic Acid [place] 11/22/19 11/22/19 11/22/19 06:44 06:44 08:11 WBC RBC Hgb Hct MCV MCH MCHC RDW Plt Count Sodium 143 Potassium 4.9 Chloride 108.8 H Carbon Dioxide 24 Anion Gap 15 BUN 35 H Creatinine 3.3 H Estimated GFR 17 BUN/Creatinine Ratio 11 Glucose 119 H POC Glucose 114 H Calcium 8.4 Valproic Acid 37.7 L [place] 2.4 H* 11/22/19 12:12 WBC RBC Hgb Hct MCV MCH MCHC RDW Plt Count Sodium Potassium Chloride Carbon Dioxide Anion Gap BUN Creatinine Estimated GFR BUN/Creatinine Ratio Glucose POC Glucose 92 Calcium Valproic Acid [place] - Imaging and cardiology Abdominal x-ray: report reviewed (imaging not available for review yet) Assessment and Plan CVA: Continue secondary stroke prevention. Discussed with patient prognosis as well as secondary stroke prevention protocols. Monitor for neurologic decline, shoulder-hand syndrome, bowel or bladder issues, evidence of stroke recurrence, worsening of dysphagia [place] toxicity: Hold lithium. Normal saline IVF. Recheck lithium level in 2 days and restart at a lower dose. Hypertension: Continue medications and monitor blood pressure and adjust as needed for normotension. Diabetes: Continue carb controlled diet, sliding scale insulin and monitor/adjust medications as needed. Add lantus. Bipolar/PTSD: Continue medications. Supportive care and adjust as needed. Check lithium and Depakote levels as needed. CKD: Avoid nephrotoxic medications. Monitor renal function. Consider nephrology consult if renal function worsens. Constipation: Continue medications and prn medications. Monitor for bowel mo vements and adjust as needed. Nausea/vomiting: Zofran as ordered. Patient relates this more so to anxiety. KUB ordered. Cardiomyopathy and heart failure: Monitor for any signs of worsening cardiac function or chest pain. Schedule for follow-up with cardiology as outpatient per their notes. Consider consult cardiology if cardiac function worsens. Dysphagia: Continue modified diet. Advance as tolerated with guidance from TURBINE BLADE ASSEMBLER. Aspiration precautions during meals. Dysarthria: Continue TURBINE BLADE ASSEMBLER for improvement in functional ability to speak and breath control. ADL dysfunction: OT will work on improving ability to perform ADLs (including assistive devices) to increase independence and decrease caregiver burden and improve functional transfers and mobility training. Difficulty walking: PT will work on gait training and proper use of assistive devices and advance as appropriate to use of stairs and outside ambulation on uneven surfaces. Unsteadiness on feet: PT will work on improving static and dynamic sitting and standing balance as well as proper use of assistive devices to decrease risk of falls. Abnormality of gait: PT will work to improve safety and efficiency of gait through neuromotor training and gait training along with instruction on proper use of assistive devices. Muscle weakness: PT & OT will work on strengthening exercises to improve functional strength including mixture of closed and open kinetic chain exercises. Fatigue: PT & OT will work on improving endurance through aerobic exercises and therapeutic activity while monitoring patients tolerance for activity and vital signs as needed. DVT ppx: Heparin TID Pain: Continue physical modalities in therapy and pain medications as needed to achieve functional pain control. Sleep: Monitor and address as needed. Bowel: Monitor and address as needed. Appetite: Monitor and address as needed. Discharge planning: Pending therapy progress and care plan meeting. Will continue discussion with therapy team, SW, patient and family. Restrictions/ Precautions: Falls, aspiration, possible seizure WB status: FWB Functional Hx: ADLs: Independent Cognition: Independent Mobility: No AD Barriers to Discharge: Decreased mobility and ability to perform self care, balance deficits, weakness Estimated Length of Stay: 1421 days Discharge Destination: Home with care home
[2019-11-22] MEDS: SODIUM CHLORIDE 0.9% 1000 ML 1,000 ML IV SCH (19:00)
[2019-11-22] MEDS: QUEtiapine 100 MG TAB PO SCH (21:45)
[2019-11-22] MEDS: DIVALPROEX ER 500 MG TAB PO SCH (21:47)
[2019-11-23] MEDS: INSULIN GLARGINE 100 UNITS/ML SUB-Q SCH ×2 (04:46→21:46)
[2019-11-23] MEDS: INSULIN LISPRO 100 UNIT/ML SUB-Q SCH ×5 (04:47→21:46)
[2019-11-23] MEDS: HEPARIN 5,000 UNIT/1 ML VIAL SUB-Q SCH ×3 (06:14→21:47)
[2019-11-23] MEDS: carvediloL 12.5 MG TAB PO SCH ×2 (08:55→21:45)
[2019-11-23] MEDS: ASPIRIN EC 325 MG TAB PO SCH (08:55)
[2019-11-23] MEDS: amLODIPine 10 MG TAB PO SCH (08:55)
[2019-11-23] MEDS: PANTOPRAZOLE 40 MG TAB PO SCH (08:55)
--- NOTE | 2019-11-23 09:55 | Progress Note ---
Subjective Date of service: 11/23/19 Principal diagnosis: CVA Interval history: 64-year-old female who was a resident at a nursing home developed left-sided facial droop and slurred speech accompanied by paresthesias of the left side. Subsequent MRI head showed a small subacute infarct in the putamen and hill radiata on the right-hand side without hemorrhagic transformation. Patient was evaluated by therapy and deemed to be appropriate for acute inpatient rehabilitation. Medication levels including Depakote and lithium were checked. 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 She has a history of seizures in her 20s but has not had any in years. She was evaluated by neurology, cardiology, nephrology. Nephrology noted she had acute renal injury superimposed on CKD stage IV. Baseline creatinine is approximately not known. Cardiology was also consulted and provided more history. Patient lives in [facility] and has a history of bipolar disorder and posttraumatic stress disorder. Patient had atypical chest pain and was recommended to have further workup as an outpatient. Interval History Patient is participating in therapy and making reasonable progress. Taking rest breaks as needed. Denies pain, palpitations, dyspnea, cough, or joint pain. Nausea and vomiting intermittently, none this AM. +BM. Labs pending. Recheck [place] Level Thursday shows an elevated level at 2.4. Glucose is doing better on current dose of Lantus and sliding scale continue to Monitor. Patient noted to need TB test prior to return to nursing home. All records, vitals, labs and medications were reviewed. No other issues per patient, nursing or therapy. Objective - Exam Narrative Exam: MUSCULOSKELETAL SPECIALTY EXAM CONSTITUTIONAL: Well developed, well nourished, appropriately groomed, thin. RIGHT hand dominant. RESPIRATORY: Clear to auscultation bilaterally, no increased work of breathing CARDIOVASCULAR: Regular Rate/ Rhythm, no swelling, edema or tenderness in BUE or BLE. All extremities warm. GI: + bowel sounds, soft, NTTP, nondistended. INTEGUMENTARY: Normal, no lesion, rash, masses or bruising noted in extremities. MUSCULOSKELETAL: BUE and BLE normal without defect, crepitus, subluxation, effusion, arthritic changes or TTP. R 5/5 L 4/5 ROM within functional limits Tone normal NEURO: CN III, IV, : EOMI however slightly slowed to the left CN V : Facial sensation is impaired on left CN VII : Left facial droop (upper and lower) Sensation intact in all extremities without extinction but is altered on the left. Coordination impaired on left with dysmetria of the LUE, normal on right. No tremor noted in 4 extremities. Naming and repetition intact. Follows 2 step commands. Aphasia not appreciated Dysarthria present Dysphagia present Neglect not appreciated POSTURE and GAIT: Sitting posture good. Sitting balance appears reasonable. Gait ataxic. Psych: Affect appears euthymic. Insight appears intact. - Constitutional Vitals: Vital Signs - 12hr 11/23/19 11/23/19 00:00 07:00 Temperature 36.8 C Pulse Rate 68 Respiratory 17 18 Rate Blood Pressure 123/75 O2 Sat by Pulse 100 Oximetry - Allied health notes Allied health notes reviewed: nursing, PT, OT FIMS assessment as documented by PT/OT/ST: Social interaction/Memory/Problem solving Social Interaction FIM Score 5. Supervision (Needs supv. <10%. Needs encouragement to participate.) Memory FIM Score 4. Minimal Assistance (Recognizes and remembers 75-90%.) Problem Solving FIM Score 4. Minimal Assistance (Solves routine problems 75-90%.) Transfers Mode of Locomotion: Wheelchair Bed/Chair/Wheelchair Transfers 4. Minimal Assistance (Patient = 75% or more. FIM Score Needs touching.) Locomotion- walk/wheelchair Ambulation Distance 20 Eating Eating FIM Score 5. Supervision/Set-Up (Needs help w/ container s, cutting meat, etc.) Dressing-lower body Patient retrieves clothing No items: Lower Body Dressing FIM Score 5. Supv./Set-Up ([place] sets out clothes or applies pros./orth.) - Labs CBC & Chem 7: 11/21/19 16:17 11/22/19 06:44 Labs: Laboratory Results - last 72 hr 11/20/19 11/20/19 11/20/19 11:56 16:32 21:44 WBC RBC Hgb Hct MCV MCH MCHC RDW Plt Count Sodium Potassium Chloride Carbon Dioxide Anion Gap BUN Creatinine Estimated GFR BUN/Creatinine Ratio Glucose POC Glucose 98 169 H 215 H Calcium Valproic Acid [place] 11/21/19 11/21/19 11/21/19 08:14 16:17 16:17 WBC 10.1 RBC 3.46 L Hgb 9.8 L Hct 30.0 L MCV 87 MCH 28 MCHC 33 RDW 14.4 Plt Count 195 Sodium 140 Potassium 5.1 H Chloride 108.0 H Carbon Dioxide 21 L Anion Gap 16 BUN 36 H Creatinine 3.2 H Estimated GFR 18 BUN/Creatinine Ratio 11 Glucose 107 H POC Glucose 74 Calcium 8.9 Valproic Acid [place] 11/21/19 11/21/19 11/22/19 17:15 21:17 06:44 WBC RBC Hgb Hct MCV MCH MCHC RDW Plt Count Sodium 143 Potassium 4.9 Chloride 108.8 H Carbon Dioxide 24 Anion Gap 15 BUN 35 H Creatinine 3.3 H Estimated GFR 17 BUN/Creatinine Ratio 11 Glucose 119 H POC Glucose 128 H 199 H Calcium 8.4 Valproic Acid [place] 11/22/19 11/22/19 11/22/19 06:44 08:11 12:12 WBC RBC Hgb Hct MCV MCH MCHC RDW Plt Count Sodium Potassium Chloride Carbon Dioxide Anion Gap BUN Creatinine Estimated GFR BUN/Creatinine Ratio Glucose POC Glucose 114 H 92 Calcium Valproic Acid 37.7 L [place] 2.4 H* 11/22/19 11/22/19 11/23/19 16:37 20:03 07:09 WBC RBC Hgb Hct MCV MCH MCHC RDW Plt Count Sodium Potassium Chloride Carbon Dioxide Anion Gap BUN Creatinine Estimated GFR BUN/Creatinine Ratio Glucose POC Glucose 138 H 91 109 H Calcium Valproic Acid [place] Assessment and Plan CVA: Continue secondary stroke prevention. Discussed with patient prognosis as well as secondary stroke prevention protocols. Monitor for neurologic decline, shoulder-hand syndrome, bowel or bladder issues, evidence of stroke recurrence, worsening of dysphagia [place] toxicity: Hold lithium. Normal saline IVF. Recheck lithium level in 2 days and restart at a lower dose. Hypertension: Continue medications and monitor blood pressure and adjust as needed for normotension. Diabetes: Continue carb controlled diet, sliding scale insulin and monitor/adjust medications as needed. Add lantus. Bipolar/PTSD: Continue medications. Supportive care and adjust as needed. Check lithium and Depakote levels as needed. CKD: Avoid nephrotoxic medications. Monitor renal function. Consider nephrolo gy consult if renal function worsens. Constipation: Continue medications and prn medications. Monitor for bowel movements and adjust as needed. Nausea/vomiting: Zofran as ordered. Patient relates this more so to anxiety. KUB ordered. Cardiomyopathy and heart failure: Monitor for any signs of worsening cardiac function or chest pain. Schedule for follow-up with cardiology as outpatient per their notes. Consider consult cardiology if cardiac function worsens. Dysphagia: Continue modified diet. Advance as tolerated with guidance from GRIEF COUNSELLOR. Aspiration precautions during meals. Dysarthria: Continue GRIEF COUNSELLOR for improvement in functional ability to speak and breath control. ADL dysfunction: OT will work on improving ability to perform ADLs (including assistive devices) to increase independence and decrease caregiver burden and improve functional transfers and mobility training. Difficulty walking: PT will work on gait training and proper use of assistive devices and advance as appropriate to use of stairs and outside ambulation on uneven surfaces. Unsteadiness on feet: PT will work on improving static and dynamic sitting and standing balance as well as proper use of assistive devices to decrease risk of falls. Abnormality of gait: PT will work to improve safety and efficiency of gait through neuromotor training and gait training along with instruction on proper use of assistive devices. Muscle weakness: PT & OT will work on strengthening exercises to improve functional strength including mixture of closed and open kinetic chain exercises. Fatigue: PT & OT will work on improving endurance through aerobic exercises and therapeutic activity while monitoring patients tolerance for activity and vital signs as needed. DVT ppx: Heparin TID Pain: Continue physical modalities in therapy and pain medications as needed to achieve functional pain control. Sleep: Monitor and address as needed. Bowel: Monitor and address as needed. Appetite: Monitor and address as needed. Discharge planning: Pending therapy progress and care plan meeting. Will continue discussion with therapy team, SW, patient and family. Restrictions/ Precautions: Falls, aspiration, possible seizure WB status: FWB Functional Hx: ADLs: Independent Cognition: Independent Mobility: No AD Barriers to Discharge: Decreased mobility and ability to perform self care, balance deficits, weakness Estimated Length of Stay: 1421 days Discharge Destination: Home with nursing home
[2019-11-23 12:00] LABS: Hematocrit 26.5 % (30.3-42.9); Hemoglobin 8.4 gm/dl (10.1-14.3); Mean Corpuscular HGB Conc 32 % (30-34); Mean Corpuscular Volume 87 fl (79-97); Platelet Count 166 K/mm3 (140-440); Red Blood Count 3.07 M/mm3 (3.65-5.03); Red Cell Distribution Width 14.3 % (13.2-15.2)
[2019-11-23 12:15] LABS: Calcium 8.1 mg/dL (8.4-10.2)
[2019-11-23] MEDS: ARIPiprazole 5 MG TAB PO SCH (13:00)
[2019-11-23] MEDS: SODIUM CHLORIDE 0.9% 1000 ML 1,000 ML IV SCH (16:29)
[2019-11-23] MEDS: DIVALPROEX ER 500 MG TAB PO SCH (21:45)
[2019-11-23] MEDS: QUEtiapine 100 MG TAB PO SCH (21:45)
[2019-11-24] MEDS: HEPARIN 5,000 UNIT/1 ML VIAL SUB-Q SCH ×3 (07:06→21:55)
[2019-11-24 07:28] LABS: Calcium 8.4 mg/dL (8.4-10.2)
--- NOTE | 2019-11-24 08:02 | Progress Note ---
Subjective Date of service: 11/24/19 Principal diagnosis: CVA Interval history: 64-year-old female who was a resident at a senior care developed left-sided facial droop and slurred speech accompanied by paresthesias of the left side. Subsequent MRI head showed a small subacute infarct in the putamen and hill radiata on the right-hand side without hemorrhagic transformation. Patient was evaluated by therapy and deemed to be appropriate for acute inpatient rehabilitation. Medication levels including Depakote and lithium were checked. 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 She has a history of seizures in her 20s but has not had any in years. She was evaluated by neurology, cardiology, nephrology. Nephrology noted she had acute renal injury superimposed on CKD stage IV. Baseline creatinine is approximately not known. Cardiology was also consulted and provided more history. Patient lives in [facility] and has a history of bipolar disorder and posttraumatic stress disorder. Patient had atypical chest pain and was recommended to have further workup as an outpatient. Interval History Patient is participating in therapy and making reasonable progress. Taking rest breaks as needed. Denies pain, palpitations, dyspnea, cough, or joint pain. Nausea and vomiting intermittently, none this AM. +BM. [place] level has decre ased but is still elevated on check this morning. We will continue IV fluids and recheck in 2 more days. Creatinine trending slightly higher. Blood pressure tends to run a little bit elevated at night, may need to adjust timing of a medication to see if we can have an improved level. Glucose is doing better on current dose of Lantus and sliding scale continue to Monitor. Patient noted to need TB test prior to return to senior care. Today during team conference. 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 Still is having odd movements at times however seems to be very volitional and she will stop when called out on the movements. We'll continue treating that she is making good progress however need to try and focus her towards maintaining safety in order for her transfer [place] in a safe manner. We'll contact senior care that she lives with to see what their criteria are for re-excepting the patient. Look to discharge next December 02. All records, vitals, labs and medications were reviewed. No other issues per patient, nursing or therapy. Objective - Exam Narrative Exam: MUSCULOSKELETAL SPECIALTY EXAM CONSTITUTIONAL: Well developed, well nourished, appropriately groomed, thin. RIGHT hand dominant. RESPIRATORY: Clear to auscultation bilaterally, no increased work of breathing CARDIOVASCULAR: Regular Rate/ Rhythm, no swelling, edema or tenderness in BUE or BLE. All extremities warm. GI: + bowel sounds, soft, NTTP, nondistended. INTEGUMENTARY: Normal, no lesion, rash, masses or bruising noted in extremities. MUSCULOSKELETAL: BUE and BLE normal without defect, crepitus, subluxation, effusion, arthritic changes or TTP. R 5/5 L 4/5 ROM within functional limits Tone normal NEURO: CN III, IV, : EOMI however slightly slowed to the left CN V : Facial sensation is impaired on left CN VII : Left facial droop (upper and lower) Sensation intact in all extremities without extinction but is altered on the left. Coordination impaired on left with dysmetria of the LUE, normal on right. No tremor noted in 4 extremities. Odd movements noted at times but appear to be more so volitional Naming and repetition intact. Follows 2 step commands. Aphasia not appreciated Dysarthria present Dysphagia present Neglect not appreciated POSTURE and GAIT: Sitting posture good. Sitting balance appears reasonable. Gait ataxic. Psych: Affect appears euthymic. Insight appears intact, but does have some decreased safety awareness - Constitutional Vitals: Vital Signs - 12hr 11/23/19 21:45 Pulse Rate 74 Blood Pressure 156/68 - Allied health notes Allied health notes reviewed: nursing, PT, ST, OT FIMS assessment as documented by PT/OT/ST: Social interaction/Memory/Problem solving Social Interaction FIM Score 5. Supervision (Needs supv. <10%. Needs encouragement to participate.) Memory FIM Score 5. Supervision (Needs cueing <10%, stressful/ unfamiliar situations.) Problem Solving FIM Score 5. Supervision (Needs cueing <10% to solve routine problems.) Transfers Mode of Locomotion: Wheelchair Bed/Chair/Wheelchair Transfers 3. Moderate Assistance (Patient = 50% or more. FIM Score Some lifting.) Locomotion- walk/wheelchair Ambulation Distance 20 Eating Eating FIM Score 5. Supervision/Set-Up (Needs help w/ containers, cutting meat, etc.) Dressing-lower body Patient retrieves clothing No items: Lower Body Dressing FIM Score 5. Supv./Set-Up ([place] sets out clothes or applies pros./orth.) - Labs CBC & Chem 7: 11/23/19 11:20 11/24/19 06:20 Labs: Laboratory Results - last 72 hr 11/21/19 11/21/19 11/21/19 08:14 16:17 16:17 WBC 10.1 RBC 3.46 L Hgb 9.8 L Hct 30.0 L MCV 87 MCH 28 MCHC 33 RDW 14.4 Plt Count 195 Sodium 140 Potassium 5.1 H Chloride 108.0 H Carbon Dioxide 21 L Anion Gap 16 BUN 36 H Creatinine 3.2 H Estimated GFR 18 BUN/Creatinine Ratio 11 Glucose 107 H POC Glucose 74 Calcium 8.9 Valproic Acid [place] 11/21/19 11/21/19 11/22/19 17:15 21:17 06:44 WBC RBC Hgb Hct MCV MCH MCHC RDW Plt Count Sodium 143 Potassium 4.9 Chloride 108.8 H Carbon Dioxide 24 Anion Gap 15 BUN 35 H Creatinine 3.3 H Estimated GFR 17 BUN/Creatinine Ratio 11 Glucose 119 H POC Glucose 128 H 199 H Calcium 8.4 Valproic Acid [place] 11/22/19 11/22/19 11/22/19 06:44 08:11 12:12 WBC RBC Hgb Hct MCV MCH MCHC RDW Plt Count Sodium Potassium Chloride Carbon Dioxide Anion Gap BUN Creatinine Estimated GFR BUN/Creatinine Ratio Glucose POC Glucose 114 H 92 Calcium Valproic Acid 37.7 L [place] 2.4 H* 11/22/19 11/22/19 11/23/19 16:37 20:03 07:09 WBC RBC Hgb Hct MCV MCH MCHC RDW Plt Count Sodium Potassium Chloride Carbon Dioxide Anion Gap BUN Creatinine Estimated GFR BUN/Creatinine Ratio Glucose POC Glucose 138 H 91 109 H Calcium Valproic Acid [place] 11/23/19 11/23/19 11/23/19 11:16 11:20 11:20 WBC 9.8 RBC 3.07 L Hgb 8.4 L Hct 26.5 L MCV 87 MCH 27 L MCHC 32 RDW 14.3 Plt Count 166 Sodium 138 Potassium 5.0 Chloride 108.9 H Carbon Dioxide 21 L Anion Gap 13 BUN 33 H Creatinine 3.2 H Estimated GFR 18 BUN/Creatinine Ratio 10 Glucose 206 H POC Glucose 208 H Calcium 8.1 L Valproic Acid [place] 11/23/19 11/23/19 11/24/19 17:21 20:45 06:20 WBC RBC Hgb Hct MCV MCH MCHC RDW Plt Count Sodium 142 Potassium 4.9 Chloride 110.5 H Carbon Dioxide 21 L Anion Gap 15 BUN 33 H Creatinine 3.3 H Estimated GFR 17 BUN/Creatinine Ratio 10 Glucose 62 L POC Glucose 74 165 H Calcium 8.4 Valproic Acid [place] 11/24/19 06:20 WBC RBC Hgb Hct MCV MCH MCHC RDW Plt Count Sodium Potassium Chloride Carbon Dioxide Anion Gap BUN Creatinine Estimated GFR BUN/Creatinine Ratio Glucose POC Glucose Calcium Valproic Acid [place] 1.9 H* Assessment and Plan CVA: Continue secondary stroke prevention. Discussed with patient prognosis as well as secondary stroke prevention protocols. Monitor for neurologic decline, shoulder-hand syndrome, bowel or bladder issues, evidence of stroke recurrence, worsening of dysphagia [place] toxicity: Hold lithium. Normal saline IVF. Recheck lithium level in 2 days and restart at a lower dose once within normal range. Hypertension: Continue medications and monitor blood pressure and adjust as needed for normotension. Diabetes: Continue carb controlled diet, sliding scale insulin and monitor/adjust medications as needed. Add lantus. Bipolar/PTSD: Continue medications. Supportive care and adjust as needed. Check lithium and Depakote levels as needed. CKD: Avoid nephrotoxic medications. Monitor renal function. Consider nephrology consult if renal function worsens. Constipation: Continue medications and prn medications. Monitor for bowel movem ents and adjust as needed. Nausea/vomiting: Zofran as ordered. Patient relates this more so to anxiety. KUB ordered. Cardiomyopathy and heart failure: Monitor for any signs of worsening cardiac fun ction or chest pain. Schedule for follow-up with cardiology as outpatient per their notes. Consider consult cardiology if cardiac function worsens. Dysphagia: Continue modified diet. Advance as tolerated with guidance from BATTERY BUILDER. Aspiration precautions during meals. Dysarthria: Continue BATTERY BUILDER for improvement in functional ability to speak and breath control. ADL dysfunction: OT will work on improving ability to perform ADLs (including assistive devices) to increase independence and decrease caregiver burden and improve functional transfers and mobility training. Difficulty walking: PT will work on gait training and proper use of assistive devices and advance as appropriate to use of stairs and outside ambulation on uneven surfaces. Unsteadiness on feet: PT will work on improving static and dynamic sitting and standing balance as well as proper use of assistive devices to decrease risk of falls. Abnormality of gait: PT will work to improve safety and efficiency of gait through neuromotor training and gait training along with instruction on proper use of assistive devices. Muscle weakness: PT & OT will work on strengthening exercises to improve functional strength including mixture of closed and open kinetic chain exercises. Fatigue: PT & OT will work on improving endurance through aerobic exercises and therapeutic activity while monitoring patients tolerance for activity and vital signs as needed. DVT ppx: Heparin TID Pain: Continue physical modalities in therapy and pain medications as needed to achieve functional pain control. Sleep: Monitor and address as needed. Bowel: Monitor and address as needed. Appetite: Monitor and address as needed. Discharge planning: Pending therapy progress and care plan meeting. Will continue discussion with therapy team, SW, patient and family. Restrictions/ Precautions: Falls, aspiration, possible seizure WB status: FWB Functional Hx: ADLs: Independent Cognition: Independent Mobility: No AD Barriers to Discharge: Decreased mobility and ability to perform self care, balance deficits, weakness Estimated Length of Stay: 1421 days Discharge Destination: Home with senior care
[2019-11-24] MEDS: ASPIRIN EC 325 MG TAB PO SCH (09:00)
[2019-11-24] MEDS: amLODIPine 10 MG TAB PO SCH (09:00)
[2019-11-24] MEDS: carvediloL 12.5 MG TAB PO SCH ×2 (09:01→21:54)
[2019-11-24] MEDS: PANTOPRAZOLE 40 MG TAB PO SCH (09:01)
[2019-11-24] MEDS: INSULIN LISPRO 100 UNIT/ML SUB-Q SCH ×4 (09:01→22:06)
[2019-11-24] MEDS: ARIPiprazole 5 MG TAB PO SCH (09:01)
[2019-11-24] MEDS: DIVALPROEX ER 500 MG TAB PO SCH (21:54)
[2019-11-24] MEDS: QUEtiapine 100 MG TAB PO SCH (21:54)
[2019-11-24] MEDS: INSULIN GLARGINE 100 UNITS/ML SUB-Q SCH (21:58)
[2019-11-25] MEDS: HEPARIN 5,000 UNIT/1 ML VIAL SUB-Q SCH ×4 (06:01→22:47)
[2019-11-25] MEDS: carvediloL 12.5 MG TAB PO SCH ×2 (08:52→23:01)
[2019-11-25] MEDS: PANTOPRAZOLE 40 MG TAB PO SCH (08:52)
[2019-11-25] MEDS: ASPIRIN EC 325 MG TAB PO SCH (08:52)
[2019-11-25] MEDS: amLODIPine 10 MG TAB PO SCH (08:52)
[2019-11-25] MEDS: ARIPiprazole 5 MG TAB PO SCH (08:53)
[2019-11-25] MEDS: INSULIN LISPRO 100 UNIT/ML SUB-Q SCH ×4 (08:55→23:03)
[2019-11-25 09:06] LABS: Calcium 8.4 mg/dL (8.4-10.2)
--- NOTE | 2019-11-25 11:34 | Progress Note ---
Subjective Date of service: 11/25/19 Principal diagnosis: CVA Interval history: 64-year-old female who was a resident at a residential developed left-sided facial droop and slurred speech accompanied by paresthesias of the left side. Subsequent MRI head showed a small subacute infarct in the putamen and hill radiata on the right-hand side without hemorrhagic transformation. Patient was evaluated by therapy and deemed to be appropriate for acute inpatient rehabilitation. Medication levels including Depakote and lithium were checked. 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 She has a history of seizures in her 20s but has not had any in years. She was evaluated by neurology, cardiology, nephrology. Nephrology noted she had acute renal injury superimposed on CKD stage IV. Baseline creatinine is approximately not known. Cardiology was also consulted and provided more history. Patient lives in [facility] and has a history of bipolar disorder and posttraumatic stress disorder. Patient had atypical chest pain and was recommended to have further workup as an outpatient. Interval History Patient is participating in therapy and making reasonable progress. Taking rest breaks as needed. Denies pain, palpitations, dyspnea, cough, or joint pain. Nausea and vomiting intermittently, none this AM. -BM. [place] level has decreased but is still elevated. We will continue IV fluids (1L NS daily to start at 1530 each day and run overnight x 3days) and recheck Li on Thursday. Creatinine fairly stable and may be her new norm. Blood pressure tends to run a little bit elevated at night, may need to adjust timing of a medication to see if we can have an improved level. Glucose is doing better on current dose of Lantus and sliding scale continue to Monitor. Patient noted to need TB test prior to return to residential. All records, vitals, labs and medications were reviewed. No other issues per patient, nursing or therapy. Objective - Exam Narrative Exam: MUSCULOSKELETAL SPECIALTY EXAM CONSTITUTIONAL: Well developed, well nourished, appropriately groomed, thin. RIGHT hand dominant. RESPIRATORY: Clear to auscultation bilaterally, no increased work of breathing CARDIOVASCULAR: Regular Rate/ Rhythm, no swelling, edema or tenderness in BUE or BLE. All extremities warm. GI: + bowel sounds, soft, NTTP, nondistended. INTEGUMENTARY: Normal, no lesion, rash, masses or bruising noted in extremities. MUSCULOSKELETAL: BUE and BLE normal without defect, crepitus, subluxation, effusion, arthritic changes or TTP. R 5/5 L 4/5 ROM within functional limits Tone normal NEURO: CN III, IV, : EOMI however slightly slowed to the left CN V : Facial sensation is impaired on left CN VII : Left facial droop (upper and lower) Sensation intact in all extremities without extinction but is altered on the left. Coordination impaired on left with dysmetria of the LUE, normal on right. No tremor noted in 4 extremities. Odd movements noted at times but appear to be more so volitional Naming and repetition intact. Follows 2 step commands. Aphasia not appreciated Dysarthria present Dysphagia present Neglect not appreciated POSTURE and GAIT: Sitting posture good. Sitting balance appears reasonable. Gait ataxic. Psych: Affect appears euthymic. Insight appears intact, but does have some decreased safety awareness - Constitutional Vitals: Vital Signs - 12hr 11/25/19 11/25/19 08:09 08:52 Temperature 36.7 C Pulse Rate 66 66 Respiratory 18 Rate Blood Pressure 151/91 151/91 O2 Sat by Pulse 99 Oximetry - Allied health notes Allied health notes reviewed: nursing, PT, ST, OT FIMS assessment as documented by PT/OT/ST: Social interaction/Memory/Problem solving Social Interaction FIM Score 4. Minimal Assistance (Interacts appropriately 75-90%.) Memory FIM Score 5. Supervision (Needs cueing <10%, stressful/ unfamiliar situations.) Problem Solving FIM Score 4. Minimal Assistance (Solves routine problems 75-90%.) Transfers Mode of Locomotion: Wheelchair Bed/Chair/Wheelchair Transfers 4. Minimal Assistance (Patient = 75% or more. FIM Score Needs touching.) Locomotion- walk/wheelchair Ambulation Distance 20 Eating Eating FIM Score 5. Supervision/Set-Up (Needs help w/ containers, cutting meat, etc.) Dressing-lower body Patient retrieves clothing No items: Lower Body Dressing FIM Score 4. Minimal Assistance (Patient = 75% or more. Needs touching.) - Labs CBC & Chem 7: 11/23/19 11:20 11/25/19 08:20 Labs: Laboratory Results - last 72 hr 11/22/19 11/22/19 11/22/19 12:12 16:37 20:03 WBC RBC Hgb Hct MCV MCH MCHC RDW Plt Count Sodium Potassium Chloride Carbon Dioxide Anion Gap BUN Creatinine Estimated GFR BUN/Creatinine Ratio Glucose POC Glucose 92 138 H 91 Calcium [place] 11/23/19 11/23/19 11/23/19 07:09 11:16 11:20 WBC 9.8 RBC 3.07 L Hgb 8.4 L Hct 26.5 L MCV 87 MCH 27 L MCHC 32 RDW 14.3 Plt Count 166 Sodium Potassium Chloride Carbon Dioxide Anion Gap BUN Creatinine Estimated GFR BUN/Creatinine Ratio Glucose POC Glucose 109 H 208 H Calcium [place] 11/23/19 11/23/19 11/23/19 11:20 17:21 20:45 WBC RBC Hgb Hct MCV MCH MCHC RDW Plt Count Sodium 138 Potassium 5.0 Chloride 108.9 H Carbon Dioxide 21 L Anion Gap 13 BUN 33 H Creatinine 3.2 H Estimated GFR 18 BUN/Creatinine Ratio 10 Glucose 206 H POC Glucose 74 165 H Calcium 8.1 L [place] 11/24/19 11/24/19 11/24/19 06:20 06:20 08:35 WBC RBC Hgb Hct MCV MCH MCHC RDW Plt Count Sodium 142 Potassium 4.9 Chloride 110.5 H Carbon Dioxide 21 L Anion Gap 15 BUN 33 H Creatinine 3.3 H Estimated GFR 17 BUN/Creatinine Ratio 10 Glucose 62 L POC Glucose 78 Calcium 8.4 [place] 1.9 H* 11/24/19 11/24/19 11/24/19 11:45 16:41 22:01 WBC RBC Hgb Hct MCV MCH MCHC RDW Plt Count Sodium Potassium Chloride Carbon Dioxide Anion Gap BUN Creatinine Estimated GFR BUN/Creatinine Ratio Glucose POC Glucose 133 H 191 H 130 H Calcium [place] 11/25/19 11/25/19 08:19 08:20 WBC RBC Hgb Hct MCV MCH MCHC RDW Plt Count Sodium 139 Potassium 5.1 H Chloride 110.5 H Carbon Dioxide 20 L Anion Gap 14 BUN 31 H Creatinine 3.2 H Estimated GFR 18 BUN/Creatinine Ratio 10 Glucose 165 H POC Glucose 146 H Calcium 8.4 [place] Assessment and Plan CVA: Continue secondary stroke prevention. Discussed with patient prognosis as well as secondary stroke prevention protocols. Monitor for neurologic decline, shoulder-hand syndrome, bowel or bladder issues, evidence of stroke recurrence, worsening of dysphagia [place] toxicity: Hold lithium. Normal saline IVF. Recheck lithium level and restart at a lower dose once within normal range. Hypertension: Continue medications and monitor blood pressure and adjust as needed for normotension. Diabetes: Continue carb controlled diet, sliding scale insulin and monitor/adjust medications as needed. Add lantus. Bipolar/PTSD: Continue medications. Supportive care and adjust as needed. Check lithium and Depakote levels as needed. CKD: Avoid nephrotoxic medications. Monitor renal function. Consider nephrology consult if renal function worsens. Constipation: Continue medications and prn medications. Monitor for bowel movements and adjust as needed. Nausea/vomiting: Zofran as ordered. Patient relates this more so to anxiety. KUB ordered. Cardiomyopathy and heart failure: Monitor for any signs of worsening cardiac function or chest pain. Schedule for follow-up with cardiology as outpatient per their notes. Consider consult cardiology if cardiac function worsens. Dysphagia: Continue modified diet. Advance as tolerated with guidance from [employer]. Aspiration precautions during meals. Dysarthria: Continue [employer] for improvement in functional ability to speak and breath control. ADL dysfunction: OT will work on improving ability to perform ADLs (including assistive devices) to increase independence and decrease caregiver burden and improve functional transfers and mobility training. Difficulty walking: PT will work on gait training and proper use of assistive devices and advance as appropriate to use of stairs and outside ambulation on uneven surfaces. Unsteadiness on feet: PT will work on improving static and dynamic sitting and standing balance as well as proper use of assistive devices to decrease risk of falls. Abnormality of gait: PT will work to improve safety and efficiency of gait through neuromotor training and gait training along with instruction on proper use of assistive devices. Muscle weakness: PT & OT will work on strengthening exercises to improve functional strength including mixture of closed and open kinetic chain exercises. Fatigue: PT & OT will work on improving endurance through aerobic exercises and therapeutic activity while monitoring patients tolerance for activity and vital signs as needed. DVT ppx: Heparin TID Pain: Continue physical modalities in therapy and pain medications as needed to achieve functional pain control. Sleep: Monitor and address as needed. Bowel: Monitor and address as needed. Appetite: Monitor and address as needed. Discharge planning: Pending therapy progress and care plan meeting. Will continue discussion with therapy team, SW, patient and family. Restrictions/ Precautions: Falls, aspiration, possible seizure WB status: FWB Functional Hx: ADLs: Independent Cognition: Independent Mobility: No AD Barriers to Discharge: Decreased mobility and ability to perform self care, balance deficits, weakness Estimated Length of Stay: 1421 days Discharge Destination: Home with residential
[2019-11-25] MEDS: SODIUM CHLORIDE 0.9% 1000 ML 1,000 ML IV SCH (16:22)
[2019-11-25 17:37] LABS: Creatine Kinase MB 3.2 ng/mL (0.0-4.0)
[2019-11-25 18:03] LABS: Chol/HDL Ratio 2.15 %
[2019-11-25] MEDS: INSULIN GLARGINE 100 UNITS/ML SUB-Q SCH (22:48)
[2019-11-25] MEDS: DIVALPROEX ER 500 MG TAB PO SCH (22:48)
[2019-11-25] MEDS: QUEtiapine 100 MG TAB PO SCH (22:48)
[2019-11-25] MEDS: hydrALAZINE 20 MG/1 ML INJ IV PRN (23:17)
[2019-11-26 07:37] LABS: Calcium 8.3 mg/dL (8.4-10.2)
[2019-11-26] MEDS: HEPARIN 5,000 UNIT/1 ML VIAL SUB-Q SCH ×3 (07:53→21:55)
--- NOTE | 2019-11-26 08:30 | Event Note ---
Date: 11/26/19 pt known to our service has been having recurrent atypical chest pain but none since yesterday bp elevated hx of abn stress mpi and lvef 40-45% egfr 18 chest clear cor rrr abd soft ext w/o edema pts cp is atypical. trop has been elevated in the past but were flat. rec continue trending trop would favor escalation of med mgt in view of ckd. increase coreg to 25mg po bid increase imdur to 90mg po daily consider ranexa
[2019-11-26] MEDS: INSULIN LISPRO 100 UNIT/ML SUB-Q SCH ×3 (08:45→17:28)
[2019-11-26] MEDS: PANTOPRAZOLE 40 MG TAB PO SCH (09:16)
[2019-11-26] MEDS: amLODIPine 10 MG TAB PO SCH (09:16)
[2019-11-26] MEDS: carvediloL 12.5 MG TAB PO SCH (09:17)
[2019-11-26] MEDS: ASPIRIN EC 325 MG TAB PO SCH (09:17)
[2019-11-26] MEDS: ARIPiprazole 5 MG TAB PO SCH (09:18)
[2019-11-26] MEDS: SODIUM CHLORIDE 0.9% 1000 ML 1,000 ML IV SCH (14:52)
[2019-11-26] MEDS: DIVALPROEX ER 500 MG TAB PO SCH (21:55)
[2019-11-26] MEDS: QUEtiapine 100 MG TAB PO SCH (21:55)
[2019-11-26] MEDS: carvediloL 25 MG TAB PO SCH (21:56)
[2019-11-26] MEDS: INSULIN GLARGINE 100 UNITS/ML SUB-Q SCH (21:58)
[2019-11-27] MEDS: INSULIN LISPRO 100 UNIT/ML SUB-Q SCH ×5 (02:46→21:54)
[2019-11-27 07:17] LABS: Calcium 8.1 mg/dL (8.4-10.2)
[2019-11-27] MEDS: HEPARIN 5,000 UNIT/1 ML VIAL SUB-Q SCH ×3 (08:20→21:46)
[2019-11-27] MEDS: amLODIPine 10 MG TAB PO SCH (08:34)
[2019-11-27] MEDS: carvediloL 25 MG TAB PO SCH ×2 (08:35→21:46)
[2019-11-27] MEDS: ASPIRIN EC 325 MG TAB PO SCH (08:35)
[2019-11-27] MEDS: PANTOPRAZOLE 40 MG TAB PO SCH (08:36)
[2019-11-27] MEDS: ARIPiprazole 5 MG TAB PO SCH (08:36)
[2019-11-27] MEDS: SODIUM CHLORIDE 0.9% 1000 ML 1,000 ML IV SCH ×2 (08:41→21:55)
--- NOTE | 2019-11-27 13:27 | Progress Note ---
Assessment and Plan Cardiac status is stable. Continue current conservative cardiac management. If CP recurs, can consider Ranexa. The patient has been seen in conjunction with Dr. Houston, who agrees with the assessment and plan. - Patient Problems (1) Acute CVA (cerebrovascular accident) Current Visit: No Status: Acute (2) Atypical chest pain Current Visit: No Status: Acute (3) Abnormal stress test Current Visit: No Status: Chronic (4) Cardiomyopathy Current Visit: No Status: Chronic (5) Chronic kidney disease (CKD) Current Visit: No Status: Chronic (6) Diabetes Current Visit: No Status: Chronic (7) Hypertension Current Visit: No Status: Chronic (8) PTSD (post-traumatic stress disorder) Current Visit: No Status: Chronic (9) Seizure disorder Current Visit: No Status: Chronic Subjective Date of service: 11/27/19 Principal diagnosis: CVA Interval history: The patient is lying in bed in [facility]. She denies any CP, but reports sometimes feeling anxious about potentially having a heart attack, which makes her SOB. Objective Vital Signs Temp Pulse Resp BP Pulse Ox 11/27/19 08:35 52 L 117/62 11/27/19 08:34 52 L 117/62 11/27/19 08:31 52 L 117/67 11/27/19 07:47 97.3 F L 52 L 18 117/62 99 11/26/19 21:56 33 L 124/56 11/26/19 19:28 98.3 F 66 16 124/56 98 - Physical Examination General: No Apparent Distress HEENT: Positive: PERRL Neck: Positive: neck supple Cardiac: Positive: Reg Rate and Rhythm Lungs: Positive: Normal Exam Neuro: Positive: Weakness Abdomen: Positive: Unremarkable /Rectal: Other (deferred) Skin: Positive: Clear Musculoskeletal: Normal Range of Motion Extremities: Present: normal - Labs and Meds Comprehensive Metabolic Panel 11/27/19 Range/Units 06:41 Sodium 142 (137-145) mmol/L Potassium 4.7 (3.6-5.0) mmol/L Chloride 113.7 H (98-107) mmol/L Carbon Dioxide 22 (22-30) mmol/L BUN 29 H (7-17) mg/dL Creatinine 3.2 H (0.7-1.2) mg/dL Glucose 39 L* (65-100) mg/dL Calcium 8.1 L (8.4-10.2) mg/dL - Imaging and Cardiology Nuclear stress test: report reviewed (10/29/19: EF 34%, mild to mod reversible lateral perfusion defect) Echo: report reviewed (11/09/19: EF 30 to 35%, moderate LVH, moderately dilated LA, mild to mod MR)
[2019-11-27] MEDS: QUEtiapine 100 MG TAB PO SCH (21:46)
[2019-11-27] MEDS: DIVALPROEX ER 500 MG TAB PO SCH (21:46)
[2019-11-27] MEDS: hydrALAZINE 20 MG/1 ML INJ IV PRN (22:08)
[2019-11-28] MEDS: HEPARIN 5,000 UNIT/1 ML VIAL SUB-Q SCH ×3 (05:11→21:41)
[2019-11-28] MEDS: INSULIN LISPRO 100 UNIT/ML SUB-Q SCH ×4 (07:53→21:49)
[2019-11-28] MEDS: amLODIPine 10 MG TAB PO SCH (07:56)
[2019-11-28] MEDS: PANTOPRAZOLE 40 MG TAB PO SCH (07:56)
[2019-11-28] MEDS: ASPIRIN EC 325 MG TAB PO SCH (07:56)
[2019-11-28] MEDS: carvediloL 25 MG TAB PO SCH ×2 (07:56→21:37)
[2019-11-28] MEDS: ARIPiprazole 5 MG TAB PO SCH (07:57)
[2019-11-28 08:01] LABS: Calcium 8.8 mg/dL (8.4-10.2)
--- NOTE | 2019-11-28 11:28 | Progress Note ---
Assessment and Plan Pt with c/o atypical chest pain. ECG with NAF, [place] minimally elevated. Lexiscan MPI stress test done 10/29/2019 small mild to mod reversible lateral perfusion defect suggestive of ischemia in circ territory, EF 34%. Limited echo done 11/09/2019 showed EF 30-35%, mod LVH, LA mod dilated, mild to mod MR, mild TR, negative bubble study. Chest pain is currently resolved. In setting of recent acute CVA, AMI ruled out and atypical nature of chest pain and renal insufficiency, no plans for invasive or aggressive cardiac management at this time. Recommend continuation of medical management. Cont GDMT for CMP - pt with lisinopril allergy, also no ACEI/ARB at this time in setting of renal insufficiency. Optimize anti-ischemic regimen. If symptoms persist despite medical optimization, can consider coronary angiography if/when okay per neurology and if/when renal function permits - could be done as OP. Nothing further to add from cardiac perspective at this time. Will sign off. The patient has been seen in conjunction with Dr. Houston who agrees with the assessment and plan of care. - Patient Problems (1) Atypical chest pain Current Visit: Yes Status: Resolved (2) Abnormal stress test Current Visit: Yes Status: Chronic (3) Cardiomyopathy Current Visit: Yes Status: Chronic (4) History of CVA (cerebrovascular accident) Current Visit: Yes Status: Chronic (5) Chronic kidney disease (CKD) Current Visit: Yes Status: Chronic (6) Diabetes Current Visit: Yes Status: Chronic (7) Hypertension Current Visit: Yes Status: Chronic (8) PTSD (post-traumatic stress disorder) Current Visit: Yes Status: Chronic (9) Seizure disorder Current Visit: Yes Status: Chronic Subjective Date of service: 11/28/19 Principal diagnosis: CVA Interval history: pt resting in bed, no current complaints. states she is ready to exercise with physical therapy. Objective Last Vital Signs Temp 97.7 F 11/28/19 08:00 Pulse 71 11/28/19 08:00 Resp 20 11/28/19 08:00 BP 161/66 11/28/19 08:00 Pulse Ox 97 11/28/19 08:00 - Physical Examination General: No Apparent Distress HEENT: Positive: PERRL Neck: Positive: neck supple Cardiac: Positive: Reg Rate and Rhythm, S1/S2 Lungs: Positive: Decreased Breath Sounds Neuro: Positive: Weakness Abdomen: Positive: Unremarkable /Rectal: Other (deferred) Skin: Positive: Clear Musculoskeletal: Normal Range of Motion Extremities: Present: normal - Labs and Meds Comprehensive Metabolic Panel 11/28/19 Range/Units 07:09 Sodium 141 (137-145) mmol/L Potassium 5.1 H (3.6-5.0) mmol/L Chloride 109.4 H (98-107) mmol/L Carbon Dioxide 19 L (22-30) mmol/L BUN 25 H (7-17) mg/dL Creatinine 3.0 H (0.7-1.2) mg/dL Glucose 130 H (65-100) mg/dL Calcium 8.8 (8.4-10.2) mg/dL - Imaging and Cardiology Echo: report reviewed (11/09/19: EF 30 to 35%, moderate LVH, moderately dilated LA, mild to mod MR)
--- NOTE | 2019-11-28 13:45 | Progress Note ---
Subjective Date of service: 11/28/19 Principal diagnosis: CVA Interval history: 64-year-old female who was a resident at a longterm developed left-sided facial droop and slurred speech accompanied by paresthesias of the left side. Subsequent MRI head showed a small subacute infarct in the putamen and hill radiata on the right-hand side without hemorrhagic transformation. Patient was evaluated by therapy and deemed to be appropriate for acute inpatient rehabilitation. Medication levels including Depakote and lithium were checked. 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 She has a history of seizures in her 20s but has not had any in years. She was evaluated by neurology, cardiology, nephrology. Nephrology noted she had acute renal injury superimposed on CKD stage IV. Baseline creatinine is approximately not known. Cardiology was also consulted and provided more history. [facility] and has a history of bipolar disorder and posttraumatic stress disorder. Patient had atypical chest pain and was recommended to have further workup as an outpatient. Interval History Patient is participating in therapy and making reasonable progress. Taking rest breaks as needed. Denies pain, palpitations, dyspnea, cough, or joint pain. Nausea and vomiting intermittently, none this AM. -BM. [facility] level has decreased but is still elevated. Should be ok to restart in next few days at lower dose. Will also discuss with nephrology. Creatinine fairly stable and may be her new norm. Movements c/w mild TD starting to get worse. Discussed talking with her psychiatrist and will call during business hours tomorrow. May need atypical antipsychotics adjusted/d/c'd. Blood pressure tends to run a little bit elevated at night, may need to adjust timing of a medication to see if we can have an improved level. Hypoglycemic yesterday. D/C lantus and continue sliding scale. Mostly eating potato soup. continue to Monitor. Patient noted to need TB test prior to return to longterm. All records, vitals, labs and medications were reviewed. No other issues per patient, nursing or therapy. Objective - Exam Narrative Exam: MUSCULOSKELETAL SPECIALTY EXAM CONSTITUTIONAL: Well developed, well nourished, appropriately groomed, thin. RIGHT hand dominant. RESPIRATORY: Clear to auscultation bilaterally, no increased work of breathing CARDIOVASCULAR: Regular Rate/ Rhythm, no swelling, edema or tenderness in BUE or BLE. All extrem ities warm. GI: + bowel sounds, soft, NTTP, nondistended. INTEGUMENTARY: Normal, no lesion, rash, masses or bruising noted in extremities. MUSCULOSKELETAL: BUE and BLE normal without defect, crepitus, subluxation, effusion, arthritic changes or TTP. R 5/5 L 4/5 ROM within functional limits Tone normal NEURO: CN III, IV, : EOMI however slightly slowed to the left CN V : Facial sensation is impaired on left CN VII : Left facial droop (upper and lower) Sensation intact in all extremities without extinction but is altered on the left. Coordination impaired on left with dysmetria of the LUE, normal on right. No tremor noted in 4 extremities. Odd movements wose today, may be mild TD, mostly in arms when talking Naming and repetition intact. Follows 2 step commands. Aphasia not appreciated Dysarthria present Dysphagia present Neglect not appreciated POSTURE and GAIT: Sitting posture good. Sitting balance appears reasonable. Gait ataxic. Psych: Affect appears euthymic. Insight appears intact, but does have some decreased safety awareness - Constitutional Vitals: Vital Signs - 12hr 11/28/19 11/28/19 07:40 08:00 Temperature 36.6 C 36.5 C Pulse Rate 71 71 Respiratory 20 20 Rate Blood Pressure 161/66 Blood Pressure 161/66 [Left] O2 Sat by Pulse 94 97 Oximetry - Allied health notes Allied health notes reviewed: nursing, PT, ST, OT FIMS assessment as documented by PT/OT/ST: Social interaction/Memory/Problem solving Social Interaction FIM Score 5. Supervision (Needs supv. <10%. Needs encouragement to participate.) Memory FIM Score 5. Supervision (Needs cueing <10%, stressful/ unfamiliar situations.) Problem Solving FIM Score 5. Supervision (Needs cueing <10% to solve routine problems.) Transfers Mode of Locomotion: Wheelchair Bed/Chair/Wheelchair Transfers 4. Minimal Assistance (Patient = 75% or more. FIM Score Needs touching.) Locomotion- walk/wheelchair Ambulation Distance 20 Eating Eating FIM Score 5. Supervision/Set-Up (Needs help w/ containers, cutting meat, etc.) Dressing-Upper body Patient retrieves clothing No items: Upper Body Dressing FIM Score 5. Supv./Set-Up ([place] sets out clothes or applies pros./orth.) Dressing-lower body Patient retrieves clothing No items: Lower Body Dressing FIM Score 5. Supv./Set-Up ([place] sets out clothes or applies pros./orth.) - Labs CBC & Chem 7: 11/23/19 11:20 11/29/19 08:08 Labs: Laboratory Results - last 72 hr 11/20/19 11/25/19 11/25/19 06:03 16:21 17:32 Sodium Potassium Chloride Carbon Dioxide Anion Gap BUN Creatinine Estimated GFR BUN/Creatinine Ratio Glucose POC Glucose 80 123 H Calcium Total Creatine Kinase 97 CK-MB (CK-2) 3.2 CK-MB (CK-2) Rel Index 3.2 Troponin T 0.066 H Triglycerides 65 Cholesterol 149 LDL Cholesterol Direct 70 HDL Cholesterol 69 H Cholesterol/HDL Ratio 2.15 [facility] 11/25/19 11/26/19 11/26/19 23:10 06:35 07:45 Sodium 140 Potassium 5.1 H Chloride 111.0 H Carbon Dioxide 21 L Anion Gap 13 BUN 30 H Creatinine 3.3 H Estimated GFR 17 BUN/Creatinine Ratio 9 Glucose 46 L POC Glucose 263 H 72 Calcium 8.3 L Total Creatine Kinase CK-MB (CK-2) CK-MB (CK-2) Rel Index Troponin T Triglycerides Cholesterol LDL Cholesterol Direct HDL Cholesterol Cholesterol/HDL Ratio [facility] 11/26/19 11/26/19 11/26/19 12:12 16:36 19:40 Sodium Potassium Chloride Carbon Dioxide Anion Gap BUN Creatinine Estimated GFR BUN/Creatinine Ratio Glucose POC Glucose 235 H 229 H 135 H Calcium Total Creatine Kinase CK-MB (CK-2) CK-MB (CK-2) Rel Index Troponin T Triglycerides Cholesterol LDL Cholesterol Direct HDL Cholesterol Cholesterol/HDL Ratio [facility] 11/27/19 11/27/19 11/27/19 06:41 07:56 08:38 Sodium 142 Potassium 4.7 Chloride 113.7 H Carbon Dioxide 22 Anion Gap 11 BUN 29 H Creatinine 3.2 H Estimated GFR 18 BUN/Creatinine Ratio 9 Glucose 39 L* POC Glucose 40 L 155 H Calcium 8.1 L Total Creatine Kinase CK-MB (CK-2) CK-MB (CK-2) Rel Index Troponin T 0.048 H D Triglycerides Cholesterol LDL Cholesterol Direct HDL Cholesterol Cholesterol/HDL Ratio [facility] 11/27/19 11/27/19 11/27/19 13:46 17:21 19:34 Sodium Potassium Chloride Carbon Dioxide Anion Gap BUN Creatinine Estimated GFR BUN/Creatinine Ratio Glucose POC Glucose 270 H 266 H 322 H Calcium Total Creatine Kinase CK-MB (CK-2) CK-MB (CK-2) Rel Index Troponin T Triglycerides Cholesterol LDL Cholesterol Direct HDL Cholesterol Cholesterol/HDL Ratio [facility] 11/28/19 11/28/19 11/28/19 07:09 07:09 07:59 Sodium 141 Potassium 5.1 H Chloride 109.4 H Carbon Dioxide 19 L Anion Gap 18 BUN 25 H Creatinine 3.0 H Estimated GFR 19 BUN/Creatinine Ratio 8 Glucose 130 H POC Glucose 122 H Calcium 8.8 Total Creatine Kinase CK-MB (CK-2) CK-MB (CK-2) Rel Index Troponin T 0.059 H D Triglycerides Cholesterol LDL Cholesterol Direct HDL Cholesterol Cholesterol/HDL Ratio [facility] 1.3 H 11/28/19 12:57 Sodium Potassium Chloride Carbon Dioxide Anion Gap BUN Creatinine Estimated GFR BUN/Creatinine Ratio Glucose POC Glucose 191 H Calcium Total Creatine Kinase CK-MB (CK-2) CK-MB (CK-2) Rel Index Troponin T Triglycerides Cholesterol LDL Cholesterol Direct HDL Cholesterol Cholesterol/HDL Ratio [facility] Assessment and Plan CVA: Continue secondary stroke prevention. Discussed with patient prognosis as well as secondary stroke prevention protocols. Monitor for neurologic decline, shoulder-hand syndrome, bowel or bladder issues, evidence of stroke recurrence, worsening of dysphagia [facility] toxicity: Hold lithium. Normal saline IVF. Recheck lithium level and restart at a lower dose once within normal range. Hypertension: Continue medications and monitor blood pressure and adjust as needed for normotension. Diabetes: Continue carb controlled diet, sliding scale insulin and monitor/adjust medications as needed. Add lantus. Bipolar/PTSD: Continue medications. Supportive care and adjust as needed. Check lithium and Depakote levels as needed. CKD: Avoid nephrotoxic medications. Monitor renal function. Consider nephrology consult if renal function worsens. Constipation: Continue medications and prn medications. Monitor for bowel movements and adjust as needed. Nausea/vomiting: Zofran as ordered. Patient relates this more so to anxiety. KUB ordered. Cardiomyopathy and heart failure: Monitor for any signs of worsening cardiac function or chest pain. Schedule for follow-up with cardiology as outpatient per their notes. Consider consult cardiology if cardiac function worsens. Dysphagia: Continue modified diet. Advance as tolerated with guidance from TAR DISTILLATION SUPERVISOR. Aspiration precautions during meals. Dysarthria: Continue TAR DISTILLATION SUPERVISOR for improvement in functional ability to speak and breath control. ADL dysfunction: OT will work on improving ability to perform ADLs (including assistive devices) to increase independence and decrease caregiver burden and i mprove functional transfers and mobility training. Difficulty walking: PT will work on gait training and proper use of assistive devices and advance as appropriate to use of stairs and outside ambulation on uneven surfaces. Unsteadiness on feet: PT will work on improving static and dynamic sitting and standing balance as well as proper use of assistive devices to decrease risk of falls. Abnormality of gait: PT will work to improve safety and efficiency of gait through neuromotor training and gait training along with instruction on proper use of assistive devices. Muscle weakness: PT & OT will work on strengthening exercises to improve functional strength including mixture of closed and open kinetic chain exercises. Fatigue: PT & OT will work on improving endurance through aerobic exercises and therapeutic activity while monitoring patients tolerance for activity and vital signs as needed. DVT ppx: Heparin TID Pain: Continue physical modalities in therapy and pain medications as needed to achieve functional pain control. Sleep: Monitor and address as needed. Bowel: Monitor and address as needed. Appetite: Monitor and address as needed. Discharge planning: Pending therapy progress and care plan meeting. Will continue discussion with therapy team, SW, patient and family. Restrictions/ Precautions: Falls, aspiration, possible seizure WB status: FWB Functional Hx: ADLs: Independent Cognition: Independent Mobility: No AD Barriers to Discharge: Decreased mobility and ability to perform self care, balance deficits, weakness Estimated Length of Stay: 1421 days Discharge Destination: Home with longterm
[2019-11-28] MEDS: QUEtiapine 100 MG TAB PO SCH (21:37)
[2019-11-28] MEDS: ACETAMINOPHEN 325 MG TAB PO PRN (21:37)
[2019-11-28] MEDS: DIVALPROEX ER 500 MG TAB PO SCH (21:49)
[2019-11-29] MEDS: HEPARIN 5,000 UNIT/1 ML VIAL SUB-Q SCH ×3 (06:08→22:08)
[2019-11-29] MEDS: INSULIN LISPRO 100 UNIT/ML SUB-Q SCH ×4 (08:00→22:07)
[2019-11-29] MEDS: ASPIRIN EC 325 MG TAB PO SCH (08:57)
[2019-11-29] MEDS: PANTOPRAZOLE 40 MG TAB PO SCH (08:57)
[2019-11-29] MEDS: amLODIPine 10 MG TAB PO SCH (08:58)
[2019-11-29] MEDS: ARIPiprazole 5 MG TAB PO SCH (08:59)
[2019-11-29] MEDS: carvediloL 25 MG TAB PO SCH ×2 (08:59→21:52)
[2019-11-29 09:03] LABS: Calcium 8.6 mg/dL (8.4-10.2)
[2019-11-29] MEDS ORDERED: SODIUM POLYSTYRENE 15 GM/60 ML ORAL LIQD PO NR (11:41)
--- NOTE | 2019-11-29 13:50 | Progress Note ---
Subjective Date of service: 11/29/19 Principal diagnosis: CVA Interval history: 64-year-old female who was a resident at a halfway developed left-sided facial droop and slurred speech accompanied by paresthesias of the left side. Subsequent MRI head showed a small subacute infarct in the putamen and hill radiata on the right-hand side without hemorrhagic transformation. Patient was evaluated by therapy and deemed to be appropriate for acute inpatient rehabilitation. Medication levels including Depakote and lithium were checked. 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 She has a history of seizures in her 20s but has not had any in years. She was evaluated by neurology, cardiology, nephrology. Nephrology noted she had acute renal injury superimposed on CKD stage IV. Baseline creatinine is approximately not known. Cardiology was also consulted and provided more history. Patient lives [facility] and has a history of bipolar disorder and posttraumatic stress disorder. Patient had atypical chest pain and was recommended to have further workup as an outpatient. Interval History Patient is participating in therapy and making reasonable progress. Taking rest breaks as needed. Denies pain, palpitations, dyspnea, cough, or joint pain. Nausea and vomiting intermittently, none this AM. +BM. Hyperkalemic today. Kayexelate given. Recheck. Patient has been eating mostly potato soup. Will reconsult Dr. Evangelista with nephrology. [place] level has decreased but is still elevated. Should be ok to restart in next few days at lower dose but concerned over renal function. Will also discuss with nephrology. Creatinine fairly stable and may be her new norm. Movements c/w mild TD seem better today. Spoke with the psychiatrist's office this AM. They state they only prescribed the lithium and did not know anything about the Abilify, depakote, or Seroquel. Also that they last saw her about 6mos ago and would not have continued any scripts more than 1 month without seeing her. She needs to see a geriatric psychiatrist for follow up. Will attempt to get geriatric psychiatrist Dr Bowen to see her while she is in house. May need atypical antipsychotics adjusted/d/c'd. Blood pressure tends to run a little bit elevated at night, may need to adjust timing of a medication to see if we can have an improved level. DM was better controlled on low dose lantus but she has variable eating pattern. Safer to continue on just SSI for now. Continue sliding scale. Mostly eating potato soup, discussed need to broaden diet. continue to Monitor. Patient noted to need TB test prior to return to halfway. All records, vitals, labs and medications were reviewed. No other issues per patient, nursing or therapy. Objective - Exam Narrative Exam: MUSCULOSKELETAL SPECIALTY EXAM CONSTITUTIONAL: Well developed, well nourished, appropriately groomed, thin. RIGHT hand dominant. RESPIRATORY: Clear to auscultation bilaterally, no increased work of breathing CARDIOVASCULAR: Regular Rate/ Rhythm, no swelling, edema or tenderness in BUE or BLE. All extremities warm. GI: + bowel sounds, soft, NTTP, nondistended. INTEGUMENTARY: Normal, no lesion, rash, masses or bruising noted in extremities. MUSCULOSKELETAL: BUE and BLE normal without defect, crepitus, subluxation, effusion, arthritic changes or TTP. R 5/5 L 4/5 ROM within functional limits Tone normal NEURO: CN III, IV, : EOMI however slightly slowed to the left CN V : Facial sensation is impaired on left CN VII : Left facial droop (upper and lower) Sensation intact in all extremities without extinction but is altered on the left. Coordination impaired on left with dysmetria of the LUE, normal on right. No tremor noted in 4 extremities. Odd movements better today, may be mild TD, mostly in arms when talking, no oral manifestations and not constant Naming and repetition intact. Follows 2 step commands. Aphasia not appreciated Dysarthria present Dysphagia present Neglect not appreciated POSTURE and GAIT: Sitting posture good. Sitting balance appears reasonable. Gait ataxic. Psych: Affect appears euthymic. Insight appears intact, but does have some decreased safety awareness - Constitutional Vitals: Vital Signs - 12hr 11/29/19 11/29/19 07:24 08:57 Temperature 36.7 C Pulse Rate 65 65 Respiratory 18 Rate Blood Pressure 145/81 145/81 O2 Sat by Pulse 99 Oximetry - Allied health notes Allied health notes reviewed: nursing, PT, ST, OT FIMS assessment as documented by PT/OT/ST: Social interaction/Memory/Problem solving Social Interaction FIM Score 5. Supervision (Needs supv. <10%. Needs encouragement to participate.) Memory FIM Score 5. Supervision (Needs cueing <10%, stressful/ unfamiliar situations.) Problem Solving FIM Score 4. Minimal Assistance (Solves routine problems 75-90%.) Transfers Mode of Locomotion: Wheelchair Bed/Chair/Wheelchair Transfers 3. Moderate Assistance (Patient = 50% or more. FIM Score Some lifting.) Locomotion- walk/wheelchair Ambulation Distance 20 Eating Eating FIM Score 4. Minimal Assistance (Patient = 75% or more) Dressing-Upper body Patient retrieves clothing No items: Upper Body Dressing FIM Score 5. Supv./Set-Up ([place] sets out clothes or applies pros./orth.) Dressing-lower body Patient retrieves clothing No items: Lower Body Dressing FIM Score 5. Supv./Set-Up ([place] sets out clothes or applies pros./orth.) - Labs CBC & Chem 7: 11/23/19 11:20 11/29/19 08:08 Labs: Laboratory Results - last 72 hr 11/20/19 11/26/19 11/26/19 06:03 16:36 19:40 Sodium Potassium Chloride Carbon Dioxide Anion Gap BUN Creatinine Estimated GFR BUN/Creatinine Ratio Glucose POC Glucose 80 229 H 135 H Calcium Troponin T [place] 11/27/19 11/27/19 11/27/19 06:41 07:56 08:38 Sodium 142 Potassium 4.7 Chloride 113.7 H Carbon Dioxide 22 Anion Gap 11 BUN 29 H Creatinine 3.2 H Estimated GFR 18 BUN/Creatinine Ratio 9 Glucose 39 L* POC Glucose 40 L 155 H Calcium 8.1 L Troponin T 0.048 H D [place] 11/27/19 11/27/19 11/27/19 13:46 17:21 19:34 Sodium Potassium Chloride Carbon Dioxide Anion Gap BUN Creatinine Estimated GFR BUN/Creatinine Ratio Glucose POC Glucose 270 H 266 H 322 H Calcium Troponin T [place] 11/28/19 11/28/19 11/28/19 07:09 07:09 07:59 Sodium 141 Potassium 5.1 H Chloride 109.4 H Carbon Dioxide 19 L Anion Gap 18 BUN 25 H Creatinine 3.0 H Estimated GFR 19 BUN/Creatinine Ratio 8 Glucose 130 H POC Glucose 122 H Calcium 8.8 Troponin T 0.059 H D [place] 1.3 H 11/28/19 11/28/19 11/28/19 12:57 16:18 21:32 Sodium Potassium Chloride Carbon Dioxide Anion Gap BUN Creatinine Estimated GFR BUN/Creatinine Ratio Glucose POC Glucose 191 H 134 H 276 H Calcium Troponin T [place] 11/29/19 11/29/19 11/29/19 07:36 08:08 12:46 Sodium 144 Potassium 5.7 H Chloride 114.8 H Carbon Dioxide 20 L Anion Gap 15 BUN 25 H Creatinine 3.2 H Estimated GFR 18 BUN/Creatinine Ratio 8 Glucose 108 H POC Glucose 117 H 257 H Calcium 8.6 Troponin T [place] Assessment and Plan CVA: Continue secondary stroke prevention. Discussed with patient prognosis as well as secondary stroke prevention protocols. Monitor for neurologic decline, shoulder-hand syndrome, bowel or bladder issues, evidence of stroke recurrence, worsening of dysphagia [place] toxicity: Hold lithium. Normal saline IVF finished. Recheck lithium level and restart at a lower dose once within normal range if ok with nephrology and psychiatry Hypertension: Continue medications and monitor blood pressure and adjust as need ed for normotension. Diabetes: Continue carb controlled diet, sliding scale insulin and monitor/adj ust medications as needed. Lantus d/c'd due to hypoglycemia and eating habits. Bipolar/PTSD: Continue medications. Supportive care and adjust as needed. Check lithium and Depakote levels as needed. Psychiatry consult for medication modification. Will need to follow up with geriatric psychiatrist at discharge. CKD: Avoid nephrotoxic medications. Monitor renal function. Hyperkalemia today 5.7. Kayexelate given. Nephrology consult . Constipation: Continue medications and prn medications. Monitor for bowel movements and adjust as needed. Nausea/vomiting: Zofran as ordered. Patient relates this more so to anxiety. Cardiomyopathy and heart failure: Monitor for any signs of worsening cardiac function or chest pain. Cardiology consulted and rec medication changes. F/U as outpatient. Dysphagia: Continue modified diet. Advance as tolerated with guidance from FLIGHT CONTROL TOWER OPERATOR. Aspiration precautions during meals. Dysarthria: Continue FLIGHT CONTROL TOWER OPERATOR for improvement in functional ability to speak and breath control. Improved ADL dysfunction: OT will work on improving ability to perform ADLs (including assistive devices) to increase independence and decrease caregiver burden and improve functional transfers and mobility training. Difficulty walking: PT will work on gait training and proper use of assistive devices and advance as appropriate to use of stairs and outside ambulation on uneven surfaces. Unsteadiness on feet: PT will work on improving static and dynamic sitting and standing balance as well as proper use of assistive devices to decrease risk of falls. Abnormality of gait: PT will work to improve safety and efficiency of gait through neuromotor training and gait training along with instruction on proper use of assistive devices. Muscle weakness: PT & OT will work on strengthening exercises to improve functional strength including mixture of closed and open kinetic chain exercises. Fatigue: PT & OT will work on improving endurance through aerobic exercises and therapeutic activity while monitoring patients tolerance for activity and vital signs as needed. DVT ppx: Heparin TID Pain: Continue physical modalities in therapy and pain medications as needed to achieve functional pain control. Sleep: Monitor and address as needed. Bowel: Monitor and address as needed. Appetite: Monitor and address as needed. Discharge planning: Pending therapy progress and care plan meeting. Will continue discussion with therapy team, SW, patient and family. Restrictions/ Precautions: Falls, aspiration, possible seizure WB status: FWB Functional Hx: ADLs: Independent Cognition: Independent Mobility: No AD Barriers to Discharge: Decreased mobility and ability to perform self care, balance deficits, weakness Estimated Length of Stay: 1421 days Discharge Destination: Home with halfway
[2019-11-29] MEDS ORDERED: SODIUM POLYSTYRENE 15 GM/60 ML ORAL LIQD PO ONE (20:15)
[2019-11-29] MEDS: QUEtiapine 100 MG TAB PO SCH (21:49)
[2019-11-29] MEDS: DIVALPROEX ER 500 MG TAB PO SCH (22:07)
[2019-11-30] MEDS: HEPARIN 5,000 UNIT/1 ML VIAL SUB-Q SCH ×3 (05:31→23:03)
[2019-11-30 08:10] LABS: Calcium 8.5 mg/dL (8.4-10.2)
[2019-11-30] MEDS: INSULIN LISPRO 100 UNIT/ML SUB-Q SCH ×4 (08:40→23:05)
--- NOTE | 2019-11-30 09:46 | Consultation ---
History of Present Illness - Reason for Consult Consult date: 11/30/19 chronic renal failure, hyperkalemia - History of Present Illness The patient is a 64 YO AAF who is known to me from prior admission with history significant for poorly controlled DM, HTN, Bipolar, PTSD, Anxiety, GERD, CVA s/p L facial palsy, nephrotic range proteinuria and CKD stage 4 who is currently in rehab unit developed hyperkalemia. Pt denies any N, V, D, fever, chills, dizziness, abd pain, dysuria, hematuria, leg swelling, syncope or rash. Labs significant for Creat 3.2 and K 5.7. Nephrology was consulted for further evaluation. Past History Past Medical History: anemia, CAD, diabetes, heart failure, hypertension, other (cardiomyopathy, CK D stage IV, seizure disorder, PTSD, bipolar, [place] Palsy) Past Surgical History: appendectomy, Other (tubal ligation, left foot Achilles tendon repair, TMJ) Social history: single, other (Lives in Shelter, previously independent with ambulation however does state that she probably could have used a cane for balance). denies: smoking (Quit 2018), alcohol abuse, prescription drug abuse, IV drug use Family history: stroke, other (HF) Medications and Allergies Allergies Allergy/AdvReac Type Severity Reaction Status Date / Time lisinopril Allergy Unknown Verified 07/27/19 09:29 promethazine HCl Allergy Shortness Verified 11/29/15 15:40 [From Phenergan] of Breath Home Medications Medication Instructions Recorded Confirmed Last Taken Type ARIPiprazole [Abilify TAB] 5 mg PO DAILY #30 tab 10/29/19 11/20/19 Unknown Rx Divalproex ER [Depakote ER] 500 mg PO QHS #30 tab 10/29/19 11/20/19 Unknown Rx Furosemide [Lasix TAB] 40 mg PO QDAY #30 tablet 10/29/19 11/20/19 Unknown Rx Insulin Detemir [Levemir VIAL] 25 unit SQ QHS #1 vial 10/29/19 11/20/19 Unknown Rx Lispro Insulin [HumaLOG] 1 dose SUB-Q ACHS PRN #1000 units 10/29/19 11/20/19 Unknown Rx Ong Carbonate 300 mg PO BID #60 tab 10/29/19 11/20/19 Unknown Rx Pantoprazole [Protonix TAB] 40 mg PO QDAY #30 tablet 10/29/19 11/20/19 Unknown Rx Potassium Chloride [K-Dur] 20 meq PO QDAY #30 tablet 10/29/19 11/20/19 Unknown Rx QUEtiapine [SEROquel] 100 mg PO QHS #30 tablet 10/29/19 11/20/19 Unknown Rx amLODIPine 10 mg PO QDAY #30 tablet 10/29/19 11/20/19 Unknown Rx carvediloL [Coreg] 6.25 mg PO BID #60 tablet 10/29/19 11/20/19 Unknown Rx Aspirin 325 mg PO QDAY #30 tablet 11/10/19 11/20/19 Unknown Rx AtorvaSTATin [Lipitor] 40 mg PO QHS #30 tablet 11/10/19 11/20/19 Unknown Rx Active Meds: Active Medications Acetaminophen (Tylenol) 650 mg PO Q6H PRN PRN Reason: Non Cardiac Pain or Temp>100.5 Last Admin: 11/28/19 21:37 Dose: 650 mg Documented by: Acetaminophen/Hydrocodone Bitart ([place] 5/325) 0.5 each PO Q8H PRN PRN Reason: Pain, Moderate (4-6) Last Admin: 11/14/19 23:59 Dose: 0.5 each Documented by: Amlodipine Besylate (Amlodipine) 10 mg PO QDAY [facility] Last Admin: 11/29/19 08:58 Dose: 10 mg Documented by: Aripiprazole (Aripiprazole) 5 mg PO QDAY [facility] Last Admin: 11/29/19 08:59 Dose: 5 mg Documented by: Aspirin (Ecotrin) 325 mg PO QDAY [facility] Last Admin: 11/29/19 08:57 Dose: 325 mg Documented by: Atorvastatin Calcium (Lipitor) 40 mg PO QHS [facility] Last Admin: 11/29/19 21:49 Dose: 40 mg Documented by: Bisacodyl (Dulcolax) 5 mg PO QDAY [facility] Last Admin: 11/29/19 08:56 Dose: 5 mg Documented by: Bisacodyl (Dulcolax) 10 mg AR QDAY PRN PRN Reason: Constipation Last Admin: 11/18/19 20:36 Dose: 10 mg Documented by: Carvedilol (Coreg) 25 mg PO BID [facility] Last Admin: 01/07/20 21:52 Dose: 25 mg Documented by: Dextrose (D50w (25gm) Syringe) 50 ml IV Q30MIN PRN; Protocol PRN Reason: Hypoglycemia Last Admin: 11/27/19 08:21 Dose: 50 ml Documented by: Divalproex Sodium (Depakote Er) 500 mg PO QHS [facility] Last Admin: 11/29/19 22:07 Dose: 500 mg Documented by: Heparin Sodium (Porcine) (Heparin) 5,000 unit SUB-Q Q8HR [facility] Last Admin: 11/30/19 05:31 Dose: 5,000 unit Documented by: Hydralazine HCl (Apresoline) 10 mg IV Q4HR PRN PRN Reason: Hypertension Last Admin: 11/27/19 22:08 Dose: 10 mg Documented by: Insulin Human Lispro (Humalog) 0 unit SUB-Q [facility]; Protocol Last Admin: 11/29/19 22:07 Dose: 2 unit Documented by: Isosorbide Mononitrate (Imdur) 90 mg PO QDAY [facility] Last Admin: 11/29/19 08:57 Dose: 90 mg Documented by: Ondansetron HCl (Zofran Odt) 4 mg PO Q8H PRN PRN Reason: Nausea And Vomiting Last Admin: 11/21/19 10:56 Dose: 4 mg Documented by: Pantoprazole Sodium (Protonix) 40 mg PO QDAY [facility] Last Admin: 11/29/19 08:57 Dose: 40 mg Documented by: Polyethylene Glycol (Miralax [id number]) 17 gm PO QDAY PRN PRN Reason: Constipation Quetiapine Fumarate (Seroquel) 100 mg PO QHS [facility] Last Admin: 11/29/19 21:49 Dose: 100 mg Documented by: Review of Systems Constitutional: no weight loss, no weight gain, no fever, no chills, no anorexia, no fatigue, no weakness, no poor appetite Breasts: deferred Cardiovascular: high blood pressure, no chest pain, no orthopnea, no palpitations, no edema, no syncope, no lightheadedness, no shortness of breath, no leg edema Respiratory: no cough, no hemoptysis, no congestion Gastrointestinal: no abdominal pain, no nausea, no vomiting, no diarrhea, no melena, no hematochezia Genitourinary Female: no dysuria, no hematuria Rectal: no bleeding Musculoskeletal: no muscle cramps Integumentary: no redness, no sores, no wounds Neurological: paralysis, weakness, parathesias, change in speech, no seizures, no syncope, no convulsions, no change in mentation, no confusion Exam - Vital Signs Vital signs: Vital Signs Temp Pulse Resp BP Pulse Ox 97.7 F 77 18 158/75 98 11/14/19 20:16 11/14/19 20:16 11/14/19 20:16 11/14/19 20:16 11/14/19 20:16 - General Appearance General appearance: well-developed, appears stated age, other (not in distress) EENT: ATNC, PERRL, mucous membranes moist, hearing intact, vision intact Neck: Present: neck supple Respiratory: Clear to Ascultation Heart: regular, S1S2, no murmurs Gastrointestinal: Present: normoactive bowel sounds. Absent: tenderness, distended Integumentary: no rash, warm and dry Neurologic: no asterixis, alert and oriented x3, aphasia, facial droop (L side, UMN type) Musculoskeletal: Present: other (no edema) Psychiatric: cooperative Results - Lab Results 11/23/19 11:20 11/30/19 07:21 Most recent lab results Calcium 8.5 mg/dL (8.4-10.2) 11/30/19 07:21 Assessment and Plan 1. 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 Renal function is around her baseline. Monitor renal function. Renal prognosis is guarded. Avoid nephrotoxic agents. Meds dosage based on GFR. 2. FEN: Hyperkalemia, improving with kayexalate. Low K diet. Metabolic acidosis, monitor. Monitor lytes. 3. Nephrotic range proteinuria: Likely from Diabetic nephropathy. 4. CVA. 5. DM type 2, uncontrolled. 6. HTN: Monitor BP. 7. Normochromic anemia: POA.
[2019-11-30] MEDS ORDERED: SODIUM POLYSTYRENE 15 GM/60 ML ORAL LIQD PO NR (11:30)
[2019-11-30] MEDS: ASPIRIN EC 325 MG TAB PO SCH (15:00)
[2019-11-30] MEDS: ARIPiprazole 5 MG TAB PO SCH (15:02)
[2019-11-30] MEDS: PANTOPRAZOLE 40 MG TAB PO SCH (15:02)
[2019-11-30] MEDS: carvediloL 25 MG TAB PO SCH ×2 (15:03→23:10)
[2019-11-30] MEDS: amLODIPine 10 MG TAB PO SCH (15:04)
--- NOTE | 2019-11-30 15:50 | Progress Note ---
Subjective Date of service: 11/30/19 Principal diagnosis: CVA Interval history: 64-year-old female who was a resident at a retirement developed left-sided facial droop and slurred speech accompanied by paresthesias of the left side. Subsequent MRI head showed a small subacute infarct in the putamen and hill radiata on the right-hand side without hemorrhagic transformation. Patient was evaluated by therapy and deemed to be appropriate for acute inpatient rehabilitation. Medication levels including Depakote and lithium were checked. 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 She has a history of seizures in her 20s but has not had any in years. She was evaluated by neurology, cardiology, nephrology. Nephrology noted she had acute renal injury superimposed on CKD stage IV. Baseline creatinine is approximately not known. Cardiology was also consulted and provided more history. Patient lives in [facility] and has a history of bipolar disorder and posttraumatic stress disorder. Patient had atypical chest pain and was recommended to have further workup as an outpatient. Interval History Patient is participating in therapy and making reasonable progress. Taking rest breaks as needed. Denies pain, palpitations, dyspnea, cough, or joint pain. Nausea and vomiting intermittently, none this AM. +BM. Hyperkalemic today but at 5.1 vs 5.7. Kayexelate given x3. continue to monitor. Will reconsult Dr. Evangelista with nephrology, appreciate input. [place] level has decreased to 1.0. Ok to restart at lower dose but concerned over renal function. Will need to keep her at lower end of spectrum if started. Will also discuss with nephrology. Creatinine fairly stable and may be her new norm. Movements c/w mild TD seem better today. Will attempt to get geriatric psychiatrist Dr Bowen to see her while she is in house. May need atypical antipsychotics adjusted/d/c'd or change in treatment regimen. Blood pressure elevated today (has been intermittently). Has typically been normotensive with a few spikes occasionally. Monitor for now and adjust meds if it continues. DM was better controlled on low dose lantus but she has variable eating pattern. Safer to continue on just SSI for now. Continue sliding scale. Mostly eating potato soup, discussed need to broaden diet. continue to Monitor. Patient noted to need TB test prior to return to retirement. All records, vitals, labs and medications were reviewed. No other issues per patient, nursing or therapy. Objective - Exam Narrative Exam: MUSCULOSKELETAL SPECIALTY EXAM CONSTITUTIONAL: Well developed, well nourished, appropriately groomed, thin. RIGHT hand dominant. RESPIRATORY: Clear to auscultation bilaterally, no increased work of breathing CARDIOVASCULAR: Regular Rate/ Rhythm, no swelling, edema or tenderness in BUE or BLE. All extremities warm. GI: + bowel sounds, soft, NTTP, nondistended. INTEGUMENTARY: Normal, no lesion, rash, masses or bruising noted in extremities. MUSCULOSKELETAL: BUE and BLE normal without defect, crepitus, subluxation, effusion, arthritic changes or TTP. R 5/5 L 4/5 ROM within functional limits Tone normal NEURO: CN III, IV, : EOMI however slightly slowed to the left CN V : Facial sensation is impaired on left CN VII : Left facial droop (upper and lower) Sensation intact in all extremities without extinction but is altered on the left. Coordination impaired on left with dysmetria of the LUE, normal on right. No tremor noted in 4 extremities. Odd movements better today, may be mild TD, mostly in arms when talking, no oral manifestations and not constant Naming and repetition intact. Follows 2 step commands. Aphasia not appreciated Dysarthria present Dysphagia present Neglect not appreciated POSTURE and GAIT: Sitting posture good. Sitting balance appears reasonable. Gait ataxic. Psych: Affect appears euthymic. Insight appears intact, but does have some decreased safety awareness - Constitutional Vitals: Vital Signs - 12hr 11/30/19 11/30/19 11/30/19 07:38 15:00 15:03 Temperature 36.8 C Pulse Rate 72 75 75 Respiratory 16 Rate Blood Pressure 160/69 155/69 Blood Pressure 155/69 [Left] O2 Sat by Pulse 99 Oximetry 11/30/19 11/30/19 15:04 15:05 Temperature Pulse Rate 75 75 Respiratory Rate Blood Pressure 155/69 155/69 Blood Pressure [Left] O2 Sat by Pulse Oximetry - Allied health notes Allied health notes reviewed: nursing, PT, ST, OT FIMS assessment as documented by PT/OT/ST: Social interaction/Memory/Problem solving Social Interaction FIM Score 5. Supervision (Needs supv. <10%. Needs encouragement to participate.) Memory FIM Score 5. Supervision (Needs cueing <10%, stressful/ unfamiliar situations.) Problem Solving FIM Score 5. Supervision (Needs cueing <10% to solve routine problems.) Transfers Mode of Locomotion: Wheelchair Bed/Chair/Wheelchair Transfers 5. Supervision (Needs supv. or set-up for FIM Score sliding board, foot rests.) Locomotion- walk/wheelchair Ambulation Distance 20 Eating Eating FIM Score 5. Supervision/Set-Up (Needs help w/ containers, cutting meat, etc.) Dressing-Upper body Patient retrieves clothing No items: Upper Body Dressing FIM Score 5. Supv./Set-Up ([place] sets out clothes or applies pros./orth.) Dressing-lower body Patient retrieves clothing No items: Lower Body Dressing FIM Score 5. Supv./Set-Up ([place] sets out clothes or applies pros./orth.) - Labs CBC & Chem 7: 11/23/19 11:20 11/30/19 07:21 Labs: Laboratory Results - last 72 hr 11/20/19 11/27/19 11/27/19 06:03 17:21 19:34 Sodium Potassium Chloride Carbon Dioxide Anion Gap BUN Creatinine Estimated GFR BUN/Creatinine Ratio Glucose POC Glucose 80 266 H 322 H Calcium Troponin T [place] 11/28/19 11/28/19 11/28/19 07:09 07:09 07:59 Sodium 141 Potassium 5.1 H Chloride 109.4 H Carbon Dioxide 19 L Anion Gap 18 BUN 25 H Creatinine 3.0 H Estimated GFR 19 BUN/Creatinine Ratio 8 Glucose 130 H POC Glucose 122 H Calcium 8.8 Troponin T 0.059 H D [place] 1.3 H 11/28/19 11/28/19 11/28/19 12:57 16:18 21:32 Sodium Potassium Chloride Carbon Dioxide Anion Gap BUN Creatinine Estimated GFR BUN/Creatinine Ratio Glucose POC Glucose 191 H 134 H 276 H Calcium Troponin T [place] 11/29/19 11/29/19 11/29/19 07:36 08:08 12:46 Sodium 144 Potassium 5.7 H Chloride 114.8 H Carbon Dioxide 20 L Anion Gap 15 BUN 25 H Creatinine 3.2 H Estimated GFR 18 BUN/Creatinine Ratio 8 Glucose 108 H POC Glucose 117 H 257 H Calcium 8.6 Troponin T [place] 11/29/19 11/29/19 11/29/19 16:35 20:42 21:44 Sodium Potassium 5.7 H Chloride Carbon Dioxide Anion Gap BUN Creatinine Estimated GFR BUN/Creatinine Ratio Glucose POC Glucose 116 H 208 H Calcium Troponin T [place] 11/30/19 11/30/19 11/30/19 07:21 07:21 07:50 Sodium 142 Potassium 5.1 H Chloride 109.4 H Carbon Dioxide 20 L Anion Gap 18 BUN 24 H Creatinine 3.0 H Estimated GFR 19 BUN/Creatinine Ratio 8 Glucose 165 H POC Glucose 162 H Calcium 8.5 Troponin T [place] 1.0 11/30/19 12:06 Sodium Potassium Chloride Carbon Dioxide Anion Gap BUN Creatinine Estimated GFR BUN/Creatinine Ratio Glucose POC Glucose 245 H Calcium Troponin T [place] Assessment and Plan CVA: Continue secondary stroke prevention. Discussed with patient prognosis as well as secondary stroke prevention protocols. Monitor for neurologic decline, shoulder-hand syndrome, bowel or bladder issues, evidence of stroke recurrence, worsening of dysphagia Chireno toxicity: Hold lithium. Normal saline IVF finished. Chireno within nor mal range, may restart at lower dose if ok with nephrology and psychiatry Hypertension: Continue medications and monitor blood pressure and adjust as needed for normotension. Diabetes: Continue carb controlled diet, sliding scale insulin and monitor/adjust medications as needed. Lantus d/c'd due to hypoglycemia and eating habits. Bipolar/PTSD: Continue medications. Supportive care and adjust as needed. Check lithium and Depakote levels as needed. Psychiatry consult for medication modification. Spoke with the psychiatrist's office. They state they only prescribed the lithium and did not know anything about the Abilify, depakote, or Seroquel. Also that they last saw her about 6mos ago and would not have continued any scripts more than 1 month without seeing her. She needs to see a geriatric psychiatrist for follow up. CKD: Avoid nephrotoxic medications. Monitor renal function. Hyperkalemia 5.7 > Kayexelate given x3 > 5.1. Nephrology consult . Constipation: Continue medications and prn medications. Monitor for bowel movements and adjust as needed. Nausea/vomiting: Zofran as ordered. Patient relates this more so to anxiety. Cardiomyopathy and heart failure: Monitor for any signs of worsening cardiac function or chest pain. Cardiology consulted and rec medication changes. F/U as outpatient. Dysphagia: Continue modified diet. Advance as tolerated with guidance from MEDIA REPORTER. Aspiration precautions during meals. Dysarthria: Continue MEDIA REPORTER for improvement in functional ability to speak and breath control. Improved ADL dysfunction: OT will work on improving ability to perform ADLs (including assistive devices) to increase independence and decrease caregiver burden and improve functional transfers and mobility training. Difficulty walking: PT will work on gait training and proper use of assistive devices and advance as appropriate to use of stairs and outside ambulation on uneven surfaces. Unsteadiness on feet: PT will work on improving static and dynamic sitting and standing balance as well as proper use of assistive devices to decrease risk of falls. Abnormality of gait: PT will work to improve safety and efficiency of gait through neuromotor training and gait training along with instruction on proper use of assistive devices. Muscle weakness: PT & OT will work on strengthening exercises to improve functional strength including mixture of closed and open kinetic chain exercises. Fatigue: PT & OT will work on improving endurance through aerobic exercises and therapeutic activity while monitoring patients tolerance for activity and vital signs as needed. DVT ppx: Heparin TID Pain: Continue physical modalities in therapy and pain medications as needed to achieve functional pain control. Sleep: Monitor and address as needed. Bowel: Monitor and address as needed. Appetite: Monitor and address as needed. Discharge planning: Pending therapy progress and care plan meeting. Will continue discussion with therapy team, SW, patient and family. Restrictions/ Precautions: Falls, aspiration, possible seizure WB status: FWB Functional Hx: ADLs: Independent Cognition: Independent Mobility: No AD Barriers to Discharge: Decreased mobility and ability to perform self care, balance deficits, weakness Estimated Length of Stay: 1421 days Discharge Destination: Home with retirement
[2019-11-30] MEDS: DIVALPROEX ER 500 MG TAB PO SCH (23:03)
[2019-11-30] MEDS: QUEtiapine 100 MG TAB PO SCH (23:03)
[2019-12-01] MEDS: HEPARIN 5,000 UNIT/1 ML VIAL SUB-Q SCH ×3 (05:34→21:35)
[2019-12-01] MEDS: INSULIN LISPRO 100 UNIT/ML SUB-Q SCH ×4 (07:52→23:37)
[2019-12-01] MEDS: ARIPiprazole 5 MG TAB PO SCH (08:30)
[2019-12-01] MEDS: ASPIRIN EC 325 MG TAB PO SCH (08:30)
[2019-12-01] MEDS: PANTOPRAZOLE 40 MG TAB PO SCH (08:30)
[2019-12-01] MEDS: amLODIPine 10 MG TAB PO SCH (08:31)
[2019-12-01] MEDS: carvediloL 25 MG TAB PO SCH ×2 (08:31→21:36)
--- NOTE | 2019-12-01 09:13 | Progress Note ---
Assessment and Plan 1. 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 Renal function is around her baseline. Monitor renal function. Renal prognosis is guarded. Avoid nephrotoxic agents. Meds dosage based on GFR. 2. FEN: Hyperkalemia, improved. Low K diet. Metabolic acidosis, monitor. Monitor lytes. 3. Nephrotic range proteinuria: Likely from Diabetic nephropathy. 4. CVA. 5. DM type 2. 6. HTN: Monitor BP. Add Lasix. 7. Normochromic anemia: POA. Examination: General appearance: well-developed, appears stated age, not in distress HEENT: ATNC, CAITY, mucous membranes moist, hearing intact, vision intact Neck: neck supple Respiratory: Clear to Ascultation Heart: regular, S1S2, no murmurs Gastrointestinal: soft, normoactive bowel sounds, not tender, not distended Integumentary: no rash, warm and dry Neurologic: no asterixis, alert and oriented x3, aphasia, L sided UMN type facial droop Ext: no edema Psychiatric: cooperative Subjective Date of service: 12/01/19 Principal diagnosis: CVA Interval history: Patient was seen and examined at the [facility]. Doing ok. Objective - Vital Signs Vital signs: Vital Signs - 12hr 11/30/19 12/01/19 12/01/19 23:10 07:31 08:31 Temperature 97.9 F Pulse Rate 70 74 74 Respiratory 18 Rate Blood Pressure 147/71 172/76 172/76 O2 Sat by Pulse 97 Oximetry - Lab 11/23/19 11:20 12/01/19 07:43 Most recent lab results Calcium 8.0 mg/dL (8.4-10.2) L 12/01/19 07:43 Medications & Allergies - Medications Allergies/Adverse Reactions: Allergies lisinopril Allergy (Verified 07/27/19 09:29) Unknown promethazine HCl [From Phenergan] Allergy (Verified 11/29/15 15:40) Shortness of Breath Home Medications: Home Medications Medication Instructions Recorded Confirmed Last Taken Type ARIPiprazole [Abilify TAB] 5 mg PO DAILY #30 tab 10/29/19 11/20/19 Unknown Rx Divalproex ER [Depakote ER] 500 mg PO QHS #30 tab 10/29/19 11/20/19 Unknown Rx Furosemide [Lasix TAB] 40 mg PO QDAY #30 tablet 10/29/19 11/20/19 Unknown Rx Insulin Detemir [Levemir VIAL] 25 unit SQ QHS #1 vial 10/29/19 11/20/19 Unknown Rx Lispro Insulin [HumaLOG] 1 dose SUB-Q ACHS PRN #1000 units 10/29/19 11/20/19 Unknown Rx [place] Carbonate 300 mg PO BID #60 tab 10/29/19 11/20/19 Unknown Rx Pantoprazole [Protonix TAB] 40 mg PO QDAY #30 tablet 10/29/19 11/20/19 Unknown Rx Potassium Chloride [K-Dur] 20 meq PO QDAY #30 tablet 10/29/19 11/20/19 Unknown Rx QUEtiapine [SEROquel] 100 mg PO QHS #30 tablet 10/29/19 11/20/19 Unknown Rx amLODIPine 10 mg PO QDAY #30 tablet 10/29/19 11/20/19 Unknown Rx carvediloL [Coreg] 6.25 mg PO BID #60 tablet 10/29/19 11/20/19 Unknown Rx Aspirin 325 mg PO QDAY #30 tablet 11/10/19 11/20/19 Unknown Rx AtorvaSTATin [Lipitor] 40 mg PO QHS #30 tablet 11/10/19 11/20/19 Unknown Rx Active Medications: Generic Name Dose Route Start Last Admin Trade Name Freq PRN Reason Stop Dose Admin Acetaminophen 650 mg 11/14/19 17:34 11/28/19 21:37 Tylenol PO 650 mg Q6H PRN Administration Non Cardiac Pain or Temp>100.5 Acetaminophen/Hydrocodone Bitart 0.5 each 11/14/19 17:48 11/14/19 23:59 [place] 5/325 PO 0.5 each Q8H PRN Administration Pain, Moderate (4-6) Amlodipine Besylate 10 mg 11/15/19 08:00 12/01/19 08:31 Amlodipine PO 10 mg QDAY HAR[facility] Administration Aripiprazole 5 mg 11/15/19 08:00 12/01/19 08:30 Aripiprazole PO 5 mg QDAY [facility] Administration Aspirin 325 mg 11/15/19 08:00 12/01/19 08:30 Ecotrin PO 325 mg QDAY [facility] Administration Atorvastatin Calcium 40 mg 11/14/19 21:00 11/30/19 23:03 Lipitor PO 40 mg QHS [facility] Administration Bisacodyl 5 mg 11/15/19 08:00 12/01/19 08:30 Dulcolax PO 5 mg QDAY [facility] Administration Bisacodyl 10 mg 11/14/19 17:34 11/18/19 20:36 Dulcolax RI 10 mg QDAY PRN Administration Constipation Carvedilol 25 mg 11/26/19 22:00 12/01/19 08:31 Coreg PO 25 mg BID HAR[facility] Administration Dextrose 50 ml 11/14/19 17:22 11/27/19 08:21 D50w (25gm) Syringe IV 50 ml Q30MIN PRN Administration Hypoglycemia Protocol Divalproex Sodium 500 mg 11/14/19 21:00 11/30/19 23:03 Depakote Er PO 500 mg QHS [facility] Administration Heparin Sodium (Porcine) 5,000 unit 11/14/19 22:00 12/01/19 05:34 Heparin SUB-Q 5,000 unit Q8HR [facility] Administration Hydralazine HCl 10 mg 11/14/19 17:34 11/27/19 22:08 Apresoline IV 10 mg Q4HR PRN Administration Hypertension Insulin Human Lispro 0 unit 11/14/19 22:00 12/01/19 07:52 Humalog SUB-Q Not Given [facility] Protocol Isosorbide Mononitrate 90 mg 11/27/19 08:00 12/01/19 08:31 Imdur PO 90 mg QDAY [facility] Administration Ondansetron HCl 4 mg 11/14/19 17:34 11/21/19 10:56 Zofran Odt PO 4 mg Q8H PRN Administration Nausea And Vomiting Pantoprazole Sodium 40 mg 11/15/19 08:00 12/01/19 08:30 Protonix PO 40 mg QDAY [facility] Administration Polyethylene Glycol 17 gm 11/14/19 17:34 Miralax 3350 PO QDAY PRN Constipation Quetiapine Fumarate 100 mg 11/14/19 21:00 11/30/19 23:03 Seroquel PO 100 mg QHS [facility] Administration
--- NOTE | 2019-12-01 09:45 | Progress Note ---
Subjective Date of service: 12/01/19 Principal diagnosis: CVA Interval history: 64-year-old female who was a resident at a [place] [facility] developed left-sided facial droop and slurred speech accompanied by paresthesias of the left side. Subsequent MRI head showed a small subacute infarct in the putamen and hill radiata on the right-hand side without hemorrhagic transformation. Patient was evaluated by therapy and deemed to be appropriate for acute inpatient rehabilitation. Medication levels including Depakote and lithium were checked. 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 She has a history of seizures in her 20s but has not had any in years. She was evaluated by neurology, cardiology, nephrology. Nephrology noted she had acute renal injury superimposed on CKD stage IV. Baseline creatinine is approximately not known. Cardiology was also consulted and provided more history. Patient lives in [facility] and has a history of bipolar disorder and posttraumatic stress disorder. Patient had atypical chest pain and was recommended to have further workup as an outpatient. Interval History Patient is participating in therapy and making reasonable progress. Taking rest breaks as needed. Denies pain, palpitations, dyspnea, cough, or joint pain. Nausea and vomiting intermittently, none this AM. +BM. Hyperkalemia resolved after several doses of Kayexalate. Diet changed to renal diet on advice of secure software assessor. Appreciate the guidance. Also discussed with him today the possibility of adding further medication for blood pressure control and he suggests a diuretic which will also help to reduce potassium load. Continue to monitor. Amidon level has normalized. Ok to restart at lower dose but concerned over renal function. Will need to keep her at lower end of spectrum if started. Will also discuss with nephrology. Creatinine fairly stable and is likely her new norm. Movements improved day, questionable if there actually were related to TD or some other aspect. Will attempt to get geriatric psychiatrist Dr Bowen to see her while she is in house. May need atypical antipsychotics adjusted/d/c'd or change in treatment regimen. Blood pressure elevated today (has been intermittently). Has typically been normotensive with a few spikes occasionally. Discussed with secure software assessor possibility of starting a new medication. Patient is allergic to lisinopril however losartan has been tolerated in the past. With CKD4 I will defer starting diuretics or ARBs to nephrology guidance. DM was better controlled on low dose lantus but she has variable eating pattern. Safer to continue on just SSI for now. Continue sliding scale. Changed to renal diet. Will have dietitian discuss with her. Continue to Monitor. Patient noted to need TB test prior to return to [place] [facility]. Patient discussed during team conference. Overall she is making good progress with therapy. Still working on details to improve her ability to maximize her functional independence once she returns home. Also working on medical issues including lithium toxicity, CK D, and possibly the need to completely revise her psychiatric medications. Awaiting geriatric psychiatry consult to guide us on possibility of restarting lithium versus going with different doses of current atypical antipsychotics. All records, vitals, labs and medications were reviewed. No other issues per patient, nursing or therapy. Objective - Exam Narrative Exam: MUSCULOSKELETAL SPECIALTY EXAM CONSTITUTIONAL: Well developed, well nourished, appropriately groomed, thin. RIGHT hand dominant. RESPIRATORY: Clear to auscultation bilaterally, no increased work of breathing CARDIOVASCULAR: Regular Rate/ Rhythm, no swelling, edema or tenderness in BUE or BLE. All extremities warm. GI: + bowel sounds, soft, NTTP, nondistended. INTEGUMENTARY: Normal, no lesion, rash, masses or bruising noted in extremities. MUSCULOSKELETAL: BUE and BLE normal without defect, crepitus, subluxation, effusion, arthritic changes or TTP. R 5/5 L 4+/5 ROM within functional limits Tone normal NEURO: CN III, IV, : EOMI however slightly slowed to the left CN V : Facial sensation is impaired on left CN VII : Left facial droop (upper and lower) Sensation intact in all extremities without extinction but is altered on the left. Coordination impaired on left with dysmetria of the LUE, normal on right. No tremor noted in 4 extremities. Odd movements not seen today, may be mild TD, mostly in arms when talking, no oral manifestations and not constant Naming and repetition intact. Follows 2 step commands. Aphasia not appreciated Dysarthria present Dysphagia present Neglect not appreciated POSTURE and GAIT: Sitting posture good. Sitting balance appears reasonable. Gait ataxic but improving. Psych: Affect appears euthymic. Insight appears intact, but does have some decreased safety awareness - Constitutional Vitals: Vital Signs - 12hr 11/30/19 12/01/19 12/01/19 23:10 07:31 08:31 Temperature 36.6 C Pulse Rate 70 74 74 Respiratory 18 Rate Blood Pressure 147/71 172/76 172/76 O2 Sat by Pulse 97 Oximetry - Allied health notes Allied health notes reviewed: nursing, PT, ST, OT FIMS assessment as documented by PT/OT/ST: Social interaction/Memory/Problem solving Social Interaction FIM Score 6. Mod. Rochert (Mostly appropriate. May need meds. No supv.) Memory FIM Score 5. Supervision (Needs cueing <10%, stressful/ unfamiliar situations.) Problem Solving FIM Score 5. Supervision (Needs cueing <10% to solve routine problems.) Transfers Mode of Locomotion: Wheelchair Bed/Chair/Wheelchair Transfers 5. Supervision (Needs supv. or set-up for FIM Score sliding board, foot rests.) Locomotion- walk/wheelchair Ambulation Distance 20 Eating Eating FIM Score 5. Supervision/Set-Up (Needs help w/ containers, cutting meat, etc.) Dressing-Upper body Patient retrieves clothing No items: Upper Body Dressing FIM Score 5. Supv./Set-Up (Philip sets out clothes or applies pros./orth.) Dressing-lower body Patient retrieves clothing No items: Lower Body Dressing FIM Score 5. Supv./Set-Up (Philip sets out clothes or applies pros./orth.) - Labs CBC & Chem 7: 11/23/19 11:20 12/01/19 07:43 Labs: Laboratory Results - last 72 hr 11/20/19 11/28/19 11/28/19 06:03 12:57 16:18 Sodium Potassium Chloride Carbon Dioxide Anion Gap BUN Creatinine Estimated GFR BUN/Creatinine Ratio Glucose POC Glucose 80 191 H 134 H Calcium Amidon 11/28/19 11/29/19 11/29/19 21:32 07:36 08:08 Sodium 144 Potassium 5.7 H Chloride 114.8 H Carbon Dioxide 20 L Anion Gap 15 BUN 25 H Creatinine 3.2 H Estimated GFR 18 BUN/Creatinine Ratio 8 Glucose 108 H POC Glucose 276 H 117 H Calcium 8.6 Amidon 11/29/19 11/29/19 11/29/19 12:46 16:35 20:42 Sodium Potassium 5.7 H Chloride Carbon Dioxide Anion Gap BUN Creatinine Estimated GFR BUN/Creatinine Ratio Glucose POC Glucose 257 H 116 H Calcium Amidon 11/29/19 11/30/19 11/30/19 21:44 07:21 07:21 Sodium 142 Potassium 5.1 H Chloride 109.4 H Carbon Dioxide 20 L Anion Gap 18 BUN 24 H Creatinine 3.0 H Estimated GFR 19 BUN/Creatinine Ratio 8 Glucose 165 H POC Glucose 208 H Calcium 8.5 Amidon 1.0 11/30/19 11/30/19 11/30/19 07:50 12:06 16:31 Sodium Potassium Chloride Carbon Dioxide Anion Gap BUN Creatinine Estimated GFR BUN/Creatinine Ratio Glucose POC Glucose 162 H 245 H 300 H Calcium Amidon 11/30/19 12/01/19 12/01/19 19:45 07:42 07:43 Sodium 144 Potassium 4.5 Chloride 111.6 H Carbon Dioxide 21 L Anion Gap 16 BUN 24 H Creatinine 2.7 H Estimated GFR 22 BUN/Creatinine Ratio 9 Glucose 137 H POC Glucose 125 H 147 H Calcium 8.0 L Amidon Assessment and Plan CVA: Continue secondary stroke prevention. Discussed with patient prognosis as well as secondary stroke prevention protocols. Monitor for neurologic decline, shoulder-hand syndrome, bowel or bladder issues, evidence of stroke recurrence, worsening of dysphagia Amidon toxicity: Amidon d/c'd. Normal saline IVF finished. Amidon within normal range, may restart at lower dose if ok with nephrology and psychiatry Hypertension: Continue medications and monitor blood pressure and adjust as needed for normotension. Diabetes: Continue carb controlled diet, sliding scale insulin and monitor/adjust medications as needed. Lantus d/c'd due to hypoglycemia and eating habits. Bipolar/PTSD: Continue medications. Supportive care and adjust as needed. Check lithium and Depakote levels as needed. Psychiatry consult for medication modification. Spoke with the psychiatrist's office. They state they only prescribed the lithium and did not know anything about the Abilify, depakote, or Seroquel. Also that they last saw her about 6mos ago and would not have continued any scripts more than 1 month without seeing her. She needs to see a geriatric psychiatrist for follow up. Will attempt to make appt with Dr Fatoumata Orlando at discharge. CKD: Avoid nephrotoxic medications. Monitor renal function. Renal diet Hyperkalemia 5.7 > Kayexelate given x3 > 5.1. Nephrology consult . Constipation: Continue medications and prn medications. Monitor for bowel movements and adjust as needed. Nausea/vomiting: Zofran as ordered. Patient relates this more so to anxiety. Cardiomyopathy and heart failure: Monitor for any signs of worsening cardiac function or chest pain. Cardiology consulted and rec medication changes. F/U as outpatient. Dysphagia: Continue modified diet. Advance as tolerated with guidance from LOCKSTITCH WAISTLINE JOINER. Aspiration precautions during meals. Dysarthria: Continue LOCKSTITCH WAISTLINE JOINER for improvement in functional ability to speak and breath control. Improved ADL dysfunction: OT will work on improving ability to perform ADLs (including assistive devices) to increase independence and decrease caregiver burden and improve functional transfers and mobility training. Difficulty walking: PT will work on gait training and proper use of assistive devices and advance as appropriate to use of stairs and outside ambulation on uneven surfaces. Unsteadiness on feet: PT will work on improving static and dynamic sitting and standing balance as well as proper use of assistive devices to decrease risk of falls. Abnormality of gait: PT will work to improve safety and efficiency of gait through neuromotor training and gait training along with instruction on proper use of assistive devices. Muscle weakness: PT & OT will work on strengthening exercises to improve functional strength including mixture of closed and open kinetic chain exercises. Fatigue: PT & OT will work on improving endurance through aerobic exercises and therapeutic activity while monitoring patients tolerance for activity and vital signs as needed. DVT ppx: Heparin TID Pain: Continue physical modalities in therapy and pain medications as needed to achieve functional pain control. Sleep: Monitor and address as needed. Bowel: Monitor and address as needed. Appetite: Monitor and address as needed. Discharge planning: Pending therapy progress and care plan meeting. Will continue discussion with therapy team, SW, patient and family. Look to d/c 12/08/2019 Restrictions/ Precautions: Falls, aspiration, possible seizure WB status: FWB Functional Hx: ADLs: Independent Cognition: Independent Mobility: No AD Barriers to Discharge: Decreased mobility and ability to perform self care, balance deficits, weakness Estimated Length of Stay: 1421 days Discharge Destination: Home with [place] [facility]
[2019-12-01] MEDS ORDERED: TUBERCULIN PPD 5 TUB UNIT/0.1 ML INJ ID ONE (13:11)
--- NOTE | 2019-12-01 19:12 | Consultation ---
History of Present Illness - Reason for Consult Consult date: 12/01/19 Reason for consult: Medication changes, bipolar, CKD 4 was on Li Requesting physician: MICHELLE LEVY III Medications and Allergies Allergies Allergy/AdvReac Type Severity Reaction Status Date / Time lisinopril Allergy Unknown Verified 07/27/19 09:29 promethazine HCl Allergy Shortness Verified 11/29/15 15:40 [From Phenergan] of Breath Home Medications Medication Instructions Recorded Confirmed Last Taken Type ARIPiprazole [Abilify TAB] 5 mg PO DAILY #30 tab 10/29/19 11/20/19 Unknown Rx Divalproex ER [Depakote ER] 500 mg PO QHS #30 tab 10/29/19 11/20/19 Unknown Rx Furosemide [Lasix TAB] 40 mg PO QDAY #30 tablet 10/29/19 11/20/19 Unknown Rx Insulin Detemir [Levemir VIAL] 25 unit SQ QHS #1 vial 10/29/19 11/20/19 Unknown Rx Lispro Insulin [HumaLOG] 1 dose SUB-Q ACHS PRN #1000 units 10/29/19 11/20/19 Unknown Rx Bowles Carbonate 300 mg PO BID #60 tab 10/29/19 11/20/19 Unknown Rx Pantoprazole [Protonix TAB] 40 mg PO QDAY #30 tablet 10/29/19 11/20/19 Unknown Rx Potassium Chloride [K-Dur] 20 meq PO QDAY #30 tablet 10/29/19 11/20/19 Unknown Rx QUEtiapine [SEROquel] 100 mg PO QHS #30 tablet 10/29/19 11/20/19 Unknown Rx amLODIPine 10 mg PO QDAY #30 tablet 10/29/19 11/20/19 Unknown Rx carvediloL [Coreg] 6.25 mg PO BID #60 tablet 10/29/19 11/20/19 Unknown Rx Aspirin 325 mg PO QDAY #30 tablet 11/10/19 11/20/19 Unknown Rx AtorvaSTATin [Lipitor] 40 mg PO QHS #30 tablet 11/10/19 11/20/19 Unknown Rx Active Meds: Active Medications Acetaminophen (Tylenol) 650 mg PO Q6H PRN PRN Reason: Non Cardiac Pain or Temp>100.5 Last Admin: 11/28/19 21:37 Dose: 650 mg Documented by: Acetaminophen/Hydrocodone Bitart (Warren 5/325) 0.5 each PO Q8H PRN PRN Reason: Pain, Moderate (4-6) Last Admin: 11/14/19 23:59 Dose: 0.5 each Documented by: Amlodipine Besylate (Amlodipine) 10 mg PO QDAY [facility] Last Admin: 12/01/19 08:31 Dose: 10 mg Documented by: Aripiprazole (Aripiprazole) 5 mg PO QDAY [facility] Last Admin: 12/01/19 08:30 Dose: 5 mg Documented by: Aspirin (Ecotrin) 325 mg PO QDAY [facility] Last Admin: 12/01/19 08:30 Dose: 325 mg Documented by: Atorvastatin Calcium (Lipitor) 40 mg PO QHS [facility] Last Admin: 11/30/19 23:03 Dose: 40 mg Documented by: Bisacodyl (Dulcolax) 5 mg PO QDAY [facility] Last Admin: 12/01/19 08:30 Dose: 5 mg Documented by: Bisacodyl (Dulcolax) 10 mg MN QDAY PRN PRN Reason: Constipation Last Admin: 11/18/19 20:36 Dose: 10 mg Documented by: Carvedilol (Coreg) 25 mg PO BID [facility] Last Admin: 12/01/19 08:31 Dose: 25 mg Documented by: Dextrose (D50w (25gm) Syringe) 50 ml IV Q30MIN PRN; Protocol PRN Reason: Hypoglycemia Last Admin: 11/27/19 08:21 Dose: 50 ml Documented by: Divalproex Sodium (Depakote Er) 500 mg PO QHS [facility] Last Admin: 11/30/19 23:03 Dose: 500 mg Documented by: Heparin Sodium (Porcine) (Heparin) 5,000 unit SUB-Q Q8HR [facility] Last Admin: 12/01/19 14:21 Dose: 5,000 unit Documented by: Hydralazine HCl (Apresoline) 10 mg IV Q4HR PRN PRN Reason: Hypertension Last Admin: 11/27/19 22:08 Dose: 10 mg Documented by: Insulin Human Lispro (Humalog) 0 unit SUB-Q ACHS [facility]; Protocol Last Admin: 12/01/19 14:32 Dose: 3 unit Documented by: Isosorbide Mononitrate (Imdur) 90 mg PO QDAY [facility] Last Admin: 12/01/19 08:31 Dose: 90 mg Documented by: Ondansetron HCl (Zofran Odt) 4 mg PO Q8H PRN PRN Reason: Nausea And Vomiting Last Admin: 11/21/19 10:56 Dose: 4 mg Documented by: Pantoprazole Sodium (Protonix) 40 mg PO QDAY [facility] Last Admin: 12/01/19 08:30 Dose: 40 mg Documented by: Polyethylene Glycol (Miralax [id number]) 17 gm PO QDAY PRN PRN Reason: Constipation Quetiapine Fumarate (Seroquel) 100 mg PO QHS [facility] Last Admin: 11/30/19 23:03 Dose: 100 mg Documented by: Mental Status Exam - Vital signs Last Vital Signs Temp 97.9 F 12/01/19 16:41 Pulse 60 12/01/19 16:41 Resp 18 12/01/19 16:41 BP 109/63 12/01/19 16:41 Pulse Ox 97 12/01/19 16:41 Results Result Diagrams: 11/23/19 11:20 12/01/19 07:43 Abnormal lab results 11/30/19 12/01/19 12/01/19 Range/Units 19:45 07:42 07:43 Chloride 111.6 H (98-107) mmol/L Carbon Dioxide 21 L (22-30) mmol/L BUN 24 H (7-17) mg/dL Creatinine 2.7 H (0.7-1.2) mg/dL Glucose 137 H (65-100) mg/dL POC Glucose 125 H 147 H (70-105) Calcium 8.0 L (8.4-10.2) mg/dL 12/01/19 12/01/19 Range/Units 11:56 16:51 Chloride (98-107) mmol/L Carbon Dioxide (22-30) mmol/L BUN (7-17) mg/dL Creatinine (0.7-1.2) mg/dL Glucose (65-100) mg/dL POC Glucose 251 H 208 H (70-105) Calcium (8.4-10.2) mg/dL All other labs normal.
[2019-12-01] MEDS: QUEtiapine 100 MG TAB PO SCH (21:35)
[2019-12-01] MEDS: DIVALPROEX ER 500 MG TAB PO SCH (21:39)
[2019-12-02] MEDS: HEPARIN 5,000 UNIT/1 ML VIAL SUB-Q SCH ×3 (05:30→21:24)
[2019-12-02 07:00] LABS: Calcium 8.5 mg/dL (8.4-10.2)
[2019-12-02] MEDS ORDERED: TUBERCULIN PPD 5 TUB UNIT/0.1 ML INJ ID NR (07:30)
[2019-12-02] MEDS: carvediloL 25 MG TAB PO SCH ×2 (08:50→21:24)
[2019-12-02] MEDS: FUROSEMIDE 20 MG TAB PO SCH (08:51)
[2019-12-02] MEDS: ASPIRIN EC 325 MG TAB PO SCH (08:51)
[2019-12-02] MEDS: ARIPiprazole 5 MG TAB PO SCH (08:51)
[2019-12-02] MEDS: amLODIPine 10 MG TAB PO SCH (08:51)
[2019-12-02] MEDS: PANTOPRAZOLE 40 MG TAB PO SCH (08:51)
[2019-12-02] MEDS: INSULIN LISPRO 100 UNIT/ML SUB-Q SCH ×4 (08:52→21:25)
--- NOTE | 2019-12-02 11:14 | Progress Note ---
Subjective Date of service: 12/02/19 Principal diagnosis: CVA Interval history: 64-year-old female who [facility] a [facility] a [facility] developed left-sided facial droop and slurred speech accompanied by paresthesias of the left side. Subsequent MRI head showed a small subacute infarct in the putamen and hill radiata on the right-hand side without hemorrhagic transformation. Patient was evaluated by therapy and deemed to be appropriate for acute inpatient rehabilitation. Medication levels including Depakote and lithium were checked. 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 She has a history of seizures in her 20s but has not had any in years. She was evaluated by neurology, cardiology, nephrology. Nephrology noted she had acute renal injury superimposed on CKD stage IV. Baseline creatinine is approximately not known. Cardiology was also consulted and provided more history. [facility] and has a history of bipolar disorder and posttraumatic stress disorder. Patient had atypical chest pain and was recommended to have further workup as an outpatient. Interval History Patient is participating in therapy and making reasonable progress. Taking rest breaks as needed. Denies pain, palpitations, dyspnea, cough, or joint pain. Nausea and vomiting intermittently, none this AM. +BM. Dysphagia: Diet advanced to regular CVA: no neurologic changes or s/s of SHS, PSD. Monitor Hyperkalemia resolved after several doses of Kayexalate. Diet changed to renal diet on advice of spool sorter. Appreciate the guidance. Also discussed with him today the possibility of adding further medication for blood pressure control and he suggests a diuretic which will also help to reduce potassium load. Continue to monitor. [place] level has normalized. After discussion with geriatric psychiatrist Dr Bowen, will hold off on lithium. Cont to treat with remaining medications per psych. Blood pressure elevated today (has been intermittently). Has typically been normotensive with a few spikes occasionally. Lasix started per nephrology. Still elevated this AM and required IV hydralazine. Monitor DM was better controlled on low dose lantus but she has variable eating pattern. Safer to continue on just SSI for now. Continue sliding scale. Changed to renal diet. Will have dietitian discuss with her. Continue to Monitor. Patient noted to need TB test prior to return to [facility]. All records, vitals, labs and medications were reviewed. No other issues per patient, nursing or therapy. Objective - Exam Narrative Exam: MUSCULOSKELETAL SPECIALTY EXAM CONSTITUTIONAL: Well developed, well nourished, appropriately groomed, thin. RIGHT hand dominant. RESPIRATORY: Clear to auscultation bilaterally, no increased work of breathing CARDIOVASCULAR: Regular Rate/ Rhythm, no swelling, edema or tenderness in BUE or BLE. All extremities warm. GI: + bowel sounds, soft, NTTP, nondistended. INTEGUMENTARY: Normal, no lesion, rash, masses or bruising noted in extremities. MUSCULOSKELETAL: BUE and BLE normal without defect, crepitus, subluxation, effusion, arthritic changes or TTP. R 5/5 L 4+/5 ROM within functional limits Tone normal NEURO: CN III, IV, : EOMI however slightly slowed to the left CN V : Facial sensation is impaired on left CN VII : Left facial droop (upper and lower) Sensation intact in all extremities without extinction but is altered on the left. Coordination impaired on left with dysmetria of the LUE, normal on right. No tremor noted in 4 extremities. Odd movements not seen today, mostly in arms when talking, no oral manifestations and not constant Naming and repetition intact. Follows 2 step commands. Aphasia not appreciated Dysarthria present Dysphagia present Neglect not appreciated POSTURE and GAIT: Sitting posture good. Sitting balance appears reasonable. Gait ataxic but improving. Psych: Affect appears euthymic. Insight appears intact, but does have some decreased safety awareness but this is improving - Constitutional Vitals: Vital Signs - 12hr 12/02/19 07:12 Temperature 36.5 C Pulse Rate 67 Respiratory 18 Rate Blood Pressure 177/85 O2 Sat by Pulse 96 Oximetry - Allied health notes Allied health notes reviewed: nursing, PT, ST, OT FIMS assessment as documented by PT/OT/ST: Social interaction/Memory/Problem solving Social Interaction FIM Score 5. Supervision (Needs supv. <10%. Needs encouragement to participate.) Memory FIM Score 5. Supervision (Needs cueing <10%, stressful/ unfamiliar situations.) Problem Solving FIM Score 5. Supervision (Needs cueing <10% to solve routine problems.) Transfers Mode of Locomotion: Wheelchair Bed/Chair/Wheelchair Transfers 4. Minimal Assistance (Patient = 75% or more. FIM Score Needs touching.) Locomotion- walk/wheelchair Ambulation Distance 20 Eating Eating FIM Score 5. Supervision/Set-Up (Needs help w/ containers, cutting meat, etc.) Dressing-Upper body Patient retrieves clothing No items: Upper Body Dressing FIM Score 4. Minimal Assistance (Patient = 75% or more. Needs touching.) Dressing-lower body Patient retrieves clothing No items: Lower Body Dressing FIM Score 4. Minimal Assistance (Patient = 75% or more. Needs touching.) - Labs CBC & Chem 7: 11/23/19 11:20 12/02/19 06:21 Labs: Laboratory Results - last 72 hr 11/29/19 11/29/19 11/29/19 12:46 16:35 20:42 Sodium Potassium 5.7 H Chloride Carbon Dioxide Anion Gap BUN Creatinine Estimated GFR BUN/Creatinine Ratio Glucose POC Glucose 257 H 116 H Calcium [place] 11/29/19 11/30/19 11/30/19 21:44 07:21 07:21 Sodium 142 Potassium 5.1 H Chloride 109.4 H Carbon Dioxide 20 L Anion Gap 18 BUN 24 H Creatinine 3.0 H Estimated GFR 19 BUN/Creatinine Ratio 8 Glucose 165 H POC Glucose 208 H Calcium 8.5 [place] 1.0 11/30/19 11/30/19 11/30/19 07:50 12:06 16:31 Sodium Potassium Chloride Carbon Dioxide Anion Gap BUN Creatinine Estimated GFR BUN/Creatinine Ratio Glucose POC Glucose 162 H 245 H 300 H Calcium [place] 11/30/19 12/01/19 12/01/19 19:45 07:42 07:43 Sodium 144 Potassium 4.5 Chloride 111.6 H Carbon Dioxide 21 L Anion Gap 16 BUN 24 H Creatinine 2.7 H Estimated GFR 22 BUN/Creatinine Ratio 9 Glucose 137 H POC Glucose 125 H 147 H Calcium 8.0 L [place] 12/01/19 12/01/19 12/01/19 11:56 16:51 20:25 Sodium Potassium Chloride Carbon Dioxide Anion Gap BUN Creatinine Estimated GFR BUN/Creatinine Ratio Glucose POC Glucose 251 H 208 H 207 H Calcium [place] 12/02/19 12/02/19 06:21 07:22 Sodium 144 Potassium 4.1 Chloride 110.9 H Carbon Dioxide 21 L Anion Gap 16 BUN 24 H Creatinine 2.9 H Estimated GFR 20 BUN/Creatinine Ratio 8 Glucose 137 H POC Glucose 139 H Calcium 8.5 [place] Assessment and Plan CVA: Continue secondary stroke prevention. Discussed with patient prognosis as well as secondary stroke prevention protocols. Monitor for neurologic decline, shoulder-hand syndrome, bowel or bladder issues, evidence of stroke recurrence, worsening of dysphagia [place] toxicity: [place] d/c'd. Normal saline IVF finished. Resolved. Ho0ld on restarting lithium due to renal fxn. Hypertension: Continue medications and monitor blood pressure and adjust as needed for normotension. Lasix added per nephrology Diabetes: Continue carb controlled diet, sliding scale insulin and monitor/adjust medications as needed. Lantus d/c'd due to hypoglycemia and eating habits. Bipolar/PTSD: Continue medications. Supportive care and adjust as needed. Check lithium and Depakote levels as needed. Psychiatry consult for medication modification. Spoke with the psychiatrist's office. They state they only prescribed the lithium and did not know anything about the Abilify, depakote, or Seroquel. Also that they last saw her about 6mos ago and would not have continued any scripts more than 1 month without seeing her. She needs to see a geriatric psychiatrist for follow up. Will attempt to make appt with Dr Fatoumata Orlando at discharge. CKD: Avoid nephrotoxic medications. Monitor renal function. Renal diet Hyperkalemia 5.7 > Kayexelate given x3 > 5.1. Nephrology consult . improved, monitor Constipation: Continue medications and prn medications. Monitor for bowel movements and adjust as needed. Nausea/vomiting: Zofran as ordered. Patient relates this more so to anxiety. Improved Cardiomyopathy and heart failure: Monitor for any signs of worsening cardiac function or chest pain. Cardiology consulted and rec medication changes. F/U as outpatient. Dysphagia: Advanced to regular diet by RESEARCH SUPPORT SPECIALIST. Monitor for Aspiration during meals. Dysarthria: Continue RESEARCH SUPPORT SPECIALIST for improvement in functional ability to speak and breath control. Improved ADL dysfunction: OT will work on improving ability to perform ADLs (including assistive devices) to increase independence and decrease caregiver burden and improve functional transfers and mobility training. Difficulty walking: PT will work on gait training and proper use of assistive devices and advance as appropriate to use of stairs and outside ambulation on uneven surfaces. Unsteadiness on feet: PT will work on improving static and dynamic sitting and standing balance as well as proper use of assistive devices to decrease risk of falls. Abnormality of gait: PT will work to improve safety and efficiency of gait through neuromotor training and gait training along with instruction on proper use of assistive devices. Muscle weakness: PT & OT will work on strengthening exercises to improve functional strength including mixture of closed and open kinetic chain exercises. Fatigue: PT & OT will work on improving endurance through aerobic exercises and therapeutic activity while monitoring patients tolerance for activity and vital signs as needed. DVT ppx: Heparin TID Pain: Continue physical modalities in therapy and pain medications as needed to achieve functional pain control. Sleep: Monitor and address as needed. Bowel: Monitor and address as needed. Appetite: Monitor and address as needed. Discharge planning: Pending therapy progress and care plan meeting. Will continue discussion with therapy team, SW, patient and family. Look to d/c 12/08/2019 Restrictions/ Precautions: Falls, aspiration, possible seizure WB status: FWB Functional Hx: ADLs: Independent Cognition: Independent Mobility: No AD Barriers to Discharge: Decreased mobility and ability to perform self care, balance deficits, weakness Estimated Length of Stay: 1421 days Discharge Destination: Home with [facility]
--- NOTE | 2019-12-02 12:48 | Progress Note ---
Subjective - Reason for Consult Consult date: 12/02/19 Reason for consult: Mental health management - Chief Complaint Chief complaint: History of Present Illness: Gretchen Rojo is a 64y/o female patient who says she's here because of a possible "heat attack and a stroke." During my interview today, the patient was sitting on side of the bed. Dressed appropriately. Good eye contact. She has some involuntary movements of her legs and arms. She is a/o x 3. She was pleasant, calm and cooperative. Mrs. Rojo says she requested psych because she needs to be set up with a psychiatrist on an outpatient basis. She says "it's been six months since she's seen a psychiatrist because they stopped taking my insurance." The patient says she's been seeing a psychiatrist since she was "about 11 years old for seeing her father murdered." She says to add to her situation she was "taken away from her mom." The patient says she is "concerned because doctors want to take her off her lithium." She says she's been on the lithium "for years." Mrs. Rojo says she's been "suicidal most of her life after her father was killed." She says she "associated with everything even love." She denies SI/HI at present, saying "that was then, but never again." The patient says she has now "learned self love and knows that is not it." She denies any history of elicit drug use, ETOH or nicotine. The patient also denies hallucinations of any kind. She says her mood is "good." The patient denies any problems with her sleep or appetite. PAST PSYCHIATRIC HISTORY: Diagnoses: Bipolar Suicide attempts or Self-harm behavior: denies Prior psychiatric hospitalizations:denies Substance Abuse history: denies Previous psychiatric medications tried: "Can't remember if any. Many years ago." Outpatient treatment: no REVIEW OF SYSTEMS Constitutional: Negative for weight loss ENT: Negative for stridor Respiratory: "cough at times" pt on 02 NC All other systems reviewed and are negative except respiratory PAST MEDICAL HISTORY: heart failure, diabetes, htn, kidney disease Family Psychiatric History None reported or documented SOCIAL HISTORY Marital Status: Living Arrangements: [facility] living Employment Status: retired Access to guns/weapons: Denies Education: College History of Abuse: Denies Legal History: Denies MSE Appearance: In bed. Appropriate clothing. Good eye contact. Involuntary movement Behavior: Pleasant, calm and cooperative Mood: "okay" Affect: consisted with mood Thought Process: Goal directed Speech: Normal tone and pace Thought Content Harmfulness Denies SI/HI Hallucinations: patient denies Delusions: none elicited Consciousness: Alert Cognition/Memory: Good Insight/Judgment: Good Assessment: Bipolar Disorder Treatment Plan No medications prescribed or ordered at this time Medical: Per primary team Disposition: The patient does not meet requirement for acute inpatient psychiatric hospitalization. May discharge home once medically clear. Lead Fire Protection Engineer to give patient resources for outpatient psychiatry to follow up within 7 to 10 days of discharge from hospital Will continue to follow Please call with any questions or concerns. Thank you for this consult. Mental Status Exam - Vital signs Last Vital Signs Temp 97.7 F 12/02/19 07:12 Pulse 67 12/02/19 07:12 Resp 18 12/02/19 07:12 BP 177/85 12/02/19 07:12 Pulse Ox 96 12/02/19 07:12
--- NOTE | 2019-12-02 14:24 | Progress Note ---
Assessment and Plan 1. 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 Renal function is around her baseline. Monitor renal function. Renal prognosis is guarded. Avoid nephrotoxic agents. Meds dosage based on GFR. 2. FEN: Hyperkalemia, improved. Low K diet. Metabolic acidosis, monitor. Monitor lytes. 3. Nephrotic range proteinuria: Likely from Diabetic nephropathy. 4. CVA. 5. DM type 2. 6. HTN: Monitor BP. Lasix added. 7. Normochromic anemia: POA. Examination: General appearance: well-developed, appears stated age, not in distress HEENT: ATNC, CAITY, mucous membranes moist, hearing intact, vision intact Neck: neck supple Respiratory: Clear to Ascultation Heart: regular, S1S2, no murmurs Gastrointestinal: soft, normoactive bowel sounds, not tender, not distended Integumentary: no rash, warm and dry Neurologic: no asterixis, alert and oriented x3, aphasia, L sided UMN type facial droop Ext: trace LE edema Psychiatric: cooperative Subjective Date of service: 12/02/19 Principal diagnosis: CVA Interval history: Patient was seen and examined at the chairside. Doing ok. Objective - Vital Signs Vital signs: Vital Signs - 12hr 12/02/19 07:12 Temperature 97.7 F Pulse Rate 67 Respiratory 18 Rate Blood Pressure 177/85 O2 Sat by Pulse 96 Oximetry - Lab 11/23/19 11:20 12/02/19 06:21 Most recent lab results Calcium 8.5 mg/dL (8.4-10.2) 12/02/19 06:21 Medications & Allergies - Medications Allergies/Adverse Reactions: Allergies lisinopril Allergy (Verified 07/27/19 09:29) Unknown promethazine HCl [From Phenergan] Allergy (Verified 11/29/15 15:40) Shortness of Breath Home Medications: Home Medications Medication Instructions Recorded Confirmed Last Taken Type ARIPiprazole [Abilify TAB] 5 mg PO DAILY #30 tab 10/29/19 11/20/19 Unknown Rx Divalproex ER [Depakote ER] 500 mg PO QHS #30 tab 10/29/19 11/20/19 Unknown Rx Furosemide [Lasix TAB] 40 mg PO QDAY #30 tablet 10/29/19 11/20/19 Unknown Rx Insulin Detemir [Levemir VIAL] 25 unit SQ QHS #1 vial 10/29/19 11/20/19 Unknown Rx Lispro Insulin [HumaLOG] 1 dose SUB-Q ACHS PRN #1000 units 10/29/19 11/20/19 Unknown Rx [place] Carbonate 300 mg PO BID #60 tab 10/29/19 11/20/19 Unknown Rx Pantoprazole [Protonix TAB] 40 mg PO QDAY #30 tablet 10/29/19 11/20/19 Unknown Rx Potassium Chloride [K-Dur] 20 meq PO QDAY #30 tablet 10/29/19 11/20/19 Unknown Rx QUEtiapine [SEROquel] 100 mg PO QHS #30 tablet 10/29/19 11/20/19 Unknown Rx amLODIPine 10 mg PO QDAY #30 tablet 10/29/19 11/20/19 Unknown Rx carvediloL [Coreg] 6.25 mg PO BID #60 tablet 10/29/19 11/20/19 Unknown Rx Aspirin 325 mg PO QDAY #30 tablet 11/10/19 11/20/19 Unknown Rx AtorvaSTATin [Lipitor] 40 mg PO QHS #30 tablet 11/10/19 11/20/19 Unknown Rx Active Medications: Generic Name Dose Route Start Last Admin Trade Name Freq PRN Reason Stop Dose Admin Acetaminophen 650 mg 11/14/19 17:34 11/28/19 21:37 Tylenol PO 650 mg Q6H PRN Administration Non Cardiac Pain or Temp>100.5 Acetaminophen/Hydrocodone Bitart 0.5 each 11/14/19 17:48 11/14/19 23:59 [place] 5/325 PO 0.5 each Q8H PRN Administration Pain, Moderate (4-6) Amlodipine Besylate 10 mg 11/15/19 08:00 12/02/19 08:51 Amlodipine PO 10 mg QDAY HARVEY Administration Aripiprazole 5 mg 11/15/19 08:00 12/02/19 08:51 Aripiprazole PO 5 mg QDAY HARVEY Administration Aspirin 325 mg 11/15/19 08:00 12/02/19 08:51 Ecotrin PO 325 mg QDAY HARVEY Administration Atorvastatin Calcium 40 mg 11/14/19 21:00 12/01/19 21:35 Lipitor PO 40 mg QHS HARVEY Administration Bisacodyl 5 mg 11/15/19 08:00 12/02/19 08:51 Dulcolax PO 5 mg QDAY HARVEY Administration Bisacodyl 10 mg 11/14/19 17:34 11/18/19 20:36 Dulcolax NC 10 mg QDAY PRN Administration Constipation Carvedilol 25 mg 11/26/19 22:00 12/02/19 08:50 Coreg PO 25 mg BID HARVEY Administration Dextrose 50 ml 11/14/19 17:22 11/27/19 08:21 D50w (25gm) Syringe IV 50 ml Q30MIN PRN Administration Hypoglycemia Protocol Divalproex Sodium 500 mg 11/14/19 21:00 12/01/19 21:39 Depakote Er PO 500 mg QHS HARVEY Administration Furosemide 20 mg 12/02/19 08:00 12/02/19 08:51 Lasix PO 20 mg QDAY HARVEY Administration Heparin Sodium (Porcine) 5,000 unit 11/14/19 22:00 12/02/19 05:30 Heparin SUB-Q 5,000 unit Q8HR HARVEY Administration Hydralazine HCl 10 mg 11/14/19 17:34 11/27/19 22:08 Apresoline IV 10 mg Q4HR PRN Administration Hypertension Insulin Human Lispro 0 unit 11/14/19 22:00 12/02/19 12:52 Humalog SUB-Q 1 unit ACHS HARVEY Administration Protocol Isosorbide Mononitrate 90 mg 11/27/19 08:00 12/02/19 08:51 Imdur PO 90 mg QDAY HARVEY Administration Ondansetron HCl 4 mg 11/14/19 17:34 11/21/19 10:56 Zofran Odt PO 4 mg Q8H PRN Administration Nausea And Vomiting Pantoprazole Sodium 40 mg 11/15/19 08:00 12/02/19 08:51 Protonix PO 40 mg QDAY HARVEY Administration Polyethylene Glycol 17 gm 11/14/19 17:34 Miralax 3350 PO QDAY PRN Constipation Quetiapine Fumarate 100 mg 11/14/19 21:00 12/01/19 21:35 Seroquel PO 100 mg QHS HARVEY Administration
[2019-12-02] MEDS: DIVALPROEX ER 500 MG TAB PO SCH (21:24)
[2019-12-02] MEDS: QUEtiapine 100 MG TAB PO SCH (21:24)
[2019-12-03] MEDS: HEPARIN 5,000 UNIT/1 ML VIAL SUB-Q SCH ×3 (06:03→21:41)
[2019-12-03] MEDS: INSULIN LISPRO 100 UNIT/ML SUB-Q SCH ×4 (08:14→23:16)
[2019-12-03] MEDS: FUROSEMIDE 20 MG TAB PO SCH (08:14)
[2019-12-03] MEDS: ARIPiprazole 5 MG TAB PO SCH (08:14)
[2019-12-03] MEDS: PANTOPRAZOLE 40 MG TAB PO SCH (08:14)
[2019-12-03] MEDS: carvediloL 25 MG TAB PO SCH ×2 (08:14→21:41)
[2019-12-03] MEDS: amLODIPine 10 MG TAB PO SCH (08:14)
[2019-12-03] MEDS: ASPIRIN EC 325 MG TAB PO SCH (08:14)
[2019-12-03] MEDS ORDERED: diphenhydrAMINE 25 MG CAP PO PRN (08:28)
[2019-12-03] MEDS: predniSONE 20 MG TAB PO SCH ×2 (09:24→21:41)
--- NOTE | 2019-12-03 12:53 | Progress Note ---
Subjective - Reason for Consult Consult date: 12/03/19 Reason for consult: Manage mental health - Chief Complaint Chief complaint: During my interview with the patient this morning, she is sitting in the chair. Awake. A/o x 3. She is pleasant, calm and cooperative. She makes good eye contact. She is still concerned about finding a psychiatrist who can handle her medications and what medication she will be started on since her lithium is discontinued. The patient says "so far I've been fine, but I can no longer take my lithium and not sure what the doctor will start." She says she's "pretty happy at the long-term where she lives." She says her mood is "okay," but says "sometimes I get lonely." Mrs. Rojo says she "slept well, but had some dreams." She denies SI/HI, or hallucinations of any kind. REVIEW OF SYSTEMS Constitutional: Negative for weight loss ENT: Negative for stridor Respiratory: Negative for cough All other systems reviewed and are negative MSE Appearance: In chair. Appropriate clothing. Good eye contact. Behavior: Pleasant, calm and cooperative Mood: "okay" Affect: consisted with mood Thought Process: Goal directed Speech: Normal tone and pace Thought Content Harmfulness Denies SI/HI Hallucinations: patient denies Delusions: none elicited Consciousness: Alert Cognition/Memory: Good Insight/Judgment: Good Assessment: Bipolar Disorder Treatment Plan Continue current home medications No lithium at this time Medical: Per primary team Disposition: The patient does not meet requirement for acute inpatient psychiatric hospitalization. May discharge home once medically clear. Logging Supervisor to give patient resources for outpatient psychiatry to follow up within 7 to 10 days of discharge from hospital Will continue to follow Please call with any questions or concerns. Mental Status Exam - Vital signs Last Vital Signs Temp 97.4 F L 12/03/19 07:27 Pulse 62 12/03/19 07:27 Resp 18 12/03/19 07:27 BP 156/81 12/03/19 07:27 Pulse Ox 21 L 12/03/19 08:58
[2019-12-03 13:32] LABS: Hematocrit 24.3 % (30.3-42.9); Hemoglobin 7.9 gm/dl (10.1-14.3); Mean Corpuscular HGB Conc 33 % (30-34); Mean Corpuscular Volume 85 fl (79-97); Platelet Count 170 K/mm3 (140-440); Red Blood Count 2.86 M/mm3 (3.65-5.03); Red Cell Distribution Width 15.6 % (13.2-15.2)
[2019-12-03 13:50] LABS: Calcium 8.4 mg/dL (8.4-10.2)
--- NOTE | 2019-12-03 14:00 | Progress Note ---
Assessment and Plan 1. 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 Renal function is around her baseline. Monitor renal function. Renal prognosis is guarded. Avoid nephrotoxic agents. Meds dosage based on GFR. 2. FEN: Hyperkalemia, improved. Low K diet. Metabolic acidosis, monitor. Monitor lytes. 3. Nephrotic range proteinuria: Likely from Diabetic nephropathy. Unable to give ACEI / ARB due to hyperkalemia and advanced CKD. Need further workup as outpatient. 4. CVA. 5. DM type 2. 6. HTN: Monitor BP. Increase Lasix. 7. Normochromic anemia: POA. Also d/w . Examination: General appearance: well-developed, appears stated age, not in distress HEENT: ATNC, CAITY, mucous membranes moist, hearing intact, vision intact Neck: neck supple Respiratory: Clear to Ascultation Heart: regular, S1S2, no murmurs Gastrointestinal: soft, normoactive bowel sounds, not tender, not distended Integumentary: no rash, warm and dry Neurologic: no asterixis, alert and oriented x3, aphasia, L sided UMN type facial droop Ext: trace LE edema Psychiatric: cooperative Subjective Date of service: 12/03/19 Principal diagnosis: CVA Interval history: Patient was seen and examined at the bedside. Doing ok. Objective - Vital Signs Vital signs: Vital Signs - 12hr 12/03/19 12/03/19 07:27 08:58 Temperature 97.4 F L Pulse Rate 62 Respiratory 18 Rate Blood Pressure 156/81 O2 Sat by Pulse 100 21 L Oximetry - Lab 12/03/19 12:25 12/03/19 12:25 Most recent lab results Calcium 8.4 mg/dL (8.4-10.2) 12/03/19 12:25 Medications & Allergies - Medications Allergies/Adverse Reactions: Allergies lisinopril Allergy (Verified 07/27/19 09:29) Unknown promethazine HCl [From Phenergan] Allergy (Verified 11/29/15 15:40) Shortness of Breath Home Medications: Home Medications Medication Instructions Recorded Confirmed Last Taken Type ARIPiprazole [Abilify TAB] 5 mg PO DAILY #30 tab 10/29/19 11/20/19 Unknown Rx Divalproex ER [Depakote ER] 500 mg PO QHS #30 tab 10/29/19 11/20/19 Unknown Rx Furosemide [Lasix TAB] 40 mg PO QDAY #30 tablet 10/29/19 11/20/19 Unknown Rx Insulin Detemir [Levemir VIAL] 25 unit SQ QHS #1 vial 10/29/19 11/20/19 Unknown Rx Lispro Insulin [HumaLOG] 1 dose SUB-Q ACHS PRN #1000 units 10/29/19 11/20/19 Unknown Rx [place] Carbonate 300 mg PO BID #60 tab 10/29/19 11/20/19 Unknown Rx Pantoprazole [Protonix TAB] 40 mg PO QDAY #30 tablet 10/29/19 11/20/19 Unknown Rx Potassium Chloride [K-Dur] 20 meq PO QDAY #30 tablet 10/29/19 11/20/19 Unknown Rx QUEtiapine [SEROquel] 100 mg PO QHS #30 tablet 10/29/19 11/20/19 Unknown Rx amLODIPine 10 mg PO QDAY #30 tablet 10/29/19 11/20/19 Unknown Rx carvediloL [Coreg] 6.25 mg PO BID #60 tablet 10/29/19 11/20/19 Unknown Rx Aspirin 325 mg PO QDAY #30 tablet 11/10/19 11/20/19 Unknown Rx AtorvaSTATin [Lipitor] 40 mg PO QHS #30 tablet 11/10/19 11/20/19 Unknown Rx Active Medications: Generic Name Dose Route Start Last Admin Trade Name Freq PRN Reason Stop Dose Admin Acetaminophen 650 mg 11/14/19 17:34 11/28/19 21:37 Tylenol PO 650 mg Q6H PRN Administration Non Cardiac Pain or Temp>100.5 Acetaminophen/Hydrocodone Bitart 0.5 each 11/14/19 17:48 11/14/19 23:59 [place] 5/325 PO 0.5 each Q8H PRN Administration Pain, Moderate (4-6) Amlodipine Besylate 10 mg 11/15/19 08:00 12/03/19 08:14 Amlodipine PO 10 mg QDAY HARVEY Administration Aripiprazole 5 mg 11/15/19 08:00 12/03/19 08:14 Aripiprazole PO 5 mg QDAY HARVEY Administration Aspirin 325 mg 11/15/19 08:00 12/03/19 08:14 Ecotrin PO 325 mg QDAY HARVEY Administration Atorvastatin Calcium 40 mg 11/14/19 21:00 12/02/19 21:24 Lipitor PO 40 mg QHS HARVEY Administration Bisacodyl 5 mg 11/15/19 08:00 12/03/19 08:14 Dulcolax PO 5 mg QDAY HARVEY Administration Bisacodyl 10 mg 11/14/19 17:34 11/18/19 20:36 Dulcolax [place] 10 mg QDAY PRN Administration Constipation Carvedilol 25 mg 11/26/19 22:00 12/03/19 08:14 Coreg PO 25 mg BID HARVEY Administration Dextrose 50 ml 11/14/19 17:22 11/27/19 08:21 D50w (25gm) Syringe IV 50 ml Q30MIN PRN Administration Hypoglycemia Protocol Diphenhydramine HCl 25 mg 12/03/19 08:28 12/03/19 09:24 Benadryl PO 25 mg Q8H PRN Administration Itching Divalproex Sodium 500 mg 11/14/19 21:00 12/02/19 21:24 Depakote Er PO 500 mg QHS HARVEY Administration Furosemide 20 mg 12/02/19 08:00 12/03/19 08:14 Lasix PO 20 mg QDAY HARVEY Administration Heparin Sodium (Porcine) 5,000 unit 11/14/19 22:00 12/03/19 13:49 Heparin SUB-Q 5,000 unit Q8HR HARVEY Administration Hydralazine HCl 10 mg 11/14/19 17:34 11/27/19 22:08 Apresoline IV 10 mg Q4HR PRN Administration Hypertension Insulin Human Lispro 0 unit 11/14/19 22:00 12/03/19 11:40 Humalog SUB-Q 2 unit ACHS HARVEY Administration Protocol Isosorbide Mononitrate 90 mg 11/27/19 08:00 12/03/19 08:11 Imdur PO 90 mg QDAY HARVEY Administration Ondansetron HCl 4 mg 11/14/19 17:34 11/21/19 10:56 Zofran Odt PO 4 mg Q8H PRN Administration Nausea And Vomiting Pantoprazole Sodium 40 mg 11/15/19 08:00 12/03/19 08:14 Protonix PO 40 mg QDAY HARVEY Administration Polyethylene Glycol 17 gm 11/14/19 17:34 Miralax 3350 PO QDAY PRN Constipation Prednisone 20 mg 12/03/19 09:00 12/03/19 09:24 Deltasone PO 20 mg BID HARVEY Administration Quetiapine Fumarate 100 mg 11/14/19 21:00 12/02/19 21:24 Seroquel PO 100 mg QHS HARVEY Administration
[2019-12-03] MEDS ORDERED: FUROSEMIDE 20 MG TAB PO SCH (15:00)
--- NOTE | 2019-12-03 15:09 | Progress Note ---
Subjective Date of service: 12/03/19 Principal diagnosis: CVA Interval history: 64-year-old female who was a resident at a assisted developed left-sided facial droop and slurred speech accompanied by paresthesias of the left side. Subsequent MRI head showed a small subacute infarct in the putamen and hill radiata on the right-hand side without hemorrhagic transformation. Patient was evaluated by therapy and deemed to be appropriate for acute inpatient rehabilitation. Medication levels including Depakote and lithium were checked. 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 She has a history of seizures in her 20s but has not had any in years. She was evaluated by neurology, cardiology, nephrology. Nephrology noted she had acute renal injury superimposed on CKD stage IV. Baseline creatinine is approximately not known. Cardiology was also consulted and provided more history. Patient lives in [facility] and has a history of bipolar disorder and posttraumatic stress disorder. Patient had atypical chest pain and was recommended to have further workup as an outpatient. Interval History Patient is participating in therapy and making reasonable progress. Taking rest breaks as needed. Denies pain, palpitations, dyspnea, cough, or joint pain. Nausea and vomiting intermittently, none this AM. +BM. Called this morning about facial swelling. Asked nursing to obtain photograph in place in the record. Nursing denied any difficulty rebreathing, vitals were stable, did not appear to be a full on episode of anaphylaxis. Started Benadryl and prednisone. Once I was in and able to see the patient swelling has decreased tremendously from earlier picture which is in the chart. Appears to be characteristic of nephrotic syndrome swelling. Does not have any swelling in the lower extremities which I would've expected to see. We'll de-escalate steroids and monitor for further improvement. Spoke with nephrology (Dr. Evangelista) concerning the issue. He will continue to monitor her as well and we'll adjust medications accordingly. Also discussed her discharge and follow-up appointments with him. Discussed discharge issues with the patient as well as morning. Informed her she would need to follow-up with nephrology, neurology, cardiology and geriatric psych in addition to her normal visits with her primary care physician. Dysphagia: Diet advanced to regular, no issues with aspiration noted CVA: no neurologic changes or s/s of SHS, PSD. Monitor Hyperkalemia resolved after several doses of Kayexalate. Diet changed to renal diet on advice of call center rn. Appreciate the guidance. Also discussed with him today the possibility of adding further medication for blood pressure control and he suggests a diuretic which will also help to reduce potassium load. Continue to monitor. Fowler level has normalized. After discussion with geriatric psychiatrist Dr Bowen, will hold off on lithium. Cont to treat with remaining medications per psych. Blood pressure somewhat better controlled today still occasionally is elevated (has been intermittently). Monitor DM was better controlled on low dose lantus but she has variable eating pattern. Safer to continue on just SSI for now. Continue sliding scale. Changed to renal diet. Will have dietitian discuss with her. Continue to Monitor. Patient noted to need TB test prior to return to assisted. This has been placed, will read when appropriate. Also received notice from the assisted but they are ready and willing to accept her back. All records, vitals, labs and medications were reviewed. No other issues per patient, nursing or therapy. Objective - Exam Narrative Exam: MUSCULOSKELETAL SPECIALTY EXAM CONSTITUTIONAL: Well developed, well nourished, appropriately groomed, thin. RIGHT hand dominant. Face: Swelling has decreased tremendously from this morning. RESPIRATORY: Clear to auscultation bilaterally, no increased work of breathing CARDIOVASCULAR: Regular Rate/ Rhythm, no swelling, edema or tenderness in BUE or BLE. All extremities warm. GI: + bowel sounds, soft, NTTP, nondistended. INTEGUMENTARY: Face, trunk, extremities all inspected for any signs of rash and none found. Otherwise, Normal, no lesion, rash, masses or bruising noted in extremities. MUSCULOSKELETAL: BUE and BLE normal without defect, crepitus, subluxation, effusion, arthritic changes or TTP. R 5/5 L 4+/5 ROM within functional limits Tone normal NEURO: CN III, IV, : EOMI however slightly slowed to the left CN V : Facial sensation is impaired on left CN VII : Left facial droop (upper and lower) Sensation intact in all extremities without extinction but is altered on the left. Coordination impaired on left with dysmetria of the LUE, normal on right. No tremor noted in 4 extremities. Odd movements not seen today, mostly in arms when talking, no oral manifestations and not constant Naming and repetition intact. Follows 2 step commands. Aphasia not appreciated Dysarthria present Dysphagia present Neglect not appreciated POSTURE and GAIT: Sitting posture good. Sitting balance appears reasonable. Gait ataxic but improving. Psych: Affect appears euthymic. Insight appears intact, but does have some decreased safety awareness but this is improving - Constitutional Vitals: Vital Signs - 12hr 12/03/19 12/03/19 07:27 08:58 Temperature 36.3 C L Pulse Rate 62 Respiratory 18 Rate Blood Pressure 156/81 O2 Sat by Pulse 100 21 L Oximetry - Allied health notes Allied health notes reviewed: nursing, PT, ST, OT FIMS assessment as documented by PT/OT/ST: Social interaction/Memory/Problem solving Social Interaction FIM Score 5. Supervision (Needs supv. <10%. Needs encouragement to participate.) Memory FIM Score 6. Modified [place](Mild difficulty remembering people/routines.) Problem Solving FIM Score 5. Supervision (Needs cueing <10% to solve routine problems.) Transfers Mode of Locomotion: Wheelchair Bed/Chair/Wheelchair Transfers 5. Supervision (Needs supv. or set-up for FIM Score sliding board, foot rests.) Locomotion- walk/wheelchair Ambulation Distance 20 Eating Eating FIM Score 5. Supervision/Set-Up (Needs help w/ containers, cutting meat, etc.) Dressing-Upper body Patient retrieves clothing Yes items: Upper Body Dressing FIM Score 5. Supv./Set-Up ([place] sets out clothes or applies pros./orth.) Dressing-lower body Patient retrieves clothing Yes items: Lower Body Dressing FIM Score 5. Supv./Set-Up ([place] sets out clothes or applies pros./orth.) - Labs CBC & Chem 7: 12/03/19 12:25 12/03/19 12:25 Labs: Laboratory Results - last 72 hr 11/30/19 11/30/19 12/01/19 16:31 19:45 07:42 WBC RBC Hgb Hct MCV MCH MCHC RDW Plt Count Sodium Potassium Chloride Carbon Dioxide Anion Gap BUN Creatinine Estimated GFR BUN/Creatinine Ratio Glucose POC Glucose 300 H 125 H 147 H Calcium 12/01/19 12/01/19 12/01/19 07:43 11:56 16:51 WBC RBC Hgb Hct MCV MCH MCHC RDW Plt Count Sodium 144 Potassium 4.5 Chloride 111.6 H Carbon Dioxide 21 L Anion Gap 16 BUN 24 H Creatinine 2.7 H Estimated GFR 22 BUN/Creatinine Ratio 9 Glucose 137 H POC Glucose 251 H 208 H Calcium 8.0 L 12/01/19 12/02/19 12/02/19 20:25 06:21 07:22 WBC RBC Hgb Hct MCV MCH MCHC RDW Plt Count Sodium 144 Potassium 4.1 Chloride 110.9 H Carbon Dioxide 21 L Anion Gap 16 BUN 24 H Creatinine 2.9 H Estimated GFR 20 BUN/Creatinine Ratio 8 Glucose 137 H POC Glucose 207 H 139 H Calcium 8.5 12/02/19 12/02/19 12/02/19 11:29 16:35 19:32 WBC RBC Hgb Hct MCV MCH MCHC RDW Plt Count Sodium Potassium Chloride Carbon Dioxide Anion Gap BUN Creatinine Estimated GFR BUN/Creatinine Ratio Glucose POC Glucose 157 H 191 H 332 H Calcium 12/03/19 12/03/19 12/03/19 07:40 11:33 12:25 WBC 7.7 RBC 2.86 L Hgb 7.9 L Hct 24.3 L MCV 85 MCH 28 MCHC 33 RDW 15.6 H Plt Count 170 Sodium Potassium Chloride Carbon Dioxide Anion Gap BUN Creatinine Estimated GFR BUN/Creatinine Ratio Glucose POC Glucose 111 H 211 H Calcium 12/03/19 12:25 WBC RBC Hgb Hct MCV MCH MCHC RDW Plt Count Sodium 141 Potassium 4.1 Chloride 107.9 H Carbon Dioxide 20 L Anion Gap 17 BUN 23 H Creatinine 2.6 H Estimated GFR 22 BUN/Creatinine Ratio 9 Glucose 177 H POC Glucose Calcium 8.4 Assessment and Plan CVA: Continue secondary stroke prevention. Discussed with patient prognosis as well as secondary stroke prevention protocols. Monitor for neurologic decline, shoulder-hand syndrome, bowel or bladder issues, evidence of stroke recurrence, worsening of dysphagia Fowler toxicity: Fowler d/c'd. Normal saline IVF finished. Resolved. Hold on restarting lithium due to renal fxn. Hypertension: Continue medications and monitor blood pressure and adjust as needed for normotension. Lasix added per nephrology Diabetes: Continue carb controlled diet, sliding scale insulin and monit or/adjust medications as needed. Lantus d/c'd due to hypoglycemia and eating habits. Bipolar/PTSD: Continue medications. Supportive care and adjust as needed. Check lithium and Depakote levels as needed. Psychiatry consult for medication modification. Spoke with the psychiatrist's office. They state they only prescribed the lithium and did not know anything about the Abilify, depakote, or Seroquel. Also that they last saw her about 6mos ago and would not have continued any scripts more than 1 month without seeing her. She needs to see a geriatric psychiatrist for follow up. Will attempt to make appt with Dr Fatoumata Orlando at discharge. CKD: Avoid nephrotoxic medications. Monitor renal function. Renal diet Hyperkalemia 5.7 > Kayexelate given x3 > 5.1. Nephrology consult . improved, monitor Constipation: Continue medications and prn medications. Monitor for bowel movements and adjust as needed. Nausea/vomiting: Zofran as ordered. Patient relates this more so to anxiety. Improved Cardiomyopathy and heart failure: Monitor for any signs of worsening cardiac function or chest pain. Cardiology consulted and rec medication changes. F/U as outpatient. Dysphagia: Advanced to regular diet by CLINICAL DOCUMENTATION MANAGER. Monitor for Aspiration during meals. Dysarthria: Continue CLINICAL DOCUMENTATION MANAGER for improvement in functional ability to speak and breath control. Improved ADL dysfunction: OT will work on improving ability to perform ADLs (including assistive devices) to increase independence and decrease caregiver burden and improve functional transfers and mobility training. Difficulty walking: PT will work on gait training and proper use of assistive devices and advance as appropriate to use of stairs and outside ambulation on uneven surfaces. Unsteadiness on feet: PT will work on improving static and dynamic sitting and standing balance as well as proper use of assistive devices to decrease risk of falls. Abnormality of gait: PT will work to improve safety and efficiency of gait thro h neuromotor training and gait training along with instruction on proper use of assistive devices. Muscle weakness: PT & OT will work on strengthening exercises to improve functional strength including mixture of closed and open kinetic chain exercises. Fatigue: PT & OT will work on improving endurance through aerobic exercises and therapeutic activity while monitoring patients tolerance for activity and vital signs as needed. DVT ppx: Heparin TID Pain: Continue physical modalities in therapy and pain medications as needed to achieve functional pain control. Sleep: Monitor and address as needed. Bowel: Monitor and address as needed. Appetite: Monitor and address as needed. Discharge planning: Pending therapy progress and care plan meeting. Will continue discussion with therapy team, SW, patient and family. Look to d/c 12/08/2019 Restrictions/ Precautions: Falls, aspiration, possible seizure WB status: FWB Functional Hx: ADLs: Independent Cognition: Independent Mobility: No AD Barriers to Discharge: Decreased mobility and ability to perform self care, balance deficits, weakness Estimated Length of Stay: 1421 days Discharge Destination: Home with assisted
[2019-12-03] MEDS: FUROSEMIDE 40 MG TAB PO SCH (16:34)
[2019-12-03 18:20] LABS: Albumin 3.1 g/dL (3.9-5); Calcium 8.4 mg/dL (8.4-10.2)
[2019-12-03] MEDS: DIVALPROEX ER 500 MG TAB PO SCH (21:41)
[2019-12-03] MEDS: QUEtiapine 100 MG TAB PO SCH (21:41)
[2019-12-04] MEDS: hydrALAZINE 20 MG/1 ML INJ IV PRN (00:16)
[2019-12-04] MEDS: HEPARIN 5,000 UNIT/1 ML VIAL SUB-Q SCH ×3 (05:22→21:27)
[2019-12-04] MEDS: FUROSEMIDE 40 MG TAB PO SCH (05:22)
[2019-12-04] MEDS: PANTOPRAZOLE 40 MG TAB PO SCH (08:15)
[2019-12-04] MEDS: ARIPiprazole 5 MG TAB PO SCH (08:15)
[2019-12-04] MEDS: predniSONE 20 MG TAB PO SCH (08:15)
[2019-12-04] MEDS: ASPIRIN EC 325 MG TAB PO SCH (08:15)
[2019-12-04] MEDS: amLODIPine 10 MG TAB PO SCH (08:15)
[2019-12-04] MEDS: carvediloL 25 MG TAB PO SCH ×2 (08:16→21:26)
[2019-12-04] MEDS: INSULIN LISPRO 100 UNIT/ML SUB-Q SCH ×4 (08:40→23:24)
--- NOTE | 2019-12-04 10:33 | Progress Note ---
Subjective - Reason for Consult Consult date: 12/04/19 Reason for consult: Manage mental health - Chief Complaint Chief complaint: During my interview with the patient this morning, the patient is lying in bed. Asleep. Easily arouses. She is dressed appropriately. She makes good eye contact. She says her mood is "pretty stable." She says she "slept okay." Mrs. Rojo says her appetite is "okay," but says she "doesn't like the food." She denies SI/HI or hallucinations of any kind. REVIEW OF SYSTEMS Constitutional: Negative for weight loss ENT: Negative for stridor Respiratory: Negative for cough All other systems reviewed and are negative MSE Appearance: In chair. Appropriate clothing. Good eye contact. Behavior: Pleasant, calm and cooperative Mood: "pretty stable" Affect: consisted with mood Thought Process: Goal directed Speech: Normal tone and pace Thought Content Harmfulness Denies SI/HI Hallucinations: patient denies Delusions: none elicited Consciousness: Alert Cognition/Memory: Fair Insight/Judgment: Good Assessment: Bipolar Disorder Treatment Plan Continue current home medications No lithium at this time Medical: Per primary team Disposition: The patient does not meet requirement for acute inpatient psychiatric hospitalization. May discharge home once medically clear. The patient was given resources to establish and follow up with outpatient psychiatry. Will continue to follow until discharged Please call with any questions or concerns. Mental Status Exam - Vital signs Last Vital Signs Temp 98.1 F 12/04/19 07:32 Pulse 69 12/04/19 08:16 Resp 18 12/04/19 07:32 BP 150/56 12/04/19 08:16 Pulse Ox 98 12/04/19 07:32
--- NOTE | 2019-12-04 11:27 | Progress Note ---
Assessment and Plan 1. 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 Renal function is around her baseline. Monitor renal function. Renal prognosis is guarded. Avoid nephrotoxic agents. Meds dosage based on GFR. 2. FEN: Hyperkalemia, improved. Low K diet. Metabolic acidosis, monitor. Monitor lytes. 3. Nephrotic range proteinuria: Likely from Diabetic nephropathy. Unable to give ACEI / ARB due to hyperkalemia and advanced CKD. Need further workup as outpatient. 4. CVA. 5. DM type 2. 6. HTN: Monitor BP. 7. Normochromic anemia: POA. Subjective Date of service: 12/04/19 Principal diagnosis: CVA Interval history: Patient was not examined today. However the current and previous medical records are reviewed in detail as are laboratory and imaging data reviewed when appropriate. Medications being given are also reviewed. In addition the case has been discussed with the attending hospitalist when needed.Newrenalrecommendations as above. Objective - Vital Signs Vital signs: Vital Signs - 12hr 12/04/19 12/04/19 12/04/19 00:03 00:16 04:35 Temperature 97.9 F 97.9 F Pulse Rate 70 70 70 Respiratory 20 20 Rate Blood Pressure 172/82 172/82 135/60 O2 Sat by Pulse 96 95 Oximetry 12/04/19 12/04/19 12/04/19 07:32 08:15 08:16 Temperature 98.1 F Pulse Rate 69 69 69 Respiratory 18 Rate Blood Pressure 150/56 150/56 150/56 O2 Sat by Pulse 98 Oximetry - Lab 12/03/19 12:25 12/03/19 17:43 Most recent lab results Calcium 8.4 mg/dL (8.4-10.2) 12/03/19 17:43 Medications & Allergies - Medications Allergies/Adverse Reactions: Allergies lisinopril Allergy (Verified 07/27/19 09:29) Unknown promethazine HCl [From Phenergan] Allergy (Verified 11/29/15 15:40) Shortness of Breath Home Medications: Home Medications Medication Instructions Recorded Confirmed Last Taken Type ARIPiprazole [Abilify TAB] 5 mg PO DAILY #30 tab 10/29/19 11/20/19 Unknown Rx Divalproex ER [Depakote ER] 500 mg PO QHS #30 tab 10/29/19 11/20/19 Unknown Rx Furosemide [Lasix TAB] 40 mg PO QDAY #30 tablet 10/29/19 11/20/19 Unknown Rx Insulin Detemir [Levemir VIAL] 25 unit SQ QHS #1 vial 10/29/19 11/20/19 Unknown Rx Lispro Insulin [HumaLOG] 1 dose SUB-Q ACHS PRN #1000 units 10/29/19 11/20/19 Unknown Rx [place] Carbonate 300 mg PO BID #60 tab 10/29/19 11/20/19 Unknown Rx Pantoprazole [Protonix TAB] 40 mg PO QDAY #30 tablet 10/29/19 11/20/19 Unknown Rx Potassium Chloride [K-Dur] 20 meq PO QDAY #30 tablet 10/29/19 11/20/19 Unknown Rx QUEtiapine [SEROquel] 100 mg PO QHS #30 tablet 10/29/19 11/20/19 Unknown Rx amLODIPine 10 mg PO QDAY #30 tablet 10/29/19 11/20/19 Unknown Rx carvediloL [Coreg] 6.25 mg PO BID #60 tablet 10/29/19 11/20/19 Unknown Rx Aspirin 325 mg PO QDAY #30 tablet 11/10/19 11/20/19 Unknown Rx AtorvaSTATin [Lipitor] 40 mg PO QHS #30 tablet 11/10/19 11/20/19 Unknown Rx Active Medications: Generic Name Dose Route Start Last Admin Trade Name Freq PRN Reason Stop Dose Admin Acetaminophen 650 mg 11/14/19 17:34 11/28/19 21:37 Tylenol PO 650 mg Q6H PRN Administration Non Cardiac Pain or Temp>100.5 Acetaminophen/Hydrocodone Bitart 0.5 each 11/14/19 17:48 11/14/19 23:59 [place] 5/325 PO 0.5 each Q8H PRN Administration Pain, Moderate (4-6) Amlodipine Besylate 10 mg 11/15/19 08:00 12/04/19 08:15 Amlodipine PO 10 mg QDAY HARVEY Administration Aripiprazole 5 mg 11/15/19 08:00 12/04/19 08:15 Aripiprazole PO 5 mg QDAY HARVEY Administration Aspirin 325 mg 11/15/19 08:00 12/04/19 08:15 Ecotrin PO 325 mg QDAY HARVEY Administration Atorvastatin Calcium 40 mg 11/14/19 21:00 12/03/19 21:41 Lipitor PO 40 mg QHS HARVEY Administration Bisacodyl 5 mg 11/15/19 08:00 12/04/19 08:15 Dulcolax PO 5 mg QDAY HARVEY Administration Bisacodyl 10 mg 11/14/19 17:34 11/18/19 20:36 Dulcolax [place] 10 mg QDAY PRN Administration Constipation Carvedilol 25 mg 11/26/19 22:00 12/04/19 08:16 Coreg PO 25 mg BID HARVEY Administration Dextrose 50 ml 11/14/19 17:22 11/27/19 08:21 D50w (25gm) Syringe IV 50 ml Q30MIN PRN Administration Hypoglycemia Protocol Diphenhydramine HCl 25 mg 12/03/19 08:28 12/03/19 09:24 Benadryl PO 25 mg Q8H PRN Administration Itching Divalproex Sodium 500 mg 11/14/19 21:00 12/03/19 21:41 Depakote Er PO 500 mg QHS HARVEY Administration Furosemide 40 mg 12/03/19 15:00 12/04/19 05:22 Lasix PO 40 mg DAILY@0600 HARVEY Administration Heparin Sodium (Porcine) 5,000 unit 11/14/19 22:00 12/04/19 05:22 Heparin SUB-Q 5,000 unit Q8HR HARVEY Administration Hydralazine HCl 10 mg 11/14/19 17:34 12/04/19 00:16 Apresoline IV 10 mg Q4HR PRN Administration Hypertension Insulin Human Lispro 0 unit 11/14/19 22:00 12/03/19 23:16 Humalog SUB-Q 5 unit ACHS HARVEY Administration Protocol Isosorbide Mononitrate 90 mg 11/27/19 08:00 12/04/19 08:16 Imdur PO 90 mg QDAY HARVEY Administration Ondansetron HCl 4 mg 11/14/19 17:34 11/21/19 10:56 Zofran Odt PO 4 mg Q8H PRN Administration Nausea And Vomiting Pantoprazole Sodium 40 mg 11/15/19 08:00 12/04/19 08:15 Protonix PO 40 mg QDAY HARVEY Administration Polyethylene Glycol 17 gm 11/14/19 17:34 Miralax 3350 PO QDAY PRN Constipation Quetiapine Fumarate 100 mg 11/14/19 21:00 12/03/19 21:41 Seroquel PO 100 mg QHS HARVEY Administration
[2019-12-04] MEDS: QUEtiapine 100 MG TAB PO SCH (21:26)
[2019-12-04] MEDS: DIVALPROEX ER 500 MG TAB PO SCH (21:26)
[2019-12-04] MEDS: ACETAMINOPHEN 325 MG TAB PO PRN (21:27)
[2019-12-05] MEDS: HEPARIN 5,000 UNIT/1 ML VIAL SUB-Q SCH ×3 (06:07→22:27)
[2019-12-05] MEDS: FUROSEMIDE 40 MG TAB PO SCH (06:07)
[2019-12-05] MEDS: INSULIN LISPRO 100 UNIT/ML SUB-Q SCH ×4 (07:24→22:30)
[2019-12-05 07:40] LABS: Hematocrit 26.7 % (30.3-42.9); Hemoglobin 8.5 gm/dl (10.1-14.3); Mean Corpuscular HGB Conc 32 % (30-34); Mean Corpuscular Volume 87 fl (79-97); Platelet Count 187 K/mm3 (140-440); Red Blood Count 3.08 M/mm3 (3.65-5.03); Red Cell Distribution Width 15.4 % (13.2-15.2)
[2019-12-05 08:08] LABS: Calcium 8.3 mg/dL (8.4-10.2)
--- NOTE | 2019-12-05 08:46 | Progress Note ---
Assessment and Plan 1. 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 Renal function is around her baseline. Monitor renal function. Renal prognosis is guarded. Avoid nephrotoxic agents. Meds dosage based on GFR. 2. FEN: Hyperkalemia, improved. Low K diet. Metabolic acidosis, monitor. Monitor lytes. 3. Nephrotic range proteinuria: Likely from Diabetic nephropathy. Unable to give ACEI / ARB due to hyperkalemia and advanced CKD. Need further workup as outpatient. 4. CVA. 5. DM type 2. 6. HTN: Monitor BP. 7. Normochromic anemia: POA. Examination: General appearance: well-developed, appears stated age, not in distress HEENT: ATNC, CAITY, mucous membranes moist, hearing intact, vision intact Neck: neck supple Respiratory: Clear to Ascultation Heart: regular, S1S2, no murmurs Gastrointestinal: soft, normoactive bowel sounds, not tender, not distended Integumentary: no rash, warm and dry Neurologic: no asterixis, alert and oriented x3, aphasia, L sided facial droop Ext: trace LE edema Psychiatric: cooperative Subjective Date of service: 12/05/19 Principal diagnosis: CVA Interval history: Patient was seen and examined at the bedside. Doing ok. Objective - Vital Signs Vital signs: Vital Signs - 12hr 12/04/19 12/05/19 12/05/19 23:29 06:04 07:00 Temperature 98.2 F 98 F 97.0 F L Pulse Rate 68 63 58 L Respiratory 16 16 20 Rate Blood Pressure 156/75 Blood Pressure 145/67 140/79 [Left] O2 Sat by Pulse 99 97 98 Oximetry - Lab 12/05/19 07:18 12/05/19 07:18 Most recent lab results Calcium 8.3 mg/dL (8.4-10.2) L 12/05/19 07:18 Medications & Allergies - Medications Allergies/Adverse Reactions: Allergies lisinopril Allergy (Verified 07/27/19 09:29) Unknown promethazine HCl [From Phenergan] Allergy (Verified 11/29/15 15:40) Shortness of Breath Home Medications: Home Medications Medication Instructions Recorded Confirmed Last Taken Type ARIPiprazole [Abilify TAB] 5 mg PO DAILY #30 tab 10/29/19 11/20/19 Unknown Rx Divalproex ER [Depakote ER] 500 mg PO QHS #30 tab 10/29/19 11/20/19 Unknown Rx Furosemide [Lasix TAB] 40 mg PO QDAY #30 tablet 10/29/19 11/20/19 Unknown Rx Insulin Detemir [Levemir VIAL] 25 unit SQ QHS #1 vial 10/29/19 11/20/19 Unknown Rx Lispro Insulin [HumaLOG] 1 dose SUB-Q ACHS PRN #1000 units 10/29/19 11/20/19 Unknown Rx [place] Carbonate 300 mg PO BID #60 tab 10/29/19 11/20/19 Unknown Rx Pantoprazole [Protonix TAB] 40 mg PO QDAY #30 tablet 10/29/19 11/20/19 Unknown Rx Potassium Chloride [K-Dur] 20 meq PO QDAY #30 tablet 10/29/19 11/20/19 Unknown Rx QUEtiapine [SEROquel] 100 mg PO QHS #30 tablet 10/29/19 11/20/19 Unknown Rx amLODIPine 10 mg PO QDAY #30 tablet 10/29/19 11/20/19 Unknown Rx carvediloL [Coreg] 6.25 mg PO BID #60 tablet 10/29/19 11/20/19 Unknown Rx Aspirin 325 mg PO QDAY #30 tablet 11/10/19 11/20/19 Unknown Rx AtorvaSTATin [Lipitor] 40 mg PO QHS #30 tablet 11/10/19 11/20/19 Unknown Rx Active Medications: Generic Name Dose Route Start Last Admin Trade Name Freq PRN Reason Stop Dose Admin Acetaminophen 650 mg 11/14/19 17:34 12/04/19 21:27 Tylenol PO 650 mg Q6H PRN Administration Non Cardiac Pain or Temp>100.5 Acetaminophen/Hydrocodone Bitart 0.5 each 11/14/19 17:48 11/14/19 23:59 [place] 5/325 PO 0.5 each Q8H PRN Administration Pain, Moderate (4-6) Amlodipine Besylate 10 mg 11/15/19 08:00 12/04/19 08:15 Amlodipine PO 10 mg QDAY HARVEY Administration Aripiprazole 5 mg 11/15/19 08:00 12/04/19 08:15 Aripiprazole PO 5 mg QDAY HARVEY Administration Aspirin 325 mg 11/15/19 08:00 12/04/19 08:15 Ecotrin PO 325 mg QDAY HARVEY Administration Atorvastatin Calcium 40 mg 11/14/19 21:00 12/04/19 21:26 Lipitor PO 40 mg QHS HARVEY Administration Bisacodyl 5 mg 11/15/19 08:00 12/04/19 08:15 Dulcolax PO 5 mg QDAY HARVEY Administration Bisacodyl 10 mg 11/14/19 17:34 11/18/19 20:36 Dulcolax [place] 10 mg QDAY PRN Administration Constipation Carvedilol 25 mg 11/26/19 22:00 12/04/19 21:26 Coreg PO 25 mg BID HARVEY Administration Dextrose 50 ml 11/14/19 17:22 11/27/19 08:21 D50w (25gm) Syringe IV 50 ml Q30MIN PRN Administration Hypoglycemia Protocol Diphenhydramine HCl 25 mg 12/03/19 08:28 12/03/19 09:24 Benadryl PO 25 mg Q8H PRN Administration Itching Divalproex Sodium 500 mg 11/14/19 21:00 12/04/19 21:26 Depakote Er PO 500 mg QHS HARVEY Administration Furosemide 40 mg 12/03/19 15:00 12/05/19 06:07 Lasix PO 40 mg DAILY@0600 HARVEY Administration Heparin Sodium (Porcine) 5,000 unit 11/14/19 22:00 12/05/19 06:07 Heparin SUB-Q 5,000 unit Q8HR HARVEY Administration Hydralazine HCl 10 mg 11/14/19 17:34 12/04/19 00:16 Apresoline IV 10 mg Q4HR PRN Administration Hypertension Insulin Human Lispro 0 unit 11/14/19 22:00 12/04/19 23:24 Humalog SUB-Q 4 unit ACHS HARVEY Administration Protocol Isosorbide Mononitrate 90 mg 11/27/19 08:00 12/04/19 08:16 Imdur PO 90 mg QDAY HARVEY Administration Ondansetron HCl 4 mg 11/14/19 17:34 11/21/19 10:56 Zofran Odt PO 4 mg Q8H PRN Administration Nausea And Vomiting Pantoprazole Sodium 40 mg 11/15/19 08:00 12/04/19 08:15 Protonix PO 40 mg QDAY HARVEY Administration Polyethylene Glycol 17 gm 11/14/19 17:34 Miralax 3350 PO QDAY PRN Constipation Quetiapine Fumarate 100 mg 11/14/19 21:00 12/04/19 21:26 Seroquel PO 100 mg QHS HARVEY Administration
--- NOTE | 2019-12-05 11:01 | Progress Note ---
Subjective - Reason for Consult Consult date: 12/05/19 Reason for consult: Manage medication - Chief Complaint Chief complaint: During my interview with the patient this morning, the patient is lying in bed. Asleep. Easily arouses. She is dressed appropriately. She makes good eye contact. She is a/o x 3. She is calm and cooperative. She says she "slept well." The patient says her mood is "pretty good." She denies SI/HI or hallucinations of any kind. She is still concerned about establishing a psychiatrist after discharge. She states her previous one stopped taking her insurance. The patient states she misunderstood me during yesterday's visit. She says she was never given any information to follow up with anyone on an outpatient basis. Contacted the mental health assessors and confirmed that patient would be given resources to establish outpatient psychiatric care prior to discharge. REVIEW OF SYSTEMS Constitutional: Negative for weight loss ENT: Negative for stridor Respiratory: Negative for cough All other systems reviewed and are negative MSE Appearance: In bed. Asleep. Appropriate clothing. Good eye contact. Behavior: Pleasant, calm and cooperative Mood: "pretty stable" Affect: consisted with mood Thought Process: Goal directed Speech: Normal tone and pace Thought Content Harmfulness Denies SI/HI Hallucinations: patient denies Delusions: none elicited Consciousness: Alert Cognition/Memory: Fair Insight/Judgment: Good Assessment: Bipolar Disorder Treatment Plan Continue current home medications No lithium at this time Medical: Per primary team Disposition: The patient does not meet requirement for acute inpatient psychiatric hospitalization. May discharge home once medically clear. The patient will be given resources to establish and follow up with outpatient psychiatry. Will sign off. Please call with any questions or concerns. Mental Status Exam - Vital signs Last Vital Signs Temp 97.0 F L 12/05/19 07:00 Pulse 58 L 12/05/19 07:00 Resp 20 12/05/19 07:00 BP 156/75 12/05/19 07:00 Pulse Ox 98 12/05/19 07:00
[2019-12-05] MEDS: ARIPiprazole 5 MG TAB PO SCH (11:08)
[2019-12-05] MEDS: ASPIRIN EC 325 MG TAB PO SCH (11:08)
[2019-12-05] MEDS: carvediloL 25 MG TAB PO SCH ×2 (11:09→22:28)
[2019-12-05] MEDS: amLODIPine 10 MG TAB PO SCH (11:10)
--- NOTE | 2019-12-05 12:22 | Progress Note ---
Subjective Date of service: 12/05/19 Principal diagnosis: CVA Interval history: 64-year-old female who was a resident at a skilled nursing developed left-sided facial droop and slurred speech accompanied by paresthesias of the left side. Subsequent MRI head showed a small subacute infarct in the putamen and hill radiata on the right-hand side without hemorrhagic transformation. Patient was evaluated by therapy and deemed to be appropriate for acute inpatient rehabilitation. Medication levels including Depakote and lithium were checked. 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 She has a history of seizures in her 20s but has not had any in years. She was evaluated by neurology, cardiology, nephrology. Nephrology noted she had acute renal injury superimposed on CKD stage IV. Baseline creatinine is approximately not known. Cardiology was also consulted and provided more history. [facility] lives [facility] and has a history of bipolar disorder and posttraumatic stress disorder. Patient had atypical chest pain and was recommended to have further workup as an outpatient. Interval History Patient is participating in therapy and making reasonable progress. Taking rest breaks as needed. Denies pain, palpitations, dyspnea, cough, or joint pain. Nausea and vomiting intermittently, none this AM. +BM. Facial swelling appears resolved today. Dysphagia: Diet advanced to regular, no issues with aspiration noted CVA: no neurologic changes or s/s of SHS, PSD. Monitor Hyperkalemia resolved, monitor. Bipolar Cont to treat with remaining medications per psych. Blood pressure somewhat better controlled today still occasionally is elevated (has been intermittently). Monitor DM was better controlled on low dose lantus but she has variable eating pattern. Safer to continue on just SSI for now. Continue sliding scale. Changed to renal diet. Continue to Monitor. Patient noted to need TB test prior to return to skilled nursing. This has been placed, will read when appropriate. Also received notice from the skilled nursing but they are ready and willing to accept her back. All records, vitals, labs and medications were reviewed. No other issues per patient, nursing or therapy. Objective - Exam Narrative Exam: MUSCULOSKELETAL SPECIALTY EXAM CONSTITUTIONAL: Well developed, well nourished, appropriately groomed, thin. RIGHT hand dominant. RESPIRATORY: Clear to auscultation bilaterally, no increased work of breathing CARDIOVASCULAR: Regular Rate/ Rhythm, no swelling, edema or tenderness in BUE or BLE. All extremities warm. GI: + bowel sounds, soft, NTTP, nondistended. INTEGUMENTARY: Otherwise, Normal, no lesion, rash, masses or bruising noted in extremities. MUSCULOSKELETAL: BUE and BLE normal without defect, crepitus, subluxation, effusion, arthritic changes or TTP. R 5/5 L 4+/5 ROM within functional limits Tone normal NEURO: CN III, IV, : EOMI however slightly slowed to the left CN V : Facial sensation is impaired on left CN VII : Left facial droop (upper and lower) Sensation intact in all extremities without extinction but is altered on the left. Coordination impaired on left with dysmetria of the LUE, normal on right. No tremor noted in 4 extremities. Odd movements not seen today, mostly in arms when talking, no oral manifestations and not constant Naming and repetition intact. Follows 2 step commands. Aphasia not appreciated Dysarthria present Dysphagia present Neglect not appreciated POSTURE and GAIT: Sitting posture good. Sitting balance appears reasonable. Gait ataxic but improving. Psych: Affect appears euthymic. Insight appears intact, but does have some decreased safety awareness but this is improving - Constitutional Vitals: Vital Signs - 12hr 12/05/19 12/05/19 06:04 07:00 Temperature 36.6 C 36.1 C L Pulse Rate 63 58 L Respiratory 16 20 Rate Blood Pressure 156/75 Blood Pressure 140/79 [Left] O2 Sat by Pulse 97 98 Oximetry - Allied health notes Allied health notes reviewed: nursing, PT, ST, OT FIMS assessment as documented by PT/OT/ST: Social interaction/Memory/Problem solving Social Interaction FIM Score 5. Supervision (Needs supv. <10%. Needs encouragement to participate.) Memory FIM Score 6. Modified [place](Mild difficulty remembering people/routines.) Problem Solving FIM Score 5. Supervision (Needs cueing <10% to solve routine problems.) Transfers Mode of Locomotion: Wheelchair Bed/Chair/Wheelchair Transfers 5. Supervision (Needs supv. or set-up for FIM Score sliding board, foot rests.) Locomotion- walk/wheelchair Ambulation Distance 20 Eating Eating FIM Score 5. Supervision/Set-Up (Needs help w/ containers, cutting meat, etc.) Dressing-Upper body Patient retrieves clothing Yes items: Upper Body Dressing FIM Score 5. Supv./Set-Up ([place] sets out clothes or applies pros./orth.) Dressing-lower body Patient retrieves clothing Yes items: Lower Body Dressing FIM Score 5. Supv./Set-Up ([place] sets out clothes or applies pros./orth.) - Labs CBC & Chem 7: 12/05/19 07:18 12/05/19 07:18 Labs: Laboratory Results - last 72 hr 12/02/19 12/02/19 12/03/19 16:35 19:32 07:40 WBC RBC Hgb Hct MCV MCH MCHC RDW Plt Count Sodium Potassium Chloride Carbon Dioxide Anion Gap BUN Creatinine Estimated GFR BUN/Creatinine Ratio Glucose POC Glucose 191 H 332 H 111 H Calcium Total Bilirubin AST ALT Alkaline Phosphatase Total Protein Albumin Albumin/Globulin Ratio 12/03/19 12/03/19 12/03/19 11:33 12:25 12:25 WBC 7.7 RBC 2.86 L Hgb 7.9 L Hct 24.3 L MCV 85 MCH 28 MCHC 33 RDW 15.6 H Plt Count 170 Sodium 141 Potassium 4.1 Chloride 107.9 H Carbon Dioxide 20 L Anion Gap 17 BUN 23 H Creatinine 2.6 H Estimated GFR 22 BUN/Creatinine Ratio 9 Glucose 177 H POC Glucose 211 H Calcium 8.4 Total Bilirubin AST ALT Alkaline Phosphatase Total Protein Albumin Albumin/Globulin Ratio 12/03/19 12/03/19 12/03/19 16:32 17:43 21:14 WBC RBC Hgb Hct MCV MCH MCHC RDW Plt Count Sodium 140 Potassium 4.5 Chloride 105.8 Carbon Dioxide 22 Anion Gap 17 BUN 27 H Creatinine 2.7 H Estimated GFR 22 BUN/Creatinine Ratio 10 Glucose 269 H POC Glucose 198 H 358 H Calcium 8.4 Total Bilirubin 0.20 AST 13 ALT 13 Alkaline Phosphatase 120 Total Protein 6.1 L Albumin 3.1 L Albumin/Globulin Ratio 1.0 12/04/19 12/04/19 12/04/19 07:44 11:18 16:31 WBC RBC Hgb Hct MCV MCH MCHC RDW Plt Count Sodium Potassium Chloride Carbon Dioxide Anion Gap BUN Creatinine Estimated GFR BUN/Creatinine Ratio Glucose POC Glucose 236 H 342 H 310 H Calcium Total Bilirubin AST ALT Alkaline Phosphatase Total Protein Albumin Albumin/Globulin Ratio 12/04/19 12/05/19 12/05/19 21:17 07:12 07:18 WBC 11.9 H RBC 3.08 L Hgb 8.5 L Hct 26.7 L MCV 87 MCH 28 MCHC 32 RDW 15.4 H Plt Count 187 Sodium Potassium Chloride Carbon Dioxide Anion Gap BUN Creatinine Estimated GFR BUN/Creatinine Ratio Glucose POC Glucose 345 H 205 H Calcium Total Bilirubin AST ALT Alkaline Phosphatase Total Protein Albumin Albumin/Globulin Ratio 12/05/19 12/05/19 07:18 11:38 WBC RBC Hgb Hct MCV MCH MCHC RDW Plt Count Sodium 138 Potassium 4.3 Chloride 104.7 Carbon Dioxide 21 L Anion Gap 17 BUN 39 H Creatinine 2.9 H Estimated GFR 20 BUN/Creatinine Ratio 13 Glucose 212 H POC Glucose 354 H Calcium 8.3 L Total Bilirubin AST ALT Alkaline Phosphatase Total Protein Albumin Albumin/Globulin Ratio Assessment and Plan CVA: Continue secondary stroke prevention. Discussed with patient prognosis as well as secondary stroke prevention protocols. Monitor for neurologic decline, shoulder-hand syndrome, bowel or bladder issues, evidence of stroke recurrence, worsening of dysphagia [place] toxicity: [place] d/c'd. Normal saline IVF finished. Resolved. Hold on restarting lithium due to renal fxn. Hypertension: Continue medications and monitor blood pressure and adjust as needed for normotension. Lasix added per nephrology Diabetes: Continue carb controlled diet, sliding scale insulin and monitor/adjust medications as needed. Lantus d/c'd due to hypoglycemia and eating habits. Bipolar/PTSD: Continue medications. Supportive care and adjust as needed. Check lithium and Depakote levels as needed. Psychiatry consult for medication modification. Spoke with the psychiatrist's office. They state they only prescribed the lithium and did not know anything about the Abilify, depakote, or Seroquel. Also that they last saw her about 6mos ago and would not have continued any scripts more than 1 month without seeing her. She needs to see a geriatric psychiatrist for follow up. Will attempt to make appt with Dr Fatoumata [place] at discharge. CKD: Avoid nephrotoxic medications. Monitor renal function. Renal diet Hyperkalemia 5.7 > Kayexelate given x3 > 5.1. Nephrology consult . improved, monitor Constipation: Continue medications and prn medications. Monitor for bowel movements and adjust as needed. Nausea/vomiting: Zofran as ordered. Patient relates this more so to anxiety. Improved Cardiomyopathy and heart failure: Monitor for any signs of worsening cardiac function or chest pain. Cardiology consulted and rec medication changes. F/U as outpatient. Dysphagia: Advanced to regular diet by ORDER ENTRY TECHNICIAN. Monitor for Aspiration during meals. Dysarthria: Continue ORDER ENTRY TECHNICIAN for improvement in functional ability to speak and breath control. Improved ADL dysfunction: OT will work on improving ability to perform ADLs (including assistive devices) to increase independence and decrease caregiver burden and improve functional transfers and mobility training. Difficulty walking: PT will work on gait training and proper use of assistive devices and advance as appropriate to use of stairs and outside ambulation on uneven surfaces. Unsteadiness on feet: PT will work on improving static and dynamic sitting and standing balance as well as proper use of assistive devices to decrease risk of falls. Abnormality of gait: PT will work to improve safety and efficiency of gait through neuromotor training and gait training along with instruction on proper use of assistive devices. Muscle weakness: PT & OT will work on strengthening exercises to improve functional strength including mixture of closed and open kinetic chain exercises. Fatigue: PT & OT will work on improving endurance through aerobic exercises and therapeutic activity while monitoring patients tolerance for activity and vital signs as needed. DVT ppx: Heparin TID Pain: Continue physical modalities in therapy and pain medications as needed to achieve functional pain control. Sleep: Monitor and address as needed. Bowel: Monitor and address as needed. Appetite: Monitor and address as needed. Discharge planning: Pending therapy progress and care plan meeting. Will continue discussion with therapy team, SW, patient and family. Look to d/c 12/08/2019 Restrictions/ Precautions: Falls, aspiration, possible seizure WB status: FWB Functional Hx: ADLs: Independent Cognition: Independent Mobility: No AD Barriers to Discharge: Decreased mobility and ability to perform self care, balance deficits, weakness Estimated Length of Stay: 1421 days Discharge Destination: Home with skilled nursing
[2019-12-05] MEDS: PANTOPRAZOLE 40 MG TAB PO SCH (15:10)
[2019-12-05] MEDS: QUEtiapine 100 MG TAB PO SCH (22:27)
[2019-12-05] MEDS: DIVALPROEX ER 500 MG TAB PO SCH (22:28)
[2019-12-06] MEDS: FUROSEMIDE 40 MG TAB PO SCH (06:12)
[2019-12-06] MEDS: HEPARIN 5,000 UNIT/1 ML VIAL SUB-Q SCH ×3 (06:12→21:58)
[2019-12-06] MEDS: PANTOPRAZOLE 40 MG TAB PO SCH (08:25)
[2019-12-06] MEDS: ASPIRIN EC 325 MG TAB PO SCH (08:25)
[2019-12-06] MEDS: carvediloL 25 MG TAB PO SCH ×2 (08:25→22:00)
[2019-12-06] MEDS: amLODIPine 10 MG TAB PO SCH (08:25)
[2019-12-06] MEDS: ARIPiprazole 5 MG TAB PO SCH (08:25)
[2019-12-06] MEDS: INSULIN LISPRO 100 UNIT/ML SUB-Q SCH ×5 (08:25→23:09)
--- NOTE | 2019-12-06 08:36 | Progress Note ---
Assessment and Plan 1. 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 Renal function is around her baseline. No labs from today. Monitor renal function. Renal prognosis is guarded. Avoid nephrotoxic agents. Meds dosage based on GFR. 2. FEN: Hyperkalemia, improved. Low K diet. Metabolic acidosis, monitor. Monitor lytes. 3. Nephrotic range proteinuria: Likely from Diabetic nephropathy. Unable to give ACEI / ARB due to hyperkalemia and advanced CKD. Need further workup as outpatient. 4. CVA. 5. DM type 2. 6. HTN: Monitor BP. 7. Normochromic anemia: POA. Examination: General appearance: well-developed, appears stated age, not in distress HEENT: ATNC, CAITY, mucous membranes moist, hearing intact, vision intact Neck: neck supple Respiratory: Clear to Ascultation Heart: regular, S1S2, no murmurs Gastrointestinal: soft, normoactive bowel sounds, not tender, not distended Integumentary: no rash, warm and dry Neurologic: no asterixis, alert and oriented x3, aphasia, L sided facial droop Ext: no edema Psychiatric: cooperative Subjective Date of service: 12/06/19 Principal diagnosis: CVA Interval history: Patient was seen and examined at the bedside. Doing ok. Objective - Vital Signs Vital signs: Vital Signs - 12hr 12/05/19 12/06/19 12/06/19 22:28 05:50 07:53 Temperature 97.8 F 97.8 F Pulse Rate 62 60 60 Respiratory 17 20 Rate Blood Pressure 136/66 135/70 149/69 O2 Sat by Pulse 100 98 Oximetry - Lab 12/05/19 07:18 12/05/19 07:18 Most recent lab results Calcium 8.3 mg/dL (8.4-10.2) L 12/05/19 07:18 Medications & Allergies - Medications Allergies/Adverse Reactions: Allergies lisinopril Allergy (Verified 07/27/19 09:29) Unknown promethazine HCl [From Phenergan] Allergy (Verified 11/29/15 15:40) Shortness of Breath Home Medications: Home Medications Medication Instructions Recorded Confirmed Last Taken Type ARIPiprazole [Abilify TAB] 5 mg PO DAILY #30 tab 10/29/19 11/20/19 Unknown Rx Divalproex ER [Depakote ER] 500 mg PO QHS #30 tab 10/29/19 11/20/19 Unknown Rx Furosemide [Lasix TAB] 40 mg PO QDAY #30 tablet 10/29/19 11/20/19 Unknown Rx Insulin Detemir [Levemir VIAL] 25 unit SQ QHS #1 vial 10/29/19 11/20/19 Unknown Rx Lispro Insulin [HumaLOG] 1 dose SUB-Q ACHS PRN #1000 units 10/29/19 11/20/19 Unknown Rx [place] Carbonate 300 mg PO BID #60 tab 10/29/19 11/20/19 Unknown Rx Pantoprazole [Protonix TAB] 40 mg PO QDAY #30 tablet 10/29/19 11/20/19 Unknown Rx Potassium Chloride [K-Dur] 20 meq PO QDAY #30 tablet 10/29/19 11/20/19 Unknown Rx QUEtiapine [SEROquel] 100 mg PO QHS #30 tablet 10/29/19 11/20/19 Unknown Rx amLODIPine 10 mg PO QDAY #30 tablet 10/29/19 11/20/19 Unknown Rx carvediloL [Coreg] 6.25 mg PO BID #60 tablet 10/29/19 11/20/19 Unknown Rx Aspirin 325 mg PO QDAY #30 tablet 11/10/19 11/20/19 Unknown Rx AtorvaSTATin [Lipitor] 40 mg PO QHS #30 tablet 11/10/19 11/20/19 Unknown Rx Active Medications: Generic Name Dose Route Start Last Admin Trade Name Freq PRN Reason Stop Dose Admin Acetaminophen 650 mg 11/14/19 17:34 12/04/19 21:27 Tylenol PO 650 mg Q6H PRN Administration Non Cardiac Pain or Temp>100.5 Acetaminophen/Hydrocodone Bitart 0.5 each 11/14/19 17:48 11/14/19 23:59 [place] 5/325 PO 0.5 each Q8H PRN Administration Pain, Moderate (4-6) Amlodipine Besylate 10 mg 11/15/19 08:00 12/06/19 08:25 Amlodipine PO 10 mg QDAY HARVEY Administration Aripiprazole 5 mg 11/15/19 08:00 12/06/19 08:25 Aripiprazole PO 5 mg QDAY HARVEY Administration Aspirin 325 mg 11/15/19 08:00 12/06/19 08:25 Ecotrin PO 325 mg QDAY HARVEY Administration Atorvastatin Calcium 40 mg 11/14/19 21:00 12/05/19 22:27 Lipitor PO 40 mg QHS HARVEY Administration Bisacodyl 5 mg 11/15/19 08:00 12/06/19 08:25 Dulcolax PO 5 mg QDAY HARVEY Administration Bisacodyl 10 mg 11/14/19 17:34 11/18/19 20:36 Dulcolax [place] 10 mg QDAY PRN Administration Constipation Carvedilol 25 mg 11/26/19 22:00 12/06/19 08:25 Coreg PO 25 mg BID HARVEY Administration Dextrose 50 ml 11/14/19 17:22 11/27/19 08:21 D50w (25gm) Syringe IV 50 ml Q30MIN PRN Administration Hypoglycemia Protocol Diphenhydramine HCl 25 mg 12/03/19 08:28 12/03/19 09:24 Benadryl PO 25 mg Q8H PRN Administration Itching Divalproex Sodium 500 mg 11/14/19 21:00 12/05/19 22:28 Depakote Er PO 500 mg QHS HARVEY Administration Furosemide 40 mg 12/03/19 15:00 12/06/19 06:12 Lasix PO 40 mg DAILY@0600 HARVEY Administration Heparin Sodium (Porcine) 5,000 unit 11/14/19 22:00 12/06/19 06:12 Heparin SUB-Q 5,000 unit Q8HR HARVEY Administration Hydralazine HCl 10 mg 11/14/19 17:34 12/04/19 00:16 Apresoline IV 10 mg Q4HR PRN Administration Hypertension Insulin Human Lispro 0 unit 11/14/19 22:00 12/06/19 08:25 Humalog SUB-Q 2 unit ACHS HARVEY Administration Protocol Isosorbide Mononitrate 90 mg 11/27/19 08:00 12/06/19 08:25 Imdur PO 90 mg QDAY HARVEY Administration Ondansetron HCl 4 mg 11/14/19 17:34 11/21/19 10:56 Zofran Odt PO 4 mg Q8H PRN Administration Nausea And Vomiting Pantoprazole Sodium 40 mg 11/15/19 08:00 12/06/19 08:25 Protonix PO 40 mg QDAY HARVEY Administration Polyethylene Glycol 17 gm 11/14/19 17:34 Miralax 3350 PO QDAY PRN Constipation Quetiapine Fumarate 100 mg 11/14/19 21:00 12/05/19 22:27 Seroquel PO 100 mg QHS HARVEY Administration
--- NOTE | 2019-12-06 16:32 | Progress Note ---
Subjective Date of service: 12/06/19 Principal diagnosis: CVA Interval history: 64-year-old female who was a resident at a long term developed left-sided facial droop and slurred speech accompanied by paresthesias of the left side. Subsequent MRI head showed a small subacute infarct in the putamen and hill radiata on the right-hand side without hemorrhagic transformation. Patient was evaluated by therapy and deemed to be appropriate for acute inpatient rehabilitation. Medication levels including Depakote and lithium were checked. 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 She has a history of seizures in her 20s but has not had any in years. She was evaluated by neurology, cardiology, nephrology. Nephrology noted she had acute renal injury superimposed on CKD stage IV. Baseline creatinine is approximately not known. Cardiology was also consulted and provided more history. [facility] and has a history of bipolar disorder and posttraumatic stress disorder. Patient had atypical chest pain and was recommended to have further workup as an outpatient. Interval History Patient is participating in therapy and making reasonable progress. Taking rest breaks as needed. Denies pain, palpitations, dyspnea, cough, or joint pain. Nausea and vomiting intermittently, none this AM. +BM. Facial swelling again today. Dysphagia: Diet advanced to regular, no issues with aspiration noted CVA: no neurologic changes or s/s of SHS, PSD. Monitor Hyperkalemia resolved, monitor. Bipolar Cont to treat with remaining medications per psych. Blood pressure somewhat better controlled today still occasionally is elevated (has been intermittently). Monitor DM was better controlled on low dose lantus but she has variable eating pattern. Safer to continue on just SSI for now. Continue sliding scale. Changed to renal diet. Continue to Monitor. Patient noted to need TB test prior to return to long term. This has been placed, will read when appropriate. Also received notice from the long term but they are ready and willing to accept her back. All records, vitals, labs and medications were reviewed. No other issues per patient, nursing or therapy. Objective - Exam Narrative Exam: MUSCULOSKELETAL SPECIALTY EXAM CONSTITUTIONAL: Well developed, well nourished, appropriately groomed, thin. RIGHT hand dominant. RESPIRATORY: Clear to auscultation bilaterally, no increased work of breathing CARDIOVASCULAR: Regular Rate/ Rhythm, slight swelling in face and hands, otherwise, no edema or tenderness in BUE or BLE. All extremities warm. GI: + bowel sounds, soft, NTTP, nondistended. INTEGUMENTARY: Otherwise, Normal, no lesion, rash, masses or bruising noted in extremities. MUSCULOSKELETAL: BUE and BLE normal without defect, crepitus, subluxation, effusion, arthritic changes or TTP. R 5/5 L 4+/5 ROM within functional limits Tone normal NEURO: CN III, IV, : EOMI however slightly slowed to the left CN V : Facial sensation is impaired on left CN VII : Left facial droop (upper and lower) Sensation intact in all extremities without extinction but is altered on the left. Coordination impaired on left with dysmetria of the LUE, normal on right. No tremor noted in 4 extremities. Odd movements not seen today, mostly in arms when talking, no oral manifestations and not constant Naming and repetition intact. Follows 2 step commands. Aphasia not appreciated Dysarthria present Dysphagia present Neglect not appreciated POSTURE and GAIT: Sitting posture good. Sitting balance appears reasonable. Gait ataxic but improving. Psych: Affect appears euthymic. Insight appears intact, but does have some decreased safety awareness but this is improving - Constitutional Vitals: Vital Signs - 12hr 12/06/19 12/06/19 05:50 07:53 Temperature 36.6 C 36.6 C Pulse Rate 60 60 Respiratory 17 20 Rate Blood Pressure 135/70 149/69 O2 Sat by Pulse 100 98 Oximetry - Allied health notes Allied health notes reviewed: nursing, PT, ST, OT FIMS assessment as documented by PT/OT/ST: Grooming Patient cleans teeth/dentures: Yes Patient teran/brushes hair: Yes Patient washes, rinses and Yes dries face: Patient washes, rinses and Yes dries hands: Patient applies make-up: No Patient performs (no make-up/ 02/24 (100%) shaving): Grooming FIM Score 5. Supervision ([place] applies toothpaste or opens containers.) Social interaction/Memory/Problem solving Social Interaction FIM Score 5. Supervision (Needs supv. <10%. Needs encouragement to participate.) Memory FIM Score 6. Modified [place](Mild difficulty remembering people/routines.) Problem Solving FIM Score 5. Supervision (Needs cueing <10% to solve routine problems.) Transfers Mode of Locomotion: Wheelchair Bed/Chair/Wheelchair Transfers 5. Supervision (Needs supv. or set-up for FIM Score sliding board, foot rests.) Locomotion- walk/wheelchair Ambulation Distance 20 Eating Eating FIM Score 6. Modified [place] (Special consistency or uses device.) Dressing-Upper body Patient retrieves clothing Yes items: Upper Body Dressing FIM Score 5. Supv./Set-Up ([place] sets out clothes or applies pros./orth.) Dressing-lower body Patient retrieves clothing Yes items: Lower Body Dressing FIM Score 5. Supv./Set-Up ([place] sets out clothes or applies pros./orth.) - Labs CBC & Chem 7: 12/05/19 07:18 12/05/19 07:18 Labs: Laboratory Results - last 72 hr 12/03/19 12/03/19 12/04/19 17:43 21:14 07:44 WBC RBC Hgb Hct MCV MCH MCHC RDW Plt Count Sodium 140 Potassium 4.5 Chloride 105.8 Carbon Dioxide 22 Anion Gap 17 BUN 27 H Creatinine 2.7 H Estimated GFR 22 BUN/Creatinine Ratio 10 Glucose 269 H POC Glucose 358 H 236 H Calcium 8.4 Total Bilirubin 0.20 AST 13 ALT 13 Alkaline Phosphatase 120 Total Protein 6.1 L Albumin 3.1 L Albumin/Globulin Ratio 1.0 12/04/19 12/04/19 12/04/19 11:18 16:31 21:17 WBC RBC Hgb Hct MCV MCH MCHC RDW Plt Count Sodium Potassium Chloride Carbon Dioxide Anion Gap BUN Creatinine Estimated GFR BUN/Creatinine Ratio Glucose POC Glucose 342 H 310 H 345 H Calcium Total Bilirubin AST ALT Alkaline Phosphatase Total Protein Albumin Albumin/Globulin Ratio 12/05/19 12/05/19 12/05/19 07:12 07:18 07:18 WBC 11.9 H RBC 3.08 L Hgb 8.5 L Hct 26.7 L MCV 87 MCH 28 MCHC 32 RDW 15.4 H Plt Count 187 Sodium 138 Potassium 4.3 Chloride 104.7 Carbon Dioxide 21 L Anion Gap 17 BUN 39 H Creatinine 2.9 H Estimated GFR 20 BUN/Creatinine Ratio 13 Glucose 212 H POC Glucose 205 H Calcium 8.3 L Total Bilirubin AST ALT Alkaline Phosphatase Total Protein Albumin Albumin/Globulin Ratio 12/05/19 12/05/19 12/05/19 11:38 16:06 21:57 WBC RBC Hgb Hct MCV MCH MCHC RDW Plt Count Sodium Potassium Chloride Carbon Dioxide Anion Gap BUN Creatinine Estimated GFR BUN/Creatinine Ratio Glucose POC Glucose 354 H 307 H 238 H Calcium Total Bilirubin AST ALT Alkaline Phosphatase Total Protein Albumin Albumin/Globulin Ratio 12/06/19 12/06/19 07:58 11:33 WBC RBC Hgb Hct MCV MCH MCHC RDW Plt Count Sodium Potassium Chloride Carbon Dioxide Anion Gap BUN Creatinine Estimated GFR BUN/Creatinine Ratio Glucose POC Glucose 246 H 103 Calcium Total Bilirubin AST ALT Alkaline Phosphatase Total Protein Albumin Albumin/Globulin Ratio Assessment and Plan CVA: Continue secondary stroke prevention. Discussed with patient prognosis as well as secondary stroke prevention protocols. Monitor for neurologic decline, shoulder-hand syndrome, bowel or bladder issues, evidence of stroke recurrence, worsening of dysphagia [place] toxicity: [place] d/c'd. Normal saline IVF finished. Resolved. Hold on restarting lithium due to renal fxn. Hypertension: Continue medications and monitor blood pressure and adjust as needed for normotension. Lasix added per nephrology Diabetes: Continue carb controlled diet, sliding scale insulin and monitor/adjust medications as needed. Lantus d/c'd due to hypoglycemia and eating habits. Bipolar/PTSD: Continue medications. Supportive care and adjust as needed. Check lithium and Depakote levels as needed. Psychiatry consult for medication modification. Spoke with the psychiatrist's office. They state they only prescribed the lithium and did not know anything about the Abilify, depakote, or Seroquel. Also that they last saw her about 6mos ago and would not have continued any scripts more than 1 month without seeing her. She needs to see a geriatric psychiatrist for follow up. Will attempt to make appt with Dr Fatoumata Orlando at discharge. CKD: Avoid nephrotoxic medications. Monitor renal function. Renal diet Hyperkalemia 5.7 > Kayexelate given x3 > 5.1. Nephrology consult . improved, monitor Constipation: Continue medications and prn medications. Monitor for bowel movements and adjust as needed. Nausea/vomiting: Zofran as ordered. Patient relates this more so to anxiety. Improved Cardiomyopathy and heart failure: Monitor for any signs of worsening cardiac function or chest pain. Cardiology consulted and rec medication changes. F/U as outpatient. Dysphagia: Advanced to regular diet by SPECIAL AGENT IN CHARGE. Monitor for Aspiration during me als. Dysarthria: Continue [employer] IN CHARGE for improvement in functional ability to speak and breath control. Improved ADL dysfunction: OT will work on improving ability to perform ADLs (including assistive devices) to increase independence and decrease caregiver burden and improve functional transfers and mobility training. Difficulty walking: PT will work on gait training and proper use of assistive devices and advance as appropriate to use of stairs and outside ambulation on uneven surfaces. Unsteadiness on feet: PT will work on improving static and dynamic sitting and standing balance as well as proper use of assistive devices to decrease risk of falls. Abnormality of gait: PT will work to improve safety and efficiency of gait through neuromotor training and gait training along with instruction on proper use of assistive devices. Muscle weakness: PT & OT will work on strengthening exercises to improve functional strength including mixture of closed and open kinetic chain exercises. Fatigue: PT & OT will work on improving endurance through aerobic exercises and therapeutic activity while monitoring patients tolerance for activity and vital signs as needed. DVT ppx: Heparin TID Pain: Continue physical modalities in therapy and pain medications as needed to achieve functional pain control. Sleep: Monitor and address as needed. Bowel: Monitor and address as needed. Appetite: Monitor and address as needed. Discharge planning: Pending therapy progress and care plan meeting. Will continue discussion with therapy team, SW, patient and family. Look to d/c 12/08/2019 Restrictions/ Precautions: Falls, aspiration, possible seizure WB status: FWB Functional Hx: ADLs: Independent Cognition: Independent Mobility: No AD Barriers to Discharge: Decreased mobility and ability to perform self care, balance deficits, weakness Estimated Length of Stay: 1421 days Discharge Destination: Home with long term
[2019-12-06] MEDS: QUEtiapine 100 MG TAB PO SCH (21:57)
[2019-12-06] MEDS ORDERED: DIVALPROEX ER 250 MG TAB PO SCH (23:00)
[2019-12-06] MEDS: DIVALPROEX ER 500 MG TAB PO SCH (23:11)
[2019-12-07] MEDS: HEPARIN 5,000 UNIT/1 ML VIAL SUB-Q SCH ×3 (05:58→22:32)
[2019-12-07] MEDS: FUROSEMIDE 40 MG TAB PO SCH (06:00)
[2019-12-07] MEDS: INSULIN LISPRO 100 UNIT/ML SUB-Q SCH ×3 (07:25→17:29)
[2019-12-07 08:11] LABS: Hematocrit 25.3 % (30.3-42.9); Hemoglobin 8.2 gm/dl (10.1-14.3); Mean Corpuscular HGB Conc 32 % (30-34); Mean Corpuscular Volume 85 fl (79-97); Platelet Count 188 K/mm3 (140-440); Red Blood Count 2.98 M/mm3 (3.65-5.03); Red Cell Distribution Width 16.1 % (13.2-15.2)
[2019-12-07 08:26] LABS: Calcium 8.1 mg/dL (8.4-10.2)
[2019-12-07] MEDS: carvediloL 25 MG TAB PO SCH ×2 (10:25→22:29)
[2019-12-07] MEDS: ARIPiprazole 5 MG TAB PO SCH (10:25)
[2019-12-07] MEDS: amLODIPine 10 MG TAB PO SCH (10:46)
[2019-12-07] MEDS: ASPIRIN EC 325 MG TAB PO SCH (10:47)
[2019-12-07] MEDS: PANTOPRAZOLE 40 MG TAB PO SCH (10:48)
--- NOTE | 2019-12-07 14:47 | Progress Note ---
Subjective Date of service: 12/07/19 Principal diagnosis: CVA Interval history: 64-year-old female who was a resident at a [facility] developed left-sided facial droop and slurred speech accompanied by paresthesias of the left side. Subsequent MRI head showed a small subacute infarct in the putamen and hill radiata on the right-hand side without hemorrhagic transformation. Patient was evaluated by therapy and deemed to be appropriate for acute inpatient rehabilitation. Medication levels including Depakote and lithium were checked. 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 She has a history of seizures in her 20s but has not had any in years. She was evaluated by neurology, cardiology, nephrology. Nephrology noted she had acute renal injury superimposed on CKD stage IV. Baseline creatinine is approximately not known. Cardiology was also consulted and provided more history. Patient lives in [facility] and has a history of bipolar disorder and posttraumatic stress disorder. Patient had atypical chest pain and was recommended to have further workup as an outpatient. Interval History Patient is participating in therapy and making reasonable progress. Taking rest breaks as needed. Denies pain, palpitations, dyspnea, cough, or joint pain. Nausea and vomiting intermittently, none this AM. +BM. Facial swelling again today, not as prominent as first episode. Seems to reduce by afternoon. Denies itching, rash Mild right shoulder pain after reaching through bed for remote. No apparent injury, full ROM. Mild strain injury, NEG Dawson test. Conservative treatment, escalate diagnostics if worsens. Dysphagia: Diet advanced to regular, no issues with aspiration noted CVA: no neurologic changes or s/s of SHS, PSD. Monitor Hyperkalemia resolved, monitor. Bipolar Cont to treat with remaining medications per psych. Will schedule appointment with Dr Oralndo. Blood pressure somewhat better controlled today still occasionally is elevated (has been intermittently). Facility Attendant has added low dose lisinopril to regimen. Confirmed with patient that her "allergy" is a cough. Denies any rash, swelling or anaphylaxis in past with lisinopril. Monitor DM restarted low dose lantus as she seems to bee eating regularly again. Discussed that she needs to eat regular balanced meals with consistent carbs while on insulin and to check her GLU levels so that insulin can be safely adjusted. \\Continue sliding scale. Changed to renal diet. Continue to Monitor. Patient had TB test placed, and read. All records, vitals, labs and medications were reviewed. No other issues per patient, nursing or therapy. Objective - Exam Narrative Exam: MUSCULOSKELETAL SPECIALTY EXAM CONSTITUTIONAL: Well developed, well nourished, appropriately groomed, thin. RIGHT hand dominant. RESPIRATORY: Clear to auscultation bilaterally, no increased work of breathing CARDIOVASCULAR: Regular Rate/ Rhythm, slight swelling in face and hands, otherwise, no edema or tenderness in BUE or BLE. All extremities warm. GI: + bowel sounds, soft, NTTP, nondistended. INTEGUMENTARY: Otherwise, Normal, no lesion, rash, masses or bruising noted in extremities. MUSCULOSKELETAL: BUE and BLE normal without defect, crepitus, subluxation, effusion, arthritic changes or TTP. NEG Dawson on RUE. Mild discomfort but no overt TTP. No evidence of injury to RUE, full ROM without crepitus. R 5/5 L 4+/5 ROM within functional limits Tone normal NEURO: CN III, IV, : EOMI however slightly slowed to the left CN V : Facial sensation is impaired on left CN VII : Left facial droop (upper and lower) Sensation intact in all extremities without extinction but is altered on the left. Coordination impaired on left with dysmetria of the LUE, normal on right. No tremor noted in 4 extremities. Naming and repetition intact. Follows 2 step commands. Aphasia not appreciated Dysarthria present Dysphagia present Neglect not appreciated POSTURE and GAIT: Sitting posture good. Sitting balance appears reasonable. Gait ataxic but improving. Psych: Affect appears euthymic. Insight appears intact, but does have some decreased safety awareness but this is improving - Constitutional Vitals: Vital Signs - 12hr 12/07/19 12/07/19 06:40 07:24 Temperature 36.6 C Pulse Rate 64 64 Respiratory 18 Rate Blood Pressure 159/74 Blood Pressure 148/66 [Left] O2 Sat by Pulse 98 Oximetry - Allied health notes Allied health notes reviewed: nursing, PT, ST, OT FIMS assessment as documented by PT/OT/ST: Grooming Patient cleans teeth/dentures: Yes Patient teran/brushes hair: Yes Patient washes, rinses and Yes dries face: Patient washes, rinses and Yes dries hands: Patient applies make-up: No Patient performs (no make-up/ 4/4 (100%) shaving): Grooming FIM Score 5. Supervision (Clark applies toothpaste or opens containers.) Social interaction/Memory/Problem solving Social Interaction FIM Score 6. Mod. [place] (Mostly appropriate. May need meds. No supv.) Memory FIM Score 6. Modified [place](Mild difficulty remembering people/routines.) Problem Solving FIM Score 6. Mod. [place] (Mild difficulty or needs more time w/ complex.) Transfers Mode of Locomotion: Wheelchair Bed/Chair/Wheelchair Transfers 5. Supervision (Needs supv. or set-up for FIM Score sliding board, foot rests.) Locomotion- walk/wheelchair Ambulation Distance 20 Eating Eating FIM Score 6. Modified [place] (Special consistency or uses device.) Dressing-Upper body Patient retrieves clothing Yes items: Upper Body Dressing FIM Score 5. Supv./Set-Up (Clark sets out clothes or applies pros./orth.) Dressing-lower body Patient retrieves clothing Yes items: Lower Body Dressing FIM Score 5. Supv./Set-Up (Clark sets out clothes or applies pros./orth.) - Labs CBC & Chem 7: 12/07/19 07:28 12/08/19 05:19 Labs: Laboratory Results - last 72 hr 12/04/19 12/04/19 12/05/19 16:31 21:17 07:12 WBC RBC Hgb Hct MCV MCH MCHC RDW Plt Count Sodium Potassium Chloride Carbon Dioxide Anion Gap BUN Creatinine Estimated GFR BUN/Creatinine Ratio Glucose POC Glucose 310 H 345 H 205 H Calcium 12/05/19 12/05/19 12/05/19 07:18 07:18 11:38 WBC 11.9 H RBC 3.08 L Hgb 8.5 L Hct 26.7 L MCV 87 MCH 28 MCHC 32 RDW 15.4 H Plt Count 187 Sodium 138 Potassium 4.3 Chloride 104.7 Carbon Dioxide 21 L Anion Gap 17 BUN 39 H Creatinine 2.9 H Estimated GFR 20 BUN/Creatinine Ratio 13 Glucose 212 H POC Glucose 354 H Calcium 8.3 L 12/05/19 12/05/19 12/06/19 16:06 21:57 07:58 WBC RBC Hgb Hct MCV MCH MCHC RDW Plt Count Sodium Potassium Chloride Carbon Dioxide Anion Gap BUN Creatinine Estimated GFR BUN/Creatinine Ratio Glucose POC Glucose 307 H 238 H 246 H Calcium 01/12/06/19 12/07/19 11:33 19:27 07:28 WBC 8.7 RBC 2.98 L Hgb 8.2 L Hct 25.3 L MCV 85 MCH 28 MCHC 32 RDW 16.1 H Plt Count 188 Sodium Potassium Chloride Carbon Dioxide Anion Gap BUN Creatinine Estimated GFR BUN/Creatinine Ratio Glucose POC Glucose 103 344 H Calcium 12/07/19 12/07/19 12/07/19 07:28 07:36 12:07 WBC RBC Hgb Hct MCV MCH MCHC RDW Plt Count Sodium 142 Potassium 4.4 Chloride 107.4 H Carbon Dioxide 22 Anion Gap 17 BUN 48 H Creatinine 2.7 H Estimated GFR 22 BUN/Creatinine Ratio 18 Glucose 215 H POC Glucose 233 H 305 H Calcium 8.1 L Assessment and Plan CVA: Continue secondary stroke prevention. Discussed with patient prognosis as well as secondary stroke prevention protocols. Monitor for neurologic decline, shoulder-hand syndrome, bowel or bladder issues, evidence of stroke recurrence, worsening of dysphagia [place] toxicity: [place] d/c'd. Avoid lithium due to renal fxn. Hypertension: Continue medications and monitor blood pressure and adjust as needed for normotension. Lasix added per nephrology Diabetes: Continue carb controlled diet, sliding scale insulin and monitor/adjust medications as needed. Lantus restarted Bipolar/PTSD: Continue medications. Supportive care and adjust as needed. Check lithium and Depakote levels as needed. Psychiatry consult for medication modification. Spoke with the psychiatrist's office. They state they only prescribed the lithium and did not know anything about the Abilify, depakote, or Seroquel. Also that they last saw her about 6mos ago and would not have continued any scripts more than 1 month without seeing her. She needs to see a geriatric psychiatrist for follow up. Will attempt to make appt with Dr Fatoumata Orlando at discharge. CKD: Avoid nephrotoxic medications. Monitor renal function. Renal diet. Facial swelling appears c/w nephrotic syndrome Hyperkalemia 5.7 > Kayexelate given x3 > 5.1. Nephrology consult . resolved, monitor Constipation: Continue medications and prn medications. Monitor for bowel movements and adjust as needed. Nausea/vomiting: Zofran as ordered. Patient relates this more so to anxiety. Improved Cardiomyopathy and heart failure: Monitor for any signs of worsening cardiac function or chest pain. Cardiology consulted and rec medication changes. F/U as outpatient. Dysphagia: Advanced to regular diet by STAVE AND BOLT EQUALIZER. Monitor for Aspiration during meals. Dysarthria: Continue STAVE [employer] BOLT EQUALIZER for improvement in functional ability to speak and breath control. Improved ADL dysfunction: OT will work on improving ability to perform ADLs (including assistive devices) to increase independence and decrease caregiver burden and improve functional transfers and mobility training. Difficulty walking: PT will work on gait training and proper use of assistive devices and advance as appropriate to use of stairs and outside ambulation on uneven surfaces. Unsteadiness on feet: PT will work on improving static and dynamic sitting and standing balance as well as proper use of assistive devices to decrease risk of falls. Abnormality of gait: PT will work to improve safety and efficiency of gait through neuromotor training and gait training along with instruction on proper use of assistive devices. Muscle weakness: PT & OT will work on strengthening exercises to improve functional strength including mixture of closed and open kinetic chain exercises. Fatigue: PT & OT will work on improving endurance through aerobic exercises and therapeutic activity while monitoring patients tolerance for activity and vital signs as needed. DVT ppx: Heparin TID Pain: Continue physical modalities in therapy and pain medications as needed to achieve functional pain control. Sleep: Monitor and address as needed. Bowel: Monitor and address as needed. Appetite: Monitor and address as needed. Discharge planning: Pending therapy progress and care plan meeting. Will continu e discussion with therapy team, SW, patient and family. Look to d/c 12/08/2019 Restrictions/ Precautions: Falls, aspiration, possible seizure WB status: FWB Functional Hx: ADLs: Independent Cognition: Independent Mobility: No AD Barriers to Discharge: Decreased mobility and ability to perform self care, balance deficits, weakness Estimated Length of Stay: 1421 days Discharge Destination: Home with fpc
--- NOTE | 2019-12-07 16:55 | Progress Note ---
Assessment and Plan 1. 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 Renal function is around her baseline. Monitor renal function. Renal prognosis is guarded. Avoid nephrotoxic agents. Meds dosage based on GFR. 2. FEN: Hyperkalemia, improved. Low K diet. Metabolic acidosis, monitor. Monitor lytes. 3. Nephrotic range proteinuria: Likely from Diabetic nephropathy. Will try Lisinopril due to significant potential benefit. Need further workup as outpatient. 4. CVA. 5. DM type 2. 6. HTN: Lisinopril added. Monitor BP. 7. Normochromic anemia: POA. Examination: General appearance: well-developed, appears stated age, not in distress HEENT: ATNC, CAITY, mucous membranes moist, hearing intact, vision intact Neck: neck supple Respiratory: Clear to Ascultation Heart: regular, S1S2, no murmurs Gastrointestinal: soft, normoactive bowel sounds, not tender, not distended Integumentary: no rash, warm and dry Neurologic: no asterixis, alert and oriented x3, aphasia, L sided facial droop Ext: no edema Psychiatric: cooperative Subjective Date of service: 12/07/19 Principal diagnosis: CVA Interval history: Patient was seen and examined at the bedside. Doing ok. Objective - Vital Signs Vital signs: Vital Signs - 12hr 12/07/19 12/07/19 06:40 07:24 Temperature 97.8 F Pulse Rate 64 64 Respiratory 18 Rate Blood Pressure 159/74 Blood Pressure 148/66 [Left] O2 Sat by Pulse 98 Oximetry - Lab 12/07/19 07:28 12/07/19 07:28 Most recent lab results Calcium 8.1 mg/dL (8.4-10.2) L 12/07/19 07:28 Medications & Allergies - Medications Allergies/Adverse Reactions: Allergies lisinopril Allergy (Verified 07/27/19 09:29) Unknown promethazine HCl [From Phenergan] Allergy (Verified 11/29/15 15:40) Shortness of Breath Home Medications: Home Medications Medication Instructions Recorded Confirmed Last Taken Type ARIPiprazole [Abilify TAB] 5 mg PO DAILY #30 tab 10/29/19 11/20/19 Unknown Rx Divalproex ER [Depakote ER] 500 mg PO QHS #30 tab 10/29/19 11/20/19 Unknown Rx Furosemide [Lasix TAB] 40 mg PO QDAY #30 tablet 10/29/19 11/20/19 Unknown Rx Insulin Detemir [Levemir VIAL] 25 unit SQ QHS #1 vial 10/29/19 11/20/19 Unknown Rx Lispro Insulin [HumaLOG] 1 dose SUB-Q ACHS PRN #1000 units 10/29/19 11/20/19 Unknown Rx [place] Carbonate 300 mg PO BID #60 tab 10/29/19 11/20/19 Unknown Rx Pantoprazole [Protonix TAB] 40 mg PO QDAY #30 tablet 10/29/19 11/20/19 Unknown Rx Potassium Chloride [K-Dur] 20 meq PO QDAY #30 tablet 10/29/19 11/20/19 Unknown Rx QUEtiapine [SEROquel] 100 mg PO QHS #30 tablet 10/29/19 11/20/19 Unknown Rx amLODIPine 10 mg PO QDAY #30 tablet 10/29/19 11/20/19 Unknown Rx carvediloL [Coreg] 6.25 mg PO BID #60 tablet 10/29/19 11/20/19 Unknown Rx Aspirin 325 mg PO QDAY #30 tablet 11/10/19 11/20/19 Unknown Rx AtorvaSTATin [Lipitor] 40 mg PO QHS #30 tablet 11/10/19 11/20/19 Unknown Rx Active Medications: Generic Name Dose Route Start Last Admin Trade Name Freq PRN Reason Stop Dose Admin Acetaminophen 650 mg 11/14/19 17:34 12/04/19 21:27 Tylenol PO 650 mg Q6H PRN Administration Non Cardiac Pain or Temp>100.5 Acetaminophen/Hydrocodone Bitart 0.5 each 11/14/19 17:48 11/14/19 23:59 [place] 5/325 PO 0.5 each Q8H PRN Administration Pain, Moderate (4-6) Amlodipine Besylate 10 mg 11/15/19 08:00 12/07/19 10:46 Amlodipine PO 10 mg QDAY HARVEY Administration Aripiprazole 5 mg 11/15/19 08:00 12/07/19 10:25 Aripiprazole PO 5 mg QDAY HARVEY Administration Aspirin 325 mg 11/15/19 08:00 12/07/19 10:47 Ecotrin PO 325 mg QDAY HARVEY Administration Atorvastatin Calcium 40 mg 11/14/19 21:00 12/06/19 21:57 Lipitor PO 40 mg QHS HARVEY Administration Bisacodyl 5 mg 11/15/19 08:00 12/07/19 10:40 Dulcolax PO 5 mg QDAY HARVEY Administration Bisacodyl 10 mg 11/14/19 17:34 11/18/19 20:36 Dulcolax [place] 10 mg QDAY PRN Administration Constipation Carvedilol 25 mg 11/26/19 22:00 12/07/19 10:25 Coreg PO 25 mg BID HARVEY Administration Dextrose 50 ml 11/14/19 17:22 11/27/19 08:21 D50w (25gm) Syringe IV 50 ml Q30MIN PRN Administration Hypoglycemia Protocol Diphenhydramine HCl 25 mg 12/03/19 08:28 12/03/19 09:24 Benadryl PO 25 mg Q8H PRN Administration Itching Divalproex Sodium 500 mg 12/07/19 21:00 Depakote Er PO QHS [facility] Furosemide 40 mg 12/03/19 15:00 12/07/19 06:00 Lasix PO 40 mg DAILY@0600 [facility] Administration Heparin Sodium (Porcine) 5,000 unit 11/14/19 22:00 12/07/19 05:58 Heparin SUB-Q 5,000 unit Q8HR [facility] Administration Hydralazine HCl 10 mg 11/14/19 17:34 12/04/19 00:16 Apresoline IV 10 mg Q4HR PRN Administration Hypertension Insulin Glargine 5 units 12/07/19 21:00 Lantus SUB-Q QHS [facility] Insulin Human Lispro 0 unit 11/14/19 22:00 12/06/19 23:09 Humalog SUB-Q Not Given [facility] Protocol Isosorbide Mononitrate 90 mg 11/27/19 08:00 12/07/19 10:30 Imdur PO 90 mg QDAY [facility] Administration Lisinopril 10 mg 12/07/19 17:00 Zestril PO QDAY [facility] Ondansetron HCl 4 mg 11/14/19 17:34 11/21/19 10:56 Zofran Odt PO 4 mg Q8H PRN Administration Nausea And Vomiting Pantoprazole Sodium 40 mg 11/15/19 08:00 12/07/19 10:48 Protonix PO 40 mg QDAY HARVEY Administration Polyethylene Glycol 17 gm 11/14/19 17:34 Miralax 3350 PO QDAY PRN Constipation Quetiapine Fumarate 100 mg 11/14/19 21:00 12/06/19 21:57 Seroquel PO 100 mg QHS HARVEY Administration
[2019-12-07] MEDS ORDERED: LISINOPRIL 10 MG TAB PO SCH (17:00)
[2019-12-07] MEDS: QUEtiapine 100 MG TAB PO SCH (21:00)
[2019-12-07] MEDS ORDERED: DIVALPROEX ER 500 MG TAB PO SCH (21:00)
[2019-12-07] MEDS ORDERED: INSULIN GLARGINE 100 UNITS/ML SUB-Q SCH (21:00)
[2019-12-08] MEDS: INSULIN LISPRO 100 UNIT/ML SUB-Q SCH ×4 (04:38→12:25)
[2019-12-08] MEDS: FUROSEMIDE 40 MG TAB PO SCH (06:00)
[2019-12-08] MEDS: HEPARIN 5,000 UNIT/1 ML VIAL SUB-Q SCH ×2 (06:00→14:42)
[2019-12-08] MEDS: carvediloL 25 MG TAB PO SCH (09:05)
[2019-12-08] MEDS: PANTOPRAZOLE 40 MG TAB PO SCH (09:05)
[2019-12-08] MEDS: amLODIPine 10 MG TAB PO SCH (09:05)
[2019-12-08] MEDS: ARIPiprazole 5 MG TAB PO SCH (09:05)
[2019-12-08] MEDS: ASPIRIN EC 325 MG TAB PO SCH (09:05)
--- NOTE | 2019-12-08 09:31 | Progress Note ---
Assessment and Plan 1. 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 Renal function is around her baseline. Monitor renal function. Renal prognosis is guarded. Avoid nephrotoxic agents. Meds dosage based on GFR. 2. FEN: Hyperkalemia, improved. Low K diet. Metabolic acidosis, monitor. Monitor lytes. 3. Nephrotic range proteinuria: Likely from Diabetic nephropathy. Started on Lisinopril 12/07. Pt got the first dose today AM. Need further workup as outpatient. 4. CVA. 5. DM type 2. 6. HTN: Lisinopril added. Monitor BP. 7. Normochromic anemia: POA. Examination: General appearance: well-developed, appears stated age, not in distress HEENT: ATNC, eyelid edema & facial puffiness noted, CAITY, mucous membranes moist, hearing intact, vision intact Neck: neck supple Respiratory: Clear to Ascultation Heart: regular, S1S2, no murmurs Gastrointestinal: soft, normoactive bowel sounds, not tender, not distended Integumentary: no rash, warm and dry Neurologic: no asterixis, alert and oriented x3, aphasia, L sided LMN type facial droop Ext: no edema Psychiatric: cooperative Subjective Date of service: 12/08/19 Principal diagnosis: CVA Interval history: Patient was seen and examined at the bedside. C/o facial puffiness. Objective - Vital Signs Vital signs: Vital Signs - 12hr 12/07/19 12/07/19 12/08/19 22:00 22:29 07:52 Temperature 98.1 F Pulse Rate 68 69 Respiratory 18 18 Rate Blood Pressure 145/67 167/63 O2 Sat by Pulse 96 Oximetry - Lab 12/07/19 07:28 12/08/19 05:19 Most recent lab results Calcium 8.0 mg/dL (8.4-10.2) L 12/08/19 05:19 Medications & Allergies - Medications Allergies/Adverse Reactions: Allergies lisinopril Allergy (Verified 07/27/19 09:29) Unknown promethazine HCl [From Phenergan] Allergy (Verified 11/29/15 15:40) Shortness of Breath Home Medications: Home Medications Medication Instructions Recorded Confirmed Last Taken Type ARIPiprazole [Abilify TAB] 5 mg PO DAILY #30 tab 10/29/19 11/20/19 Unknown Rx Divalproex ER [Depakote ER] 500 mg PO QHS #30 tab 10/29/19 11/20/19 Unknown Rx Furosemide [Lasix TAB] 40 mg PO QDAY #30 tablet 10/29/19 11/20/19 Unknown Rx Insulin Detemir [Levemir VIAL] 25 unit SQ QHS #1 vial 10/29/19 11/20/19 Unknown Rx Lispro Insulin [HumaLOG] 1 dose SUB-Q ACHS PRN #1000 units 10/29/19 11/20/19 Unknown Rx [place] Carbonate 300 mg PO BID #60 tab 10/29/19 11/20/19 Unknown Rx Pantoprazole [Protonix TAB] 40 mg PO QDAY #30 tablet 10/29/19 11/20/19 Unknown Rx Potassium Chloride [K-Dur] 20 meq PO QDAY #30 tablet 10/29/19 11/20/19 Unknown Rx QUEtiapine [SEROquel] 100 mg PO QHS #30 tablet 10/29/19 11/20/19 Unknown Rx amLODIPine 10 mg PO QDAY #30 tablet 10/29/19 11/20/19 Unknown Rx carvediloL [Coreg] 6.25 mg PO BID #60 tablet 10/29/19 11/20/19 Unknown Rx Aspirin 325 mg PO QDAY #30 tablet 11/10/19 11/20/19 Unknown Rx AtorvaSTATin [Lipitor] 40 mg PO QHS #30 tablet 11/10/19 11/20/19 Unknown Rx Active Medications: Generic Name Dose Route Start Last Admin Trade Name Freq PRN Reason Stop Dose Admin Acetaminophen 650 mg 11/14/19 17:34 12/04/19 21:27 Tylenol PO 650 mg Q6H PRN Administration Non Cardiac Pain or Temp>100.5 Acetaminophen/Hydrocodone Bitart 0.5 each 11/14/19 17:48 11/14/19 23:59 [place] 5/325 PO 0.5 each Q8H PRN Administration Pain, Moderate (4-6) Amlodipine Besylate 10 mg 11/15/19 08:00 12/08/19 09:05 Amlodipine PO 10 mg QDAY HARVEY Administration Aripiprazole 5 mg 11/15/19 08:00 12/08/19 09:05 Aripiprazole PO 5 mg QDAY HARVEY Administration Aspirin 325 mg 11/15/19 08:00 12/08/19 09:05 Ecotrin PO 325 mg QDAY HARVEY Administration Atorvastatin Calcium 40 mg 11/14/19 21:00 12/07/19 21:00 Lipitor PO 40 mg QHS HARVEY Administration Bisacodyl 5 mg 11/15/19 08:00 12/08/19 09:05 Dulcolax PO 5 mg QDAY HARVEY Administration Bisacodyl 10 mg 11/14/19 17:34 11/18/19 20:36 Dulcolax [place] 10 mg QDAY PRN Administration Constipation Carvedilol 25 mg 11/26/19 22:00 12/08/19 09:05 Coreg PO 25 mg BID HARVEY Administration Dextrose 50 ml 11/14/19 17:22 11/27/19 08:21 D50w (25gm) Syringe IV 50 ml Q30MIN PRN Administration Hypoglycemia Protocol Diphenhydramine HCl 25 mg 12/03/19 08:28 12/03/19 09:24 Benadryl PO 25 mg Q8H PRN Administration Itching Divalproex Sodium 500 mg 12/07/19 21:00 12/07/19 21:00 Depakote Er PO 500 mg QHS HARVEY Administration Furosemide 40 mg 12/03/19 15:00 12/08/19 06:00 Lasix PO 40 mg DAILY@0600 HARVEY Administration Heparin Sodium (Porcine) 5,000 unit 11/14/19 22:00 12/08/19 06:00 Heparin SUB-Q 5,000 unit Q8HR HARVEY Administration Hydralazine HCl 10 mg 11/14/19 17:34 12/04/19 00:16 Apresoline IV 10 mg Q4HR PRN Administration Hypertension Insulin Glargine 5 units 12/07/19 21:00 12/07/19 22:31 Lantus SUB-Q 5 units QHS HARVEY Administration Insulin Human Lispro 0 unit 11/14/19 22:00 12/08/19 09:06 Humalog SUB-Q Not Given ACHS [facility] Protocol Isosorbide Mononitrate 90 mg 11/27/19 08:00 12/08/19 09:06 Imdur PO 90 mg QDAY HARVEY Administration Lisinopril 10 mg 12/07/19 17:00 12/08/19 09:06 Zestril PO 10 mg QDAY HARVEY Administration Ondansetron HCl 4 mg 11/14/19 17:34 11/21/19 10:56 Zofran Odt PO 4 mg Q8H PRN Administration Nausea And Vomiting Pantoprazole Sodium 40 mg 11/15/19 08:00 12/08/19 09:05 Protonix PO 40 mg QDAY HARVEY Administration Polyethylene Glycol 17 gm 11/14/19 17:34 Miralax 3350 PO QDAY PRN Constipation Quetiapine Fumarate 100 mg 11/14/19 21:00 12/07/19 21:00 Seroquel PO 100 mg QHS HARVEY Administration
--- NOTE | 2019-12-08 14:06 | Discharge Summary ---
Providers - Providers Date of Admission: 11/14/19 18:23 Date of discharge: 12/08/19 Attending physician: MICHELLE LEVY III, MD 11/14/19 17:22 Occupational Therapy Evaluate and Treat [CONS] Routine Comment: Reason For Exam: ADL dysfunction Physical Therapy Evaluation and Treat [CONS] Routine Comment: Reason For Exam: Mobility Dysfunction 11/14/19 17:30 Consult to Case Management [CONS] Routine Services Needed at Discharge: Home Health Services Notified:: cm notified 11/14/19 17:34 Speech Therapy Evaluation and Treat [CONS] Routine Reason For Exam: CVA 11/29/19 15:10 Consult to Physician [CONS] Routine Comment: On Li, Depakote, Seroquel, Abilify Consulting Provider: REGI BABCOCK Physician Instructions: Reason For Exam: Medication changes, bipolar, CKD 4 was on Li 11/29/19 15:13 Consult to Physician [CONS] Routine Comment: Consulting Provider: DARRON GRAY Physician Instructions: Concern over restarting Li for bipolar w CKD 4 Reason For Exam: CKD 4 now w Hyperkalemia 12/01/19 13:09 Consult to Dietitian/Nutrition [CONS] Routine Physician Instructions: also diabetic Reason For Exam: changed to renal diet, poor oral intake at times Reason for Consult: Diet education Primary care physician: NOTCHED BLADE LOADER Hospitalization Reason for admission: CVA Condition: Good Pertinent studies: KUB dated 11/15/2019: Moderate colonic stool KUB dated 11/21/2019: Mild fecal retention EKG dated 11/27/2019: Sinus rhythm nonspecific T-wave abnormalities Hospital course: 64-year-old female who was a resident at a [place] [facility] developed left-sided facial droop and slurred speech accompanied by paresthesias of the left side. Subsequent MRI head showed a small subacute infarct in the putamen and hill radiata on the right-hand side without hemorrhagic transformation. Patient was evaluated by therapy and deemed to be appropriate for acute inpatient rehabilitation. Medication levels including Depakote and lithium were checked. 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 She has a history of seizures in her 20s but has not had any in years. She was evaluated by neurology, cardiology, nephrology. Nephrology noted she had acute renal injury superimposed on CKD stage IV. Baseline creatinine is approximately 3. Cardiology was also consulted and provided more history. [facility] lives [facility] [place] [facility] and has a history of bipolar disorder and posttraumatic stress disorder. Patient had atypical chest pain and was recommended to have further workup as an outpatient. CVA: Continue secondary stroke prevention. Discussed with patient prognosis as well as secondary stroke prevention protocols. Patient had good recovery of function in the left side of her body. Still has some loss of balance occasionally. Will discharge home on a rolling walker. Dysphagia has improved significantly. Diet was advanced to regular, no issues with aspiration noted. Dysarthria still continues but is much improved as well. Would benefit from further therapy to improve dysarthria as well as cognition. She will participate well with PT, OT, and CLOTH EXAMINER. At time of discharge she was supervision for dressing and transfers, modified independent for feeding, and set up for grooming. She was ambulating approximate 300 feet with a rolling walker with occasional contact-guard assist due to loss of balance and poor coordination of the right lower extremity during swing phase. Safety awareness remains a concern and speech therapy was working on improving this as well as cognition and dysarthria. Diet was advanced to regular consistencies and thin liquids. She remains on a renal diet. Bipolar/PTSD: Continue Depakote, Seroquel and Abilify. Spoke with the psychiatrist's office. They state they only prescribed the lithium and did not know anything about the Abilify, depakote, or Seroquel. Also that they last saw her about 6mos ago and would not have continued any scripts more than 1 month without seeing her. She needs to see a geriatric psychiatrist for follow up. Will attempt to make appt with Dr Fatoumata Olmos at discharge. [place] toxicity: [place] level was checked on admission to the acute care hospital and was within normal limits. We checked it again several days into her admission on rehabilitation and she was found to be twice the normal limit. [place] was DC'd, IV fluids were given with resolution of the lithium level. Avoid lithium due to renal function. Cardiomyopathy and heart failure. Patient developed atypical chest pain. EKG as noted above showed normal sinus rhythm with some abnormal T waves. Cardiology was consulted and increased Imdur. They're requested outpatient follow-up with possible further intervention if needed at their discretion. Hypertension: Medications were adjusted for better blood pressure control. After nephrology was consulted we requested their assistance in further managing blood pressure as her kidneys are likely great part of the problem. Lasix was added along with lisinopril. Patient does have the subacromial listed as an allergy. Discussed with the patient her specific reaction (no reaction noted on admission) and the patient stated that she only had a nagging cough when she previously took the lisinopril. She does not recall the dose. Based on risk- benefit the autoglazier started the lisinopril and she will be monitored closely for any possible reactions to this medication. She is on a low dose and I did mention to her that if she developed a consistent nonproductive cough that she needs to speak with autoglazier. Diabetes: Continue carb controlled diet, sliding scale insulin and Lantus at night. We restarted the Lantus at a low dose because the patient's verbal eating habits resulted in a significantly low blood glucose. Patient does not believe that she has a glucometer at home, one has been ordered for discharge. She will need to check her blood sugar before meals and at bedtime, record these values and share the values with her PCP on follow-up for further adjustment of her insulin. CKD stage IV: Avoid nephrotoxic medications. Monitor renal function. Renal diet. Facial swelling appears c/w nephrotic syndrome. Will need close follow up with autoglazier. Patient developed hyperkalemia during her stay. Hyperkalemia 5.7 > Kayexelate given x3 > 5.1 resolved. Constipation: Continue medications. Monitor for bowel movements and adjust as needed. Early on during the stay the patient developed nausea and vomiting which she attributed mostly to anxiety. There was evidence on 2 separate KUBs of fair amount of stool burden. We intervened with several suppositories and enemas with success and have not seen any nausea or vomiting over the last week and a half. Mild right shoulder pain after reaching through bed for remote. No apparent injury, full ROM. Mild strain injury, NEG Dawson test. Conservative treatment, escalate diagnostics if worsens. Patient had TB test placed, and read as negative. Disposition: [id number] HOME UNDER HOME [facility] Time spent for discharge: >30mins Core Measure Documentation - Palliative Care Palliative Care/ Comfort Measures: Not Applicable - Core Measures Any of the following diagnoses?: stroke - Stroke Discharge Requirements Statin for LDL = or >70 mg/dl on DC: Yes Anticoag for atrial fib/atrial flutter: Not Applicable Antithrombotic for ischemic stroke: Yes Exam - Physical Exam Narrative exam: MUSCULOSKELETAL SPECIALTY EXAM CONSTITUTIONAL: Well developed, well nourished, appropriately groomed, thin. RIGHT hand dominant. RESPIRATORY: Clear to auscultation bilaterally, no increased work of breathing CARDIOVASCULAR: Regular Rate/ Rhythm, slight swelling in face and hands, otherwise, no edema or tenderness in BUE or BLE. All extremities warm. GI: + bowel sounds, soft, NTTP, nondistended. INTEGUMENTARY: Otherwise, Normal, no lesion, rash, masses or bruising noted in extremities. MUSCULOSKELETAL: BUE and BLE normal without defect, crepitus, subluxation, effusion, arthritic changes or TTP. NEG Dawson on RUE. Mild discomfort but no overt TTP. No evidence of injury to RUE, full ROM without crepitus. R 5/5 L 4+/5 ROM within functional limits Tone normal NEURO: CN V : Facial sensation is impaired on left CN VII : Left facial droop (upper and lower) Sensation intact in all extremities without extinction but is altered on the left. Coordination impaired on left with dysmetria of the LUE, normal on right. No tremor noted in 4 extremities. Naming and repetition intact. Follows 2 step commands. Aphasia not appreciated Dysarthria present Dysphagia not appreciatted Neglect not appreciated POSTURE and GAIT: Sitting posture good. Sitting balance appears reasonable. Gait ataxic but improving, some occasional LOB. Psych: Affect appears euthymic. Insight appears intact, but does have some decreased safety awareness but this is improving - Constitutional Vitals: Temp Pulse Resp BP Pulse Ox 36.7 C 69 18 167/63 96 12/08/19 07:52 12/08/19 07:52 12/08/19 07:52 12/08/19 07:52 12/08/19 07:52 Plan Activity: advance as tolerated, fall precautions Diet: renal, low carbohydrate Special Instructions: record daily BP diary, record blood sugar diary, physical therapy, occupational therapy, home health RN Durable Medical Equipment Needed Upon Discharge: Walker-Rolling Plan of Treatment: Patient uses a follow-up with PCP, cardiology, geriatric psychiatry, neurology, nephrology. Renal function will need to be monitored closely along with blood pressure and diabetes control. Psychiatric medications may need to be adjusted, due to renal function would avoid restarting the lithium. She has been stable on her current dose which was possibly started by her PCP. Follow up with: PRIMARY CARE, [Primary Care Provider] - 7 Days DARRON GRAY MD [Staff Physician] - 7 Days KRISTEN TIWARI MD [Staff Physician] - 14 Days FATOUMATA OLMOS MD [Staff Physician] - 14 Days TORI ANDERSON MD [Staff Physician] - 14 Days Prescriptions: Divalproex ER [Depakote ER] 500 mg PO QHS #30 tablet Insulin Glargine,Hum.rec.anlog [Lantus Solostar] 5 unit SQ QHS 30 Days insuln.pen AtorvaSTATin [Lipitor] 40 mg PO QHS #30 tablet QUEtiapine [SEROquel] 100 mg PO QHS #30 tablet amLODIPine 10 mg PO QDAY #30 tablet ARIPiprazole 5 mg PO QDAY #30 tablet Aspirin EC 325 mg PO QDAY #30 tablet carvediloL [Coreg] 25 mg PO BID #60 tablet ISOSORBIDE MONOnitrate [Imdur ER] 90 mg PO QDAY #90 tablet Insulin Lispro [Insulin Lispro Kwikpen U-100] See Protocol SQ QAC 30 Days insuln.pen Furosemide [Lasix TAB] 40 mg PO DAILY@0600 #30 tablet Pantoprazole [Protonix TAB] 40 mg PO QDAY #30 tablet Bisacodyl [Women's Gentle Laxative] 5 mg PO QDAY 30 Days #30 tablet. lisinopriL [Zestril TAB] 10 mg PO QDAY #30 tablet
[2019-12-08 14:50] VITALS: BP 122/56
== END 2019-12-08 16:05 | disposition home health service (06) | DRG 65 ==
LOC: UNDOADMIN 16:06 → 3A 16:06 → 3B 18:23
PROVIDERS: ADMIT Physical Medicine & Rehabilitation; ATTEND Physical Medicine & Rehabilitation
DX: I63.9 Cerebral infarction, unspecified (principal); I69.392 Facial weakness following cerebral infarction; I42.9 Cardiomyopathy, unspecified; N18.4 Chronic kidney disease, stage 4 (severe); I13.0 Hypertensive heart and chronic kidney disease with heart failure and stage 1 through stage 4 chronic kidney disease, or unspecified chronic kidney disease; E87.2 Acidosis; E87.5 Hyperkalemia; G40.909 Epilepsy, unspecified, not intractable, without status epilepticus; I25.10 Atherosclerotic heart disease of native coronary artery without angina pectoris; E11.22 Type 2 diabetes mellitus with diabetic chronic kidney disease; F31.9 Bipolar disorder, unspecified; K21.9 Gastro-esophageal reflux disease without esophagitis; F41.9 Anxiety disorder, unspecified; I50.9 Heart failure, unspecified; E11.21 Type 2 diabetes mellitus with diabetic nephropathy; D64.9 Anemia, unspecified; F43.10 Post-traumatic stress disorder, unspecified; K59.00 Constipation, unspecified; R13.10 Dysphagia, unspecified; R47.1 Dysarthria and anarthria; R26.9 Unspecified abnormalities of gait and mobility; M62.81 Muscle weakness (generalized); R53.83 Other fatigue; R26.81 Unsteadiness on feet; Z90.49 Acquired absence of other specified parts of digestive tract; Z98.51 Tubal ligation status; Z79.899 Other long term (current) drug therapy; Z79.4 Long term (current) use of insulin; Z79.82 Long term (current) use of aspirin; Z82.3 Family history of stroke
CPT/HCPCS: 36415; 74018; 80048; 80053; 80061; 80164; 80178; 82550; 82553; 82962; 84132; 84484; 85025; 85027; 93005; 93010; G0378; G0515; A9270-GY; J0360; J1644; J1815; J2405; J7030; J7512; Q0162